=== PATIENT | female | born 1950 | race Two or more races ===

== ENCOUNTER → 2019-12-28 09:20 | Outpatient (BNVA) | payer MEDICARE, SELFPAY | PROVIDERS: Family Provider Family Medicine; PCP Family Medicine; Visit Provider Nurse Practitioner | DX: F31.4 Bipolar disorder, current episode depressed, severe, without psychotic features (principal); R53.82 Chronic fatigue, unspecified | CPT/HCPCS: 80061; 83036; 99213 ==

== ENCOUNTER 2020-02-22 17:47 | Emergency (ER) | payer MEDICARE, SELFPAY ==
[2020-02-22 18:19] VITALS: BP 176/99; PULSE 67; RESP 16; TEMP 37; O2SAT 94; BMI 22.8
[2020-02-22 18:31] VITALS: BP 185/112; PULSE 69; RESP 17; O2SAT 95
--- NOTE | 2020-02-22 19:10 | CTR_ITS ---
PROCEDURE INFORMATION: Exam: CT Head Without Contrast Exam date and time: 02/22/2020 7:25 PM Age: 69 years old Clinical indication: Pain; Dizziness and other: N/v; Headache; Additional info: Symptoms of acute stroke TECHNIQUE: Imaging protocol: Computed tomography of the head without contrast. Radiation optimization: All CT scans at this facility use at least one of these dose optimization techniques: automated exposure control; mA and/or kV adjustment per patient size (includes targeted exams where dose is matched to clinical indication); or iterative reconstruction. COMPARISON: CR Skull Limited [id number] 01/01/2019 1:58 PM RADIATION DOSE METRICS: Total DLP: 839.42 mGy-cm FINDINGS: Brain: Normal. No hemorrhage. Unremarkable white matter. No mass effect. Ventricles: Normal. No ventriculomegaly. Bones/joints: Unremarkable. No acute fracture. Sinuses: Visualized sinuses are unremarkable. No fluid levels. Mastoid air cells: Visualized mastoid air cells are well aerated. Soft tissues: Unremarkable. CT/CT head wo con* [id number] IMPRESSION: 1. No acute intracranial abnormality. 2. Aspects score 10 Radiation Dose CTDIVOL = (mGy): DLP = 839.42 (mGy-cm)
--- NOTE | 2020-02-22 19:10 | ECG_ITS ---
Measurements Intervals [place] Rate: 63 P: 66 [place]: 188 QRS: 40 QRSD: 113 T: 57 QT: 436 QTc: 446 SINUS RHYTHM INCOMPLETE RIGHT BUNDLE BRANCH BLOCK [90+ ms QRS DURATION, TERMINAL R IN V1/V2, 40+ ms S IN I/aVL/V4/V5/V6] Compared to ECG 04/16/2019 08:42:24 No significant changes Electronically Signed On 02-23-2020 16:19:39 CDT by Harmeet Schulte M.D. [id number]
--- NOTE | 2020-02-22 19:10 | XRR_ITS ---
PROCEDURE INFORMATION: Exam: XR Chest, 1 View Exam date and time: 02/22/2020 7:42 PM Age: 69 years old Clinical indication: Pain; Other: Dizziness, n/v; Other: GUSTAFSON; Prior surgery; Patient HX: H/o breast CA; Additional info: Dizziness, GUSTAFSON, & n/v since last night TECHNIQUE: Imaging protocol: XR of the chest Views: 1 view. COMPARISON: CR Chest 2 views* [id number] 04/20/2019 10:53 PM FINDINGS: Lungs: Evidence of antecedent granulomatous disease. No evidence for active interstitial or alveolar airspace disease. Pleural space: Unremarkable. No pleural effusion. No pneumothorax. Heart/Mediastinum: Mild cardiomegaly. Bones/joints: Age-appropriate degenerative disease. XR/XR chest 1V portable [id number] IMPRESSION: Nonacute.
[2020-02-22] MEDS: ondansetron 2 mg/ML SDV 2 mL 4 MG IVP (19:22)
[2020-02-22] MEDS: fentaNYL 50 mcg/mL INJ 2mL 100 MCG IVP (19:22)
[2020-02-22 19:29] LABS: INR 0.92 (0.8-1.2); Partial Thromboplastin Time 29.4 SECONDS (23.9-36.7)
[2020-02-22 19:33] LABS: Basophils % 0.3 %; Eosinophils # 0.1 10^3/uL (0.0-0.8); Eosinophils % 2.4 %; Hematocrit 39.5 % (37.0-47.0); Hemoglobin 12.7 g/dL (11.5-15.3); Lymphocytes # 1.5 10^3/uL (0.8-4.8); Lymphocytes % 39.7 %; Mean Corpuscular HGB Conc 32.2 g/dL (30.0-36.0); Mean Corpuscular Hemoglobin 29.5 pg (28.0-34.0); Mean Corpuscular Volume 91.6 fL (81-99); Mean Platelet Volume 9.1 fL (7.4-10.4); Monocytes # 0.3 10^3/uL (0.2-0.9); Monocytes % 8.2 %; Neutrophils # 1.9 10^3/uL (1.8-7.7); Neutrophils % 49.4 %; Nucleated Red Blood Cells % 0 %; Platelet Count 233 10^3/cmm (130-400); Red Blood Count 4.31 10^6/uL (4.1-5.3); Red Cell Distribution Width 11.7 % (12.1-15.1); White Blood Count 3.8 10^3/uL (4.0-10.0)
[2020-02-22 19:34] LABS: Alanine Aminotransferase 15 U/L (0-33); Albumin Level 4.5 g/dL (3.5-5.2); Alkaline Phosphatase 62 IU/L (35-105); Anion Gap 13.8 (5-19); Aspartate Amino Transferase 21 U/L (0-32); Blood Urea Nitrogen 10 mg/dL (8-23); Calcium 9.6 mg/dL (8.5-10.5); Carbon Dioxide 32 mmol/L (22-29); Chloride 97 mmol/L (98-107); Globulin 2.9 g/dL (1.3-4.6); Glomerular Filtration Rate 70.9 mL/min (90-130); Glucose 106 mg/dL (65-115); Osmolality Calculated 284 mOsm/kg (285-295); Potassium 3.8 mmol/L (3.5-5.1); Sodium 139 mmol/L (136-145); Total Bilirubin 0.3 mg/dL (0.15-1.2); Total Protein 7.4 g/dL (6.6-8.7)
[2020-02-22 21:22] VITALS: BP 167/96; PULSE 77; RESP 18; O2SAT 97
[2020-02-22 22:06] LABS: Add Urine Microscopic? YES; Bilirubin Urine Neg (NEGATIVE); Blood Urine 2+ (Negative); Glucose Urine UA Norm (Normal); Ketones Urine Negative (Negative); Leukocyte Esterase Urine Negative (Negative); Nitrate Urine Negative (Negative); Protein Urine Neg (Negative); Specific Gravity, Urine 1.015 (1.005-1.030); Urine Appearance Clear (CLEAR); Urine Color Yellow (Yellow); Urobilinogen Urine Norm (Negative); pH Urine 6 (5-7)
[2020-02-22] MEDS: hyDRALAzine 20 mg/mL INJ 1 mL 10 MG IVP (22:08)
[2020-02-22 22:10] VITALS: BP 175/87; PULSE 78; RESP 18; O2SAT 97
[2020-02-22 22:24] LABS: RBC Urine 0-4 /hpf (0-2)
[2020-02-22 22:25] LABS: Bacteria Urine TRACE; Renal Epithelial Cells Urine 0 /hpf; Squamous Epithelial Cell Urine 15-25 (0-5)
[2020-02-22 23:00] VITALS: BP 172/84; PULSE 72; RESP 16; O2SAT 98
[2020-02-22 23:12] VITALS: BP 178/84; PULSE 72; RESP 16; O2SAT 97
--- NOTE | 2020-02-23 03:34 | ED_ITS ---
HPI - Neuro Symptoms/Deficit General: Chief Complaint: Neuro Symptoms/Deficit Stated Complaint: head pain, feels disoriented Time Seen by Provider: 02/22/20 18:47 History of Present Illness: HPI Narrative: 69-year-old female presents to the emergency department with a complaint of a headache. She states that she has headaches every day, but last night, she had a significant headache, so much so that she was in tears despite taking her home dose of morphine. She also had some symptoms of dizziness, unsteadiness on her feet, and trouble with language. The symptoms are improved somewhat today, but she still has a significant headache, and is still having problems with concentration, etc. She became worried as there is a history of aneurysm in her family. Onset (ago): hour(s) Location: speech and left face History of same: No Severity: severe Relieving factors: none Associated symptoms: Reports vomiting; Deny chest pain, syncope or vertigo Review of Systems Const: Denies: fever or chills Eyes: Denies: blurry vision ENMT: Denies: painful swallowing or facial/sinus pain Card: Denies: chest pain or syncope Resp: Denies: shortness of breath, productive cough, non-productive cough or wheezing GI: Reports: vomiting : Denies: painful urination, urinary frequency, urinary urgency or blood in urine Musc: Denies: neck pain, back pain, redness or joint warmth Skin/Breast: Denies: rash, itching or redness Neuro: Denies: vertigo Psych: Denies: anxiety PFSH ED PFSH: Social History Smoking and tobacco status: former smoker Quit status (tobacco): has quit using tobacco Year quit tobacco: 1997 Second hand smoke exposure: No Alcohol intake: never NIH stroke score NIHSS: Level Of Consciousness - 1a: 0 Level Of Consciousness Questions - 1b: Both Correct Level Of Consciousness Commands - 1c: Both Correct Best Gaze - 2: Normal Visual Mehta - 3: No Visual Loss Facial Palsy - 4: Normal Motor Arm Right - 5: No Drift Motor Arm Left - 5: No Drift Motor Leg Right - 6: No Drift Motor Leg Left - 6: No Drift Limb Ataxia - 7: Absent Sensory - 8: Normal Best Language - 9: No Aphasia Dysarthia - 10: Normal Extinction And Inattention - 11: 0 Score: Total Score: 0 Physical Exam Const: GENERAL APPEARANCE: well developed ORIENTATION/CONSCIOUSNESS: Yes oriented to person, Yes oriented to place and Yes oriented to time HENMT: COMMON NORMALS: normocephalic, external ears normal and external nose normal HEAD & SCALP: normocephalic FACE & SINUS: normal facial exam NOSE: external nose normal and no nasal discharge EXTERNAL EAR: Yes external ears normal MOUTH: tongue normal THROAT: posterior oropharynx normal; no peritonsillar mass Eye: COMMON NORMALS: PERRL, EOMs intact bilaterally and conjunctivae normal EYELID: eyelids normal CONJUNCTIVA: Yes conjunctivae normal PUPIL: Yes PERRL Neck/C-Spine: GENERAL: No tracheal deviation Chest: COMMONS NORMALS: inspection of chest normal CHEST: No tenderness Resp: COMMON NORMALS: clear to auscultation bilaterally EFFORT & INSPECTION: No tachypneic, No respiratory distress, No retractions, No uses accessory muscles and No tracheal deviation AUSCULTATION: clear to auscultation bilaterally, no rhonchi, no wheezes and lung sounds not diminished Cardio: COMMON NORMALS: regular rate and regular rhythm RATE: regular rate RHYTHM: regular rhythm HEART SOUNDS: no murmurs PERIPHERAL PULSES: radial pulses present GI: INSPECTION: No abdominal distension AUSCULTATION: No hyperactive bowel sounds and No hypoactive bowel sounds PALPATION: No guarding and No rigid PERCUSSION: no dullness to percussion and no tympanic to percussion Neuro: SENSORIUM/ORIENTATION: Yes oriented to person, Yes oriented to place and Yes oriented to time Psych: COMMON NORMALS: mental status grossly normal Skin: COMMON NORMALS: no rashes or lesions noted GENERAL SKIN EXAM: no rashes or lesions noted Course Vital Signs: Vital signs: Vital Signs Temperature 98.6 F 02/22/20 18:19 Pulse Rate 72 02/22/20 23:12 Respiratory Rate 16 02/22/20 23:12 Blood Pressure 178/84 02/22/20 23:12 Pulse Oximetry 97 02/22/20 23:12 MDM - Neuro Symptoms/Deficit MDM Narrative: Medical decision making narrative: 69-year-old female with a headache and some transient neurological symptoms. Her blood pressure was high on arrival, it remains high. She was given hydralazine with some improvement. She usually does not take blood pressure medication. She is going to check her blood pressure twice daily for the next several days, and report numbers to her physician. She knows to return for any return of her symptoms. Her headache is significantly improved after the fentanyl. Lab Data: Labs: Lab Results 02/22/20 02/22/20 02/22/20 Range/Units 18:36 18:36 18:36 WBC 3.8 L (4.0-10.0) 10^3/ uL RBC 4.31 (4.1-5.3) 10^6/u L Hgb 12.7 (11.5-15.3) g/dL Hct 39.5 (37.0-47.0) % MCV 91.6 (81-99) fL MCH 29.5 (28.0-34.0) pg MCHC 32.2 (30.0-36.0) g/dL RDW 11.7 L (12.1-15.1) % Plt Count 233 (130-400) 10^3/c mm MPV 9.1 (7.4-10.4) fL Neut % (Auto) 49.4 % Lymph % (Auto) 39.7 % [place] % (Auto) 8.2 % Eos % (Auto) 2.4 % Baso % (Auto) 0.3 % Neut # (Auto) 1.9 (1.8-7.7) 10^3/u L Lymph # (Auto) 1.5 (0.8-4.8) 10^3/u L [place] # (Auto) 0.3 (0.2-0.9) 10^3/u L Eos # (Auto) 0.1 (0.0-0.8) 10^3/u L Baso # (Auto) 0.0 (0.0-0.1) 10^3/u L Nucleated RBC % (a uto) 0 % Nucleated RBCs # 0.0 /100WBC PT 12.60 (10.5-13.3) SECO NDS INR 0.92 (0.8-1.2) APTT 29.4 (23.9-36.7) SECO NDS Sodium 139 (136-145) mmol/L Potassium 3.8 (3.5-5.1) mmol/L Chloride 97 L (98-107) mmol/L Carbon Dioxide 32 H (22-29) mmol/L Anion Gap 13.8 (5-19) BUN 10 (8-23) mg/dL Creatinine 0.8 (0.5-0.9) mg/dL GFR Calculation 70.9 L (90-130) mL/min Glucose 106 (65-115) mg/dL Calculated Osmolal ity 284 L (285-295) mOsm/k g Calcium 9.6 (8.5-10.5) mg/dL Total Bilirubin 0.3 (0.15-1.2) mg/dL AST 21 (0-32) U/L ALT 15 (0-33) U/L Alkaline Phosphata se 62 (35-105) IU/L Total Protein 7.4 (6.6-8.7) g/dL Albumin 4.5 (3.5-5.2) g/dL Globulin 2.9 (1.3-4.6) g/dL Urine Color (Yellow) Urine Appearance (CLEAR) Urine pH (5-7) Ur Specific Gravit y (1.005-1.030) Urine Protein (Negative) Urine Glucose (UA) (Normal) Urine Ketones (Negative) Urine Blood (Negative) Urine Nitrate (Negative) Urine Bilirubin (NEGATIVE) Urine Urobilinogen (Negative) mg/dL Ur Leukocyte Rose Mary ase (Negative) Urine RBC (0-2) /hpf Urine WBC (0-5) /hpf Ur Squamous Epith Cells (0-5) Ur Transition Epit h Cell /hpf Ur Renal Epithelia l Cell /hpf Urine Bacteria (NONE) Urine Yeast 02/22/20 Range/Units 19:30 WBC (4.0-10.0) 10^3/ uL RBC (4.1-5.3) 10^6/u L Hgb (11.5-15.3) g/dL Hct (37.0-47.0) % MCV (81-99) fL MCH (28.0-34.0) pg MCHC (30.0-36.0) g/dL RDW (12.1-15.1) % Plt Count (130-400) 10^3/c mm MPV (7.4-10.4) fL Neut % (Auto) % Lymph % (Auto) % [place] % (Auto) % Eos % (Auto) % Baso % (Auto) % Neut # (Auto) (1.8-7.7) 10^3/u L Lymph # (Auto) (0.8-4.8) 10^3/u L [place] # (Auto) (0.2-0.9) 10^3/u L Eos # (Auto) (0.0-0.8) 10^3/u L Baso # (Auto) (0.0-0.1) 10^3/u L Nucleated RBC % (a uto) % Nucleated RBCs # /100WBC PT (10.5-13.3) SECO NDS INR (0.8-1.2) APTT (23.9-36.7) SECO NDS Sodium (136-145) mmol/L Potassium (3.5-5.1) mmol/L Chloride (98-107) mmol/L Carbon Dioxide (22-29) mmol/L Anion Gap (5-19) BUN (8-23) mg/dL Creatinine (0.5-0.9) mg/dL GFR Calculation (90-130) mL/min Glucose (65-115) mg/dL Calculated Osmolal ity (285-295) mOsm/k g Calcium (8.5-10.5) mg/dL Total Bilirubin (0.15-1.2) mg/dL AST (0-32) U/L ALT (0-33) U/L Alkaline Phosphata se (35-105) IU/L Total Protein (6.6-8.7) g/dL Albumin (3.5-5.2) g/dL Globulin (1.3-4.6) g/dL Urine Color Yellow (Yellow) Urine Appearance Clear (CLEAR) Urine pH 6 (5-7) Ur Specific Gravit y 1.015 (1.005-1.030) Urine Protein Neg (Negative) Urine Glucose (UA) Norm (Normal) Urine Ketones Negative (Negative) Urine Blood 2+ H (Negative) Urine Nitrate Negative (Negative) Urine Bilirubin Neg (NEGATIVE) Urine Urobilinogen Norm (Negative) mg/dL Ur Leukocyte Rose Mary ase Negative (Negative) Urine RBC 0-4 H (0-2) /hpf Urine WBC None (0-5) /hpf Ur Squamous Epith Cells 15-25 H (0-5) Ur Transition Epit h Cell 5-10 /hpf Ur Renal Epithelia l Cell 0 /hpf Urine Bacteria Trace (NONE) Urine Yeast Trace Discharge Plan Discharge Patient Disposition: Home, Self-Care Clinical Impression: Headache Qualifiers: Headache type: unspecified Headache chronicity pattern: acute headache Intractability: intractable Qualified Code(s): R51 - Headache Condition: Stable Prescriptions: No Action estradiol 2 mg tablet 2 mg PO DAILY RF: 0 silver sulfadiazine 1 % cream 1 applic TOPICAL DAILY RF: 0 morphine 30 mg tablet 30 mg PO Q6H PRNRF: 0 tizanidine 4 mg tablet 4 mg PO TID PRNRF: 0 budesonide 0.25 mg/2 mL suspension for nebulization 0.25 mg INHALATION BID RF: 0 diclofenac sodium 1 % gel 2 gm TOPICAL BID RF: 0 meloxicam [Mobic] 15 mg tablet 15 mg PO DAILY Qty: 30 RF: 0 dicyclomine 10 mg capsule 10 mg PO DAILY PRN (Reason: abdominal discomfort) Qty: 90 RF: 1 ondansetron HCl [Zofran] 4 mg tablet 4 mg PO DAILY PRN (Reason: nausea and vomiting) Qty: 90 RF: 1 diphenoxylate-atropine 2.5-0.025 mg tablet 1 tab PO DAILY PRN (Reason: diarrhea) Qty: 90 RF: 1 levothyroxine 112 mcg capsule 112 mcg PO QDAY RF: 0 quetiapine [Seroquel] 100 mg tablet 300 mg PO DAILY Qty: 90 RF: 2 lamotrigine [Lamictal] 150 mg tablet 300 mg PO DAILY Qty: 60 RF: 2 escitalopram oxalate [Lexapro] 10 mg tablet 10 mg PO .QHS Qty: 30 RF: 2 cetirizine 10 mg tablet 10 mg PO DAILY Qty: 90 RF: 1 Discharge Orders: Discharge Order (Routine); Ordered 02/22/20 Ordered By: Pietro Willoughby Referrals: Amy Malone DO [Primary Care Provider] - Discharge Diet: Advance as tolerated Discharge Activity: Increase activity as tolerated Patient Instructions: Acute Headache (ED) Activity Restrictions/Additional Instructions: Return to the emergency department for worsening mental status, vomiting, trouble with speech, weakness to one side, other concerning symptoms. Check your blood pressure twice daily and report numbers to your physician. Discharge Date/Time: 02/22/20 23:14 Coding Level of Care Code ED Hand Thermal Cutter for Andrea Roth
== END 2020-02-22 23:14 | disposition home or self-care (01) ==
PROVIDERS: Emergency Provider Emergency Medicine; Family Provider Family Medicine; PCP Family Medicine
DX: R51 Headache (principal); Z87.891 Personal history of nicotine dependence
CPT/HCPCS: 12345; 70450; 71045; 80053; 81001; 85025; 85610; 85730; 93005; 96374; 96375; 99283; 99284; J0360; J2405; J3010

== ENCOUNTER → 2020-03-21 08:23 | Outpatient (BNVA) | payer MEDICARE, SELFPAY | PROVIDERS: Family Provider Family Medicine; PCP Family Medicine; Visit Provider Nurse Practitioner | DX: R53.82 Chronic fatigue, unspecified (principal); F31.4 Bipolar disorder, current episode depressed, severe, without psychotic features | CPT/HCPCS: 99213 ==

== ENCOUNTER → 2020-04-02 11:33 | Outpatient (BNVA) | payer MEDICARE, SELFPAY | PROVIDERS: Family Provider Family Medicine; PCP Family Medicine; Visit Provider Family Medicine | DX: Z12.31 Encounter for screening mammogram for malignant neoplasm of breast (principal); E03.9 Hypothyroidism, unspecified; N63.10 Unspecified lump in the right breast, unspecified quadrant | CPT/HCPCS: 80053; 80061; 84443; 85025 ==

== ENCOUNTER → 2020-04-16 13:57 | Outpatient (BNVA) | payer MEDICARE, SELFPAY | PROVIDERS: Family Provider Family Medicine; PCP Family Medicine; Visit Provider Orthopaedic Surgery | DX: Z98.890 Other specified postprocedural states (principal) | CPT/HCPCS: 73140 ==

== ENCOUNTER 2020-04-22 09:45 | Outpatient (CLI) | payer MEDICARE, SELFPAY ==
--- NOTE | 2020-04-22 10:30 | MM_ITS ---
WS: [id number] DIAGNOSTIC BILATERAL DIGITAL MAMMOGRAM WITH CAD RIGHT breast ultrasound, limited HISTORY: RIGHT BREAST LUMP, numerous prior biopsies LEFT breast. COMPARISON: 07/07/2018 and 10/06/2015 TECHNIQUE: Bilateral craniocaudad, mediolateral oblique, and mediolateral views are submitted. Spot c ompression RIGHT CC Computer aided detection utilized. Breast composition: The breasts are extremely dense, which lowers the sensitivity of mammography. Vol ume loss in the LEFT breast with areas of scarring which are stable. Probably from prior biopsies. Tr iangular marker is placed at the 6:00 axis in the area of the palpable abnormality. There is no under lying mass or distortion. RIGHT breast ultrasound, limited. Ultrasound is directed to the palpable abnormality. No abnormality is noted in the region of the palp able abnormality. During scanning there is a palpable nodule which is mobile. There is very slight hy perechoic echogenicity at the site of the palpable abnormality. No discrete mass seen by imaging. MM/[place] [id number] IMPRESSION: BI-RADS: 2-Benign FOLLOW UP: 1 Year Follow-up LACK OF RADIOGRAPHIC EVIDENCE OF MALIGNANCY SHOULD NOT DELAY BIOPSY IF A CLINIC ALLY SUSPICIOUS MASS IS PRESENT.
--- NOTE | 2020-04-22 11:00 | US_ITS ---
WS: [id number] DIAGNOSTIC BILATERAL DIGITAL MAMMOGRAM WITH CAD RIGHT breast ultrasound, limited HISTORY: RIGHT BREAST LUMP, numerous prior biopsies LEFT breast. COMPARISON: 07/07/2018 and 10/06/2015 TECHNIQUE: Bilateral craniocaudad, mediolateral oblique, and mediolateral views are submitted. Spot c ompression RIGHT CC Computer aided detection utilized. Breast composition: The breasts are extremely dense, which lowers the sensitivity of mammography. Vol ume loss in the LEFT breast with areas of scarring which are stable. Probably from prior biopsies. Tr iangular marker is placed at the 6:00 axis in the area of the palpable abnormality. There is no under lying mass or distortion. RIGHT breast ultrasound, limited. Ultrasound is directed to the palpable abnormality. No abnormality is noted in the region of the palp able abnormality. During scanning there is a palpable nodule which is mobile. There is very slight hy perechoic echogenicity at the site of the palpable abnormality. No discrete mass seen by imaging. US/US breast RT limited* [id number] IMPRESSION: BI-RADS: 2-Benign FOLLOW UP: 1 Year Follow-up LACK OF RADIOGRAPHIC EVIDENCE OF MALIGNANCY SHOULD NOT DELAY BIOPSY IF A CLINIC ALLY SUSPICIOUS MASS IS PRESENT.
== END 2020-04-22 09:46 | disposition home or self-care (01) ==
LOC: RADSHAW 09:57
PROVIDERS: PCP Family Medicine; Visit Provider Family Medicine
DX: N63.10 Unspecified lump in the right breast, unspecified quadrant (principal); R92.2 Inconclusive mammogram
CPT/HCPCS: 76642; 77066

== ENCOUNTER 2020-05-05 13:58 | Outpatient (CLI) | payer MEDICARE, SELFPAY ==
--- NOTE | 2020-05-05 14:45 | XR_ITS ---
WS: [id number] Bone mineral density performed on a [employer], 05/05/2020. Clinical data: post-menopausal Findings: The first 4 lumbar vertebral bodies demonstrated the bone mineral density of 1.217 g/cm2 for a young adult T score of 0.3. Measurement of the left hip reveals a bone mineral density of 0.857 g/cm2 with a young adult T score of -1.2. Measurement of the right hip reveals the bone mineral density of 0.821 g/cm2 for young adult T score of -1.5. XR/XR DEXA axial skeleton* [id number] Impression: 1. Normal bone mineral density of the lumbar spine. 2. Osteopenia of both hips.
== END 2020-05-05 13:59 | disposition home or self-care (01) ==
LOC: RADWPI 14:01
PROVIDERS: Family Provider Family Medicine; PCP Family Medicine; Visit Provider Family Medicine
DX: Z78.0 Asymptomatic menopausal state (principal); M85.88 Other specified disorders of bone density and structure, other site
CPT/HCPCS: 77080

== ENCOUNTER → 2020-06-23 08:30 | Outpatient (BNVA) | payer MEDICARE, SELFPAY | PROVIDERS: Family Provider Family Medicine; PCP Family Medicine; Visit Provider Nurse Practitioner | DX: F31.4 Bipolar disorder, current episode depressed, severe, without psychotic features (principal); R53.82 Chronic fatigue, unspecified; F43.12 Post-traumatic stress disorder, chronic | CPT/HCPCS: 99213 ==

== ENCOUNTER → 2020-08-22 18:22 | Outpatient (BNVA) | payer MEDICARE, SELFPAY | PROVIDERS: Family Provider Family Medicine; PCP Family Medicine; Visit Provider Nurse Practitioner Family | DX: Z20.828 Contact with and (suspected) exposure to other viral communicable diseases (principal); J40 Bronchitis, not specified as acute or chronic | CPT/HCPCS: 87635 ==

== ENCOUNTER → 2020-10-09 08:34 | Outpatient (BNVA) | payer MEDICARE, SELFPAY | PROVIDERS: Family Provider Family Medicine; PCP Family Medicine; Visit Provider Nurse Practitioner | DX: F31.4 Bipolar disorder, current episode depressed, severe, without psychotic features (principal); R53.82 Chronic fatigue, unspecified | CPT/HCPCS: 99213 ==

== ENCOUNTER → 2020-10-22 14:02 | Outpatient (BNVA) | payer MEDICARE, SELFPAY | PROVIDERS: Family Provider Family Medicine; PCP Family Medicine; Visit Provider Family Medicine | DX: E03.9 Hypothyroidism, unspecified (principal) | CPT/HCPCS: 84443 ==

== ENCOUNTER 2020-10-27 12:57 | Outpatient (CLI) | payer MEDICARE, SELFPAY ==
[2020-10-27 13:00] VITALS: BP 116/80; PULSE 70; RESP 16; TEMP 36.2; O2SAT 93
--- NOTE | 2020-10-27 13:23 | PC.NURSE ---
Pt A&O x4. Walking without assistance. States history of lung issues and cdiff. States she took Tylenol prior to arrival. States she has had Reclast before.
[2020-10-27 13:24] VITALS: BMI 23.0
--- NOTE | 2020-10-27 13:25 | PC.NURSE ---
Lungs clear bilat. States wears O2 at home prn. Denies SOB at this time
[2020-10-27 14:15] VITALS: BP 120/55; PULSE 57; RESP 16; O2SAT 95
--- NOTE | 2020-10-27 15:31 | PC.NURSE ---
1345 Infusion completed. No symptoms of reaction.
== END 2020-10-27 12:58 | disposition home or self-care (01) ==
LOC: RHEOACUTE 12:59
PROVIDERS: Family Provider Family Medicine; PCP Family Medicine; Visit Provider Internal Medicine Rheumatology
DX: M85.80 Other specified disorders of bone density and structure, unspecified site (principal)
CPT/HCPCS: 96365; J3489

== ENCOUNTER → 2021-01-13 07:35 | Outpatient (BNVA) | payer MEDICARE, SELFPAY | PROVIDERS: Family Provider Family Medicine; PCP Family Medicine; Visit Provider Nurse Practitioner | DX: F31.4 Bipolar disorder, current episode depressed, severe, without psychotic features (principal); R53.82 Chronic fatigue, unspecified | CPT/HCPCS: 99214 ==

== ENCOUNTER → 2021-01-19 15:39 | Outpatient (BNVA) | payer MEDICARE, SELFPAY | PROVIDERS: Family Provider Family Medicine; PCP Family Medicine; Visit Provider Nurse Practitioner | DX: S99.922A Unspecified injury of left foot, initial encounter (principal); X58.XXXA Exposure to other specified factors, initial encounter | CPT/HCPCS: 73630 ==

== ENCOUNTER → 2021-01-29 11:44 | Outpatient (BNVA) | payer MEDICARE, SELFPAY | PROVIDERS: Family Provider Family Medicine; PCP Family Medicine; Visit Provider Family Medicine | DX: E03.9 Hypothyroidism, unspecified (principal); M79.672 Pain in left foot; G89.29 Other chronic pain; M79.674 Pain in right toe(s); Z68.24 Body mass index [BMI] 24.0-24.9, adult; F17.211 Nicotine dependence, cigarettes, in remission | CPT/HCPCS: 84443 ==

== ENCOUNTER → 2021-02-11 13:44 | Outpatient (BNVA) | payer MEDICARE, SELFPAY | PROVIDERS: Family Provider Family Medicine; PCP Family Medicine; Referring Provider Family Medicine; Visit Provider Podiatrist Foot & Ankle Surgery | DX: M79.674 Pain in right toe(s) (principal); G89.29 Other chronic pain; M79.672 Pain in left foot | CPT/HCPCS: 73630 ==

== ENCOUNTER → 2021-03-02 11:02 | Outpatient (BNVA) | payer MEDICARE, SELFPAY | PROVIDERS: Family Provider Family Medicine; PCP Family Medicine; Visit Provider Podiatrist Foot & Ankle Surgery | DX: G89.29 Other chronic pain (principal); M79.674 Pain in right toe(s); M79.672 Pain in left foot; S92.502D Displaced unspecified fracture of left lesser toe(s), subsequent encounter for fracture with routine healing; X58.XXXD Exposure to other specified factors, subsequent encounter | CPT/HCPCS: 73630; 87635 ==

== ENCOUNTER 2021-03-06 06:50 | Day surgery (SDC) | payer MEDICARE, SELFPAY ==
[2021-03-05 16:14] VITALS: BMI 22.6
[2021-03-06] VITALS (11 sets, daily range): BP systolic 124–155; BP diastolic 52–86; PULSE 58–76; RESP 16–18; TEMP 36.3–36.8; O2SAT 90–99; BMI 24.0
--- NOTE | 2021-03-06 07:34 | ANES.PREANE2 ---
Pre-Anesthetic Assessment Pre-Anesthetic Assessment: Height/Weight: Height 1.75 m Weight 73.936 kg Temp Pulse Resp BP Pulse Ox 97.8 F 76 18 140/86 94 03/06/21 07:10 03/06/21 07:10 03/06/21 07:10 03/06/21 07:10 03/06/21 07:10 Preop Diagnosis: Left second hammertoe Proposed Procedure: Operation Date: 03/06/21 08:25 Proposed Procedures p Hammertoe Correction, left foot second toe 99274 M20.42(Left) - Fred Zelaya DPM Familial anesthetic complications: PONV many years ago Was Beta Amparo taken within 24 hours: N/A Was Clonidine taken within 24 hours: N/A Last intake: NPO > 8 hrs Social: Social History: No alcohol and No tobacco Exam: Pre-Anes Outpt Exam: alert, oriented x 3, clear to auscultation bilaterally and regular rate & rhythm Airway: Cervical ROM: WNL MP: 3 Dentition: False (uppers) Pulmonary: Comments: restrictive/obstructive lung disease after an episode of pneuomonia - no current difficulties breathing, good functional status. No STACY Metabolic: Metabolic: Thyroid Musc/skel: Comments: chronic pain - didn't take her oral morphine. Will give in pre-op Anesthetic Plan: ASA status: 2 Anesthesia: MAC Risk of > 500 ml blood loss (7ml/kg in children): No PFSH Anesthesia PFSH: Medical History Bipolar 1 disorder Bipolar disorder, current episode depressed, severe, without psychotic features Chronic fatigue syndrome Chronic nausea Fibromyalgia History of 2019 novel coronavirus disease (COVID-19) Hot flashes due to menopause Hypothyroidism IBS (irritable bowel syndrome) Mixed restrictive and obstructive lung disease Osteoarthritis Surgical History H/O: hysterectomy History of cholecystectomy History of foot surgery History of hand surgery left thumb IP joint fusion History of lumpectomy History of surgery on upper extremity Left shoulder - 1997 Family History Mother Cancer Grandmother Cancer Social History Smoking and tobacco status: former smoker Quit status (tobacco): has quit using tobacco Year quit tobacco: 1997 Second hand smoke exposure: No Alcohol intake: never Data Anesthesia Cardiac Studies: No Data to Display
[2021-03-06] MEDS: morphine IR 15 mg Tablet 30 MG PO (07:44)
[2021-03-06] MEDS: sodium chloride 0.9% 1,000 ML 30 ML IV (07:44)
--- NOTE | 2021-03-06 07:51 | W.PM.OPSUD ---
Surgery/Procedure H&P Update DATE OF PROCEDURE: March 06, 2021 DATE H&P PERFORMED: 03/02/21 H&P UPDATE INFORMATION: I have reviewed H&P completed within last 30 days, I have examined patient prior to procedure, No changes to prior documentation and H&P is in [facility] [place] EMR on date indicated PREOP DIAGNOSIS: Left second hammertoe PLANNED PROCEDURE: Operation Date: 03/06/21 08:25 Proposed Procedures p Hammertoe Correction, left foot second toe 19570 M20.42(Left) - Fred Zelaya DPM
--- NOTE | 2021-03-06 09:09 | P.OP_ITS ---
Operative Report Date of procedure: March 06, 2021 Pre-op Diagnosis: Left second hammertoe Post-op diagnosis: same Post-op Findings: Hammertoe left second digit with pseudoarthrosis Procedure Done: Left second hammertoe repair CPT code 90865 Implants: [place] 28 hammer tube 2.75 mm 0 degree angle, 4-0 Vicryl, 4-0 nylon. Specimens removed/disposition: None Pathology: none sent Surgeon: Fred Zelaya D.P.M. Respiratory Services Manager: Efraín Anesthesia: MAC Estimated blood loss: Less than 5 mL Tourniquet time: 25 IV fluids: None Urine output: None Complications: None Condition: stable Disposition: PACU Brief History: Patient is a pleasant 70-year-old female who has a history of hammertoe correction she had a traumatic injury on her left second toe having a fracture and recurrence of hammertoe deformity at the proximal interphalangeal joint left second toe treated initially conservatively for 6 weeks with protected weightbearing in a cam boot. No interval of healing appreciate on x- ray and patient has continued swelling and pain. Recommended revisional hammertoe correction with implant with arthrodesis at the proximal interphalangeal joint left second toe. Risks include pain, bleeding, numbness, infection, pseudarthrosis, delayed union, malunion, nonunion, angular deformity of the hammertoe and recurrence of hammertoe, loss of function, decreased strength at left second toe both dorsiflexion and plantar flexion and need for further surgical intervention. Also risk for hardware failure and hardware irritation and need for hardware explant. Patient interviewed preoperatively she has been n.p.o. since midnight. I initialed the patient's left foot. Informed consent signed by myself and patient. No guarantees written, expressed or implied. Patient wishes to proceed. Procedure: Under mild sedation the patient was brought to the operating room and remained on the gurney that she was placed on preoperatively in preop holding. She remained on the gurney without transfer to the OR table. Timeout was performed. Anesthesia was managed by the anesthesia service. 10 cc of 0.5 Marcaine plain utilized as local block at the left second ray. Well-padded pneumatic tourniquet applied to left ankle. Left lower extremity was then scrubbed, prepped and draped utilizing normal aseptic technique. Left foot was examined a weighted with an Esmarch bandage and a tourniquet inflated to 250 mmHg. Attention was directed to the dorsal aspect of the left second toe where a linear longitudinal incision was made over the previous cicatrix with a #15 bl saeed with dissection carried down to the layer of extensor tendon which was transected from medial to lateral at the level of the proximal interphalangeal joint. The head of the proximal phalanx and base of the intermediate phalanx were denuded of the articular surface the incision was then flushed with saline solution. Next utilizing a [place] 28 hammer tube implant 2.75 mm 0 degree angle was inserted at the proximal interphalangeal joint with excellent bony apposition and compression noted intraoperative fluoroscopy utilized to confirm compression at the arthrodesis site and the rectus second toe. Incision was flushed with saline solution and extensor tendon reapproximated utilizing 4-0 Vicryl. Skin closed utilizing 4-0 nylon. Incision was dressed with Adaptic, sterile 4 x 4, Kerlix and Anup wrap. Cam boot was applied to the left lower extremity. Tourniquet was deflated and a prompt hyperemic response is noted to the distal digits of the left foot. Patient tolerated the procedure and anesthesia well and was transferred to the PACU with vital signs stable and vascular status intact. Following a period of postoperative monitoring she will be discharged home with postoperative instructions on discharge paperwork.
[2021-03-06] MEDS: fentaNYL 50 mcg/mL INJ 2mL IVP (09:20)
--- NOTE | 2021-03-06 09:20 | XR_ITS ---
WS: [id number] Left foot, 3 views, 03/06/2021 Clinical Data: post op Comparison: Left foot, 03/02/2021. Findings: The patient has an artificial joint at the second PIP joint of the left foot. Postsurgical changes with 3 orthopedic screws in the mid left first metatarsal and an oblique screw a t the base of the left first proximal phalanx are seen. There are also 2 orthopedic screws in the hea ds of the third and fourth metatarsals. XR/XR foot LT min 3V* [id number] Impression: Operative changes of the left first, third and fourth metatarsals and the left first and second toes of the foot
[2021-03-06] MEDS: HYDROmorphone 1 mg/mL INJ 1 mL 0.5 MG IVP (09:35)
--- NOTE | 2021-03-06 09:52 | SUR.PHASEI ---
0910 PT TO PACU AWAKE CRYING WITH PAIN PT DENIES FOOT PAIN LT FOOT DRESSING AND BOOT D/I ELEVATED PT C/O OF NECK PAIN, PILLOW ADJUSTED SEE 50 FENTANYL GIVEN BY RESEARCH AIDE AT BEDSIDE 0920 PT CONTINUES TO CRY AND RESTLESS IN BED WITH NECK PAIN PT STATES THIS IS CHRONIC PAIN, SEE MED GIVEN 0935 SEE PAIN MED GIVEN FENTANYL HAS BEEN GIVEN TWICE IN PACU, PT AWAKE ALERT CRYING X RAY HERE. 0954 PT MORE RELAXED SATS 94-96% ON 3LNC VSS WILL GIVE REPORT TO OPS PT SEEMS MORE RELAXED BUT STILL C/O OF PAIN
--- NOTE | 2021-03-06 13:15 | ANE.PACU2 ---
Inpatient post-anesthesia follow up: Airway intact: Yes Vital signs: Temperature 97.4 F Pulse Rate 58 Respiratory Rate 16 Blood Pressure 133/53 Pulse Oximetry 99 Oxygen Delivery Me thod Nasal Cannula Oxygen Flow Rate 3 Fraction of Inspir ed Oxygen Hydration adequate: Yes Nausea and vomiting: No Pain level: 1 Mental status: Baseline
== END 2021-03-06 10:30 | disposition home or self-care (01) ==
PROVIDERS: PCP Family Medicine; Visit Provider Podiatrist Foot & Ankle Surgery
PROC: (CPT 28285; principal; 2021-03-06 08:15)
DX: M20.42 Other hammer toe(s) (acquired), left foot (principal); F31.9 Bipolar disorder, unspecified; M79.7 Fibromyalgia; E03.9 Hypothyroidism, unspecified; M19.90 Unspecified osteoarthritis, unspecified site; Z87.891 Personal history of nicotine dependence
CPT/HCPCS: 28285; 73630; 96365; C1713; C9290; J0690; J1170; J2704; J3010; J3490; J7030

== ENCOUNTER → 2021-04-02 11:01 | Outpatient (BNVA) | payer MEDICARE, SELFPAY | PROVIDERS: PCP Family Medicine; Visit Provider Podiatrist Foot & Ankle Surgery | DX: Z98.890 Other specified postprocedural states (principal); M20.42 Other hammer toe(s) (acquired), left foot | CPT/HCPCS: 73630 ==

== ENCOUNTER → 2021-04-09 08:09 | Outpatient (BNVA) | payer MEDICARE, SELFPAY | PROVIDERS: PCP Family Medicine; Visit Provider Nurse Practitioner | DX: F31.4 Bipolar disorder, current episode depressed, severe, without psychotic features (principal); R53.82 Chronic fatigue, unspecified | CPT/HCPCS: 99214 ==

== ENCOUNTER → 2021-04-14 15:21 | Outpatient (BNVA) | payer MEDICARE, SELFPAY | PROVIDERS: PCP Family Medicine; Visit Provider Family Medicine | DX: E03.9 Hypothyroidism, unspecified (principal) | CPT/HCPCS: 84443 ==

== ENCOUNTER → 2021-04-17 13:56 | Outpatient (BNVA) | payer MEDICARE, SELFPAY | PROVIDERS: PCP Family Medicine; Visit Provider Podiatrist Foot & Ankle Surgery | DX: Z47.89 Encounter for other orthopedic aftercare (principal); Z96.698 Presence of other orthopedic joint implants | CPT/HCPCS: 73630 ==

== ENCOUNTER → 2021-05-08 14:11 | Outpatient (BNVA) | payer MEDICARE, SELFPAY | PROVIDERS: PCP Family Medicine; Visit Provider Podiatrist Foot & Ankle Surgery | DX: Z47.1 Aftercare following joint replacement surgery (principal); Z96.698 Presence of other orthopedic joint implants | CPT/HCPCS: 73630 ==

== ENCOUNTER 2021-06-03 13:16 | Outpatient (CLI) | payer MEDICARE, OTHER, SELFPAY ==
--- NOTE | 2021-06-03 13:27 | MM_ITS ---
WS: [id number] BILATERAL DIGITAL SCREENING MAMMOGRAPHY WITH CAD CLINICAL INFORMATION: SCREENING HISTORY: Screening mammogram. No current complaints. COMPARISON: April 22, 2020 TECHNIQUE: Bilateral CC and MLO views. FINDINGS: The breasts are composed of heterogeneous fibroglandular density tissue, which can limit the detectio n of small underlying mass lesions. A few punctate and lucent centered calcifications. No suspicious mass, asymmetry, calcifications, or architectural distortion. No evidence of malignancy. MM/[place] [id number] IMPRESSION: BI-RADS: 2-Benign FOLLOW UP: 1 Year Follow-up Recommend return to annual screening mammography.
== END 2021-06-03 13:17 | disposition home or self-care (01) ==
LOC: RADSHAW 13:24
PROVIDERS: PCP Family Medicine; Visit Provider Family Medicine
DX: Z12.31 Encounter for screening mammogram for malignant neoplasm of breast (principal)
CPT/HCPCS: 73630; 77067

== ENCOUNTER → 2021-07-06 11:30 | Outpatient (BNVA) | payer MEDICARE, OTHER, SELFPAY | PROVIDERS: PCP Family Medicine; Visit Provider Podiatrist Foot & Ankle Surgery | DX: Z01.818 Encounter for other preprocedural examination (principal); Z20.822 Contact with and (suspected) exposure to COVID-19 | CPT/HCPCS: 87635 ==

== ENCOUNTER → 2021-07-09 08:18 | Outpatient (BNVA) | payer MEDICARE, OTHER, SELFPAY | PROVIDERS: PCP Family Medicine; Visit Provider Nurse Practitioner | DX: F31.4 Bipolar disorder, current episode depressed, severe, without psychotic features (principal); R53.82 Chronic fatigue, unspecified | CPT/HCPCS: 99214 ==

== ENCOUNTER 2021-07-10 05:49 | Day surgery (SDC) | payer MEDICARE, OTHER, SELFPAY ==
[2021-07-09 10:32] VITALS: BMI 24.3
[2021-07-10] VITALS (12 sets, daily range): BP systolic 93–140; BP diastolic 43–87; PULSE 55–69; RESP 12–22; TEMP 36.1–37; O2SAT 91–97
[2021-07-10] MEDS: sodium chloride 0.9% 1,000 ML 30 ML IV (06:26)
--- NOTE | 2021-07-10 06:43 | P.HPUD_ITS ---
Surgery/Procedure H&P Update DATE OF PROCEDURE: July 10, 2021 DATE H&P PERFORMED: 07/10/21 H&P UPDATE INFORMATION: I have reviewed H&P completed within last 30 days, I have examined patient prior to procedure, No changes to prior documentation and H&P is in [facility]MR on date indicated PREOP DIAGNOSIS: Left second toe fracture PLANNED PROCEDURE: Operation Date: 07/10/21 07:00 Proposed Procedures p Deep Hardware Removal 40452 18722 S92.919K S92.502A(Left) - Fred Zelaya DPM s ORIF of the left second toe fracture(Left) - Fred Zelaya DPM
--- NOTE | 2021-07-10 06:43 | PM.OPSURHP ---
Providers/Chief Complaint Primary Care Provider: January Whitehead DO Chief Complaint: Subsequent encounter for fracture with nonunion History of Present Illness 70 year old female patient here for her post op follow up of her a hammertoe left second digit with pseudoarthrosis, DOS: 03-06-2021. Patient still has some swelling present of her second toe. Patient is currently weight bearing in regular shoe states that she still has some pain present with activity and swelling. Patient describes the pain as a throb and rates her pain during that time at a 71/2 and at bottom of foot. Patient denies any subjective nausea, vomiting, fever, chills, shortness of breath or chest pain Review of Systems General: Reports: 10 or more systems reviewed and unremarkable except in HPI and below Const: Denies: fever(s) or chills Eyes: Denies: change in vision Card: Denies: chest pain or palpitations Resp: Denies: dyspnea or productive cough GI: Denies: abdominal pain, nausea or vomiting : Denies: flank pain Musc: Reports: extremity pain, joint pain, joint stiffness, limited range of motion and deformity Skin/Breast: Reports: skin tenderness; Denies: rash Neuro: Reports: difficulty walking; Denies: numbness in extremities, sensory changes or frequent falls Psych: Denies: suicidal ideation Henrik/Lymph: Denies: easy bruising Medications/Allergies Home Medications Medication Instructions Recorded Confirmed Last Taken Type budesonide 0.25 mg/2 mL suspension 0.25 mg INHALATION BID 12/25/19 07/09/21 03/06/21 05:30 History for nebulization morphine 30 mg immediate release 30 mg PO Q6H PRN 12/25/19 07/10/21 07/09/21 History tablet tizanidine 4 mg tablet 4 mg PO TID PRN 12/25/19 07/09/21 03/05/21 23:00 History ondansetron HCl 4 mg tablet 4 mg PO DAILY PRN #90 tab 07/30/20 07/09/21 Unknown Rx dicyclomine 10 mg capsule 10 mg PO DAILY PRN #90 cap 01/13/21 07/09/21 Unknown Rx diphenoxylate-atropine 2.5 1 tab PO DAILY PRN #90 tab 01/13/21 07/09/21 Unknown Rx mg-0.025 mg tablet cetirizine 10 mg tablet 10 mg PO DAILY #90 tab 02/05/21 07/09/21 03/05/21 23:00 Rx estradiol 2 mg tablet 2 mg PO ONCE 90 Days #90 tab 04/09/21 07/10/21 07/09/21 Rx levothyroxine 88 mcg tablet 88 mcg PO DAILY 90 Days #90 tab 04/16/21 07/10/21 07/09/21 Rx Bone stem #1 ea 04/28/21 07/08/21 Unknown Rx diclofenac sodium 1 % topical gel 2 g TOPICAL BID #100 g 05/11/21 07/09/21 Unknown Rx silver sulfadiazine 1 % topical 1 applic TOPICAL . NEEDED 30 06/08/21 07/09/21 Unknown Rx cream Days #85 g Allergies Allergy/AdvReac Type Severity Reaction Status Date / Time adhesive tape Allergy ADR-Itching Verified 07/09/21 10:28 sumatriptan [From Imitrex] Allergy ADR-Dry Verified 07/08/21 13:58 Mucus Membranes Macrolide Antibiotics AdvReac C Diff Verified 07/08/21 13:58 PFSH PFSH: Medical History Bipolar 1 disorder Bipolar disorder, current episode depressed, severe, without psychotic features Chronic fatigue syndrome Chronic nausea Fibromyalgia History of 2019 novel coronavirus disease (COVID-19) Hot flashes due to menopause Hypothyroidism IBS (irritable bowel syndrome) Mixed restrictive and obstructive lung disease Osteoarthritis Surgical History H/O: hysterectomy History of cholecystectomy History of foot surgery History of hand surgery left thumb IP joint fusion History of lumpectomy History of surgery on upper extremity Left shoulder - 1997 Family History Mother Cancer Grandmother Cancer Social History Smoking and tobacco status: never smoked Quit status (tobacco): has quit using tobacco Year quit tobacco: 1997 Second hand smoke exposure: No Alcohol intake: never Dietary Habits: Caffeine: Yes Caffeine intake frequency: carbonated beverages Vital Signs Vitals Signs: Last Vital Signs Temp 98.6 F 07/10/21 06:09 Pulse 69 07/10/21 06:09 Resp 18 07/10/21 06:09 BP 114/58 07/10/21 06:09 Pulse Ox 94 07/10/21 06:09 Weight: Weight last 48 hrs Weight 165 lb Physical Exam Narrative: EXAM NARRATIVE: Patient is alert and oriented ?3 and in no acute distress. The following is a focused left lower extremity exam. VASCULAR: Dorsalis pedis and posterior tibial arteries palpable +2. Capillary refill time less than 3 seconds to the distal hallux bilaterally. Calf is supple and nontender proximally and distally. Localized edema to the left second toe. NEUROLOGICAL: Protective sensation intact to light touch. DERMATOLOGICAL: Well-healed incision site to the left second toe without dehiscence erythema or warmth. MUSCULOSKELETAL: Tenderness to patient at the left second toe at the proximal interphalangeal joint. No pain with posterior calf squeeze. Muscle strength 5 out of 5 in all 3 cardinal planes to the bilateral foot and ankle. CARDIOVASCULAR: S1, S2, normal rate, normal rhythm. Dorsalis pedis and posterior tibial arteries palpable. LUNGS: Clear to auscltation, no use of acessory muscles, no crackles or wheezes. A&P Assessment and plan (1) Fracture of second toe, left, closed: Status: Acute Qualifiers: Encounter type: subsequent encounter Fracture healing: with nonunion Qualified Code(s): S92.502K - Displaced unspecified fracture of left lesser toe(s), subsequent encounter for fracture with nonunion (2) Hammertoe of second toe of left foot: Status: Acute (3) Fracture of toe with nonunion: Status: Acute Qualifiers: Toe: lesser toe Fracture type: closed Phalanx: proximal Fracture alignment: nondisplaced Laterality: left Qualified Code(s): S92.515K - Nondisplaced fracture of proximal phalanx of left lesser toe(s), subsequent encounter for fracture with nonunion Patient is greater than 90 days out from initial fracture at the left second toe at the proximal interphalangeal joint. On x-ray there is still incomplete osseous healing. Would like to apply for bone stimulator. Continue with supportive shoe with rigid sole and activities below threshold of pain. Return to clinic in 3 weeks repeat x-rays left foot 3 views. This point she has a nonunion from the original date of fracture. Left foot x-ray dated 01/19/2021 shows fracture at the proximal phalanx distally, x-ray repeated to a 06/03/2021 shows redemonstration of fracture following fixation that has incomplete healing consistent with nonunion at the left second toe proximal phalanx. Is still symptomatic with pain and swelling. I offered revisional surgery to the patient this is something she would like to proceed with. This would entail nonunion resection, removal of implant and utilizing a partially-threaded cannulated screw to her left second toe for additional compression. Risks include pain, bleeding, numbness, infection, continued delayed union, malunion and nonunion. Chronic swelling, overly straight toe/rectus toe. Patient is agreeable wishes to proceed. Will have her Covid screening done week of surgery. Date of operation 07/10/2021. Open reduction internal fixation left second toe fracture, outpatient, MAC anesthesia, duration of procedure 45 minutes. Coding Level of Care Code Acute Rn Concurrent Review for Andrea Roth Diagnoses Fracture of second toe, left, closed S92.502K Encounter type: subsequent encounter Fracture healing: with nonunion Hammertoe of second toe of left foot M20.42 Fracture of toe with nonunion S92.515K Toe: lesser toe Fracture type: closed Phalanx: proximal Fracture alignment: nondisplaced Laterality: left
--- NOTE | 2021-07-10 06:58 | ANES.PREANE2 ---
Pre-Anesthetic Assessment Pre-Anesthetic Assessment: Height/Weight: Height 1.75 m Weight 74.843 kg Temp Pulse Resp BP Pulse Ox 98.6 F 69 18 114/58 94 07/10/21 06:09 07/10/21 06:09 07/10/21 06:09 07/10/21 06:09 07/10/21 06:09 Preop Diagnosis: Left second toe fracture Proposed Procedure: Operation Date: 07/10/21 07:00 Proposed Procedures p Deep Hardware Removal [id number] 40623 S92.919K S92.502A(Left) - Fred Zelaya DPM s ORIF of the left second toe fracture(Left) - Fred Zelaya DPM Was Beta Amparo taken within 24 hours: N/A Was Clonidine taken within 24 hours: N/A Last intake: Intake Last Liquid Date 07/09/21 Last Liquid Time 20:00 Last Solid Date 07/09/21 Last Solid Time 20:00 Social: Social History: Tobacco and No alcohol Exam: Pre-Anes Outpt Exam: alert, oriented x 3 and regular rate & rhythm Airway: Submandibular: WNL Cervical ROM: WNL MP: 2 Dentition: False (upper) Pulmonary: Pulmonary: COPD Metabolic: Metabolic: Thyroid Musc/skel: Musc/skel: Lower Back Pain and OA/DJD Comments: Chronic pain Neuropsych: Neuropsych: Anxiety and Depression Anesthetic Plan: ASA status: 3 Anesthesia: MAC Risk of > 500 ml blood loss (7ml/kg in children): No Meds/Allergies Current Medications: Current Medications Generic Name Dose Route Start Last Admin Trade Name Freq PRN Reason Stop Dose Admin Sodium Chloride 1,000 mls @ 30 ml s/hr 07/10/21 06:15 07/10/21 06:26 Sodium Chloride 0.9% IV 07/11/21 06:14 30 mls/hr .Q24H SARAH Administration PFSH Anesthesia PFSH: Medical History Bipolar 1 disorder Bipolar disorder, current episode depressed, severe, without psychotic features Chronic fatigue syndrome Chronic nausea Fibromyalgia History of 2019 novel coronavirus disease (COVID-19) Hot flashes due to menopause Hypothyroidism IBS (irritable bowel syndrome) Mixed restrictive and obstructive lung disease Osteoarthritis Surgical History H/O: hysterectomy History of cholecystectomy History of foot surgery History of hand surgery left thumb IP joint fusion History of lumpectomy History of surgery on upper extremity Left shoulder - 1997 Family History Mother Cancer Grandmother Cancer Social History Smoking and tobacco status: never smoked Quit status (tobacco): has quit using tobacco Year quit tobacco: 1997 Second hand smoke exposure: No Alcohol intake: never Data Anesthesia Cardiac Studies: No Data to Display
[2021-07-10] MEDS: HYDROcodone-acetaminophen 10-325 mg Tablet 1 TAB PO (07:02)
--- NOTE | 2021-07-10 08:17 | P.OP_ITS ---
Operative Report Date of procedure: July 10, 2021 Pre-op Diagnosis: Left second toe fracture Post-op diagnosis: same Post-op Findings: Nonunion left second toe fracture Procedure Done: Implant removal and open reduction internal fixation left second toe fracture Implants: Pearce 28 2.0 cannulated headed screw by 34 mm long, partially th readed and 4-0 nylon and 4-0 Vicryl Specimens removed/disposition: Distal half of Hammer tube removed Pathology: none sent Surgeon: Fred Zelaya D.P.M. Belt Operator: Ailyn Anesthesia: MAC Estimated blood loss: Less than 5 mL Tourniquet time: 50 min IV fluids: none Urine output: none Complications: none Condition: stable Disposition: PACU Brief History: Patient had a nonunion to the left second toe requesting hardware removal and revision. She has pain and swelling on a daily basis standing and walking are painful. She is optimistic that a revision would be helpful still has a bone stimulator plans to utilize this postoperatively. Risks include pain, bleeding, numbness, infection, hardware failure, hardware irritation, delayed union, malunion, nonunion and need for further surgical intervention. Patient interviewed preoperatively informed consent signed she is n.p.o. Covid screening negative no guarantees written, expressed or implied wishes to proceed. I initialed her left foot. Procedure: Under mild sedation the patient remained on the gurney and was wheeled into the operating suite. Timeout was performed. Anesthesia was then administered by the anesthesia service. Local anesthesia injected by myself on e-to-one mixture 1% lidocaine and 0.5% Marcaine plain and a left second ray block. Well-padded pneumatic tourniquet applied to the left ankle. Left lower extremity was scrubbed, prepped and draped utilizing normal aseptic technique. Left foot was then wrapped with an Esmarch bandage and the tourniquet inflated to 250 mmHg. Attention was directed to the dorsal aspect of the left second toe where a linear longitudinal incision was made through skin with dissection carried down to the extensor tendon utilizing sharp and blunt technique. Care was taken to retract and preserve neurovascular and tendon structures. All bleeders were ligated and cauterized as necessary. Transverse tenotomy performed at the level of the proximal interphalangeal joint the. Oscillating saw utilized to transect the hammer tube and the distal portion was removed proximal was unable to be retrieved. This was drilled out and the area was flushed with copious amounts of sterile saline solution. Utilizing standard AO technique a Pearce 28 2.0 millimeter screw partially threaded and cannulated with a head was inserted intramedullary technique through the left second toe with excellent bony apposition and compression noted screw length was 34 mm. Incision was flushed with saline and closed with the extensor tendon reapproximated with 4-0 Vicryl and skin closed with 4-0 nylon. Tourniquet was deflated and a prompt hyperemic response was noted to the distal digits of the left foot. Patient tolerated the procedure and anesthesia well and was transferred to the PACU with vital signs stable vascular status intact. Following a period of postoperative monitoring she will be discharged home with a postop shoe and to elevate her left foot while at rest. Will be prescribing hydrocodone 10 mg / 325 mg to be taken every 4-6 hours as needed for pain. Follow-up next week in podiatry clinic on Tuesday for
--- NOTE | 2021-07-10 08:22 | P.PCN_ITS ---
PACU note PACU note: VSS, Good respiratory effort, report to CATERPILLAR OPERATOR Post-Anesthesia Exam: awake
--- NOTE | 2021-07-10 08:22 | PM.PACU ---
PACU note PACU note: VSS, Good respiratory effort, report to SOLAR ENERGY CONSULTANT AND DESIGNER Post-Anesthesia Exam: awake
--- NOTE | 2021-07-10 08:29 | XR_ITS ---
WS: [id number] XR foot LT min 3V* [id number] REASON FOR EXAM: post op FINDINGS: Multiple previous fixation with small screws in the first, third, and fourth metatarsals, as well as the base of the proximal phalanx of the left great toe. Most recently there has been placement of a long screw with fixation of the DIP and MIP joints of the left second toe with small osteotomies of the distal and mid phalanges. All surgical appliances are in proper position and alignment. XR/XR foot LT min 3V* [id number] IMPRESSION: Postoperative left foot as above.
[2021-07-10] MEDS: HYDROmorphone 1 mg/mL INJ 1 mL 0.5 MG IVP (08:42)
[2021-07-10] MEDS: HYDROcodone-acetaminophen 5-325 mg Tablet 1 TAB PO (09:18)
--- NOTE | 2021-07-10 13:36 | ANE.PACU2 ---
Inpatient post-anesthesia follow up: Airway intact: Yes Vital signs: Temperature 97.6 F Pulse Rate 56 Respiratory Rate 18 Blood Pressure 93/68 Pulse Oximetry 96 Oxygen Delivery Me thod Room Air Oxygen Flow Rate Fraction of Inspir ed Oxygen Hydration adequate: Yes Nausea and vomiting: No Pain level: 3 Mental status: Baseline
== END 2021-07-10 09:23 | disposition home or self-care (01) ==
PROVIDERS: PCP Family Medicine; Visit Provider Podiatrist Foot & Ankle Surgery
PROC: (CPT 20680; principal; 2021-07-10 07:00)
PROC: (CPT 20680; 2021-07-10 07:00)
DX: S92.502K Displaced unspecified fracture of left lesser toe(s), subsequent encounter for fracture with nonunion (principal); M20.42 Other hammer toe(s) (acquired), left foot; X58.XXXD Exposure to other specified factors, subsequent encounter; J44.9 Chronic obstructive pulmonary disease, unspecified; M19.90 Unspecified osteoarthritis, unspecified site; F41.9 Anxiety disorder, unspecified; F32.9 Major depressive disorder, single episode, unspecified; M79.7 Fibromyalgia; Z86.16 Personal history of COVID-19; E03.9 Hypothyroidism, unspecified
CPT/HCPCS: 20680; 28525; 73630; 76000; 96365; C1713; J0690; J1170; J2704; J3010; J3490; J7030

== ENCOUNTER → 2021-07-17 10:48 | Outpatient (BNVA) | payer MEDICARE, OTHER, SELFPAY | PROVIDERS: PCP Family Medicine; Visit Provider Podiatrist Foot & Ankle Surgery | DX: S92.502K Displaced unspecified fracture of left lesser toe(s), subsequent encounter for fracture with nonunion (principal); X58.XXXD Exposure to other specified factors, subsequent encounter; Z98.890 Other specified postprocedural states | CPT/HCPCS: 73630 ==

== ENCOUNTER → 2021-07-23 07:59 | Outpatient (BNVA) | payer MEDICARE, OTHER, SELFPAY | PROVIDERS: PCP Family Medicine; Visit Provider Podiatrist Foot & Ankle Surgery | DX: Z47.89 Encounter for other orthopedic aftercare (principal); Z98.1 Arthrodesis status | CPT/HCPCS: 73630 ==

== ENCOUNTER → 2021-08-06 07:51 | Outpatient (BNVA) | payer MEDICARE, OTHER, SELFPAY | PROVIDERS: PCP Family Medicine; Visit Provider Podiatrist Foot & Ankle Surgery | DX: Z47.89 Encounter for other orthopedic aftercare (principal) | CPT/HCPCS: 73630 ==

== ENCOUNTER → 2021-08-13 13:35 | Outpatient (BNVA) | payer MEDICARE, OTHER, SELFPAY | PROVIDERS: PCP Family Medicine; Visit Provider Family Medicine | DX: E03.9 Hypothyroidism, unspecified (principal); R61 Generalized hyperhidrosis | CPT/HCPCS: 84439; 84443 ==

== ENCOUNTER → 2021-08-20 07:50 | Outpatient (BNVA) | payer MEDICARE, OTHER, SELFPAY | PROVIDERS: PCP Family Medicine; Visit Provider Podiatrist Foot & Ankle Surgery | DX: Z47.89 Encounter for other orthopedic aftercare (principal) | CPT/HCPCS: 73630 ==

== ENCOUNTER → 2021-09-04 09:49 | Outpatient (BNVA) | payer MEDICARE, OTHER, SELFPAY | PROVIDERS: PCP Family Medicine; Referring Provider Family Medicine; Visit Provider Internal Medicine | DX: Z01.812 Encounter for preprocedural laboratory examination (principal); Z11.52 Encounter for screening for COVID-19; Z20.822 Contact with and (suspected) exposure to COVID-19; E03.9 Hypothyroidism, unspecified; R61 Generalized hyperhidrosis; Z87.891 Personal history of nicotine dependence | CPT/HCPCS: 87635; 99204 ==

== ENCOUNTER 2021-09-10 06:54 | Day surgery (SDC) | payer MEDICARE, OTHER, SELFPAY ==
[2021-09-09 16:09] VITALS: BMI 24.3
[2021-09-10] VITALS (8 sets, daily range): BP systolic 94–133; BP diastolic 53–78; PULSE 55–82; RESP 16–18; TEMP 36.1–36.8; O2SAT 92–100
--- NOTE | 2021-09-10 | SCC_ITS ---
Procedure Done: Hammertoe Correction Second and Third 00707(x2) 21068 M79.671 M20.41(Right) Second Fusion Metatarsophalangel Joint(Right) 1 second of fluoroscopic guidance, for a cumulative dose of 0.015 mGy, was provided to Dr. Zelaya by the radiology department. C-arm images of the RIGHT foot were saved for the patient's permanent record. [facility]
[2021-09-10] MEDS: sodium chloride 0.9% 1,000 ML 30 ML IV (07:32)
--- NOTE | 2021-09-10 08:12 | ANES.PREANE2 ---
Pre-Anesthetic Assessment Pre-Anesthetic Assessment: Height/Weight: Height 1.75 m Weight 74.843 kg Temp Pulse Resp BP Pulse Ox 98.3 F 82 16 132/59 92 09/10/21 07:35 09/10/21 07:35 09/10/21 07:35 09/10/21 07:35 09/10/21 07:35 Preop Diagnosis: Hammertoe right second and third toe, exostosis right second metatarsophala Proposed Procedure: Operation Date: 09/10/21 09:05 Proposed Procedures p Hammertoe Correction Second and Third 39735(x2) 72868 M79.671 M20.41(Right) - Fred Zelaya DPM s Second Fusion Metatarsophalangel Joint(Right) - Fred Zelaya DPM Was Beta Amparo taken within 24 hours: N/A Was Clonidine taken within 24 hours: N/A Last intake: Intake Last Liquid Date 09/09/21 Last Liquid Time 23:00 Last Solid Date 09/09/21 Last Solid Time 23:00 Social: Social History: No alcohol and No tobacco (h/o smoking) Exam: Pre-Anes Outpt Exam: alert, oriented x 3, clear to auscultation bilaterally and regular rate & rhythm Airway: Submandibular: WNL Cervical ROM: WNL MP: 2 Dentition: False (upper) Pulmonary: Pulmonary: COPD Metabolic: Metabolic: Thyroid Musc/skel: Comments: Chronic pain/opioid Neuropsych: Neuropsych: Bipolar Anesthetic Plan: ASA status: 3 Anesthesia: Choice Risk of > 500 ml blood loss (7ml/kg in children): No Meds/Allergies Current Medications: Current Medications Generic Name Dose Route Start Last Admin Trade Name Freq PRN Reason Stop Dose Admin Sodium Chloride 1,000 mls @ 30 ml s/hr 09/10/21 07:15 09/10/21 07:32 Sodium Chloride 0.9% IV 09/11/21 07:14 30 mls/hr .Q24H SARAH Administration PFSH Anesthesia PFSH: Medical History Bipolar 1 disorder Bipolar disorder, current episode depressed, severe, without psychotic features Chronic fatigue syndrome Chronic nausea Fibromyalgia History of 2019 novel coronavirus disease (COVID-19) Hot flashes due to menopause Hypothyroidism IBS (irritable bowel syndrome) Mixed restrictive and obstructive lung disease Osteoarthritis Psychiatric care Surgical History H/O: hysterectomy History of cholecystectomy History of foot surgery History of hand surgery left thumb IP joint fusion History of lumpectomy History of surgery on upper extremity Left shoulder - 1997 Family History Mother Cancer Grandmother Cancer Social History Quit status (tobacco): has quit using tobacco Year quit tobacco: 1997 Second hand smoke exposure: No Alcohol intake: never Data Anesthesia Cardiac Studies: No Data to Display
[2021-09-10] MEDS: HYDROmorphone 1 mg/mL INJ 1 mL 0.5 MG IVP ×2 (08:22→11:28)
--- NOTE | 2021-09-10 10:29 | P.HPUD_ITS ---
Surgery/Procedure H&P Update DATE OF PROCEDURE: September 10, 2021 DATE H&P PERFORMED: 08/20/21 H&P UPDATE INFORMATION: I have reviewed H&P completed within last 30 days, I have examined patient prior to procedure, No changes to prior documentation and H&P is in [facility] EMR on date indicated PREOP DIAGNOSIS: Hammertoe right second and third toe, exostosis right second metatarsophala PLANNED PROCEDURE: Operation Date: 09/10/21 09:05 Proposed Procedures p Hammertoe Correction Second and Third 37497(x2) 62460 M79.671 M20.41(Right) - Fred Zelaya DPM s Second Fusion Metatarsophalangel Joint(Right) - Fred Zelaya DPM
--- NOTE | 2021-09-10 10:29 | PM.OP ---
Operative Report Date of procedure: September 10, 2021 Pre-op Diagnosis: Hammertoe right second, exostosis right second metatarsal phalangeal joint Post-op diagnosis: same Procedure Done: Hammertoe Correction right second toe CPT 45353 Exostectomy right second metatarsal head CPT code 61707 Implants: [place] 28 2.75 mm hammer tube 0 degree angle, 4-0 Vicryl, 4-0 nylon Specimens removed/disposition: None Pathology: none sent Surgeon: Fred Zelaya D.P.M. Radio Interference Trouble Shooter: Millie Anesthesia: MAC Estimated blood loss: 5 Tourniquet time: 26 IV fluids: None Urine output: None Complications: None Condition: stable Disposition: PACU Brief History: Patient has a painful hammertoes of the right second toe deviating laterally has failed conservative measures consisting of padding, spacing and accommodative shoes as well as anti-inflammatories [id number]. She also has a bony prominence at the dorsal forefoot at the metatarsophalangeal joint right second. Risks include pain, bleeding, numbness, infection, hardware failure, delayed union, malunion, nonunion need for further surgical intervention. No guarantees written, expressed or implied. Covid screening negative, patient n.p.o. since midnight. Informed consent signed by patient and myself I initialed the right foot. Procedure: Under mild sedation the patient was brought to the operating room and placed on the operative table in supine position. Timeout was performed. Anesthesia was administered by the anesthesia service. Local anesthesia injected by myself consisting of a ray block to the right second ray utilizing 20 cc of one-to-one mixture 1% lidocaine and 0.5% Marcaine plain. Well-padded pneumatic tourniquet applied to the right ankle. Right lower extremity was then scrubbed, prepped and draped utilizing normal aseptic technique. Right foot was wrapped with an Esmarch bandage and the tourniquet inflated to 250 mmHg. Attention was directed to the dorsal aspect of the right second toe at the level of the proximal interphalangeal joint where 2 converging semielliptical incisions were performed with an excision of skin bridge passed my operative field. Transverse tenotomy the extensor tendon and visualization of the apex of the deformity at the distal portion of the phalanx right second toe a transverse osteotomy was performed with a sagittal saw and a wedge taken to correct angular deformity and prepared for new arthrodesis site more was taken medially as to correct the angular deformity. Next utilizing programmer numerical control recommendation and technique a hammer tube was inserted at the arthrodesis site with a more rectus position a second toe confirmed with intraoperative fluoroscopy. Incision was flushed with saline solution and the extensor tendon reapproximated utilizing 4-0 Vicryl and skin closed with 4-0 nylon. Attention was then directed to the dorsal aspect of the right second metatarsophalangeal joint where a bony exostosis was palpated. Directly over this a linear longitudinal incision was made with a #15 blade with dissection carried down to the joint capsule utilizing a combination of blunt and sharp technique. Care was taken to retract and preserve neurovascular tendinous structures. All bleeders were ligated and cauterized as necessary. Sagittal saw was utilized to transect the exostosis in antegrade fashion and all rough edges smoothed with a hand rasp. Incision was flushed with saline solution and closed in a layered fashion with 4-0 Vicryl subcutaneous tissue and 4-0 nylon at skin. Incision sites were dressed with Adaptic, sterile 4 x 4, Kerlix, Anup wrap and a postop shoe was applied. Tourniquet was deflated and a prompt hyperemic response was noted to the distal digits of the right foot. Patient tolerated the procedure and anesthesia well and was transferred to the PACU with vital signs stable vascular status intact. Following a period of postoperative monitoring she'll be discharged home may be weightbearing as tolerated in a postop shoe and to elevate her right foot while at rest. She has scheduled follow-up and postoperative instructions at discharge and was provided my cell phone number to contact with any questions or concerns.
--- NOTE | 2021-09-10 10:39 | XR_ITS ---
WS: [id number] Exam: XR foot RT min 3V* [id number] Date/Time of Exam: 09/10/2021 11:25 AM Reason For Exam: post op Comparison 02/11/2021. Postoperative changes of bunion repair in the first metatarsal with a single screw. An additional obl ique coursing screws seen in the proximal phalanx of the great toe. A recent osteotomy of the proxima l phalanx of the second toe is noted. Developmental absence of the middle phalanx of the second, thir d and fourth toes. No acute fracture or dislocation. Old fracture deformity of the distal third metat arsal. No soft tissue foreign bodies are seen. Posterior heel spur. XR/XR foot RT min 3V* [id number] IMPRESSION: 1. Recent osteotomy of the proximal phalanx of the second toe. Stable postopera tive changes in the first ray as noted. 2. No acute fracture. 3. Developmental absence of the middle phalanx of the second, third and fourth toes.
[2021-09-10] MEDS: lidocaine 1% INJ 20 mL 15 ML XX (11:03)
[2021-09-10] MEDS: HYDROcodone-acetaminophen 10-325 mg Tablet 1 TAB PO (12:10)
--- NOTE | 2021-09-10 13:43 | ANE.PACU2 ---
Inpatient post-anesthesia follow up: Airway intact: Yes Vital signs: Temperature 97 F Pulse Rate 55 Respiratory Rate 16 Blood Pressure 94/72 Pulse Oximetry 98 Oxygen Delivery Me thod Room Air Oxygen Flow Rate 1 Fraction of Inspir ed Oxygen Hydration adequate: Yes Nausea and vomiting: No Pain level: 2 Mental status: Baseline
== END 2021-09-10 12:35 | disposition home or self-care (01) ==
PROVIDERS: PCP Family Medicine; Visit Provider Podiatrist Foot & Ankle Surgery
PROC: (CPT 28285; principal; 2021-09-10 08:55)
PROC: (CPT 28750; 2021-09-10 08:55)
PROC: (CPT 28288; 2021-09-10 08:55)
DX: M79.671 Pain in right foot (principal); M89.8X8 Other specified disorders of bone, other site; M79.7 Fibromyalgia; E03.9 Hypothyroidism, unspecified; Z87.891 Personal history of nicotine dependence
CPT/HCPCS: 28285; 28288; 73630; 76000; C1713; J0690; J1170; J2704; J3010; J3490; J7030

== ENCOUNTER → 2021-09-16 09:23 | Outpatient (BNVA) | payer MEDICARE, OTHER, SELFPAY | PROVIDERS: PCP Family Medicine; Visit Provider Podiatrist Foot & Ankle Surgery | DX: Z47.89 Encounter for other orthopedic aftercare (principal) | CPT/HCPCS: 73630 ==

== ENCOUNTER → 2021-09-25 11:21 | Outpatient (BNVA) | payer MEDICARE, OTHER, SELFPAY | PROVIDERS: PCP Family Medicine; Visit Provider Podiatrist Foot & Ankle Surgery | DX: Z47.89 Encounter for other orthopedic aftercare (principal); Z96.698 Presence of other orthopedic joint implants; Z98.1 Arthrodesis status | CPT/HCPCS: 73630 ==

== ENCOUNTER → 2021-10-01 08:31 | Outpatient (BNVA) | payer MEDICARE, OTHER, SELFPAY | PROVIDERS: PCP Family Medicine; Visit Provider Nurse Practitioner | DX: F31.4 Bipolar disorder, current episode depressed, severe, without psychotic features (principal); R53.82 Chronic fatigue, unspecified | CPT/HCPCS: 99214 ==

== ENCOUNTER → 2021-10-05 08:24 | Outpatient (BNVA) | payer MEDICARE, OTHER, SELFPAY | PROVIDERS: PCP Family Medicine; Visit Provider Podiatrist Foot & Ankle Surgery | DX: Z01.818 Encounter for other preprocedural examination (principal); Z20.822 Contact with and (suspected) exposure to COVID-19; M79.671 Pain in right foot; M20.41 Other hammer toe(s) (acquired), right foot | CPT/HCPCS: 87635 ==

== ENCOUNTER → 2021-10-07 13:08 | Outpatient (BNVA) | payer MEDICARE, OTHER, SELFPAY | PROVIDERS: PCP Family Medicine; Visit Provider Family Medicine | DX: E03.9 Hypothyroidism, unspecified (principal) | CPT/HCPCS: 84439; 84443 ==

== ENCOUNTER 2021-10-08 05:53 | Day surgery (SDC) | payer MEDICARE, OTHER, SELFPAY ==
[2021-10-07 12:40] VITALS: BMI 23.6
--- NOTE | 2021-10-08 | XR_ITS ---
WS: [id number] XR foot RT min 3V* [id number] REASON FOR EXAM: POST OPERATIVE FINDINGS: Long screw arthrodesis of the PIP and DIP joints of the second toe. Long-standing arthrodesis of the DIP and PIP joints of the fourth toe. Surgical appliances and bony and joint structure in proper position and alignment. Previous osteotomy with screw fixation in the first metatarsal and proximal phalanx. XR/XR foot RT min 3V* [id number] IMPRESSION: Postoperative changes in the second and fourth toes as above.
[2021-10-08 06:12] VITALS: BP 95/46; PULSE 97; RESP 18; TEMP 36.8; O2SAT 94
--- NOTE | 2021-10-08 06:38 | P.HPUD_ITS ---
Surgery/Procedure H&P Update DATE OF PROCEDURE: October 08, 2021 DATE H&P PERFORMED: 10/05/21 H&P UPDATE INFORMATION: I have reviewed H&P completed within last 30 days, I have examined patient prior to procedure, No changes to prior documentation and [place] [facility] [place] PREOP DIAGNOSIS: Hammertoe right foot PLANNED PROCEDURE: Operation Date: 10/08/21 07:00 Proposed Procedures pHammertoe Correction Right Second and fourth Toe 39572 M20.41(Right) - Fred Zelaya DPM
--- NOTE | 2021-10-08 06:59 | ANES.PREANE2 ---
Pre-Anesthetic Assessment Pre-Anesthetic Assessment: Height/Weight: Height 1.75 m Weight 72.575 kg Temp Pulse Resp BP Pulse Ox 98.2 F 97 18 95/46 94 10/08/21 06:12 10/08/21 06:12 10/08/21 06:12 10/08/21 06:12 10/08/21 06:12 Preop Diagnosis: Hammertoe right foot Proposed Procedure: Operation Date: 10/08/21 07:00 Proposed Procedures p Revision Hammertoe Correction Right Second Toe 77715 M20.41(Right) - BREANNA ArambulaM Was Beta Amparo taken within 24 hours: N/A Was Clonidine taken within 24 hours: N/A Last intake: Intake Last Liquid Date 10/07/21 Last Liquid Time 21:00 Last Solid Date 10/07/21 Last Solid Time 21:00 Social: Social History: Tobacco (h/o smoking) and No alcohol Exam: Pre-Anes Outpt Exam: alert, oriented x 3, clear to auscultation bilaterally and regular rate & rhythm Airway: Submandibular: WNL Cervical ROM: WNL MP: 2 Dentition: False (uppers) Pulmonary: Pulmonary: COPD Metabolic: Metabolic: Thyroid Musc/skel: Comments: Chronic pain/opioid Neuropsych: Neuropsych: Anxiety and Bipolar Anesthetic Plan: ASA status: 3 Anesthesia: MAC Risk of > 500 ml blood loss (7ml/kg in children): No PFSH Anesthesia PFSH: Medical History Bipolar 1 disorder Bipolar disorder, current episode depressed, severe, without psychotic features Chronic fatigue syndrome Chronic nausea Fibromyalgia History of 2019 novel coronavirus disease (COVID-19) Hot flashes due to menopause Hypothyroidism IBS (irritable bowel syndrome) Mixed restrictive and obstructive lung disease Osteoarthritis Psychiatric care Surgical History H/O: hysterectomy History of cholecystectomy History of foot surgery History of hand surgery left thumb IP joint fusion History of lumpectomy History of surgery on upper extremity Left shoulder - 1997 Family History Mother Cancer Grandmother Cancer Social History Quit status (tobacco): has quit using tobacco Year quit tobacco: 1997 Second hand smoke exposure: No Alcohol intake: never Data Anesthesia Cardiac Studies: No Data to Display
[2021-10-08] MEDS: sodium chloride 0.9% 1,000 ML 30 ML IV (07:03)
--- NOTE | 2021-10-08 07:30 | XRR_ITS ---
PROCEDURE INFORMATION: Exam: XR Right Foot Exam date and time: 10/08/2021 7:30 AM Age: 70 years old Clinical indication: Screening exam; Pre op; Prior surgery; Additional info: Follow-up second and fourth hammertoe correction. TECHNIQUE: Imaging protocol: XR Right foot. Views: 3 or more views. Total images: 3 COMPARISON: CR XR foot RT min 3V* 00010 09/16/2021 9:29 AM FINDINGS: Bones/joints: Postsurgical changes noted to the 1st metatarsal and proximal phalanx of the great toe with orthopedic screws present unchanged from prior exam. Deformity of distal shaft of 3rd metatarsal felt to be evidence of remote healed fracture. Postsurgical changes noted to the diaphysis of the proximal phalanx of the 2nd digit unchanged. No acute fracture nor subluxation. No osseous erosion nor periosteal reaction. An enthesophyte is noted at the Achilles tendon insertion site. Soft tissues: Normal. XR/XR foot RT min 3V* [id number] IMPRESSION: 1. Stable postsurgical changes. 2. No acute osseous pathology.
--- NOTE | 2021-10-08 07:57 | P.OP_ITS ---
Operative Report Date of procedure: October 08, 2021 Pre-op Diagnosis: Hammertoe right foot and fourth toes. Post-op diagnosis: same Post-op Findings: Improved alignment right foot toes 2 and 4 Procedure Done: Right second hammertoe revision. Right fourth hammertoe correction CPT code 42851 Implants: Litchfield 28 2 mm headed screw partially-threaded and cannulated 36 mm in length, 0.062 K wire, 4-0 Vicryl, 4-0 nylon. Specimens removed/disposition: Litchfield 28 hammer tube removed from right second toe Pathology: none sent Surgeon: Fred Zelaya DPM Ophthalmology Assistant: Zain Anesthesia: MAC Estimated blood loss: 5 Tourniquet time: 35 IV fluids: None Urine output: None Complications: None Findings: Improved position right second and fourth toes. Condition: stable Disposition: PACU Brief History: Patient underwent hammertoe correction of the right second toe 09/10/2021 approximately 2 weeks postoperatively she experience deviation laterally of the second toe unsure of injury or cause of deviation. Would like to undergo revision and also correction of the right fourth toe at this time. Procedure: Under mild sedation the patient was brought to the operating room and remained on the gurney in supine position. A timeout was performed. Anesthesia was then administered by the anesthesia service. Local anesthesia injected by myself total of 20 cc of 0.5% Marcaine plain and a right second and fourth ray block fashion. Well-padded pneumatic tourniquet applied to the right ankle. The right lower extremity was scrubbed, prepped and draped utilizing normal aseptic technique. Right foot was then exanguinated with an Esmarch bandage and a tourniquet inflated to 250 mmHg. Attention was directed to the dorsal aspect of the right second toe where a linear longitudinal incision was made with a #15 blade with dissection carried down to the extensor tendon utilizing sharp and blunt technique. Care was taken to protect and retract neurovascular and tendinous structures. All bleeders were ligated and cauterized as necessary. Transverse tenotomy was performed and the implant at the proximal interphalangeal joint this was a Litchfield 28 hammer tube was removed. Noted it was not well seated on the middle phalanx. Incision was flushed with saline solution followed by fixation of the right second toe in a rectus position utilizing a 2 mm headed partially-threaded screw with excellent bony apposition and compression noted in not crossing the metatarsophalangeal joint this was confirmed with fluoroscopy. This was a Litchfield 28 2.0 mm screw by 36 mm. Excellent bony apposition and compression noted. Second toe was rectus. Incision was flushed with saline and closed with extensor tendon reapproximated with 4-0 Vicryl and skin closed with 4-0 nylon. Attention was directed to the dorsal aspect of the right fourth toe where a linear longitudinal incision was made with a #15 blade. Dissection was carried down to the extensor tendon utilizing blunt and sharp technique. Care was taken to retract and preserve neurovascular and tendinous structures. All bleeders were ligated and cauterized as necessary. Transverse tenotomy was performed extensor tendon was retracted proximally, transverse osteotomy was performed and angular deformity was corrected taking more bone laterally as preoperatively the fourth toe deviated medially. In a rectus position this was fixated with a 0.062 K wire in a rectus position and not crossing the metatarsophalangeal joint confirmed with fluoroscopy. K wires bent at 90 degrees once it exited the toe distally and covered with a Prabhjot ball. Incision site was flushed with saline solution and closed with the extensor tendon reapproximated with a 4-0 Vicryl and skin with 4-0 nylon. Incisions were then dressed with Adaptic, sterile 4 x 4, Kerlix and Anup wrap. New cam boot was applied. Tourniquet was deflated and a prompt hyperemic response was noted to the distal digits of the right foot. Patient tolerated the procedure and anesthesia well and was transferred to the PACU with vital signs stable and vascular status intact. Following a period of postoperative monitoring she will be discharged home may be limited weightbearing protected at all times with the cam boot. She is to elevate her right foot while at rest. Was prescribed hydrocodone sent electronically to her pharmacy of choice. Will be following up in clinic next week for nurse visit and dressing change was provided my cell phone number for questions or concerns postoperatively she will be contacting me as needed.
[2021-10-08 07:58] VITALS: BP 107/59; PULSE 54; RESP 11; TEMP 36.1; O2SAT 99
[2021-10-08 08:03] VITALS: BP 118/67; PULSE 55; RESP 10; O2SAT 98
[2021-10-08 08:07] VITALS: BP 117/71; PULSE 57; RESP 15; TEMP 36.1; O2SAT 94
[2021-10-08 08:18] VITALS: BP 117/66; PULSE 56; RESP 16; O2SAT 95
[2021-10-08 08:44] VITALS: BP 109/69; PULSE 51; RESP 16; O2SAT 95
[2021-10-08] MEDS: HYDROcodone-acetaminophen 10-325 mg Tablet 1 TAB PO (09:05)
--- NOTE | 2021-10-08 14:13 | ANE.PACU2 ---
Inpatient post-anesthesia follow up: Airway intact: Yes Vital signs: Temperature 97.0 F Pulse Rate 51 Respiratory Rate 16 Blood Pressure 109/69 Pulse Oximetry 95 Oxygen Delivery Me thod Room Air Oxygen Flow Rate Fraction of Inspir ed Oxygen Hydration adequate: Yes Nausea and vomiting: No Pain level: 2 Mental status: Baseline
== END 2021-10-08 09:10 | disposition home or self-care (01) ==
LOC: OR 05:55
PROVIDERS: PCP Family Medicine; Visit Provider Podiatrist Foot & Ankle Surgery
PROC: (CPT 28285; principal; 2021-10-08 07:00)
DX: M20.41 Other hammer toe(s) (acquired), right foot (principal); J44.9 Chronic obstructive pulmonary disease, unspecified; M79.7 Fibromyalgia; Z86.16 Personal history of COVID-19; E03.9 Hypothyroidism, unspecified; M19.90 Unspecified osteoarthritis, unspecified site; Z87.891 Personal history of nicotine dependence
CPT/HCPCS: 28285 ×2; 73630; C1713; C9290; J0690; J2704; J3010; J3490; J7030

== ENCOUNTER → 2021-10-22 15:03 | Outpatient (BNVA) | payer MEDICARE, OTHER, SELFPAY | PROVIDERS: PCP Family Medicine; Visit Provider Podiatrist Foot & Ankle Surgery | DX: Z98.890 Other specified postprocedural states (principal) | CPT/HCPCS: 73630 ==

== ENCOUNTER → 2021-11-06 10:01 | Outpatient (BNVA) | payer MEDICARE, OTHER, SELFPAY | PROVIDERS: PCP Family Medicine; Visit Provider Podiatrist Foot & Ankle Surgery | DX: Z98.890 Other specified postprocedural states (principal) | CPT/HCPCS: 73630 ==

== ENCOUNTER → 2021-11-12 14:48 | Outpatient (BNVA) | payer MEDICARE, OTHER, SELFPAY | PROVIDERS: PCP Family Medicine; Visit Provider Podiatrist Foot & Ankle Surgery | DX: Z98.890 Other specified postprocedural states (principal) | CPT/HCPCS: 73630 ==

== ENCOUNTER → 2021-12-07 12:49 | Outpatient (BNVA) | payer MEDICARE, OTHER, SELFPAY | PROVIDERS: PCP Family Medicine; Visit Provider Podiatrist Foot & Ankle Surgery | DX: Z01.818 Encounter for other preprocedural examination (principal); Z20.822 Contact with and (suspected) exposure to COVID-19 | CPT/HCPCS: 87635 ==

== ENCOUNTER 2021-12-11 07:15 | Day surgery (SDC) | payer MEDICARE, OTHER, SELFPAY ==
[2021-12-10 15:50] VITALS: BMI 24.3
--- NOTE | 2021-12-11 | SCC_ITS ---
Procedure done: Left first metatarsal phalangeal joint arthrodesis, left foot deep hardware removal. CPT 78739 and 94345 4 seconds of fluoroscopic guidance, for a cumulative dose of 0.07 mGy, was provided to Dr. Zelaya by the radiology department. C-arm images of the LEFT foot were saved for the patient's permanent record. [facility]
[2021-12-11 07:40] VITALS: BP 122/68; PULSE 72; RESP 18; TEMP 36.3; O2SAT 92
[2021-12-11] MEDS: sodium chloride 0.9% 1,000 ML 30 ML IV (07:53)
--- NOTE | 2021-12-11 08:04 | ANES.PREANE2 ---
Pre-Anesthetic Assessment Height/Weight: Height 1.75 m Weight 74.843 kg Temp Pulse Resp BP Pulse Ox 97.4 F L 72 18 122/68 92 12/11/21 07:40 12/11/21 07:40 12/11/21 07:40 12/11/21 07:40 12/11/21 07:40 Preop Diagnosis: Hallux varus left foot Operation Date: 12/11/21 09:00 Proposed Procedures p Left first metatarsophalangeal joint arthrodesis 57508 M20.2(Left) - Fred Zelaya DPM Familial anesthetic complications: PONV Was Beta Amparo taken within 24 hours: N/A Was Clonidine taken within 24 hours: N/A Last intake: Intake Last Liquid Date 12/10/21 Last Liquid Time 21:00 Last Solid Date 12/10/21 Last Solid Time 21:00 Social No alcohol and No tobacco Exam alert, oriented x 3, clear to auscultation bilaterally and regular rate & rhythm Airway Submandibular: within normal limits Cervical ROM: within normal limits Mallampati: Class I Dentition: chipped Comments: Comments: False upper teeth Pulmonary Reports hx of restrictive lung disease from severe pneumonia in the past CV/HEM None reported METS > 4 None reported GI Chronic nausea IBS Metabolic Thyroid Disease [facility] [place] [place] Fibromyalgia and Osteoarthritis/DJD Chronic pain reports TID morphine 30 mg for long standing period Neuropsych Bipolar Anesthetic Plan Anesthesia: Anesthesia Evaluation and General Other: Patient prefers general anesthesia. We discussed risk and benefits of general anesthesia including PONV, sore throat (sometimes severe), corneal abrasion, positioning and peripheral nerve injuries, life threatening allergic reaction, post operative ICU admission requiring prolonged intubation, stroke, heart attack, , and rare incidences of recall. Patient consents to proceed with general anesthesia. Plan multi modal anesthesia. Risk of > 500 ml blood loss (7ml/kg in children): No Other Pertinent Information Pre op Meds: MgSO4 2 grams PIV, 0.5 mg hydromorphone, .25 mg diphenhydramine, PO APAP 975 mg. Medications/Allergies Home Medications Medication Instructions Recorded Confirmed Last Taken Type budesonide 0.25 mg/2 mL suspension 0.25 mg INHALATION BID 12/25/19 12/11/21 1 Day Ago History for nebulization ~12/10/21 morphine 30 mg immediate release 30 mg PO Q6H PRN 12/25/19 12/11/21 1 Day Ago History tablet ~12/10/21 tizanidine 4 mg tablet 4 mg PO TID PRN 12/25/19 12/11/21 1 Day Ago History ~12/10/21 Bone stem #1 ea 04/28/21 11/13/21 Unknown Rx cetirizine 10 mg tablet 10 mg PO DAILY #90 tab 08/10/21 12/11/21 1 Day Ago Rx ~12/10/21 zoledronic acid 5 mg/100 mL in 1 ea IV .once a year #100 ml 08/18/21 12/10/21 09/09/21 Rx mannitol 5 %-water intravenous piggybck (Reclast) estradiol 2 mg tablet 2 mg PO DAILY 09/09/21 12/11/21 1 Day Ago History ~12/10/21 ondansetron HCl 4 mg tablet 4 mg PO DAILY PRN #90 tab 09/09/21 12/11/21 3 Days Ago Rx (Zofran) ~12/08/21 escitalopram oxalate 10 mg tablet 10 mg PO .QHS #30 tab 10/01/21 12/11/21 1 Day Ago Rx (Lexapro) ~12/10/21 lamotrigine 150 mg tablet 300 mg PO DAILY #60 tab 10/01/21 12/11/21 1 Day Ago Rx (Lamictal) ~12/10/21 methylphenidate HCl 20 mg tablet 20 mg PO QAM 30 Days #30 tab 10/01/21 12/11/21 1 Day Ago Rx (Ritalin) ~12/10/21 quetiapine 100 mg tablet (Seroquel) 300 mg PO DAILY #90 tab 10/01/21 12/11/21 1 Day Ago Rx ~12/10/21 levothyroxine 75 mcg capsule 75 mcg PO DAILY #45 cap 10/05/21 12/11/21 1 Day Ago Rx ~12/10/21 diclofenac sodium 1 % topical gel 2 g TOPICAL BID #100 g 11/04/21 12/10/21 Unknown Rx dicyclomine 10 mg capsule 10 mg PO DAILY PRN #90 cap 11/04/21 12/11/21 3 Days Ago Rx ~12/08/21 diphenoxylate-atropine 2.5 1 tab PO DAILY PRN #90 tab 12/04/21 12/11/21 3 Days Ago Rx mg-0.025 mg tablet ~12/08/21 silver sulfadiazine 1 % topical 1 applic TOPICAL . NEEDED 30 12/04/21 12/10/21 Unknown Rx cream Days #85 g Allergies Allergy/AdvReac Type Severity Reaction Status Date / Time adhesive tape Allergy ADR-Itching Verified 12/11/21 07:46 sumatriptan [From Imitrex] Allergy ADR-Dry Verified 12/11/21 07:46 Mucus Membranes Macrolide Antibiotics AdvReac C Diff Verified 12/11/21 07:46 Current Medications Generic Name Dose Route Start Last Admin Trade Name Freq PRN Reason Stop Dose Admin Sodium Chloride 1,000 mls @ 30 mls/hr 12/11/21 07:30 12/11/21 07:53 Sodium Chloride 0.9% IV 12/12/21 07:29 30 mls/hr .Q24H SARAH Administration PFSH Anesthesia Medical History Bipolar 1 disorder Bipolar disorder, current episode depressed, severe, without psychotic features Chronic fatigue syndrome Chronic nausea Fibromyalgia History of 2019 novel coronavirus disease (COVID-19) Hot flashes due to menopause Hypothyroidism IBS (irritable bowel syndrome) Mixed restrictive and obstructive lung disease Osteoarthritis Psychiatric care Surgical History H/O: hysterectomy History of cholecystectomy History of foot surgery History of hand surgery left thumb IP joint fusion History of lumpectomy History of surgery on upper extremity Left shoulder - 1997 Family History Mother Cancer Grandmother Cancer Social History Quit status (tobacco): has quit using tobacco Year quit tobacco: 1997 Second hand smoke exposure: No Alcohol intake: never Data Anesthesia Cardiac Studies: No Data to Display
[2021-12-11] MEDS: diphenhydrAMINE 50 mg/mL SDV 1mL 25 MG IVP (08:21)
[2021-12-11] MEDS: magnesium sulfate premix 2 GM/50 ML PIGGYBACK IV (08:22)
[2021-12-11] MEDS: HYDROmorphone 1 mg/mL INJ 1 mL 0.5 MG IVP (08:22)
[2021-12-11] MEDS: acetaminophen 325 mg Tablet 975 MG PO (08:24)
--- NOTE | 2021-12-11 10:12 | PM.OPSURHP ---
Providers/Chief Complaint Primary Care Provider: January Whitehead DO Chief Complaint: Left hallux rigidus History of Present Illness Georgia Ballesteros is a 71 year old female has had a progression of hallux varus to the left that is no longer fitted appropriately with a shoe, bracing or activity modifications, causes pain on a daily basis. Would like to have this fixed is expecting a fusion is here for updated H&P. Patient denies any subjective nausea, vomiting, fever, chills, shortness of breath or chest pain. Review of Systems Const: Denies: fever(s) or chills Card: Denies: chest pain or dyspnea on exertion Resp: Denies: dyspnea or productive cough GI: Denies: abdominal pain, nausea or vomiting : Denies: difficulty voiding Musc: Reports: extremity pain and extremity swelling; Denies: limited range of motion Skin/Breast: Reports: surgical incision; Denies: changes in skin color or dry skin Neuro: Denies: numbness in extremities or weakness in extremities Psych: Denies: anxiety Henrik/Lymph: Denies: easy bruising or easy bleeding Medications/Allergies Home Medications Medication Instructions Recorded Confirmed Last Taken Type budesonide 0.25 mg/2 mL suspension 0.25 mg INHALATION BID 12/25/19 12/11/21 1 Day Ago History for nebulization ~12/10/21 morphine 30 mg immediate release 30 mg PO Q6H PRN 12/25/19 12/11/21 1 Day Ago History tablet ~12/10/21 tizanidine 4 mg tablet 4 mg PO TID PRN 12/25/19 12/11/21 1 Day Ago History ~12/10/21 Bone stem #1 ea 04/28/21 11/13/21 Unknown Rx cetirizine 10 mg tablet 10 mg PO DAILY #90 tab 08/10/21 12/11/21 1 Day Ago Rx ~12/10/21 zoledronic acid 5 mg/100 mL in 1 ea IV .once a year #100 ml 08/18/21 12/10/21 09/09/21 Rx mannitol 5 %-water intravenous piggybck (Reclast) estradiol 2 mg tablet 2 mg PO DAILY 09/09/21 12/11/21 1 Day Ago History ~12/10/21 ondansetron HCl 4 mg tablet 4 mg PO DAILY PRN #90 tab 09/09/21 12/11/21 3 Days Ago Rx (Zofran) ~12/08/21 escitalopram oxalate 10 mg tablet 10 mg PO .QHS #30 tab 10/01/21 12/11/21 1 Day Ago Rx (Lexapro) ~12/10/21 lamotrigine 150 mg tablet 300 mg PO DAILY #60 tab 10/01/21 12/11/21 1 Day Ago Rx (Lamictal) ~12/10/21 methylphenidate HCl 20 mg tablet 20 mg PO QAM 30 Days #30 tab 10/01/21 12/11/21 1 Day Ago Rx (Ritalin) ~12/10/21 quetiapine 100 mg tablet (Seroquel) 300 mg PO DAILY #90 tab 10/01/21 12/11/21 1 Day Ago Rx ~12/10/21 levothyroxine 75 mcg capsule 75 mcg PO DAILY #45 cap 10/05/21 12/11/21 1 Day Ago Rx ~12/10/21 diclofenac sodium 1 % topical gel 2 g TOPICAL BID #100 g 11/04/21 12/10/21 Unknown Rx dicyclomine 10 mg capsule 10 mg PO DAILY PRN #90 cap 11/04/21 12/11/21 3 Days Ago Rx ~12/08/21 diphenoxylate-atropine 2.5 1 tab PO DAILY PRN #90 tab 12/04/21 12/11/21 3 Days Ago Rx mg-0.025 mg tablet ~12/08/21 silver sulfadiazine 1 % topical 1 applic TOPICAL . NEEDED 30 12/04/21 12/10/21 Unknown Rx cream Days #85 g Allergies Allergy/AdvReac Type Severity Reaction Status Date / Time adhesive tape Allergy ADR-Itching Verified 12/11/21 07:46 sumatriptan [From Imitrex] Allergy ADR-Dry Verified 12/11/21 07:46 Mucus Membranes Macrolide Antibiotics AdvReac C Diff Verified 12/11/21 07:46 PFSH PFSH: Medical History Bipolar 1 disorder Bipolar disorder, current episode depressed, severe, without psychotic features Chronic fatigue syndrome Chronic nausea Fibromyalgia History of 2019 novel coronavirus disease (COVID-19) Hot flashes due to menopause Hypothyroidism IBS (irritable bowel syndrome) Mixed restrictive and obstructive lung disease Osteoarthritis Psychiatric care Surgical History H/O: hysterectomy History of cholecystectomy History of foot surgery History of hand surgery left thumb IP joint fusion History of lumpectomy History of surgery on upper extremity Left shoulder - 1997 Family History Mother Cancer Grandmother Cancer Social History Quit status (tobacco): has quit using tobacco Year quit tobacco: 1997 Second hand smoke exposure: No Alcohol intake: never Dietary Habits: Caffeine: Yes Caffeine intake frequency: carbonated beverages Vital Signs Vitals Signs: Last Vital Signs Temp 97.4 F L 12/11/21 07:40 Pulse 72 12/11/21 07:40 Resp 18 12/11/21 07:40 BP 122/68 12/11/21 07:40 Pulse Ox 92 12/11/21 07:40 Weight: Weight last 48 hrs Weight 165 lb Physical Exam Narrative: EXAM NARRATIVE: Patient is alert and oriented ?3 and in no acute distress.? The following is a focused bilateral lower extremity exam. VASCULAR: Dorsalis pedis and posterior tibial arteries palpable +2.? Capillary refill time less than 3 seconds to the distal hallux bilaterally. Calf is supple and nontender proximally and distally.? Mild edema at the operative site consistent with postoperative course. NEUROLOGICAL: Protective sensation intact to light touch. DERMATOLOGICAL: Incision site is well coapted, mild ecchymosis no erythema no dehiscence no drainage or warmth. MUSCULOSKELETAL: Hallux varus to the left when weightbearing is in significant varus position.? Minor tenderness palpation at the right fourth toe.? Rectus fourth toe appreciated clinically CARDIOVASCULAR: S1, S2, normal rate, normal rhythm. Dorsalis pedis and posterior tibial arteries palpable. LUNGS: Clear to auscltation, no use of acessory muscles, no crackles or wheezes. A&P Assessment and plan (1) Hallux varus (acquired), left foot: Status: Acute (2) Left foot pain: Status: Acute (3) Retained orthopedic hardware: Status: Acute Plan 71-year-old pleasant female presents with progressively painful left hallux varus wishing to undergo surgical correction. Recommendation is the most reliable procedure is a left first metatarsal phalangeal joint arthrodesis. Risks include pain, bleeding, numbness, infection, hardware failure, unable to retrieve existing hardware, hardware rotation, delayed union, malunion, nonunion, transfer pressure, altered mechanics and need for further surgical intervention. Also risk for deep vein thrombosis, heart attack, stroke and . Covid screening negative. Patient n.p.o. since midnight. Informed consent signed by patient myself and initialed her left foot. Patient wishes to proceed. Left first metatarsophalangeal joint arthrodesis with depart removal left foot date of operation 12/11/2021, outpatient, duration of procedure 60 minutes. Coding Level of Care Code Acute [employer] Internship for [facility] Roth Diagnoses Hallux varus (acquired), left foot M20.32 Left foot pain M79.672 Retained orthopedic hardware Z96.9
--- NOTE | 2021-12-11 10:16 | W.PM.OPSUD ---
Surgery/Procedure H&P Update DATE OF PROCEDURE: December 11, 2021 DATE H&P PERFORMED: 11/12/21 CHANGES TO PREVIOUS DOCUMENTATION: None PREOP DIAGNOSIS: Hallux varus left foot PLANNED PROCEDURE: Operation Date: 12/11/21 09:00 Proposed Procedures p Left first metatarsophalangeal joint arthrodesis 86890 M20.2(Left) - Fred Zelaya DPM
--- NOTE | 2021-12-11 11:28 | P.OP_ITS ---
Operative Report Date of procedure: December 11, 2021 Pre-op diagnosis: Hallux varus left foot, left foot pain. Post-op diagnosis: Same Procedure done: Left first metatarsal phalangeal joint arthrodesis, left foot deep hardware removal. CPT 75133 and 06218 Implants: [place] 28 first MTP plating system with 2.7 and 3.5 millimeter screws, 3-0 Vicryl, 4-0 Vicryl, 4-0 nylon Specimens removed/disposition: Removed a screw from the left hallux proximal phalanx and 3 screws from the left first metatarsal basilar operative field Surgeon: Fred Zelaya D.P.M. Corporate Human Resources Manager: Megan Estimated blood loss: 5 50 Brief History: Patient is a pleasant 71-year-old female who has had a progression of deformity to her left great toe, it is in a varus position that is exacerbated by weightbearing, when she is weightbearing the varus position is approximately 40 degrees, as her deformity has progressed she has no longer able to wear shoes without it hurting. She is wishing to undergo surgical correction and has chosen arthrodesis as a more predictable outcome after discussing a variety of options. Risks include pain, bleeding, numbness, infection, hardware failure, delayed union, malunion, nonunion, transfer pressure and altered mechanics. Also risk for deep vein thrombosis, heart attack, stroke and . Patient n.p.o. since midnight, Covid screening was negative, informed consent signed by patient and myself and I initialed her left foot. Patient wishes to proceed. No guarantees written, expressed or implied. Procedure: Under mild sedation the patient was brought to the operating room and remained on the gurney in supine position. A timeout was performed. Anesthesia was then administered by the anesthesia service. Local anesthesia was injected by myself consisting of 20 cc of 0.5% Marcaine plain and a left [place] block fashion. Well- padded pneumatic tourniquet applied to the left ankle and the left lower extremity was then scrubbed, prepped and draped utilizing normal aseptic technique. The left foot was exanguinated with an Esmarch bandage and the tourniquet inflated to 250 mmHg. Attention was directed to previous incision that was well-healed directly over the previous incision a linear longitudinal incision was made with a #15 blade at the dorsal aspect of the left first metatarsophalangeal joint with dissection carried down through subcutaneous tissue and to the layer of periosteum utilizing blunt and sharp technique. Care was taken to retract and preserve neurovascular and tendinous structures. All bleeders were ligated and cauterized as necessary. Periosteal incision was made and a total of 3 screws in the first metatarsal and 1 screw in the proximal phalanx were removed in total and passed from operative field this was from a previous surgery when she lived in [facility]. Hallux varus position was appreciated intraoperatively with loading of first ray. The first metatarsophalangeal joint was prepared for arthrodesis utilizing cone and cup reamers followed by saline flush. The head of the first metatarsal and base of the proximal phalanx were denuded of the articular surface in this fashion followed by subchondral drilling and then positioning at the first metatarsophalangeal joint in position for arthrodesis Next utilizing standard AO technique a 0 degree primary first metatarsophalangeal joint arthrodesis plate with locking holes was utilized dorsally with excellent bony apposition and compression noted, 2.7 millimeters screws distal and 3.5 millimeter screws proximally with excellent bony apposition and compression at the arthrodesis site and maintained alignment confirmed in all 3 planes with fluoroscopy noted to be excellent. Incision site was then flushed with copious amounts of sterile saline solution and periosteum closed with 3-0 Vicryl, subcu closed with 4-0 Vicryl and skin closed with 4-0 nylon. Exparel was infiltrated in a grid like fashion total of 10 cc expanded with saline at the operative site followed by dressing application consisting of Adaptic, sterile 4 x 4, Kerlix, Anup wrap followed by application of cam boot. Tourniquet was deflated and a prompt hyperemic response was noted to the distal digits of the left foot. Patient tolerated the procedure and anesthesia well and was transferred to the PACU with vital signs stable and vascular status intact. Following a period of postoperative monitoring she will be discharged home was given instruction to remain nonweightbearing. She was prescribed [place] 10/325 to be taken every 4 hours as needed for pain.
[2021-12-11 11:32] VITALS: BP 161/73; PULSE 78; O2SAT 94
[2021-12-11 11:37] VITALS: BP 144/66; PULSE 76; RESP 18; O2SAT 96
[2021-12-11 11:42] VITALS: BP 149/69; PULSE 71; RESP 18; O2SAT 94
[2021-12-11 11:51] VITALS: BP 161/67; PULSE 79; RESP 16; TEMP 36.1; O2SAT 92
--- NOTE | 2021-12-11 12:03 | XR_ITS ---
WS: [id number] FOOT LEFT TECHNIQUE: 3 views of the left foot CLINICAL INFORMATION: post op COMPARISON: August 20, 2021 FINDINGS: Osteopenia. Prior screw fixation 2nd digit unchanged. Screw fixation involving the heads of the 3rd a nd 4th metatarsals. Plate and screw fixation across the 1st MTP. Hardware revision at the 1st MTP wit h partial osteotomy. Hardware appears in good position. XR/XR foot LT min 3V* [id number] IMPRESSION: Revision of the 1st MTP hardware with plate and screw fixation and partial oste otomy
[2021-12-11 12:19] VITALS: BP 138/54; PULSE 59; RESP 16
--- NOTE | 2021-12-11 15:33 | ANE.PACU2 ---
Inpatient post-anesthesia follow up: Airway intact: Yes Vital signs: Temperature 97 F Pulse Rate 59 Respiratory Rate 16 Blood Pressure 138/54 Pulse Oximetry 92 Oxygen Delivery Me thod Room Air Oxygen Flow Rate Fraction of Inspir ed Oxygen Hydration adequate: Yes Nausea and vomiting: No Pain level: 1 Mental status: Baseline
== END 2021-12-11 13:03 | disposition home or self-care (01) ==
PROVIDERS: PCP Family Medicine; Visit Provider Podiatrist Foot & Ankle Surgery
PROC: (CPT 28740; principal; 2021-12-11 09:00)
PROC: (CPT 20680; 2021-12-11 09:00)
DX: M20.32 Hallux varus (acquired), left foot (principal); M79.672 Pain in left foot; Z96.9 Presence of functional implant, unspecified; M79.7 Fibromyalgia; M19.90 Unspecified osteoarthritis, unspecified site; E03.9 Hypothyroidism, unspecified; Z87.891 Personal history of nicotine dependence
CPT/HCPCS: 20680; 28750; 73630; 76000; 96365; 96374; C1713; C9290; J0690; J1100; J1170; J1200; J2704; J3010; J3475; J3490; J7030

== ENCOUNTER 2021-12-22 21:43 | Emergency (ER) | payer MEDICARE, OTHER, SELFPAY ==
--- NOTE | 2021-12-22 21:44 | XRR_ITS ---
PROCEDURE INFORMATION: Exam: XR Chest Exam date and time: 12/22/2021 9:44 PM Age: 71 years old Clinical indication: Shortness of breath; Additional info: SOB TECHNIQUE: Imaging protocol: XR of the chest. Views: 1 view. COMPARISON: CR XR chest 1V portable [id number] 02/22/2020 7:28 PM FINDINGS: Lungs: No CHF/pulmonary edema. Mild hyperinflation of the lungs could reflect COPD. Visible lungs appear essentially clear. Pleural spaces: No visible pneumothorax. No definite pleural fluid. Heart/Mediastinum: Mild to moderate cardiomegaly, similar to the prior exam. Bones/joints: No significant acute finding. XR/XR chest 1V portable [id number] IMPRESSION: 1. No definite CHF or pneumonia. 2. Mild hyperinflation of the lungs. 3. Other findings discussed above.
[2021-12-22 21:55] VITALS: PULSE 76; RESP 16; TEMP 36.4; O2SAT 76; BMI 24.3
--- NOTE | 2021-12-22 22:00 | PC.NURSE ---
pt placed on oxygen via NC at 2L and will be placed in next available bed
--- NOTE | 2021-12-22 22:33 | ED_ITS ---
HPI - SOB/Dyspnea General: Chief Complaint: Shortness of Breath/Dyspnea Stated Complaint: SOB Flu Symptoms Or Covid Time Seen by Provider: 12/22/21 22:14 Source: patient Mode of arrival: ambulatory Limitations: no limitations History of Present Illness: HPI Narrative: 71-year-old female has a history of restrictive lung disease states that she has to wear oxygen as needed at home but states that she typically does not wear it she states that her mother had recently gotten over the flu and she been around her mother states that she has had increasing cough and shortness of breath in the last 5 days with getting much worse today her pulse ox on room air here is 76% does have distress. She denies any pain denies any fever has had a cough no vomiting no diarrhea. Associated symptoms: Deny abdominal pain, chest pain, fever(s), nausea or vomiting Review of Systems Const: Denies: fever(s), chills, body aches or change in appetite Eyes: Denies: blurry vision or eye discomfort ENMT: Denies: throat pain or dental pain Card: Denies: chest pain Resp: Denies: dyspnea GI: Denies: abdominal pain, nausea, vomiting or diarrhea : Denies: dysuria Musc: Denies: neck pain or back pain Skin/Breast: Denies: rash Neuro: Denies: headache(s) Psych: Denies: depression Henrik/Lymph: Denies: easy bruising All/Imm: Denies: urticaria PFSH ED PFSH: Medical History Bipolar 1 disorder Bipolar disorder, current episode depressed, severe, without psychotic features Chronic fatigue syndrome Chronic nausea Fibromyalgia History of 2019 novel coronavirus disease (COVID-19) Hot flashes due to menopause Hypothyroidism IBS (irritable bowel syndrome) Mixed restrictive and obstructive lung disease Osteoarthritis Psychiatric care Surgical History H/O: hysterectomy History of cholecystectomy History of foot surgery History of hand surgery left thumb IP joint fusion History of lumpectomy History of surgery on upper extremity Left shoulder - 1997 Family History Mother Cancer Grandmother Cancer Social History Quit status (tobacco): has quit using tobacco Year quit tobacco: 1997 Second hand smoke exposure: No Alcohol intake: never Physical Exam Const: COMMON NORMALS: patient oriented x3 GENERAL APPEARANCE: in distress and ill appearing HENMT: COMMON NORMALS: normocephalic and atraumatic HEAD & SCALP: normocephalic and atraumatic Eye: COMMON NORMALS: Equal, round and reactive pupils present and EOMs intact bilaterally PUPIL: Yes Equal, round and reactive pupils present Neck/C-Spine: COMMON NORMALS: full ROM and supple Chest: COMMONS NORMALS: normal inspection of the chest and normal palpation of entire chest wall Resp: COMMON NORMALS: No retractions and No use of accessory muscles EFFORT & INSPECTION: Yes tachypneic AUSCULTATION: wheezes Cardio: COMMON NORMALS: regular rate, regular rhythm and No murmurs present (Cardio) RATE: regular rate RHYTHM: regular rhythm GI: COMMON NORMALS: Normal to inspection, nondistended, normoactive bowel sounds present, Soft to palpation, non-tender and no masses PALPATION: Yes Soft to palpation Extremity: COMMON NORMALS: normal to inspection and full ROM Neuro: COMMON NORMALS: patient oriented x3, moves all extremities and no focal motor deficits Psych: COMMON NORMALS: mental status grossly normal, Normal thought process present and cooperative THOUGHT PROCESS: Normal thought process present Skin: COMMON NORMALS: no rashes or lesions noted and no wounds GENERAL SKIN EXAM: no rashes or lesions noted Course Vital Signs: Vital signs: Vital Signs Temperature 97.6 F 12/22/21 21:55 Pulse Rate 61 12/22/21 23:58 Respiratory Rate 16 12/22/21 23:51 Blood Pressure 114/53 12/22/21 22:48 Pulse Oximetry 94 12/22/21 23:51 MDM - SOB/Dyspnea Medical Decision Making Patient presents here with cough shortness of breath that test positive for influenza she is on oxygen at home she is doing well here on 2 L I informed her to keep a 2 to 3 L at home. Patient given inhaler along with steroids and Tamiflu for home she has no signs of pneumonia she feels improved here as well she stable for discharge she has any increasing shortness of breath she is return immediately she understands agrees to plan. Lab Data : 12/22/21 23:45 03/01/22 23:45 Labs/Radiology: Radiology Impressions Chest X-Ray 12/22/21 21:44 IMPRESSION: 1. No definite CHF or pneumonia. 2. Mild hyperinflation of the lungs. 3. Other findings discussed above. Laboratory Results WBC 3.9 10^3/uL (4.0-10.0) L 12/22/21 23:45 RBC 3.48 10^6/uL (4.1-5.3) L 12/22/21 23:45 Hgb 10.6 g/dL (11.5-15.3) L 12/22/21 23:45 Hct 33.3 % (37.0-47.0) L 12/22/21 23:45 MCV 95.7 fl (81-99) 12/22/21 23:45 MCH 30.5 pg (28.0-34.0) 12/22/21 23:45 MCHC 31.8 g/dL (30.0-36.0) 12/22/21 23:45 RDW 13.1 % (12.1-15.1) 12/22/21 23:45 Plt Count 192 10^3/cmm (130-400) 12/22/21 23:45 MPV 8.8 fL (7.4-10.4) 12/22/21 23:45 Neut % (Auto) 74.5 % 12/22/21 23:45 Lymph % (Auto) 15.8 % 12/22/21 23:45 [place] % (Auto) 9.4 % 12/22/21 23:45 Eos % (Auto) 0.0 % 12/22/21 23:45 Baso % (Auto) 0.3 % 12/22/21 23:45 Neut # (Auto) 2.93 10^3/uL (1.8-7.7) 12/22/21 23:45 Lymph # (Auto) 0.6 10^3/uL (0.8-4.8) L 12/22/21 23:45 [place] # (Auto) 0.4 10^3/uL (0.2-0.9) 12/22/21 23:45 Eos # (Auto) 0.0 10^3/uL (0.0-0.8) 12/22/21 23:45 Baso # (Auto) 0.0 10^3/uL (0.0-0.1) 12/22/21 23:45 Nucleated RBC % (auto) 0 % 12/22/21 23:45 Nucleated RBCs # 0.0 /100WBC 12/22/21 23:45 D-Dimer 0.58 ug/mIFEU (0-0.59) 12/22/21 23:45 Sodium 131 mmol/L (136-145) L 12/22/21 23:45 Potassium 4.2 mmol/L (3.5-5.1) 12/22/21 23:45 Chloride 93 mmol/L (98-107) L 12/22/21 23:45 Carbon Dioxide 28 mmol/L (22-29) 12/22/21 23:45 Anion Gap 14.2 (5-19) 12/22/21 23:45 BUN 12 mg/dL (8-23) 12/22/21 23:45 Creatinine 0.7 mg/dL (0.5-0.9) 12/22/21 23:45 GFR Calculation Not Reportable 12/22/21 23:45 Glucose 136 mg/dL (65-115) H 12/22/21 23:45 Calculated Osmolality 274 mOsm/kg (285-295) L 12/22/21 23:45 Lactic Acid 0.6 mmol/L (0.5-2.2) 12/22/21 23:45 Calcium 8.1 mg/dL (8.5-10.5) L 12/22/21 23:45 Total Bilirubin 0.4 mg/dL (0.15-1.2) 12/22/21 23:45 AST 33 U/L (0-32) H 12/22/21 23:45 ALT 19 U/L (0-33) 12/22/21 23:45 Alkaline Phosphatase 119 IU/L (35-105) H 12/22/21 23:45 NT-Pro-B Natriuret Pep 2079 pg/mL (0-125) H 12/22/21 23:45 Total Protein 6.8 g/dL (6.6-8.7) 12/22/21 23:45 Albumin 4.2 g/dL (3.5-5.2) 12/22/21 23:45 Globulin 2.6 g/dL (1.3-4.6) 12/22/21 23:45 Nasal Influ A H1 2009 PCR Cancelled 12/23/21 01:13 Coronavirus 229E (PCR) Not detected (NOT DETECT) 12/22/21 23:10 Influenza A (H1) PCR Cancelled 12/23/21 01:13 Influenza A (H3) PCR Cancelled 12/23/21 01:13 Influenza Type A (PCR) Cancelled 12/23/21 01:13 Influenza Type B (PCR) Cancelled 12/23/21 01:13 SARS-CoV-2 (PCR) Not detected (NOT DETECT) 12/22/21 23:10 Discharge Plan Discharge Patient Disposition: Home Clinical Impression: Influenza Condition: Stable Prescriptions: New prednisone 50 mg tablet 50 mg PO DAILY Qty: 5 0RF Tamiflu 75 mg capsule 75 mg PO BID 5 Days Qty: 10 0RF No Action morphine 30 mg tablet 30 mg PO Q6H PRN (Reason: Pain) 0RF tizanidine 4 mg tablet 4 mg PO TID PRN (Reason: Muscle Spasm) 0RF budesonide 0.25 mg/2 mL suspension for nebulization 0.25 mg INHALATION BID 0RF escitalopram oxalate [Lexapro] 10 mg tablet 10 mg PO .QHS Qty: 30 2RF lamotrigine [Lamictal] 150 mg tablet 300 mg PO DAILY Qty: 60 2RF quetiapine [Seroquel] 100 mg tablet 300 mg PO DAILY Qty: 90 2RF methylphenidate HCl [Ritalin] 20 mg tablet 20 mg PO QAM 30 Days Qty: 30 0RF (DME) Bone stem See Rx Instructions .ROUTE .MEDSUPPLY Qty: 1 0RF Rx Instructions: As directed cetirizine 10 mg tablet 10 mg PO DAILY Qty: 90 1RF zoledronic uxxz-nfeglafs-suhya [Reclast] 5 mg/100 mL piggyback 1 ea IV .once a year Qty: 100 0RF ondansetron HCl [Zofran] 4 mg tablet 4 mg PO DAILY PRN (Reason: nausea and vomiting) Qty: 90 1RF dicyclomine 10 mg capsule 10 mg PO DAILY PRN (Reason: abdominal discomfort) Qty: 90 0RF diclofenac sodium 1 % gel 2 g TOPICAL BID Qty: 100 2RF silver sulfadiazine 1 % cream 1 applic topical . NEEDED 30 Days Qty: 85 1RF levothyroxine 75 mcg tablet See Rx Instructions .ROUTE .COMPLEX Qty: 45 0RF Dose Instruction: TAKE ONE TABLET BY MOUTH EVERY DAY Rx Instructions: TAKE ONE TABLET BY MOUTH EVERY DAY diphenoxylate-atropine 2.5-0.025 mg tablet 1 tab PO DAILY PRN (Reason: diarrhea) Qty: 90 1RF estradiol 2 mg tablet 2 mg PO DAILY 0RF Discharge Orders: Discharge ED (Routine); Ordered 12/23/21 Ordered By: Misael Bautista Referrals: January Whitehead DO [Primary Care Provider] - 1-3 days Discharge Diet: Advance as tolerated Discharge Activity: Resume usual activity Patient Instructions: Influenza (ED) Coding Level of Care Code ED Hvac Refrigeration Technician for Andrea Fwd Exam Comprehensive
[2021-12-22 22:48] VITALS: BP 114/53; PULSE 55; RESP 19; O2SAT 94
[2021-12-22] MEDS: ipratropium-albuterol 3 mL Neb INHALATION (23:50)
[2021-12-22 23:51] VITALS: PULSE 55; RESP 16; O2SAT 94
[2021-12-22 23:56] LABS: Basophils % 0.3 %; Hematocrit 33.3 % (37.0-47.0); Hemoglobin 10.6 g/dL (11.5-15.3); Lymphocytes # 0.6 10^3/uL (0.8-4.8); Lymphocytes % 15.8 %; Mean Corpuscular HGB Conc 31.8 g/dL (30.0-36.0); Mean Corpuscular Hemoglobin 30.5 pg (28.0-34.0); Mean Corpuscular Volume 95.7 fl (81-99); Mean Platelet Volume 8.8 fL (7.4-10.4); Monocytes # 0.4 10^3/uL (0.2-0.9); Monocytes % 9.4 %; Neutrophils # 2.93 10^3/uL (1.8-7.7); Neutrophils % 74.5 %; Nucleated Red Blood Cells % 0 %; Platelet Count 192 10^3/cmm (130-400); Red Blood Count 3.48 10^6/uL (4.1-5.3); Red Cell Distribution Width 13.1 % (12.1-15.1); White Blood Count 3.9 10^3/uL (4.0-10.0)
[2021-12-22 23:58] VITALS: PULSE 61
[2021-12-23 00:09] LABS: D Dimer 0.58 ug/mIFEU (0-0.59)
[2021-12-23 00:11] LABS: Lactic Sepsis W/Reflex 0.6 mmol/L (0.5-2.2)
[2021-12-23 00:19] LABS: Alanine Aminotransferase 19 U/L (0-33); Albumin Level 4.2 g/dL (3.5-5.2); Alkaline Phosphatase 119 IU/L (35-105); Anion Gap 14.2 (5-19); Aspartate Amino Transferase 33 U/L (0-32); Blood Urea Nitrogen 12 mg/dL (8-23); Calcium 8.1 mg/dL (8.5-10.5); Carbon Dioxide 28 mmol/L (22-29); Chloride 93 mmol/L (98-107); Globulin 2.6 g/dL (1.3-4.6); Glucose 136 mg/dL (65-115); Osmolality Calculated 274 mOsm/kg (285-295); Potassium 4.2 mmol/L (3.5-5.1); Sodium 131 mmol/L (136-145); Total Bilirubin 0.4 mg/dL (0.15-1.2); Total Protein 6.8 g/dL (6.6-8.7)
[2021-12-23 00:28] LABS: NT Pro B Type Natriuretic Pept 2079 pg/mL (0-125)
[2021-12-23 01:12] LABS: Adenovirus Not Detected (NOT DETECT); Chlamydia Pneumoniae Not Detected (NOT DETECT); Coronavirus 229E,HKU1,NL63,OC4 Not Detected (NOT DETECT); Human Metapneumovirus Not Detected (NOT DETECT); Human Rhinovirus/Enterovirus Not Detected (NOT DETECT); Influenza A Detected (NOT DETECT); Influenza A H1 Not Detected (NOT DETECT); Influenza A H1-2009 Not Detected (NOT DETECT); Influenza A H3 Detected (NOT DETECT); Influenza B Not Detected (NOT DETECT); Mycoplasma Pneumoniae Not Detected (NOT DETECT); Parainfluenza Virus Type 1 Not Detected (NOT DETECT); Parainfluenza Virus Type 2 Not Detected (NOT DETECT); Parainfluenza Virus Type 3 Not Detected (NOT DETECT); Parainfluenza Virus Type 4 Not Detected (NOT DETECT); Respiratory Syncytial Virus A Not Detected (NOT DETECT); Respiratory Syncytial Virus B Not Detected (NOT DETECT); SARS-COV-2 Not Detected (NOT DETECT)
[2021-12-23 01:14] LABS: Results from Genmark
== END 2021-12-23 02:43 | disposition home or self-care (01) ==
PROVIDERS: Emergency Provider Emergency Medicine; PCP Family Medicine
DX: J11.1 Influenza due to unidentified influenza virus with other respiratory manifestations (principal); Z87.891 Personal history of nicotine dependence; Z20.822 Contact with and (suspected) exposure to COVID-19
CPT/HCPCS: 71045; 80053; 83605; 83880; 85025; 85378; 87040; 87631; 87635; 94640; 96374; 99283; J2930; J7611

== ENCOUNTER → 2021-12-24 13:33 | Outpatient (BNVA) | payer MEDICARE, OTHER, SELFPAY | PROVIDERS: PCP Family Medicine; Visit Provider Podiatrist Foot & Ankle Surgery | DX: Z98.890 Other specified postprocedural states (principal) | CPT/HCPCS: 73630 ==

== ENCOUNTER → 2021-12-25 07:36 | Outpatient (BNVA) | payer MEDICARE, OTHER, SELFPAY | PROVIDERS: PCP Family Medicine; Visit Provider Nurse Practitioner | DX: F31.4 Bipolar disorder, current episode depressed, severe, without psychotic features (principal); R53.82 Chronic fatigue, unspecified | CPT/HCPCS: 99214 ==

== ENCOUNTER → 2022-01-04 11:26 | Outpatient (BNVA) | payer MEDICARE, OTHER, SELFPAY | PROVIDERS: PCP Family Medicine; Visit Provider Nurse Practitioner | DX: R05.9 Cough, unspecified (principal) | CPT/HCPCS: 71046 ==

== ENCOUNTER → 2022-01-07 15:33 | Outpatient (BNVA) | payer MEDICARE, OTHER, SELFPAY | PROVIDERS: PCP Family Medicine; Visit Provider Podiatrist Foot & Ankle Surgery | DX: Z98.890 Other specified postprocedural states (principal) | CPT/HCPCS: 73630 ==

== ENCOUNTER → 2022-01-22 07:29 | Outpatient (BNVA) | payer MEDICARE, OTHER, SELFPAY | PROVIDERS: PCP Family Medicine; Visit Provider Nurse Practitioner | DX: F31.4 Bipolar disorder, current episode depressed, severe, without psychotic features (principal); R53.82 Chronic fatigue, unspecified | CPT/HCPCS: 99214 ==

== ENCOUNTER → 2022-01-25 14:13 | Outpatient (BNVA) | payer MEDICARE, OTHER, SELFPAY | PROVIDERS: PCP Family Medicine; Visit Provider Family Medicine | DX: Z00.00 Encounter for general adult medical examination without abnormal findings (principal); Z13.6 Encounter for screening for cardiovascular disorders; Z11.59 Encounter for screening for other viral diseases; Z13.0 Encounter for screening for diseases of the blood and blood-forming organs and certain disorders involving the immune mechanism | CPT/HCPCS: 80053; 80061; 85025; 86705; 86706; 86709; 86803; 87340 ==

== ENCOUNTER → 2022-03-04 13:56 | Outpatient (BNVA) | payer MEDICARE, OTHER, SELFPAY | PROVIDERS: PCP Family Medicine; Visit Provider Podiatrist Foot & Ankle Surgery | DX: M25.872 Other specified joint disorders, left ankle and foot (principal); Z98.890 Other specified postprocedural states | CPT/HCPCS: 73630; 99214 ==

== ENCOUNTER → 2022-04-08 15:26 | Outpatient (BNVA) | payer MEDICARE, OTHER, SELFPAY | PROVIDERS: PCP Family Medicine; Visit Provider Podiatrist Foot & Ankle Surgery | DX: Z98.890 Other specified postprocedural states (principal); M25.872 Other specified joint disorders, left ankle and foot; M79.673 Pain in unspecified foot | CPT/HCPCS: 99214 ==

== ENCOUNTER → 2022-04-22 07:26 | Outpatient (BNVA) | payer MEDICARE, OTHER, SELFPAY | PROVIDERS: PCP Family Medicine; Visit Provider Nurse Practitioner | DX: F31.4 Bipolar disorder, current episode depressed, severe, without psychotic features (principal); R53.82 Chronic fatigue, unspecified | CPT/HCPCS: 99214 ==

== ENCOUNTER 2022-05-04 15:47 | Outpatient (CLI) | payer MEDICARE, OTHER, SELFPAY | END 2022-05-04 15:48 | disposition home or self-care (01) | LOC: SPT 15:47 | PROVIDERS: PCP Family Medicine; Visit Provider Podiatrist Foot & Ankle Surgery | DX: Z47.89 Encounter for other orthopedic aftercare (principal) | CPT/HCPCS: 97760; L3030 ==

== ENCOUNTER → 2022-05-19 14:23 | Outpatient (BNVA) | payer MEDICARE, OTHER, SELFPAY | PROVIDERS: PCP Family Medicine; Visit Provider Podiatrist Foot & Ankle Surgery | DX: M79.672 Pain in left foot (principal); Z98.890 Other specified postprocedural states | CPT/HCPCS: 99214 ==

== ENCOUNTER → 2022-05-24 17:05 | Outpatient (BNVA) | payer MEDICARE, OTHER, SELFPAY | PROVIDERS: PCP Family Medicine; Visit Provider Family Medicine | DX: J20.9 Acute bronchitis, unspecified (principal); R05.9 Cough, unspecified | CPT/HCPCS: 87426 ==

== ENCOUNTER 2022-06-04 05:46 | Day surgery (SDC) | payer MEDICARE, OTHER, SELFPAY ==
[2022-06-03 13:08] VITALS: BMI 23.6
[2022-06-04] VITALS (7 sets, daily range): BP systolic 95–124; BP diastolic 53–77; PULSE 57–90; RESP 17–18; TEMP 36.7–36.9; O2SAT 91–95
--- NOTE | 2022-06-04 05:59 | W.PM.OPSUD ---
Surgery/Procedure H&P Update DATE OF PROCEDURE: June 04, 2022 DATE H&P PERFORMED: 05/19/22 CHANGES TO PREVIOUS DOCUMENTATION: None PREOP DIAGNOSIS: Painful retained hardware left foot PLANNED PROCEDURE: Operation Date: 06/04/22 07:00 Proposed Procedures p Deep hardware removal left foot 79031,[id number](Left) - Fred Zelaya DPM
--- NOTE | 2022-06-04 06:00 | P.OP_ITS ---
Operative Report Date of procedure: June 04, 2022 Pre-op diagnosis: Painful retained hardware left foot Post-op diagnosis: Same Post-op findings: None Procedure done: Deep hardware removal left foot. CPT. CPT 98505 Implants: 3-0 Vicryl, 4-0 Vicryl, 4-0 nylon Specimens removed/disposition: [place] 28 plate and 5 screws left foot Pathology: None Surgeon: Fred Zelaya D.P.M. Asset Protection Specialist: Henry Estimated blood loss: 5 17 IV fluids: 0 Urine output: None Complications: None Brief History: Patient examined and evaluated, findings and treatment options were discussed with patient at length.? She is requesting hardware removal to her left foot at the first metatarsal phalangeal joint arthrodesis site.? Risks include but are not limited to pain, bleeding, numbness, infection, failure to retrieve hardware.? Fractured and fragmented hardware, potential for fracture or failure at the arthrodesis site to the left first metatarsal phalangeal joint, damage to adjacent soft tissue structures and need for further surgical intervention.? Risk for chronic swelling, bruising, surgical site dehiscence, risk for deep vein thrombosis, heart attack, stroke and .? Patient is agreeable wishes to proceed. No guarantees written, expressed or implied. Procedure: Under mild sedation the patient was brought to the operating room and remained on the gurney in supine position. A timeout was performed. Anesthesia was then administered by the anesthesia service. Local anesthesia injected by myself consisting of one-to-one mixture 1% lidocaine and 0.5% Marcaine plain in a left [place] block fashion. Well-padded pneumatic tourniquet applied to the left ankle. The left lower extremity was then scrubbed, prepped and draped utilizing normal aseptic technique. Attention was directed to the dorsal medial aspect of the left first metatarsal phalangeal joint where a linear longitudinal incision was made over the previous cicatrix. Incision was made with a #15 blade and carried down through skin and subcutaneous tissue utilizing a combination of blunt and sharp technique. Care was taken to retract and preserve neurovascular and tendinous structures. All bleeders were ligated and cauterized as necessary. Dissection was carried down to the level of the first metatarsal phalangeal joint arthrodesis plate dorsally where total 5 screws and 1 plate were removed and passed from operative field with all rough edges being smoothed by hand rasp. Incision was flushed with saline solution and closed in a layered fashion with periosteum reapproximated with 3-0 Vicryl, subcutaneous tissue reapproximated with 4-0 Vicryl and skin with 4-0 nylon. Incision site was dressed with Adaptic, sterile 4 x 4's, Kerlix and Anup wrap. Postop shoe was applied. Tourniquet was then deflated and a prompt hyperemic response was noted to the distal digits of the left foot. Patient tolerated the procedure and anesthesia well and was transferred to the PACU with vital signs stable and vascular status intact. Following a period of postoperative monitoring she will be discharged home is to elevate her left foot while resting. May be weightbearing with a postop shoe below threshold of pain. She is to keep her surgical dressing clean, dry and intact until her follow-up visit Tuesday next week in podiatry clinic. For surgical pain she was prescribed hydrocodone 10/325 to be taken every 6 hours as needed for pain with a 7-day supply sent to [facility]. Of note a 1 cc of Decadron 4 mL/cc was injected after closure to the sesamoid apparatus left foot.
--- NOTE | 2022-06-04 06:11 | XR_ITS ---
WS: [id number] XR foot LT min 3V* [id number] REASON FOR EXAM: Postop hardware removal FINDINGS: Compared to the examination of 03/04/2022, there has been removal arthrodesis plate and screw fixation of the metatarsal-phalangeal joint of the great toe. Tarsal metatarsal joint of the great toe appear s fused in proper alignment. Long screw fixation of the DIP and PIP joints of the second toe. Osteotomies with screw fixation of t he distal third and fourth metatarsals. No other interval change or new finding. XR/XR foot LT min 3V* [id number] IMPRESSION: Postoperative left foot as above.
[2022-06-04] MEDS: CELEcoxib 200 mg Capsule 400 MG PO (06:19)
[2022-06-04] MEDS: sodium chloride 0.9% 1,000 ML 30 ML IV (06:19)
[2022-06-04] MEDS: gabapentin 300 mg Capsule PO (06:20)
--- NOTE | 2022-06-04 06:42 | P.ANESASSM_ITS ---
Pre-Anesthetic Assessment Height/Weight: Height 1.75 m Weight 72.575 kg Temp Pulse Resp BP Pulse Ox O2 Del Method 98.0 F 90 18 121/74 93 06/04/22 06:05 06/04/22 06:05 06/04/22 06:05 06/04/22 06:05 06/04/22 06:05 06/04/22 06:06 Preop Diagnosis: Painful retained hardware left foot Operation Date: 06/04/22 07:00 Proposed Procedures p Deep hardware removal left foot 01692,T84.84XA(Left) - Fred Zelaya DPM Familial anesthetic complications: None Was Beta Amparo taken within 24 hours: N/A Was Clonidine taken within 24 hours: N/A Last intake: Intake Last Liquid Date 06/03/22 Last Liquid Time 23:00 Last Solid Date 06/03/22 Last Solid Time 23:00 Social No alcohol and No tobacco Exam alert, oriented x 3, clear to auscultation bilaterally and regular rate & rhythm Airway Mallampati: Class II Dentition: chipped and false Pulmonary some restrictive lung dz after experiencing severe episode of pneumonia CV/HEM None reported None reported Hepatic None reported GI None reported Metabolic Thyroid Disease [facility] [place] Fibromyalgia chronic pain Anesthetic Plan ASA status: 3 Anesthesia: MAC Risk of > 500 ml blood loss (7ml/kg in children): No Medications/Allergies Home Medications Medication Instructions Recorded Confirmed Last Taken Type budesonide 0.25 mg/2 mL suspension 0.25 mg inhalation BID 12/25/19 06/04/22 06/03/22 02:00 History for nebulization morphine 30 mg immediate release 30 mg PO Q6H PRN Pain 12/25/19 06/04/22 06/03/22 History tablet tizanidine 4 mg tablet 4 mg PO TID PRN Muscle Spasm 12/25/19 06/04/22 06/03/22 History Bone stem #1 ea 04/28/21 05/24/22 Unknown Rx zoledronic acid 5 mg/100 mL in 1 ea IV .once a year Osteopenia 08/18/21 06/04/22 09/09/21 Rx mannitol 5 %-water intravenous #100 mL piggybck (Reclast) silver sulfadiazine 1 % topical 1 applic topical . NEEDED 30 12/04/21 06/04/22 06/03/22 Rx cream days #85 grams diphenoxylate-atropine 2.5 1 tab PO DAILY PRN diarrhea #90 12/21/21 06/04/22 05/27/22 Rx mg-0.025 mg tablet tabs diclofenac sodium 1 % topical gel 2 g topical BID #100 grams 03/11/22 06/04/22 06/03/22 Rx dicyclomine 10 mg capsule 10 mg PO DAILY PRN abdominal 03/11/22 06/04/22 05/27/22 Rx discomfort #90 caps arformoterol 15 mcg/2 mL solution 2 ml inhalation BID #120 mL 03/23/22 06/04/22 06/04/22 02:00 Rx for nebulization (Brovana) Custom Molded Orthotics #1 ea 04/08/22 05/24/22 Unknown Rx Custom Molded Orthotics- Sport low #1 ea 04/08/22 05/24/22 Unknown Rx profile with a Reverse Zapata Pad escitalopram oxalate 20 mg tablet 20 mg PO DAILY #30 tabs 04/22/22 06/04/22 06/03/22 Rx (Lexapro) lamotrigine 150 mg tablet 300 mg PO DAILY #60 tabs 04/22/22 06/04/22 06/03/22 Rx (Lamictal) methylphenidate HCl 20 mg tablet 20 mg PO QAM 30 days #30 tabs 04/22/22 06/04/22 06/03/22 Rx (Ritalin) quetiapine 100 mg tablet (Seroquel) 300 mg PO DAILY #90 tabs 04/22/22 06/04/22 06/03/22 Rx quetiapine 25 mg tablet (Seroquel) 25 mg PO BID PRN anxiety #60 tabs 04/22/22 06/04/22 06/03/22 Rx cetirizine 10 mg tablet 10 mg PO DAILY 06/03/22 06/04/22 06/03/22 History estradiol 2 mg tablet 2 mg PO DAILY 06/03/22 06/04/22 06/03/22 History levothyroxine 75 mcg tablet 75 mcg PO DAILY 06/03/22 06/04/22 06/03/22 History ondansetron HCl 4 mg tablet 4 mg PO PRN 06/03/22 06/04/22 06/03/22 History hydrocodone 10 mg-acetaminophen 1 tab PO Q6H 7 days #28 tabs 06/04/22 Unknown Rx 325 mg tablet Allergies Allergy/AdvReac Type Severity Reaction Status Date / Time adhesive tape Allergy ADR-Itching Verified 06/04/22 06:11 sumatriptan [From Imitrex] Allergy ADR-Dry Verified 06/04/22 06:11 Mucus Membranes Macrolide Antibiotics AdvReac C Diff Verified 06/04/22 06:11 Current Medications Generic Name Dose Route Start Last Admin Trade Name Harsh PRN Reason Stop Dose Admin Sodium Chloride 1,000 mls @ 30 mls/hr 06/04/22 06:00 06/04/22 06:19 Sodium Chloride 0.9% IV 06/05/22 05:59 30 mls/hr .Q24H SARAH Administration PFSH Anesthesia Medical History Bipolar 1 disorder Bipolar disorder, current episode depressed, severe, without psychotic features Chronic fatigue syndrome Chronic nausea Fibromyalgia History of 2019 novel coronavirus disease (COVID-19) Hot flashes due to menopause Hypothyroidism IBS (irritable bowel syndrome) Mixed restrictive and obstructive lung disease Osteoarthritis Psychiatric care Surgical History H/O: hysterectomy History of cholecystectomy History of foot surgery History of hand surgery left thumb IP joint fusion History of lumpectomy History of surgery on upper extremity Left shoulder - 1997 Family History Mother Cancer Grandmother Cancer Social History Smoking and tobacco status: former smoker Quit status (tobacco): has quit using tobacco Year quit tobacco: 1997 Second hand smoke exposure: No Alcohol intake: never Data Anesthesia Cardiac Studies: No Data to Display
[2022-06-04] MEDS: ceFAZolin 2,000 MG in sodium chloride 0.9% (plus) 50 ML 100 MG IV (06:59)
[2022-06-04] MEDS: dexamethasone 4 mg/mL INJ INJECTION (07:30)
--- NOTE | 2022-06-04 14:17 | ANE.PACU2 ---
Inpatient post-anesthesia follow up: Airway intact: Yes Vital signs: Temperature 98.0 F Pulse Rate 57 Respiratory Rate 18 Blood Pressure 117/61 Pulse Oximetry 91 Oxygen Delivery Me thod Room Air Oxygen Flow Rate Fraction of Inspir ed Oxygen Hydration adequate: Yes Nausea and vomiting: No Pain level: 1 Mental status: Baseline
== END 2022-06-04 08:40 | disposition home or self-care (01) ==
PROVIDERS: PCP Family Medicine; Visit Provider Podiatrist Foot & Ankle Surgery
PROC: (CPT 20680; principal; 2022-06-04 07:00)
DX: T84.84XA Pain due to internal orthopedic prosthetic devices, implants and grafts, initial encounter (principal); M79.7 Fibromyalgia; E03.9 Hypothyroidism, unspecified; M19.90 Unspecified osteoarthritis, unspecified site; Z87.891 Personal history of nicotine dependence
CPT/HCPCS: 20680; 73630; J0330; J1100; J2370; J2704; J3010; J3490; J7030

== ENCOUNTER → 2022-06-17 15:20 | Outpatient (BNVA) | payer MEDICARE, OTHER, SELFPAY | PROVIDERS: PCP Family Medicine; Visit Provider Podiatrist Foot & Ankle Surgery | DX: Z98.890 Other specified postprocedural states (principal) | CPT/HCPCS: 99024 ==

== ENCOUNTER → 2022-07-15 15:17 | Outpatient (BNVA) | payer MEDICARE, OTHER, SELFPAY | PROVIDERS: PCP Family Medicine; Visit Provider Podiatrist Foot & Ankle Surgery | DX: Z98.890 Other specified postprocedural states (principal); M25.872 Other specified joint disorders, left ankle and foot | CPT/HCPCS: 99214 ==

== ENCOUNTER 2022-08-06 05:35 | Day surgery (SDC) | payer MEDICARE, OTHER, SELFPAY ==
[2022-08-05 13:25] VITALS: BMI 22.8
[2022-08-06] VITALS (8 sets, daily range): BP systolic 104–150; BP diastolic 53–89; PULSE 60–97; RESP 16–18; TEMP 36.1–36.5; O2SAT 93–97
--- NOTE | 2022-08-06 06:14 | W.PM.OPSUD ---
Surgery/Procedure H&P Update DATE OF PROCEDURE: August 06, 2022 DATE H&P PERFORMED: 07/15/22 CHANGES TO PREVIOUS DOCUMENTATION: None PREOP DIAGNOSIS: Sesamoiditis left foot PLANNED PROCEDURE: Operation Date: 08/06/22 07:00 Proposed Procedures p Left tibial and fibular sesamoidectomy 59293,M84.872,Q66.89,M25.80 Allergic to Adhesive tape(Left) - Fred Zelaya DPM
--- NOTE | 2022-08-06 06:15 | PM.OP ---
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 Procedure done: Left tibial and fibular sesamoidectomy. CPT code 24439 Implants: 3-0 Prolene Surgeon: Fred Zelaya D.P.M. 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 Where she has a arthrodesis already she is has at risk for hallux varus or valgus deformities as a result of sesamoid excision.? Not as much risk for destabilizing the first metatarsal phalangeal joint secondary to arthrodesis.? She is at risk for transfer pressure, transfer lesions, transfer pressure and resulting stress risers to lesser metatarsals including stress fractures.? She is at risk for failure to alleviate pain to the right plantar forefoot.? I reviewed at length with the patient, the risks, potential complications, benefits, alternatives, expectations, and typical outcomes associated with the surgery. The risks and potential complications were explained in detail, including but not limited to infection, wound dehiscence or soft tissue complications, bleeding and hematoma, chronic edema, neuritis or nerve damage producing numbness or chronic pain, CRPS, failure to relieve pain or worsening pain, thick / painful / unsightly scar, limited motion / stiffness, malposition, delayed union, malunion, or nonunion, fracture, reaction to implants, anesthetic complications, venous thromboembolism, and deformity recurrence.? I discussed the notion of no regrets with the patient as it pertains to complications and outcomes. The patient seemed to understand the nature of the proposed care and required convalescence. They asked appropriate questions, answered to their satisfaction. They are aware no guarantees can be made as to a satisfactory outcome and they understand there may be other possible unforeseen complications or outcomes not listed here that will be treated accordingly if they arise. There were no written or implied guarantees given to the patient. They gave informed consent to proceed. Procedure: Under mild sedation the patient was brought to the operating room and remained on the gurney in supine position. A timeout was performed. Anesthesia was then administered by the anesthesia service. Local anesthesia was injected by myself consisting of 10 cc of Exparel and 20 cc of 0.5% Marcaine plain subcutaneously in a grid like fashion per enterprise integration architect recommendation to the left medial column. Well-padded pneumatic tourniquet applied to the left high calf. The left lower extremity was then scrubbed, prepped and draped utilizing normal aseptic technique. Left foot was exanguinated with an Esmarch bandage and the tourniquet was inflated the 250 mmHg. Attention was directed to the plantar aspect of the left first metatarsal phalangeal joint where a curvilinear incision was made in a lazy S fashion to help reduce contracture this was directly over the central portion of the plantar aspect of the first metatarsal head. Dissection was carried through subcutaneous tissue to the layer of extensor houses longus tendon. Bleeders were ligated and cauterized as necessary. The flexor houses longus tendon was retracted laterally and the tibial sesamoid was identified and sharply excised, incision was flushed with saline solution. Tibial sesamoid was passed from operative field. The flexor houses longus tendon was then retracted medially and fibular sesamoid was identified and excised and passed from operative field. Of note there was arthrosis with crepitus with range of motion and palpation to the tibial and fibular sesamoid tibial sesamoid was more severe. The incision was flushed with saline solution and the incision was closed in a single layer fashion utilizing 3-0 Prolene simple interrupted suture technique. The incision was then dressed with Adaptic, sterile 4 x 4, Kerlix and Anup wrap followed by application of cam boot. Tourniquet was deflated and a prompt hyperemic response was noted to the distal digits of the left foot. Patient tolerated the procedure and anesthesia well and was transferred to the PACU with vital signs stable and vascular status intact. Following a period of postoperative monitoring patient will be discharged home may be heel touch for transfers as tolerated.
[2022-08-06] MEDS: sodium chloride 0.9% 1,000 ML 30 ML IV (06:20)
[2022-08-06] MEDS: CELEcoxib 200 mg Capsule 400 MG PO (06:21)
[2022-08-06] MEDS: gabapentin 300 mg Capsule PO (06:21)
--- NOTE | 2022-08-06 06:45 | ANES.PREANE2 ---
Pre-Anesthetic Assessment Height/Weight: Height 1.75 m Weight 70.307 kg Temp Pulse Resp BP Pulse Ox O2 Del Method 97.2 F L 67 18 141/62 95 08/06/22 06:05 08/06/22 06:05 08/06/22 06:05 08/06/22 06:05 08/06/22 06:05 08/06/22 06:08 Preop Diagnosis: Sesamoiditis left foot Operation Date: 08/06/22 07:00 Proposed Procedures p Left tibial and fibular sesamoidectomy 96895,M84.872,Q66.89,M25.80 Allergic to Adhesive tape(Left) - Fred Zelaya DPM Familial anesthetic complications: None Was Beta Amparo taken within 24 hours: N/A Was Clonidine taken within 24 hours: N/A Last intake: Intake Last Liquid Date 08/05/22 Last Liquid Time 21:00 Last Solid Date 08/05/22 Last Solid Time 21:00 Social No alcohol and No tobacco Exam alert, oriented x 3, clear to auscultation bilaterally and regular rate & rhythm Airway Mallampati: Class II Dentition: chipped and false Pulmonary hx acute bronchitis Metabolic Thyroid Disease [facility] [place] Fibromyalgia Anesthetic Plan ASA status: 2 Anesthesia: MAC Risk of > 500 ml blood loss (7ml/kg in children): No Medications/Allergies Home Medications Medication Instructions Recorded Confirmed Last Taken Type budesonide 0.25 mg/2 mL suspension 0.25 mg inhalation BID 12/25/19 08/05/22 08/05/22 History for nebulization morphine 30 mg immediate release 30 mg PO Q6H PRN Pain 12/25/19 08/05/22 08/05/22 History tablet tizanidine 4 mg tablet 4 mg PO TID PRN Muscle Spasm 12/25/19 08/05/22 08/05/22 History Bone stem #1 ea 04/28/21 07/20/22 Unknown Rx zoledronic acid 5 mg/100 mL in 1 ea IV .once a year Osteopenia 08/18/21 08/06/22 09/09/21 Rx mannitol 5 %-water intravenous #100 mL piggybck (Reclast) diclofenac sodium 1 % topical gel 2 g topical BID #100 grams 03/11/22 08/05/22 08/05/22 Rx arformoterol 15 mcg/2 mL solution 2 ml inhalation BID #120 mL 03/23/22 08/05/22 08/05/22 Rx for nebulization (Brovana) Custom Molded Orthotics #1 ea 04/08/22 07/20/22 Unknown Rx Custom Molded Orthotics- Sport low #1 ea 04/08/22 07/20/22 Unknown Rx profile with a Reverse Zapata Pad estradiol 2 mg tablet 2 mg PO DAILY 06/03/22 07/20/22 08/05/22 History ondansetron HCl 4 mg tablet 4 mg PO PRN 06/03/22 08/05/22 08/05/22 History silver sulfadiazine 1 % topical See Rx Instructions .Route 06/25/22 08/06/22 08/05/22 Rx cream .COMPLEX #85 grams escitalopram oxalate 20 mg tablet 20 mg PO DAILY #30 tabs 06/29/22 08/05/22 08/05/22 Rx (Lexapro) methylphenidate HCl 20 mg tablet 20 mg PO QAM 30 days #30 tabs 06/30/22 08/05/22 08/05/22 Rx (Ritalin) cetirizine 10 mg tablet See Rx Instructions .Route 07/08/22 08/05/22 08/05/22 Rx .COMPLEX #90 tabs levothyroxine 75 mcg tablet See Rx Instructions .Route 07/13/22 08/05/22 08/05/22 Rx .COMPLEX #90 tabs lamotrigine 150 mg tablet 300 mg PO DAILY #60 tabs 08/02/22 08/05/22 08/05/22 Rx (Lamictal) quetiapine 100 mg tablet (Seroquel) 300 mg PO DAILY #90 tabs 08/02/22 08/05/22 08/05/22 Rx quetiapine 25 mg tablet (Seroquel) 25 mg PO BID PRN anxiety #60 tabs 08/02/22 08/05/22 08/05/22 Rx dicyclomine 10 mg capsule 10 mg PO DAILY PRN abdominal 08/04/22 08/05/22 08/05/22 Rx discomfort #90 caps diphenoxylate-atropine 2.5 1 tab PO DAILY PRN diarrhea #90 08/04/22 08/05/22 08/05/22 Rx mg-0.025 mg tablet tabs hydrocodone 10 mg-acetaminophen 1 tab PO Q6H 7 days #28 tabs 08/06/22 Unknown Rx 325 mg tablet Allergies Allergy/AdvReac Type Severity Reaction Status Date / Time adhesive tape Allergy ADR-Itching Verified 07/20/22 14:09 sumatriptan [From Imitrex] Allergy ADR-Dry Verified 07/20/22 14:09 Mucus Membranes Macrolide Antibiotics AdvReac C Diff Verified 07/20/22 14:09 Current Medications Generic Name Dose Route Start Last Admin Trade Name Harsh PRN Reason Stop Dose Admin Sodium Chloride 1,000 mls @ 30 mls/hr 08/06/22 06:00 08/06/22 06:20 Sodium Chloride 0.9% IV 08/07/22 05:59 30 mls/hr .Q24H SARAH Administration PFSH Anesthesia Medical History (Updated 07/23/22 @ 18:23 by Jaswinder Bernard, [facility]) Bipolar 1 disorder Bipolar disorder, current episode depressed, severe, without psychotic features Chronic fatigue syndrome Chronic nausea Fibromyalgia History of 2019 novel coronavirus disease (COVID-19) Hot flashes due to menopause Hypothyroidism IBS (irritable bowel syndrome) Mixed restrictive and obstructive lung disease Osteoarthritis Psychiatric care Surgical History H/O: hysterectomy History of cholecystectomy History of foot surgery History of hand surgery left thumb IP joint fusion History of lumpectomy History of surgery on upper extremity Left shoulder - 1997 Family History Mother Cancer Grandmother Cancer Social History Smoking and tobacco status: former smoker Quit status (tobacco): has quit using tobacco Year quit tobacco: 1997 Second hand smoke exposure: No Alcohol intake: never Data Anesthesia Cardiac Studies: No Data to Display
[2022-08-06] MEDS: ceFAZolin 2,000 MG in sodium chloride 0.9% (plus) 50 ML 100 MG IV (06:58)
[2022-08-06] MEDS: HYDROcodone-acetaminophen 10-325 mg Tablet 1 TAB PO (08:15)
--- NOTE | 2022-08-06 12:58 | ANE.PACU2 ---
Inpatient post-anesthesia follow up: Airway intact: Yes Vital signs: Temperature 97.0 F Pulse Rate 60 Respiratory Rate 18 Blood Pressure 150/72 Pulse Oximetry 93 Oxygen Delivery Me thod Room Air Oxygen Flow Rate 10 Fraction of Inspir ed Oxygen 10 Hydration adequate: Yes Nausea and vomiting: No Pain level: 1 Mental status: Baseline
== END 2022-08-06 08:25 | disposition home or self-care (01) ==
PROVIDERS: PCP Family Medicine; Visit Provider Podiatrist Foot & Ankle Surgery
PROC: (CPT 28315; principal; 2022-08-06 07:00)
DX: M25.872 Other specified joint disorders, left ankle and foot (principal); M79.7 Fibromyalgia; M19.90 Unspecified osteoarthritis, unspecified site; Z87.891 Personal history of nicotine dependence; E03.9 Hypothyroidism, unspecified
CPT/HCPCS: 28315; C9290; J2704; J3010; J3490; J7030

== ENCOUNTER → 2022-08-26 13:12 | Outpatient (BNVA) | payer MEDICARE, OTHER, SELFPAY | PROVIDERS: PCP Family Medicine; Visit Provider Podiatrist Foot & Ankle Surgery | DX: Z98.890 Other specified postprocedural states (principal) | CPT/HCPCS: 73630; 99024 ==

== ENCOUNTER → 2022-09-03 13:31 | Outpatient (BNVA) | payer MEDICARE, OTHER, SELFPAY | PROVIDERS: PCP Family Medicine; Visit Provider Podiatrist Foot & Ankle Surgery | DX: Z98.890 Other specified postprocedural states (principal) | CPT/HCPCS: 99024 ==

== ENCOUNTER → 2022-10-07 14:09 | Outpatient (BNVA) | payer MEDICARE, OTHER, SELFPAY | PROVIDERS: PCP Family Medicine; Visit Provider Podiatrist Foot & Ankle Surgery | DX: Z98.890 Other specified postprocedural states (principal); M20.11 Hallux valgus (acquired), right foot; M21.621 Bunionette of right foot | CPT/HCPCS: 99214 ==

== ENCOUNTER → 2022-10-28 16:07 | Outpatient (BNVA) | payer MEDICARE, OTHER, SELFPAY | PROVIDERS: PCP Family Medicine; Visit Provider Family Medicine | DX: E03.9 Hypothyroidism, unspecified (principal); Z13.6 Encounter for screening for cardiovascular disorders | CPT/HCPCS: 80053; 84439; 84443; 85025 ==

== ENCOUNTER 2022-11-10 11:10 | Outpatient (CLI) | payer MEDICARE, OTHER, SELFPAY ==
--- NOTE | 2022-11-10 11:00 | MR_ITS ---
WS: [id number] MRI RIGHT FOOT without CONTRAST. COMPARISON: Foot radiograph 11/12/2021 Multiplanar, multisequence imaging is performed without contrast. Quality of this examination is significantly limited by extensive patient motion despite repeated att empts at sequence acquisition. There is also significant artifact from the hardware in the patient's foot. Hallux valgus deformity. Hardware with metallic artifact involving the distal first metatarsal and th e proximal first phalanx. There is additional artifact in the distal fifth metatarsal. Taking into consideration the limitations no obvious malalignment and no edema. No marrow edema. Lisf ranc ligament looks to be intact. The soft tissues as visualized are negative. MR/MR foot RT wo con* [id number] IMPRESSION: 1. Limited evaluation of the foot due to extensive motion artifact and hardwar e artifact. 2. No obvious bone or soft tissue abnormality is identified. 3. Postsurgical hardware in the distal first and fifth metatarsals and the pro ximal first phalanx.
== END 2022-11-10 11:11 | disposition home or self-care (01) ==
LOC: RAD 11:11
PROVIDERS: PCP Family Medicine; Visit Provider Podiatrist Foot & Ankle Surgery
DX: M25.871 Other specified joint disorders, right ankle and foot (principal)
CPT/HCPCS: 73718

== ENCOUNTER 2022-12-02 13:46 | Outpatient (CLI) | payer MEDICARE, OTHER, SELFPAY ==
--- NOTE | 2022-12-02 13:55 | MM_ITS ---
WS: [email or web address] BILATERAL 3D TOMOSYNTHESIS DIGITAL SCREENING MAMMOGRAPHY WITH CAD CLINICAL INFORMATION: SCREENING HISTORY: Screening mammogram. Chronic breast lumps. COMPARISON: June 03, 2021 TECHNIQUE: Bilateral CC and MLO views. FINDINGS: The breasts are composed of heterogeneous fibroglandular density tissue, which can limit the detectio n of small underlying mass lesions. No suspicious mass, asymmetry, calcifications, or architectural d istortion. No evidence of malignancy. A few stable punctate and lucent centered calcifications. MM/[place] [id number] IMPRESSION: BI-RADS: 2-Benign FOLLOW UP: 1 Year Follow-up Recommend return to annual screening mammography.
== END 2022-12-02 13:47 | disposition home or self-care (01) ==
LOC: RAD 13:49
PROVIDERS: PCP Family Medicine; Visit Provider Family Medicine
DX: Z12.31 Encounter for screening mammogram for malignant neoplasm of breast (principal)
CPT/HCPCS: 77063; 77067

== ENCOUNTER → 2022-12-03 10:15 | Outpatient (BNVA) | payer MEDICARE, OTHER, SELFPAY | PROVIDERS: PCP Family Medicine; Visit Provider Podiatrist Foot & Ankle Surgery | DX: T84.84XA Pain due to internal orthopedic prosthetic devices, implants and grafts, initial encounter (principal); Y79.2 Prosthetic and other implants, materials and accessory orthopedic devices associated with adverse incidents; M20.11 Hallux valgus (acquired), right foot; M21.621 Bunionette of right foot; M25.871 Other specified joint disorders, right ankle and foot; M20.41 Other hammer toe(s) (acquired), right foot | CPT/HCPCS: 99214 ==

== ENCOUNTER 2022-12-16 12:54 | Outpatient (CLI) | payer MEDICARE, OTHER, SELFPAY ==
--- NOTE | 2022-12-16 13:00 | US_ITS ---
WS: [email or web address] ULTRASOUND THYROID TECHNIQUE: Ultrasound of the thyroid. CLINICAL INFORMATION: left thyroid swelling COMPARISON: None. FINDINGS: Thyroid: Right and left thyroid lobes are normal in size and echotexture. Right thyroid lobe: 3.8 cm x 1.2 cm x 1.2 cm Several tiny hypoechoic/cystic lesions in the RIGHT thyroid. Largest measures 4.7 x 4.7 x 5.4 mm Left thyroid lobe: 4.4 cm x 1.2 cm x 1.3 cm. Small hypoechoic nodule LEFT mid thyroid measuring 2.4 x 2.0 x 4.5 mm RIGHT submandibular cystic appearing lesion measuring 4.9 x 3.7 x 5.1 mm. No vascularity. Isthmus: 0.2 mm. Cervical lymphadenopathy: A few normal sized lymph nodes. US/US thyroid [id number] IMPRESSION: 1. Small subcentimeter bilateral thyroid nodules. Recommend 12 month follow-up . 2. No dominant lesions to target for biopsy.
== END 2022-12-16 12:55 | disposition home or self-care (01) ==
LOC: RAD 12:56
PROVIDERS: PCP Family Medicine; Visit Provider Family Medicine
DX: E04.2 Nontoxic multinodular goiter (principal)
CPT/HCPCS: 76536

== ENCOUNTER 2022-12-23 14:32 | Oncology outpatient (recurring) (ONCR) | payer MEDICARE, OTHER, SELFPAY ==
[2022-12-23 15:15] VITALS: BP 162/70; PULSE 76; RESP 16; TEMP 36.7; O2SAT 98
[2022-12-23 15:38] VITALS: BP 144/78; PULSE 91; RESP 18; TEMP 36.2; O2SAT 95
== END 2023-01-21 23:59 | disposition home or self-care (01) ==
LOC: ONCMED 14:33
PROVIDERS: PCP Family Medicine; Visit Provider Family Medicine
DX: M25.871 Other specified joint disorders, right ankle and foot (principal); Z79.899 Other long term (current) drug therapy
CPT/HCPCS: 96365; J3489

== ENCOUNTER 2022-12-31 07:35 | Day surgery (SDC) | payer MEDICARE, OTHER, SELFPAY ==
[2022-12-30 10:59] VITALS: BMI 25.8
[2022-12-31] VITALS (20 sets, daily range): BP systolic 89–150; BP diastolic 56–81; PULSE 58–92; RESP 16–18; TEMP 36.5–36.9; O2SAT 89–98
--- NOTE | 2022-12-31 | XR_ITS ---
WS: [email or web address] Right foot, C-arm fluoroscopy, 12/31/2022 Clinical Data: OR PICS Comparison: None. Findings: Dr. Zelaya performed a osteotomy of the right fifth metatarsal. The fusion of the right first MTP julia int and fusion of the right second toe remain the same. XR/XR foot RT 2V [id number] Impression: Osteotomy of the right fifth metatarsal.
[2022-12-31] MEDS: CELEcoxib 200 mg Capsule 400 MG PO (08:13)
[2022-12-31] MEDS: gabapentin 300 mg Capsule PO (08:14)
[2022-12-31] MEDS: sodium chloride 0.9% 1,000 ML 30 ML IV (08:15)
--- NOTE | 2022-12-31 09:01 | W.PM.OPSUD ---
Surgery/Procedure H&P Update DATE OF PROCEDURE: December 31, 2022 DATE H&P PERFORMED: 12/03/22 CHANGES TO PREVIOUS DOCUMENTATION: none PREOP DIAGNOSIS: Bunion, bunionette, hammertoe, sesamoiditis, retained hardware right foot PLANNED PROCEDURE: Operation Date: 12/31/22 09:25 Proposed Procedures p Hardware Removal 22751, 20907, 22798, 25751, 21389, M79.671,T84.84XA,? M20.11,? M21.621,M25.871,? M20.41(Right) - KATE Arambula irst metatarsal phalangeal joint fusion(Right) - KATE Arambula Sesamoidectomy(Right) - KATE Arambula , fifth hammertoe repair(Right) - KATE Arambula Bunionectomy Tailors(Right) - Fred Zelaya DPM
--- NOTE | 2022-12-31 09:02 | P.HP_ITS ---
Providers/Chief Complaint Primary Care Provider: January Whitehead DO Chief Complaint: M79.671, T84.84XA, M20.11, M21.621, M26.871, M20.4 History of Present Illness Georgia Ballesteros is a 72 year old female?presents for surgical consultation for several painful deformities of her right foot.? She has retained hardware at the right foot great toe and first metatarsal head she is resting she is requesting removal.? She has a reoccurrence of hallux valgus and painful range of motion at the right first metatarsal phalangeal joint that causes pain daily with everyday activities such as standing and walking with and without shoes.? States that the joint pain at the right great toe is affecting overall quality of life.? She also has pain at her right fifth toe and at the right fifth tailor's bunion.? Has failed [id number] anti-inflammatories, she is on chronic pain management.? She has been wearing wide accommodative shoes with wide toebox and wearing orthotics has also tried topical anti-inflammatory such as Voltaren gel.? She is requesting surgical intervention at this time for several reasons 1 she is having pain with these deformities that occurs daily she also has had a successful surgery on the left foot with first metatarsal phalangeal arthrodesis and sesamoidectomy.? She is requesting the same surgery to be done on her right foot given her recovery and successful alleviation of pain on the left.? Patient denies any subjective nausea, vomiting, fever, chills, shortness of breath or chest pain.? Review of Systems General: Reports: 10 or more systems reviewed and unremarkable except in HPI and below Const: Denies: fever(s) or chills Eyes: Denies: change in vision Card: Denies: chest pain or palpitations Resp: Denies: dyspnea or productive cough GI: Denies: abdominal pain, nausea or vomiting : Denies: flank pain Musc: Reports: extremity pain, joint pain, joint stiffness, limited range of motion and deformity Skin/Breast: Reports: skin tenderness; Denies: rash Neuro: Reports: difficulty walking; Denies: numbness in extremities, sensory changes or frequent falls Psych: Denies: suicidal ideation Henrik/Lymph: Denies: easy bruising Medications/Allergies Home Medications Medication Instructions Recorded Confirmed Last Taken Type budesonide 0.25 mg/2 mL suspension 0.25 mg inhalation BID 12/25/19 12/31/22 12/30/22 History for nebulization morphine 30 mg immediate release 30 mg PO Q6H PRN Pain 12/25/19 12/31/22 12/30/22 History tablet tizanidine 4 mg tablet 4 mg PO TID PRN Muscle Spasm 12/25/19 12/31/22 12/30/22 History Bone stem #1 ea 04/28/21 12/31/22 Unknown Rx zoledronic acid 5 mg/100 mL in 1 ea IV .once a year Osteopenia 08/18/21 12/31/22 12/27/22 Rx mannitol 5 %-water intravenous #100 mL piggybck (Reclast) arformoterol 15 mcg/2 mL solution 2 ml inhalation BID #120 mL 03/23/22 12/31/22 12/31/22 Rx for nebulization (Brovana) Custom Molded Orthotics #1 ea 04/08/22 12/31/22 Unknown Rx Custom Molded Orthotics- Sport low #1 ea 04/08/22 12/31/22 Unknown Rx profile with a Reverse Zapata Pad ondansetron HCl 4 mg tablet 4 mg PO PRN 06/03/22 12/31/22 1 Week Ago History ~12/24/22 cetirizine 10 mg tablet See Rx Instructions .Route 07/08/22 12/31/22 12/30/22 Rx .COMPLEX #90 tabs dicyclomine 10 mg capsule 10 mg PO DAILY PRN abdominal 08/04/22 12/31/22 1 Week Ago Rx discomfort #90 caps ~12/24/22 diphenoxylate-atropine 2.5 1 tab PO DAILY PRN diarrhea #90 08/04/22 12/31/22 1 Week Ago Rx mg-0.025 mg tablet tabs ~12/24/22 levothyroxine 75 mcg tablet See Rx Instructions .Route 10/31/22 12/31/22 12/30/22 Rx .COMPLEX #90 tabs diclofenac sodium 1 % topical gel 2 g topical BID #100 grams 12/20/22 12/31/22 1 Week Ago Rx ~12/24/22 escitalopram oxalate 20 mg tablet 20 mg PO DAILY #30 tabs 12/21/22 12/31/22 12/30/22 Rx (Lexapro) lamotrigine 150 mg tablet 300 mg PO DAILY #60 tabs 12/21/22 12/31/22 12/30/22 Rx (Lamictal) quetiapine 100 mg tablet (Seroquel) 300 mg PO DAILY #90 tabs 12/21/22 12/31/22 12/30/22 Rx quetiapine 25 mg tablet (Seroquel) 25 mg PO BID PRN anxiety #60 tabs 12/21/22 12/31/22 12/30/22 Rx methylphenidate HCl 20 mg tablet 20 mg PO QAM 30 days #30 tabs 12/22/22 12/31/22 12/29/22 Rx (Ritalin) silver sulfadiazine 1 % topical See Rx Instructions .Route BID #85 12/24/22 0 12/31/22 3 Weeks Ago Rx cream grams ~12/10/22 estradiol 2 mg tablet 2 mg PO DAILY #90 tabs 12/29/22 12/31/22 12/30/22 Rx Allergies Allergy/AdvReac Type Severity Reaction Status Date / Time adhesive tape Allergy ADR-Itching Verified 12/31/22 08:08 sumatriptan [From Imitrex] Allergy ADR-Dry Verified 12/31/22 08:08 Mucus Membranes Macrolide Antibiotics AdvReac C Diff Verified 12/31/22 08:08 PFSH PFSH: Medical History Bipolar 1 disorder Bipolar disorder, current episode depressed, severe, without psychotic features Chronic fatigue syndrome Chronic nausea Fibromyalgia History of 2019 novel coronavirus disease (COVID-19) Hot flashes due to menopause Hypothyroidism IBS (irritable bowel syndrome) Mixed restrictive and obstructive lung disease Osteoarthritis Psychiatric care Surgical History H/O: hysterectomy History of cholecystectomy History of foot surgery History of hand surgery left thumb IP joint fusion History of lumpectomy History of surgery on upper extremity Left shoulder - 1997 Family History Mother Cancer Grandmother Cancer Social History Smoking and tobacco status: former smoker Quit status (tobacco): has quit using tobacco Year quit tobacco: 1997 Second hand smoke exposure: No Alcohol intake: never Dietary Habits: Caffeine: Yes Caffeine intake frequency: carbonated beverages Vital Signs Vitals Signs: Last Vital Signs Temp 97.7 F 12/31/22 08:00 Pulse 92 12/31/22 08:00 Resp 18 12/31/22 08:00 BP 126/71 12/31/22 08:00 Pulse Ox 92 12/31/22 08:00 O2 Del Method 12/31/22 08:00 Weight: Weight last 48 hrs Weight 175 lb Physical Exam Narrative: EXAM NARRATIVE: Patient is alert and oriented ?3 and in no acute distress.? The following is a focused bilateral lower extremity exam. VASCULAR: Dorsalis pedis and posterior tibial arteries palpable +2.? Capillary refill time less than 3 seconds to the distal hallux bilaterally. Calf is supple and nontender proximally and distally.? No edema to the left foot.? Mild edema to the right first metatarsal phalangeal joint. NEUROLOGICAL: Protective sensation intact to light touch. DERMATOLOGICAL: Skin is well-hydrated and normal texture and turgor bilaterally to the lower extremities without erythema, warmth or drainage.? Well-healed cicatrix to the left plantar medial forefoot subfirst metatarsal head without nodule or mass MUSCULOSKELETAL: No pain to palpation at the left plantar aspect of first metatarsal phalange joint or zone of sesamoid apparatus.? No range of motion appreciated at the arthrodesis site of the left first metatarsal phalangeal joint.? Muscle strength is 5 out of 5 in all 3 planes to the left foot and ankle pain-free without guarding.? Patient has a nonantalgic gait on the left foot. Hallux valgus deformity semitrack bound to the right foot with decreased dorsiflexion at 35 degrees with osseous and range of motion right first metatarsal phalangeal joint.? Range of motion is painful with some crepitus to the right first metatarsal phalangeal joint.? There is exquisite tenderness palpation at the sesamoid apparatus of the right first metatarsal phalangeal joint with tenderness to palpation at the tibial and fibular sesamoids.? Patient also has a tailor's bunion and hammertoe of the fifth digit with triplane de formity to the right foot that has some tenderness to palpation at the lateral aspect of the fifth metatarsophalangeal join and proximal interphalangeal joint of the right fifth toe. CARDIOVASCULAR: S1, S2, normal rate, normal rhythm.? Dorsalis pedis and posterior tibial arteries palpable. LUNGS: Clear to auscltation, no use of acessory muscles, no crackles or wheezes. A&P Assessment and plan (1) Hammertoe of right foot: (2) Right foot pain: (3) Retained orthopedic hardware: (4) Sesamoiditis of right foot: (5) Hallux valgus (acquired), right foot: Plan Patient examined and evaluated, findings and treatment options were discussed with patient at length.? MRI not overly helpful due to motion artifact as well as artifact from metal implants obscuring sesamoid apparatus.? No obvious avascular necrosis of the sesamoids.? Unable to evaluate the extent of arthrosis or fracture.? Patient has failed conservative treatment options consisting of wide accommodative shoes, anti-inflammatories, activity modifications and orthotics for her right hallux rigidus, right fifth hammertoe deformity and tailor's bunion is requesting surgical intervention.? I reviewed at length with the patient, the risks, potential complications, benefits, alternatives, expectations, and typical outcomes associated with the surgery. The risks and potential complications were explained in detail, including but not limited to infection, wound dehiscence or soft tissue complications, bleeding and hematoma, chronic edema, neuritis or nerve damage producing numbness or chronic pain, CRPS, failure to relieve pain or worsening pain, thick / painful / unsightly scar, limited motion / stiffness, malposition, delayed union, malunion, or nonunion, fracture, reaction to implants, anesthetic complications, venous thromboembolism, and deformity recurrence.? I discussed the notion of no regrets with the patient as it pertains to complications and outcomes. The patient seemed to understand the nature of the proposed care and required convalescence. They asked appropriate questions, answered to their satisfaction. They are aware no guarantees can be made as to a satisfactory outcome and they understand there may be other possible unforeseen complications or outcomes not listed here that will be treated accordingly if they arise. There were no written or implied guarantees given to the patient. They gave informed consent to proceed. 12/31/2022 hardware removal, first metatarsal phalangeal joint fusion, sesamoidectomy, fifth hammertoe repair and tailor's bunionectomy all right foot.? General anesthetic, gurney, supine, TPS, mini C arm, [place]. Coding Level of Care Code Acute Code for Chg Fwd Diagnoses Hammertoe of right foot M20.41 Right foot pain M79.671 Retained orthopedic hardware Z96.9 Sesamoiditis of right foot M25.871 Hallux valgus (acquired), right foot M20.11
--- NOTE | 2022-12-31 09:05 | PM.OP ---
Operative Report Date of procedure: December 31, 2022 Pre-op diagnosis: Right bunion deformity. Right tailor's bunion deformity. Right fifth hammertoe deformity. Right sesamoiditis. Painful retained hardware right foot. Post-op diagnosis: Right bunion deformity. Right tailor's bunion deformity. Right fifth hammertoe deformity. Right sesamoiditis. Painful retained hardware right foot. Post-op findings: Same Procedure done: Hardware removal right foot. CPT code 34524 Right first metatarsal phalangeal joint fusion. CPT code 65923 Right tibial and fibular sesamoidectomy. CPT code 35914 Right tailor's bunionectomy. CPT code 92548 Implants: [place] first MTP primary plate [place] 3.5 mm locking and nonlocking screws [place] 2.7 millimeter locking screws [employer] ProStep medium implant at tailor's bunionectomy 3-0 Vicryl 4-0 Vicryl 4-0 nylon 20 cc of Exparel 20 cc of 0.5% Marcaine plain Surgeon: Fred Zelaya D.P.M. Obstetrics Scrub Nurse: Henry Estimated blood loss: 5 76 IV fluids: 0 Urine output: 0 Complications: None Brief History: Patient examined and evaluated, findings and treatment options were discussed with patient at length.? MRI not overly helpful due to motion artifact as well as artifact from metal implants obscuring sesamoid apparatus.? No obvious avascular necrosis of the sesamoids.? Unable to evaluate the extent of arthrosis or fracture.? Patient has failed conservative treatment options consisting of wide accommodative shoes, anti-inflammatories, activity modifications and orthotics for her right hallux rigidus, right fifth hammertoe deformity and tailor's bunion is requesting surgical intervention.? I reviewed at length with the patient, the risks, potential complications, benefits, alternatives, expectations, and typical outcomes associated with the surgery. The risks and potential complications were explained in detail, including but not limited to infection, wound dehiscence or soft tissue complications, bleeding and hematoma, chronic edema, neuritis or nerve damage producing numbness or chronic pain, CRPS, failure to relieve pain or worsening pain, thick / painful / unsightly scar, limited motion / stiffness, malposition, delayed union, malunion, or nonunion, fracture, reaction to implants, anesthetic complications, venous thromboembolism, and deformity recurrence.? I discussed the notion of no regrets with the patient as it pertains to complications and outcomes. The patient seemed to understand the nature of the proposed care and required convalescence. They asked appropriate questions, answered to their satisfaction. They are aware no guarantees can be made as to a satisfactory outcome and they understand there may be other possible unforeseen complications or outcomes not listed here that will be treated accordingly if they arise. There were no written or implied guarantees given to the patient. They gave informed consent to proceed. Procedure: Under mild sedation the patient was brought to the operating room and remained on the gurney in supine position. A timeout was performed. Anesthesia was then administered by the anesthesia service. Local anesthesia was injected by myself to the right foot consisting of 10 cc for a right [place] block and 10 cc for a right reverse [place] block of 0.5% Marcaine plain. Following the [place] block and reverse [place] block 20 cc of Exparel was infiltrated subcutaneously in a grid like fashion at the right medial and lateral forefoot proximal to the operative sites. This was done in a grid like fashion per manufacture recommendation in technique. A well-padded pneumatic tourniquet was applied to the right ankle. The right lower extremity was then scrubbed, prepped and draped utilizing normal aseptic technique. The right foot was exanguinated with an Esmarch bandage and the tourniquet was inflated to 250 mmHg. Attention was directed to the right medial forefoot where over the previous incision at the dorsal medial aspect of the right first metatarsal phalangeal joint a #15 blade was utilized to perform a linear longitudinal incision through skin with dissection carried down through subcutaneous tissue to the layer of periosteum and joint capsule. A capsular incision in a linear fashion was performed at the dorsal medial aspect of the right first metatarsal phalangeal joint and the base of the proximal phalanx and head of the first metatarsal were freed from their soft tissue and capsular attachments. A screw within the first metatarsal head was identified and removed in total and passed from operative field without fragmentation or failure. Attention was then directed to the medial aspect of the proximal phalanx base of the right hallux where a screw was also identified and removed without fracture or failure this was passed from the operative field to the back table. All rough edges were smoothed. The incision was then irrigated with copious months of sterile skin solution. Range of motion was then performed intraoperatively of the right first metatarsal phalangeal joint was noted to have crepitus and decreased motion in the sagittal plane. Joint surfaces at the base of the proximal phalanx and of the right hallux and at the first metatarsal head where arthritic with eburnation at the cartilage surface. Was able to visualize the tibial and fibular sesamoid through the joint with distraction and both the tibial and fibular sesamoid dorsal articular surface articulated within the alejandro of the first metatarsal head were noted to have arthrosis and eburnation and yellowish off brown coloration consistent with arthrosis. With these findings the decision was made to perform an arthrodesis of the first metatarsal phalangeal joint as well as a tibial and fibular sesamoidectomy concomitantly. Under distraction of the first metatarsal phalangeal joint the tibial and fibular sesamoid were sharply excised from their soft tissue attachments and passed from the operative field. Attention was then directed to the head of the first metatarsal of the right foot which was then denuded of its articular surface utilizing a cup reamer on hand power. The cartilage surface was denuded down to subchondral bone without fragmenting or fracturing the first metatarsal head. The base of the proximal phalanx in like fashion was denuded of articular surface down to subchondral bone utilizing a cone reamer on hand power. The incision was irrigated with copious for sterile saline solution. Subchondral drilling was performed with a fenestrating drill bit at the base of the proximal phalanx and head of the first metatarsal to prepare for arthrodesis. The hallux was then held in slight valgus abutting the second toe lightly, was held approximately 15 degrees of dorsiflexion from the weightbearing surface of the right foot and in neutral position in the frontal plane with toenail at 12:00. This was then fixated for arthrodesis utilizing a [place] primary MTP plate with 2.7 millimeter screws distally and 3.5 millimeter screws proximally with excellent bony apposition and compression noted. AP, oblique and lateral views confirmed excellent placement of hardware for the arthrodesis site without violating adjacent joints or being proud. Excellent position of alignment also appreciated for arthrodesis in all 3 planes. The incision was irrigated with saline solution and closed in a layered fashion. Capsule and periosteum reapproximated with 3-0 Vicryl. Subcutaneous tissue reapproximated 4-0 Vicryl and skin with 4-0 nylon. Attention was then directed to the dorsal lateral aspect of the right fifth metatarsal phalangeal joint where a linear longitudinal incision was made through skin with a #15 blade with dissection carried down through subcutaneous tissue down to the layer of the joint capsule of the dorsal aspect of the right fifth metatarsal phalangeal joint. Capsular incision was performed and of the head of the fifth metatarsal was identified. A transverse osteotomy was then performed at the metaphyseal flare of the fifth metatarsal head from lateral to medial. Fifth metatarsal head was then translated medially in a more anatomically corrected position and a broach kit determined a medium implant for a [employer] ProStep. This was implanted per manufacture recommendation and technique with excellent seated position and fixation with a locking screw through the midportion of the right fifth metatarsal head. Intraoperative range of motion demonstrated robust fixation that was stable without motion and fixated in a anatomically corrected position reducing the tailor's bunion. The incision was irrigated with copious amounts of saline solution and closed in a layered fashion. Joint capsule and periosteum utilizing 4-0 Vicryl, subcutaneous tissue was closed with 4-0 Vicryl and skin with 4-0 nylon. The incision sites were then dressed with Adaptic, sterile 4 x 4's, Kerlix and Anup wrap. Cam boot was then applied to the right lower extremity. The tourniquet was then deflated and a prompt hyperemic response was noted to the distal digits of the right foot. Patient tolerated the procedure and anesthesia well and was transferred to the PACU with vital signs stable and vascular status intact. Following a period of postoperative monitoring she will be discharged home was given at home care instructions, follow-up and my contact information to contact with any postoperative questions or concerns.
[2022-12-31] MEDS: ceFAZolin 2,000 MG in sodium chloride 0.9% (plus) 50 ML 100 MG IV (09:17)
--- NOTE | 2022-12-31 09:20 | ANES.PREANE2 ---
Pre-Anesthetic Assessment Height/Weight: Height 1.75 m Weight 79.379 kg Temp Pulse Resp BP Pulse Ox O2 Del Method 97.7 F 92 18 126/71 92 12/31/22 08:00 12/31/22 08:00 12/31/22 08:00 12/31/22 08:00 12/31/22 08:00 12/31/22 08:00 Preop Diagnosis: Bunion, bunionette, hammertoe, sesamoiditis, retained hardware right foot Operation Date: 12/31/22 09:25 Proposed Procedures p Hardware Removal 57285, 70237, 63957, 73852, 25218, M79.671,T84.84XA,? M20.11,? M21.621,M25.871,? M20.41(Right) - KATE Arambula irst metatarsal phalangeal joint fusion(Right) - KATE Arambula Sesamoidectomy(Right) - KATE Arambula , fifth hammertoe repair(Right) - KATE Arambula Bunionectomy Tailors(Right) - Fred Zelaya DPM Familial anesthetic complications: None Was Beta Amparo taken within 24 hours: N/A Was Clonidine taken within 24 hours: N/A Last intake: Intake Last Liquid Date 12/30/22 Last Liquid Time 21:00 Last Solid Date 12/30/22 Last Solid Time 21:00 Social No alcohol and No tobacco Airway Mallampati: Class II Dentition: false Metabolic Thyroid Disease Anesthetic Plan ASA status: 2 Anesthesia: General and Regional (specify below) Risk of > 500 ml blood loss (7ml/kg in children): No Medications/Allergies Home Medications Medication Instructions Recorded Confirmed Last Taken Type budesonide 0.25 mg/2 mL suspension 0.25 mg inhalation BID 12/25/19 12/31/22 12/30/22 History for nebulization morphine 30 mg immediate release 30 mg PO Q6H PRN Pain 12/25/19 12/31/22 12/30/22 History tablet tizanidine 4 mg tablet 4 mg PO TID PRN Muscle Spasm 12/25/19 12/31/22 12/30/22 History Bone stem #1 ea 04/28/21 12/31/22 Unknown Rx zoledronic acid 5 mg/100 mL in 1 ea IV .once a year Osteopenia 08/18/21 12/31/22 12/27/22 Rx mannitol 5 %-water intravenous #100 mL piggybck (Reclast) arformoterol 15 mcg/2 mL solution 2 ml inhalation BID #120 mL 03/23/22 12/31/22 12/31/22 Rx for nebulization (Brovana) Custom Molded Orthotics #1 ea 04/08/22 12/31/22 Unknown Rx Custom Molded Orthotics- Sport low #1 ea 04/08/22 12/31/22 Unknown Rx profile with a Reverse Zapata Pad ondansetron HCl 4 mg tablet 4 mg PO PRN 06/03/22 12/31/22 1 Week Ago History ~12/24/22 cetirizine 10 mg tablet See Rx Instructions .Route 07/08/22 12/31/22 12/30/22 Rx .COMPLEX #90 tabs dicyclomine 10 mg capsule 10 mg PO DAILY PRN abdominal 08/04/22 12/31/22 1 Week Ago Rx discomfort #90 caps ~12/24/22 diphenoxylate-atropine 2.5 1 tab PO DAILY PRN diarrhea #90 08/04/22 12/31/22 1 Week Ago Rx mg-0.025 mg tablet tabs ~12/24/22 levothyroxine 75 mcg tablet See Rx Instructions .Route 10/31/22 12/31/22 12/30/22 Rx .COMPLEX #90 tabs diclofenac sodium 1 % topical gel 2 g topical BID #100 grams 12/20/22 12/31/22 1 Week Ago Rx ~12/24/22 escitalopram oxalate 20 mg tablet 20 mg PO DAILY #30 tabs 12/21/22 12/31/22 12/30/22 Rx (Lexapro) lamotrigine 150 mg tablet 300 mg PO DAILY #60 tabs 12/21/22 12/31/22 12/30/22 Rx (Lamictal) quetiapine 100 mg tablet (Seroquel) 300 mg PO DAILY #90 tabs 12/21/22 12/31/22 12/30/22 Rx quetiapine 25 mg tablet (Seroquel) 25 mg PO BID PRN anxiety #60 tabs 12/21/22 12/31/22 12/30/22 Rx methylphenidate HCl 20 mg tablet 20 mg PO QAM 30 days #30 tabs 12/22/22 12/31/22 12/29/22 Rx (Ritalin) silver sulfadiazine 1 % topical See Rx Instructions .Route BID #85 12/24/22 12/31/22 3 Weeks Ago Rx cream grams ~12/10/22 estradiol 2 mg tablet 2 mg PO DAILY #90 tabs 12/29/22 12/31/22 12/30/22 Rx Allergies Allergy/AdvReac Type Severity Reaction Status Date / Time adhesive tape Allergy ADR-Itching Verified 12/31/22 08:08 sumatriptan [From Imitrex] Allergy ADR-Dry Verified 12/31/22 08:08 Mucus Membranes Macrolide Antibiotics AdvReac C Diff Verified 12/31/22 08:08 Current Medications Generic Name Dose Route Start Last Admin Trade Name Freq PRN Reason Stop Dose Admin Sodium Chloride 1,000 mls @ 30 mls/hr 12/31/22 08:00 12/31/22 08:15 Sodium Chloride 0.9% IV 01/01/23 07:59 30 mls/hr .Q24H SARAH Administration PFSH Anesthesia Medical History Bipolar 1 disorder Bipolar disorder, current episode depressed, severe, without psychotic features Chronic fatigue syndrome Chronic nausea Fibromyalgia History of 2019 novel coronavirus disease (COVID-19) Hot flashes due to menopause Hypothyroidism IBS (irritable bowel syndrome) Mixed restrictive and obstructive lung disease Osteoarthritis Psychiatric care Surgical History H/O: hysterectomy History of cholecystectomy History of foot surgery History of hand surgery left thumb IP joint fusion History of lumpectomy History of surgery on upper extremity Left shoulder - 1997 Family History Mother Cancer Grandmother Cancer Social History Smoking and tobacco status: former smoker Quit status (tobacco): has quit using tobacco Year quit tobacco: 1997 Second hand smoke exposure: No Alcohol intake: never Data Anesthesia Cardiac Studies: No Data to Display
--- NOTE | 2022-12-31 09:21 | ANES.PROC ---
Anesthesia Procedures Procedure/Date: 12/31/22 Nerve Block ^: Nerve Block 1: Main Anesthesia: general anesthesia Time Out Performed: Yes Consent: requested by attending/covering physician, from patient, risks and benefits reviewed and patient agrees to proceed Nerve block location: popliteal (L) Anesthesia monitors applied: pulse oximetry, EKG, BP cuff and oxygen Nerve block position: semi sitting Anesthetic Used: ropivicaine 0.5% (30 ml) and with decadron (4 mg) Ultrasound used to: recognize landmarks Nerve Stimulator Used?: No Interscalene/Femoral BLK: 4 stimuplex 21 g needle used for position and inplane approach, visualize local anesthetic spread and no vascular puncture identified Injection: neg aspiration of heme Complications: none
--- NOTE | 2022-12-31 11:03 | PC.NURSE ---
Pt arrived to PACU, O2 at 6L/min via simple mask. Dressing and boot to right foot. Right toes p/w/d, cap refill < 3 seconds. Right foot elevated on pillow.
--- NOTE | 2022-12-31 14:24 | PC.NURSE ---
Per Dr. Zelaya's instructions discharged pt post-op prior to his entering discharge note. Called pt after his notes were entered and read Dr. Zelaya's instructions to pt over the phone. Pt voiced understanding and appreciation. -Please keep your surgical dressings clean, dry and intact until your follow-up visit in clinic scheduled 01/07/2023 at 1:00 PM. This will be your first dressing change with Dr. Zelaya's nursing staff. Surgical dressing is sterile, even with some bleeding it is best to be left intact for the next 7 days. If there is excessive/active bleeding and significant strikethrough please contact Dr. Zelaya. -Please begin taking a baby aspirin once daily following the morning after surgery. This will be a 81 mg aspirin once daily starting 01/01/2023. I would recommend taking the aspirin once daily until you are weightbearing again which will be approximately 6 weeks from surgery. A baby aspirin once daily can potentially reduce the risk of deep vein thrombosis. -Please remain nonweightbearing to your right lower extremity and wear the cam boot at all times, you may heel touch for transfers. -Please elevate your right foot while resting, preferably above the level of your hip. -You may apply a ice pack behind your right knee. -You may take ibuprofen 800 mg every 8 hours in addition to your pain medication if needed for additional pain relief. -Please contact Dr. Zelaya with any postoperative questions or concerns. Cell phone number [phone]. Call or text is okay.
== END 2022-12-31 13:15 | disposition home or self-care (01) ==
PROVIDERS: PCP Family Medicine; Visit Provider Podiatrist Foot & Ankle Surgery
PROC: (CPT 20680; principal; 2022-12-31 09:15)
PROC: (CPT 28750; 2022-12-31 09:15)
PROC: (CPT 20680; 2022-12-31 09:15)
PROC: (CPT 28285; 2022-12-31 09:15)
PROC: 0QBP0ZZ Excision of Left Metatarsal, Open Approach (ICD-10-PCS; CPT 28110; 2022-12-31 09:15)
DX: M21.611 Bunion of right foot (principal); M20.41 Other hammer toe(s) (acquired), right foot; M25.871 Other specified joint disorders, right ankle and foot; T84.84XA Pain due to internal orthopedic prosthetic devices, implants and grafts, initial encounter; M20.11 Hallux valgus (acquired), right foot; M79.7 Fibromyalgia; Z86.16 Personal history of COVID-19; E03.9 Hypothyroidism, unspecified; Z87.891 Personal history of nicotine dependence; Y83.8 Other surgical procedures as the cause of abnormal reaction of the patient, or of later complication, without mention of misadventure at the time of the procedure
CPT/HCPCS: 20680; 28308; 28315; 28750; 73620; 76000; C1713; C9290; J0690; J1100; J2704; J2795; J3010; J3490; J7030

== ENCOUNTER → 2023-01-07 12:45 | Outpatient (BNVA) | payer MEDICARE, OTHER, SELFPAY | PROVIDERS: PCP Family Medicine; Visit Provider Podiatrist Foot & Ankle Surgery | DX: Z98.890 Other specified postprocedural states (principal) | CPT/HCPCS: 99024 ==

== ENCOUNTER → 2023-01-13 14:37 | Outpatient (BNVA) | payer MEDICARE, OTHER, SELFPAY | PROVIDERS: PCP Family Medicine; Visit Provider Podiatrist Foot & Ankle Surgery | DX: Z98.890 Other specified postprocedural states (principal) | CPT/HCPCS: 73630; 99024 ==

== ENCOUNTER → 2023-01-27 14:26 | Outpatient (BNVA) | payer MEDICARE, OTHER, SELFPAY | PROVIDERS: PCP Family Medicine; Visit Provider Podiatrist Foot & Ankle Surgery | DX: Z98.890 Other specified postprocedural states (principal) | CPT/HCPCS: 73630; 99024 ==

== ENCOUNTER → 2023-02-10 13:14 | Outpatient (BNVA) | payer MEDICARE, OTHER, SELFPAY | PROVIDERS: PCP Family Medicine; Visit Provider Podiatrist Foot & Ankle Surgery | DX: Z98.890 Other specified postprocedural states (principal); M79.671 Pain in right foot | CPT/HCPCS: 73630; 99024 ==

== ENCOUNTER 2023-03-04 05:42 | Day surgery (SDC) | payer MEDICARE, OTHER, SELFPAY ==
[2023-03-03 09:31] VITALS: BMI 25.8
[2023-03-04] VITALS (15 sets, daily range): BP systolic 90–118; BP diastolic 43–90; PULSE 50–63; RESP 12–18; TEMP 35.9–36.3; O2SAT 91–99
--- NOTE | 2023-03-04 05:58 | W.PM.OPSUD ---
Surgery/Procedure H&P Update DATE OF PROCEDURE: March 04, 2023 DATE H&P PERFORMED: 03/04/23 CHANGES TO PREVIOUS DOCUMENTATION: Partial fifth ray amputation right foot. Deep hardware removal right foot. Diagnosis to include painful retained hardware right foot. PREOP DIAGNOSIS: Right fifth hammertoe PRIMARY INDICATION FOR PROCEDURE: Painful hardware right foot. Hammertoe right foot. PLANNED PROCEDURE: Operation Date: 03/04/23 07:00 Proposed Procedures p Right partial fifth ray amputation 24044,?M79.671,M20.41(Right) - Fred Zelaya DPM s Deep hardware removal right foot. CPT code 45216
--- NOTE | 2023-03-04 06:01 | P.HP_ITS ---
Providers/Chief Complaint Primary Care Provider: January Whitehead DO Chief Complaint: M79.671, M20.41 Patient is a pleasant 72-year-old female presents with complaints of right foot pain. She is having pain at her right fifth toe and complains of pain at hardw are site right fifth metatarsal. She is given this much thought and she is requesting a amputation of her right fifth toe and hardware removal at her right fifth metatarsal. Her right fifth toe is angulated aggressively towards the fourth toe, this causes rubbing and pain on a daily basis. She has pain that is increased when wearing shoes and pain that is still persistent when she is wearing sandals and wide accommodative shoes. Pain is on a daily basis she is wishing to discuss surgical consultation for amputation of the right fifth toe as a definitive option. Patient denies any subjective nausea, vomiting, fever, chills, shortness of breath or chest pain. History of Present Illness Georgia Ballesteros is a 72 year old female Review of Systems General: Reports: 10 or more systems reviewed and unremarkable except in HPI and below Const: Denies: fever(s) or chills Eyes: Denies: change in vision Card: Denies: chest pain or palpitations Resp: Denies: dyspnea or productive cough GI: Denies: abdominal pain, nausea or vomiting : Denies: flank pain Musc: Reports: extremity pain, joint pain, joint stiffness, limited range of motion and deformity Skin/Breast: Reports: skin tenderness; Denies: rash Neuro: Reports: difficulty walking; Denies: numbness in extremities, sensory changes or frequent falls Psych: Denies: suicidal ideation Henrik/Lymph: Denies: easy bruising Medications/Allergies Home Medications Medication Instructions Recorded Confirmed Last Taken Type budesonide 0.25 mg/2 mL suspension 0.25 mg inhalation BID 12/25/19 03/03/23 03/03/23 History for nebulization (Pulmicort) morphine 30 mg immediate release 30 mg PO Q6H PRN Pain 12/25/19 03/03/23 03/03/23 History tablet Bone stem #1 ea 04/28/21 03/01/23 Unknown Rx arformoterol 15 mcg/2 mL solution 2 ml inhalation BID #120 mL 03/23/22 03/04/23 03/04/23 05:00 Rx for nebulization (Brovana) Custom Molded Orthotics #1 ea 04/08/22 03/01/23 Unknown Rx Custom Molded Orthotics- Sport low #1 ea 04/08/22 03/01/23 Unknown Rx profile with a Reverse Zapata Pad ondansetron HCl 4 mg tablet 4 mg PO PRN PRN Nausea 06/03/22 03/03/23 03/02/23 History estradiol 2 mg tablet 2 mg PO DAILY #90 tabs 12/29/22 03/03/23 03/02/23 Rx ciprofloxacin HCl 500 mg tablet 500 mg PO BID 7 days #14 tabs 01/07/23 03/03/23 03/03/23 Rx hydrocodone 10 mg-acetaminophen 1 tab PO Q8H PRN pain 7 days #21 02/17/23 03/03/23 03/02/23 Rx 325 mg tablet tabs dicyclomine 10 mg capsule 10 mg PO DAILY PRN abdominal 03/01/23 03/03/23 03/02/23 Rx discomfort #90 caps escitalopram oxalate 20 mg tablet 20 mg PO DAILY #30 tabs 03/01/23 03/03/23 03/02/23 Rx (Lexapro) lamotrigine 150 mg tablet 300 mg PO DAILY #60 tabs 03/01/23 03/03/23 03/03/23 Rx (Lamictal) methylphenidate HCl 20 mg tablet 20 mg PO QAM 30 days #30 tabs 03/01/23 03/03/23 03/03/23 Rx (Ritalin) quetiapine 100 mg tablet (Seroquel) 300 mg PO DAILY #90 tabs 03/01/23 03/03/23 03/02/23 Rx quetiapine 25 mg tablet (Seroquel) 25 mg PO BID PRN anxiety #60 tabs 03/01/23 03/03/23 03/02/23 Rx cetirizine 10 mg tablet 10 mg PO DAILY 03/03/23 03/03/23 03/03/23 History diclofenac sodium 1 % topical gel 2 g topical BID PRN Pain 03/03/23 03/03/23 03/02/23 History diphenoxylate-atropine 2.5 1 tab PO DAILY PRN diarrhea #90 03/03/23 Unknown Rx mg-0.025 mg tablet tabs levothyroxine 75 mcg tablet 75 mcg PO DAILY 03/03/23 03/03/23 03/03/23 History silver sulfadiazine 1 % topical 1 applic topical BID 03/03/23 03/03/23 03/03/23 History cream zoledronic acid 5 mg/100 mL in 1 ea IV .ONCE 2 YEAR Osteopenia 03/03/23 03/03/23 Unknown History mannitol 5 %-water intravenous piggybck (Reclast) Allergies Allergy/AdvReac Type Severity Reaction Status Date / Time adhesive tape Allergy ADR-Itching Verified 03/03/23 09:26 sumatriptan [From Imitrex] Allergy ADR-Dry Verified 03/03/23 09:26 Mucus Membranes Macrolide Antibiotics AdvReac C Diff Verified 03/03/23 09:26 PFSH PFSH: Medical History Bipolar 1 disorder Bipolar disorder, current episode depressed, severe, without psychotic features Chronic fatigue syndrome Chronic nausea Fibromyalgia Hallux valgus (acquired), right foot Hammertoe of right foot History of 2019 novel coronavirus disease (COVID-19) Hot flashes due to menopause Hypothyroidism IBS (irritable bowel syndrome) Mixed restrictive and obstructive lung disease Osteoarthritis Psychiatric care Right foot pain Sesamoiditis of right foot Surgical History H/O: hysterectomy History of cholecystectomy History of foot surgery History of hand surgery left thumb IP joint fusion History of lumpectomy History of surgery on upper extremity Left shoulder - 1997 Family History Mother Cancer Grandmother Cancer Social History Smoking and tobacco status: former smoker Quit status (tobacco): has quit using tobacco Year quit tobacco: 1997 Second hand smoke exposure: No Alcohol intake: never Substance/Drug Use: never Dietary Habits: Caffeine: Yes Caffeine intake frequency: carbonated beverages Vital Signs Weight: Weight last 48 hrs Weight 175 lb Physical Exam Narrative: EXAM NARRATIVE: Patient is alert and oriented ?3 and in no acute distress.? The following is a focused right lower extremity exam. VASCULAR: Dorsalis pedis and posterior tibial arteries palpable +2.? Capillary refill time less than 3 seconds to the distal hallux bilaterally. Calf is supple and nontender proximally and distally.? Mild edema at the operative site consistent with postoperative course. NEUROLOGICAL: Protective sensation intact to light touch. DERMATOLOGICAL: Right foot incisions are well-healed.? No erythema, no ecchymosis, no warmth to the right foot. MUSCULOSKELETAL: Antalgic gait favoring right foot. Muscle strength +5 in all 3 planes right foot and ankle.? Tenderness at right fifth toe, contracture with transverse plane dominance hammertoe of the right fifth.? Pain to palpation right fifth toe. And at the right fourth webspace due to the fifth toe abutting against the fourth toe. Tenderness to palpation at the head and hardware site of the lateral aspect of the right fifth metatarsal. CARDIOVASCULAR: S1, S2, normal rate, normal rhythm. Dorsalis pedis and posterior tibial arteries palpable. LUNGS: Clear to auscltation, no use of acessory muscles, no crackles or wheezes. Feet Right: 1. Pain to palpation at right fifth toe and at fifth metatarsal head A&P Assessment and plan (1) Right foot pain: (2) Acquired hammertoe of right foot: (3) Painful orthopaedic hardware: Plan Patient examined and evaluated, findings and treatment options were discussed with patient at length. Patient has exhausted conservative measures to address right foot pain at her fifth toe and retained hardware. She wears wide accommodative orthopedic shoe gear with wide toe box along with padding and spacers for her right fifth toe. She has modified her activities. She has tried topical Voltaren gel. Her pain is daily and is affecting her overall quality of life. She is requesting amputation of the right fifth toe as a definitive option, she is concerned of recurrence should she choose to have a derotational and correctional arthroplasty of the fifth toe. She is also having pain at her hardware site of the fifth metatarsal and is requesting excision and removal. I reviewed at length with the patient, the risks, potential complications, benefits, alternatives, expectations, and typical outcomes associated with the surgery. The risks and potential complications were explained in detail, including but not limited to infection, wound dehiscence or soft tissue complications, bleeding and hematoma, chronic edema, neuritis or nerve damage producing numbness or chronic pain, CRPS, failure to relieve pain or worsening pain, thick / painful / unsightly scar, limited motion / stiffness, malposition, delayed union, malunion, or nonunion, fracture, reaction to implants, anesthetic complications, venous thromboembolism, and deformity recurrence. I discussed the notion of no regrets with the patient as it pertains to complications and outcomes. The patient seemed to understand the nature of the proposed care and required convalescence. They asked appropriate questions, answered to their satisfaction. They are aware no guarantees can be made as to a satisfactory outcome and they understand there may be other possible unforeseen complications or outcomes not listed here that will be treated accordingly if they arise. There were no written or implied guarantees given to the patient. They gave informed consent to proceed. Right fifth toe amputation, deep hardware removal all right foot. Local MAC, elizabethranderson, supine, TPS, 30 minutes. Coding Level of Care Code Acute Code for g Fwd Diagnoses Right foot pain M79.671 Acquired hammertoe of right foot M20.41 Painful orthopaedic hardware T84.84XA
--- NOTE | 2023-03-04 06:08 | PM.OP ---
Operative Report Date of procedure: March 04, 2023 Pre-op diagnosis: Acquired hammertoe right fifth digit. Painful retained hardware right foot. Post-op diagnosis: Same Procedure done: Partial fifth ray amputation right foot. CPT code 65832 Deep hardware removal right foot. CPT code 12177 Implants: 4-0 Vicryl, 4 nylon Surgeon: Fred Zelaya Billet Sawyer: Cecilia Estimated blood loss: 5 22 IV fluids: 0 Urine output: 0 Complications: None Brief History: Patient examined and evaluated, findings and treatment options were discussed with patient at length.? Patient has exhausted conservative measures to address right foot pain at her fifth toe and retained hardware.? She wears wide accommodative orthopedic shoe gear with wide toe box along with padding and spacers for her right fifth toe.? She has modified her activities.? She has tried topical Voltaren gel.? Her pain is daily and is affecting her overall quality of life.? She is requesting amputation of the right fifth toe as a definitive option, she is concerned of recurrence should she choose to have a derotational and correctional arthroplasty of the fifth toe.? She is also having pain at her hardware site of the fifth metatarsal and is requesting excision and removal. I reviewed at length with the patient, the risks, potential complications, benefits, alternatives, expectations, and typical outcomes associated with the surgery. The risks and potential complications were explained in detail, including but not limited to infection, wound dehiscence or soft tissue complications, bleeding and hematoma, chronic edema, neuritis or nerve damage producing numbness or chronic pain, CRPS, failure to relieve pain or worsening pain, thick / painful / unsightly scar, limited motion / stiffness, malposition, delayed union, malunion, or nonunion, fracture, reaction to implants, anesthetic complications, venous thromboembolism, and deformity recurrence.? I discussed the notion of no regrets with the patient as it pertains to complications and outcomes. The patient seemed to understand the nature of the proposed care and required convalescence. They asked appropriate questions, answered to their satisfaction. They are aware no guarantees can be made as to a satisfactory outcome and they understand there may be other possible unforeseen complications or outcomes not listed here that will be treated accordingly if they arise. There were no written or implied guarantees given to the patient. They gave informed consent to proceed. Procedure: Under mild sedation the patient was brought to the operating room and remained on the gurney in supine position. A timeout was performed. Anesthesia was then administered by the anesthesia service. Local anesthesia was injected by myself consisting of 20 cc of one-to-one mixture 0.5% Marcaine plain and Exparel rel this was injected subcutaneously in a grid like fashion dorsally and medially and plantarly to the right lateral forefoot. Well-padded pneumatic tourniquet was applied to the right ankle. The right lower extremity was then scrubbed, prepped and draped utilizing normal aseptic technique. The right foot was exanguinated with an Esmarch bandage and the tourniquet was then inflated to 250 mmHg. Tension was directed to the dorsal lateral aspect of the right fifth metatarsal phalangeal joint where a linear longitudinal incision was made which was then extended in a tennis racquet fashion encompassing the right fifth metatarsal phalangeal joint. The right fifth toe was disarticulated sharply through the metatarsal phalangeal joint and passed from the operative field, this was sent to pathology for gross. Next a sagittal saw was utilized to transect the metaphyseal diaphyseal juncture of the fifth metatarsal head which was then excised and passed from the operative field, the incision was then irrigated copious amounts of sterile saline solution. Attention was then directed to a titanium intramedullary implant with locking screw at the right fifth metatarsal which was explanted in toto without fragmentation or failure. This was passed from operative field. The incision was once again irrigated with copious amounts of Staticin solution. All rough edges were smoothed at the fifth metatarsal distally with a hand rasp. All bleeders were ligated and cauterized as necessary. The incision was then closed in a layered fashion. Subcutaneous and deep layers were closed with 4-0 Vicryl and skin with 4-0 nylon. The incision was then dressed with Adaptic, sterile 4 x 4, Kerlix and Anup wrap. Postop shoe was applied to the right foot. Tourniquet was then deflated and a prompt hyperemic response was noted to the distal digits of the right foot. Patient tolerated the procedure and anesthesia well and was transferred to the PACU with vital signs stable and vascular status intact. Following a period of postoperative monitoring she will be discharged home is to remain protected weightbearing in the postop shoe and elevate her right foot while resting. Was given at home care instructions, scheduled follow-up and my cell phone number to contact me with any postoperative questions or concerns.
[2023-03-04] MEDS: sodium chloride 0.9% 1,000 ML 30 ML IV (06:23)
[2023-03-04] MEDS: HYDROmorphone 1 mg/mL INJ 1 mL 0.5 MG IVP (06:47)
[2023-03-04] MEDS: ceFAZolin 2,000 MG in sodium chloride 0.9% (plus) 50 ML 100 MG IV (07:00)
--- NOTE | 2023-03-04 07:16 | ANES.PREANE2 ---
Pre-Anesthetic Assessment Height/Weight: Height 1.75 m Weight 79.379 kg Resp Pulse Ox O2 Del Method 16 92 Room Air 03/04/23 06:47 03/04/23 06:47 03/04/23 06:02 Preop Diagnosis: Right fifth hammertoe Operation Date: 03/04/23 07:00 Proposed Procedures p Right fifth toe amputation 25285,?M79.671,M20.41(Right) - Fred Zelaya DPM Familial anesthetic complications: none Was Beta Amparo taken within 24 hours: N/A Was Clonidine taken within 24 hours: N/A Last intake: Intake Last Liquid Date 03/03/23 Last Liquid Time 22:00 Last Solid Date 03/03/23 Last Solid Time 22:00 Social No alcohol and No tobacco Exam alert, oriented x 3, clear to auscultation bilaterally and regular rate & rhythm Airway Submandibular: within normal limits Cervical ROM: within normal limits Mallampati: Class II Dentition: false Pulmonary Chronic Obstructive Pulmonary Disease Metabolic Thyroid Disease Musc/skel Lower Back Pain and Osteoarthritis/DJD chronic pain/opioid Anesthetic Plan ASA status: 3 Anesthesia: Choice Medications/Allergies Home Medications Medication Instructions Recorded Confirmed Last Taken Type budesonide 0.25 mg/2 mL suspension 0.25 mg inhalation BID 12/25/19 03/03/23 03/03/23 History for nebulization (Pulmicort) morphine 30 mg immediate release 30 mg PO Q6H PRN Pain 12/25/19 03/03/23 03/03/23 History tablet Bone stem #1 ea 04/28/21 03/01/23 Unknown Rx arformoterol 15 mcg/2 mL solution 2 ml inhalation BID #120 mL 03/23/22 03/04/23 03/04/23 05:00 Rx for nebulization (Brovana) Custom Molded Orthotics #1 ea 04/08/22 03/01/23 Unknown Rx Custom Molded Orthotics- Sport low #1 ea 04/08/22 03/01/23 Unknown Rx profile with a Reverse Zapata Pad ondansetron HCl 4 mg tablet 4 mg PO PRN PRN Nausea 06/03/22 03/03/23 03/02/23 History estradiol 2 mg tablet 2 mg PO DAILY #90 tabs 12/29/22 03/03/23 03/02/23 Rx ciprofloxacin HCl 500 mg tablet 500 mg PO BID 7 days #14 tabs 01/07/23 03/03/23 03/03/23 Rx dicyclomine 10 mg capsule 10 mg PO DAILY PRN abdominal 03/01/23 03/03/23 03/02/23 Rx discomfort #90 caps escitalopram oxalate 20 mg tablet 20 mg PO DAILY #30 tabs 03/01/23 03/03/23 03/02/23 Rx (Lexapro) lamotrigine 150 mg tablet 300 mg PO DAILY #60 tabs 03/01/23 03/03/23 03/03/23 Rx (Lamictal) methylphenidate HCl 20 mg tablet 20 mg PO QAM 30 days #30 tabs 03/01/23 03/03/23 03/03/23 Rx (Ritalin) quetiapine 100 mg tablet (Seroquel) 300 mg PO DAILY #90 tabs 03/01/23 03/03/23 03/02/23 Rx quetiapine 25 mg tablet (Seroquel) 25 mg PO BID PRN anxiety #60 tabs 03/01/23 03/03/23 03/02/23 Rx cetirizine 10 mg tablet 10 mg PO DAILY 03/03/23 03/03/23 03/03/23 History diclofenac sodium 1 % topical gel 2 g topical BID PRN Pain 03/03/23 03/03/23 03/02/23 History diphenoxylate-atropine 2.5 1 tab PO DAILY PRN diarrhea #90 03/03/23 Unknown Rx mg-0.025 mg tablet tabs levothyroxine 75 mcg tablet 75 mcg PO DAILY 03/03/23 03/03/23 03/03/23 History silver sulfadiazine 1 % topical 1 applic topical BID 03/03/23 03/03/23 03/03/23 History cream zoledronic acid 5 mg/100 mL in 1 ea IV .ONCE 2 YEAR Osteopenia 03/03/23 03/03/23 Unknown History mannitol 5 %-water intravenous piggybck (Reclast) hydrocodone 10 mg-acetaminophen 1 tab PO Q6H PRN pain 7 days #28 03/04/23 Unknown Rx 325 mg tablet tabs Allergies Allergy/AdvReac Type Severity Reaction Status Date / Time adhesive tape Allergy ADR-Itching Verified 03/03/23 09:26 sumatriptan [From Imitrex] Allergy ADR-Dry Verified 03/03/23 09:26 Mucus Membranes Macrolide Antibiotics AdvReac C Diff Verified 03/03/23 09:26 Current Medications Generic Name Dose Route Start Last Admin Trade Name Raulq PRN Reason Stop Dose Admin Hydromorphone HCl 0.5 mg 03/04/23 06:16 03/04/23 06:47 Hydromorphone 1 Mg/Ml Inj 1 Ml IVP 0.5 mg ONCE PRN Administration Phase II postop pain Sodium Chloride 1,000 mls @ 30 mls/hr 03/04/23 06:30 03/04/23 06:23 Sodium Chloride 0.9% IV 03/05/23 06:29 30 mls/hr .Q24H SARAH Administration PFSH Anesthesia Medical History Bipolar 1 disorder Bipolar disorder, current episode depressed, severe, without psychotic features Chronic fatigue syndrome Chronic nausea Fibromyalgia Hallux valgus (acquired), right foot Hammertoe of right foot History of 2019 novel coronavirus disease (COVID-19) Hot flashes due to menopause Hypothyroidism IBS (irritable bowel syndrome) Mixed restrictive and obstructive lung disease Osteoarthritis Psychiatric care Right foot pain Sesamoiditis of right foot Surgical History H/O: hysterectomy History of cholecystectomy History of foot surgery History of hand surgery left thumb IP joint fusion History of lumpectomy History of surgery on upper extremity Left shoulder - 1997 Family History Mother Cancer Grandmother Cancer Social History Smoking and tobacco status: former smoker Quit status (tobacco): has quit using tobacco Year quit tobacco: 1997 Second hand smoke exposure: No Alcohol intake: never Substance/Drug Use: never Data Anesthesia Cardiac Studies: No Data to Display
--- NOTE | 2023-03-04 07:45 | PC.NURSE ---
Pt arrived to PACU, oral airway in place, O2 at 6l/min via simple mask. Dressing to right foot C/D/I, right toes p/w/d, cap refill <3 seconds. FOB elevated.
--- NOTE | 2023-03-04 07:49 | PC.NURSE ---
Pt awake, oral airway removed, pt tolerated well.
[2023-03-04] MEDS: fentaNYL 50 mcg/mL INJ 2mL IVP ×2 (07:53→08:05)
[2023-03-04] MEDS: HYDROcodone-acetaminophen 10-325 mg Tablet 1 TAB PO (08:49)
--- NOTE | 2023-03-04 14:33 | ANE.PACU2 ---
Inpatient post-anesthesia follow up: Airway intact: Yes Vital signs: Temperature 96.7 F Pulse Rate 62 Respiratory Rate 16 Blood Pressure 118/65 Pulse Oximetry 95 Oxygen Delivery Me thod Room Air Oxygen Flow Rate 6 Fraction of Inspir ed Oxygen Hydration adequate: Yes Nausea and vomiting: No Pain level: 2 Mental status: Baseline Additional Comments: Mostly back pain.
== END 2023-03-04 09:00 | disposition home or self-care (01) ==
PROVIDERS: PCP Family Medicine; Visit Provider Podiatrist Foot & Ankle Surgery
PROC: (CPT 20680; principal; 2023-03-04 07:00)
DX: Y79.2 Prosthetic and other implants, materials and accessory orthopedic devices associated with adverse incidents (principal); M20.41 Other hammer toe(s) (acquired), right foot; T84.84XA Pain due to internal orthopedic prosthetic devices, implants and grafts, initial encounter; J44.9 Chronic obstructive pulmonary disease, unspecified; E03.9 Hypothyroidism, unspecified; M54.50 Low back pain, unspecified; G89.29 Other chronic pain; Z79.891 Long term (current) use of opiate analgesic
CPT/HCPCS: 20680; 28810; 88305; 88311; C9290; J0690; J1170; J2704; J3010; J3490; J7030

== ENCOUNTER → 2023-03-16 14:00 | Outpatient (BNVA) | payer MEDICARE, OTHER, SELFPAY | PROVIDERS: PCP Family Medicine; Visit Provider Podiatrist Foot & Ankle Surgery | DX: Z98.890 Other specified postprocedural states (principal); M21.621 Bunionette of right foot | CPT/HCPCS: 99024 ==

== ENCOUNTER → 2023-03-30 11:21 | Outpatient (BNVA) | payer MEDICARE, OTHER, SELFPAY | PROVIDERS: PCP Family Medicine; Visit Provider Podiatrist Foot & Ankle Surgery | DX: Z98.890 Other specified postprocedural states (principal) | CPT/HCPCS: 99024 ==

== ENCOUNTER → 2023-04-27 13:35 | Outpatient (BNVA) | payer MEDICARE, OTHER, SELFPAY | PROVIDERS: PCP Family Medicine; Visit Provider Podiatrist Foot & Ankle Surgery | DX: Z98.890 Other specified postprocedural states (principal); T84.84XA Pain due to internal orthopedic prosthetic devices, implants and grafts, initial encounter; Y79.2 Prosthetic and other implants, materials and accessory orthopedic devices associated with adverse incidents | CPT/HCPCS: 99024 ==

== ENCOUNTER 2023-05-30 13:05 | Outpatient (CLI) | payer MEDICARE, OTHER, SELFPAY ==
--- NOTE | 2023-05-30 13:15 | US_ITS ---
WS: [id number] INDICATION: RIGHT axillary lump TECHNIQUE: Ultrasound RIGHT axilla FINDINGS: Ultrasound RIGHT axilla area of concern. Normal underlying parenchymal tissue. No cystic or solid lesions. No abnormal lymph nodes. No suspicious findings. US/US soft tissue/extremity 56583 IMPRESSION: No suspicious findings RIGHT axilla
== END 2023-05-30 13:06 | disposition home or self-care (01) ==
LOC: RAD 13:08
PROVIDERS: PCP Family Medicine; Visit Provider Family Medicine
DX: R22.31 Localized swelling, mass and lump, right upper limb (principal)
CPT/HCPCS: 76882

== ENCOUNTER → 2023-06-01 11:42 | Outpatient (BNVA) | payer MEDICARE, OTHER, SELFPAY | PROVIDERS: PCP Family Medicine; Visit Provider Nurse Practitioner | DX: F31.4 Bipolar disorder, current episode depressed, severe, without psychotic features (principal); R53.82 Chronic fatigue, unspecified; Z79.899 Other long term (current) drug therapy | CPT/HCPCS: 80061; 83036 ==

== ENCOUNTER → 2023-07-07 10:54 | Outpatient (BNVA) | payer MEDICARE, OTHER, SELFPAY | PROVIDERS: PCP Family Medicine; Visit Provider Obstetrics & Gynecology | DX: N39.46 Mixed incontinence (principal) | CPT/HCPCS: 81000 ==

== ENCOUNTER 2023-09-27 13:59 | Observation (INO) | payer MEDICARE, OTHER, SELFPAY ==
--- NOTE | 2023-09-23 10:02 | ANES.PREANE2 ---
Pre-Anesthetic Assessment Height/Weight: Height 1.75 m Operation Date: 09/27/23 10:40 Proposed Procedures p Single incision sling 40037,N81.6,N81.10,N39.46(Not Applicable) - Patricio Fabian MD s Posterior colporrhaphy 35015(Not Applicable) - Patricio Fabian MD Familial anesthetic complications: PONV Social No alcohol and No tobacco Exam alert, oriented x 3, clear to auscultation bilaterally and regular rate & rhythm Airway Mallampati: Class I Dentition: false Pulmonary Chronic Obstructive Pulmonary Disease Metabolic Thyroid Disease [facility] [place]/sk Lower Back Pain Neuropsych Bipolar Anesthetic Plan ASA status: 3 Anesthesia: General Risk of > 500 ml blood loss (7ml/kg in children): No Medications/Allergies Home Medications Medication Instructions Recorded Confirmed Last Taken Type budesonide 0.25 mg/2 mL suspension 0.25 mg inhalation BID 12/25/19 09/23/23 03/03/23 History for nebulization (Pulmicort) morphine 30 mg immediate release 30 mg PO Q6H PRN Pain 12/25/19 09/23/23 03/03/23 History tablet Bone stem #1 ea 04/28/21 09/19/23 Unknown Rx arformoterol 15 mcg/2 mL solution 2 ml inhalation BID #120 mL 03/23/22 09/23/23 03/04/23 05:00 Rx for nebulization (Brovana) Custom Molded Orthotics #1 ea 04/08/22 09/19/23 Unknown Rx Custom Molded Orthotics- Sport low #1 ea 04/08/22 09/19/23 Unknown Rx profile with a Reverse Zapata Pad dicyclomine 10 mg capsule 10 mg PO DAILY PRN abdominal 03/01/23 09/23/23 03/02/23 Rx discomfort #90 caps diclofenac sodium 1 % topical gel 2 g topical BID PRN Pain 03/03/23 09/23/23 03/02/23 History silver sulfadiazine 1 % topical 1 applic topical BID 03/03/23 09/23/23 03/03/23 History cream zoledronic acid 5 mg/100 mL in 1 ea IV .ONCE 2 YEAR Osteopenia 03/03/23 09/23/23 Unknown History mannitol 5 %-water intravenous piggybck (Reclast) ondansetron HCl 4 mg tablet 4 mg PO PRN PRN Nausea #30 tabs 03/31/23 09/23/23 Unknown Rx diphenoxylate-atropine 2.5 1 tab PO DAILY PRN diarrhea #90 06/15/23 09/23/23 Unknown Rx mg-0.025 mg tablet tabs mirabegron 25 mg tablet,extended See Rx Instructions .Route 06/20/23 09/23/23 09/23/23 Rx release 24 hr (Myrbetriq) .COMPLEX #30 tabs estradiol 2 mg tablet See Rx Instructions .Route 06/30/23 09/23/23 09/23/23 Rx .COMPLEX #90 tabs cetirizine 10 mg tablet See Rx Instructions .Route 07/04/23 09/23/23 09/23/23 Rx .COMPLEX #90 tabs levothyroxine 75 mcg tablet See Rx Instructions .Route 08/01/23 09/23/23 09/23/23 Rx .COMPLEX #90 tabs oxybutynin chloride 10 mg 10 mg PO DAILY #30 tabs 08/05/23 09/23/23 09/23/23 Rx tablet,extended release 24 hr escitalopram oxalate 20 mg tablet See Rx Instructions .Route 08/31/23 09/23/23 09/23/23 Rx .COMPLEX #30 tabs lamotrigine 150 mg tablet See Rx Instructions .Route 08/31/23 09/23/23 09/23/23 Rx .COMPLEX #60 tabs methylphenidate HCl 20 mg tablet 20 mg PO DAILY 30 days #30 tabs 08/31/23 09/23/23 Unknown Rx methylphenidate HCl 20 mg tablet 20 mg PO DAILY 30 days #30 tabs 08/31/23 09/23/23 09/23/23 Rx methylphenidate HCl 20 mg tablet 20 mg PO QAM 30 days #30 tabs 08/31/23 09/23/23 Unknown Rx quetiapine 100 mg tablet See Rx Instructions .Route 08/31/23 09/23/23 Unknown Rx .COMPLEX #90 tabs quetiapine 25 mg tablet (Seroquel) 25 mg PO BID PRN anxiety #60 tabs 08/31/23 09/23/23 Unknown Rx Allergies Allergy/AdvReac Type Severity Reaction Status Date / Time adhesive tape Allergy ADR-Itching Verified 09/19/23 08:10 sumatriptan [From Imitrex] Allergy ADR-Dry Verified 09/19/23 08:10 Mucus Membranes Macrolide Antibiotics AdvReac C Diff Verified 09/19/23 08:10 [facility] Anesthesia Medical History Bipolar 1 disorder Bipolar disorder, current episode depressed, severe, without psychotic features Chronic nausea Fibromyalgia Hallux valgus (acquired), right foot Hammertoe of right foot History of 2019 novel coronavirus disease (COVID-19) Hot flashes due to menopause Hypothyroidism IBS (irritable bowel syndrome) Mixed restrictive and obstructive lung disease Osteoarthritis Psychiatric care Right foot pain Sesamoiditis of right foot Surgical History H/O: hysterectomy History of cholecystectomy History of foot surgery History of hand surgery left thumb IP joint fusion History of lumpectomy History of surgery on upper extremity Left shoulder - 1997 Family History Mother Cancer Grandmother Cancer Social History Smoking and tobacco/nicotine status: former use of tobacco/nicotine Quit status (tobacco/nicotine): has quit using Year quit tobacco: 1997 Second hand smoke exposure: No Alcohol intake: never Substance/Drug Use: never Data Anesthesia 09/23/23 09:30 12 09:30 Cardiac Studies: No Data to Display
[2023-09-23 10:14] LABS: Basophils % 0.6 %; Eosinophils # 0.1 10^3/uL (0.0-0.8); Eosinophils % 3.4 %; Hematocrit 40.2 % (36-47); Lymphocytes # 1.4 10^3/uL (0.8-4.8); Lymphocytes % 43.3 %; Mean Corpuscular HGB Conc 31.6 g/dL (30-55); Mean Corpuscular Hemoglobin 29.3 pg (27-33); Mean Corpuscular Volume 92.6 fl (85-98); Mean Platelet Volume 8.7 fL (7.4-10.4); Monocytes # 0.3 10^3/uL (0.2-0.9); Monocytes % 9.6 %; Neutrophils # 1.38 10^3/uL (1.8-7.7); Neutrophils % 42.8 %; Nucleated Red Blood Cells % 0 %; Platelet Count 220 10^3/cmm (157-399); Red Blood Count 4.34 10^6/uL (3.85-5.65); Red Cell Distribution Width 12.4 % (12.1-15.1); White Blood Count 3.23 10^3/uL (3.29-11.43)
[2023-09-23 10:21] LABS: Alanine Aminotransferase 13 U/L (0-33); Albumin Level 3.9 g/dL (3.5-5.2); Alkaline Phosphatase 66 U/L (35-105); Anion Gap 13.4 (5-19); Aspartate Amino Transferase 18 U/L (0-32); Blood Urea Nitrogen 14 mg/dL (8-23); Carbon Dioxide 29 mmol/L (22-29); Chloride 101 mmol/L (98-107); Globulin 2.7 g/dL (1.3-4.6); Glucose 104 mg/dL (65-115); Osmolality Calculated 289 mOsm/kg (285-295); Potassium 4.4 mmol/L (3.5-5.1); Sodium 139 mmol/L (136-145); Total Bilirubin 0.4 mg/dL (0.15-1.2); Total Protein 6.6 g/dL (6.6-8.7)
[2023-09-23 13:15] LABS: Add Urine Microscopic? YES; Bilirubin Urine Neg (Negative); Blood Urine 2+ (Negative); Glucose Urine UA Norm (Normal); Ketones Urine Negative (Negative); Leukocyte Esterase Urine Negative (Negative); Nitrate Urine Negative (Negative); Protein Urine Neg (Negative); Specific Gravity, Urine 1.005 (1.005-1.030); Urine Appearance Clear (CLEAR); Urine Color Yellow (Yellow); Urobilinogen Urine Norm (Negative); pH Urine 6.5 (5-7)
[2023-09-23 13:16] LABS: Bacteria Urine 1+ /hpf; RBC Urine RARE /hpf (0-2); WBC Urine RARE /hpf (0-5)
[2023-09-27] VITALS (20 sets, daily range): BP systolic 130–158; BP diastolic 52–88; PULSE 70–93; RESP 17–22; TEMP 36.2–36.9; O2SAT 92–99; BMI 25.8
[2023-09-27] MEDS: enoxaparin 30 mg/0.3 mL Syringe SUBCUT (09:28)
[2023-09-27] MEDS: lactated ringers 500 ML IV (09:29)
[2023-09-27] MEDS: scopolamine 1.5 Patch 1 PATCH TRANSDERMA (09:29)
--- NOTE | 2023-09-27 10:25 | W.PM.OPSUD ---
Surgery/Procedure H&P Update DATE OF PROCEDURE: September 27, 2023 DATE H&P PERFORMED: 09/19/23 H&P UPDATE INFORMATION: I have reviewed H&P completed within last 30 days, I have examined patient prior to procedure and No changes to prior documentation PREOP DIAGNOSIS: mixed incontinence, cystocele, rectocele PLANNED PROCEDURE: Operation Date: 09/27/23 10:40 Proposed Procedures p Single incision sling 21507,N81.6,N81.10,N39.46(Not Applicable) - Patricio Fabian MD s Posterior colporrhaphy 79278(Not Applicable) - Patricio Fabian MD
[2023-09-27] MEDS: ceFAZolin 2,000 MG in sodium chloride 0.9% (plus) 50 ML 100 MG IV (10:45)
--- NOTE | 2023-09-27 10:45 | P.ANESUD_ITS ---
Pre-Anesthetic Update Pre-Anesthetic Assessment: Date of Surgery/Procedure: 09/27/23 Preop Yuliana gnosis: mixed incontinence, cystocele, rectocele Proposed Procedure: Operation Date: 09/27/23 10:40 Proposed Procedures p Single incision sling 69796,N81.6,N81.10,N39.46(Not Applicable) - Patricio Fabian MD s Posterior colporrhaphy 69975(Not Applicable) - Patricio Fabian MD Any changes to Pre-Anesthetic Assessment?: No Last Intake: Intake Last Liquid Date 09/26/23 Last Liquid Time 23:00 Last Solid Date 09/26/23 Last Solid Time 23:00 Labs Last 48hrs: Blood Bank 09/27/23 09:15 Blood Type A Positive Rho(D) Type Rh positive Antibody Screen Negative Vitals: Temperature 98.4 F 09/27/23 09:10 Temperature Source Temporal Artery S can 09/27/23 09:10 Pulse Rate 74 09/27/23 09:10 Pulse Rhythm Regular 09/27/23 09:10 Pulse Strength 3+ Normal 09/27/23 09:10 Respiratory Rate 18 09/27/23 09:10 Blood Pressure 133/63 09/27/23 09:10 Blood Pressure Lydia n 86 09/27/23 09:10 Pulse Oximetry 93 09/27/23 09:10 Oxygen Delivery Me thod Room Air 09/27/23 09:10 Exam: Pre-Anes Outpt Exam: alert, oriented x 3, clear to auscultation bilaterally and regular rate & rhythm Cardiac Studies: No Data to Display
[2023-09-27] MEDS: lidocaine-epi 2% 20 mL INJ INJECTION (11:23)
--- NOTE | 2023-09-27 12:54 | PM.OP ---
Operative Report Date of procedure: September 27, 2023 Pre-op diagnosis: Cystocele stage II Mixed urinary incontinence Rectocele stage III Post-op diagnosis: Same Procedure done: Anterior colporrhaphy augmented with allograft. Single incision mid urethral sling. Posterior colporrhaphy. Cystoscopy Surgeon: Patricio Fabian MD Estimated blood loss (mL): 50 IV fluids (mL): 900 Urine output (mL): 200 Procedure: After obtaining informed consent, the patient was taken to the operating room and placed in the supine position, given general anesthesia, and prepped and draped in sterile fashion. The abdomen, vulva and vagina were prepped and draped in a sterile manner. A time out procedure was performed. The anterior vaginal mucosa beneath the midurethra was infiltrated with 0.5% Marcaine with epinephrine. A vertical midline incision was made beneath the midurethra, nearly 1.5 cm length. Careful submucosal dissection was performed bilaterally up to the interior portion of the inferior pubic ramus. The insertion of adductor longus tendon on the patient?s pubic ramus was identified as reference land eriberto. Palpated the notch along the internal edge of ischiopubic ramus where the adductor longus tendon and the inferior pubic ramus meet. The Altis single incision sling (SIS) was selected. Then the needle of the SIS inserted aiming at the location of this notch. One of the integrated self-fixating tips place onto the needle by sliding it over the end of the needle. The needle/sling assembly was inserted toward the location of identified reference notch making sure that the flat of the handle is perpendicular to the desired path. The needle was tracked along the posterior surface of the ischiopubic ramus until the midline eriberto on the mesh is approximately at the midline position under the urethra. The needle was removed and the same was repeated on the contralateral side until the appropriate sling tension under the urethra was achieved ensuring that the mesh lays flat. The needle was removed and vaginal incision was closed in a running interlocking fashion with 2-0 Vicryl. The vaginal mucosa was scored in the midline with the Bovie approximately 1 cm medial to the urethral meatus to 1 cm distal to the vaginal cuff. This vaginal mucosa was then undermined and then incised in the midline with the Metzenbaum scissors. The lateral aspects of the vaginal mucosa were then grasped with the Allis clamps and the vaginal mucosa was then dissected off the underlying fascia with the Metzenbaum scissors. Again, there was noted to be quite a bit of oozing at the incision, which was controlled with cautery. After adequate dissection was performed, bilaterally. An Coloplast dermis allograft was modified at time of application to fit spacea, 3 x 3 cm piece . The allograft was placed in front of cystocele ready to be implanted facing the vagina mucosa. Suture is placed at distal end of graft and placed towards vaginal cuff. Final suture is placed on proximal portion of the graft to complete the placement overlying the bladder. Then Interrupted vertical mattress sutures of 0 Vicryl were used to elevate the cystocele superiorly. The excessive vaginal mucosa was then trimmed with the Metzenbaum scissors and the vaginal mucosa was then reapproximated in the running interlocking fashion with 2-0 Vicryl. A posterior repair was performed next. An incision was made across the introitus. Metzenbaum scissors were used to tunnel beneath posterior vaginal mucosa until the apex of the rectocele bulge was reached. At this point, the rectum was from the posterior vaginal mucosa using sharp and blunt dissection, and the rectal bulge imbricated in the midline with interrupted sutures of 2-0 vicryl suture. Levator ani muscles on either side were approximated in the midline with interrupted 0 Vicryl sutures. Excess posterior vaginal mucosa was excised, and the vaginal episiotomy was repaired by approximating the posterior vaginal mucosa with a suture of Vicryl #0. Then the Tatum catheter was removed and cystoscope was inserted. The bladder was filled with sterile water. Complete evaluation of the bladder mucosa was performed noting no lacerations, dimpling, tears, bleeding of the mucosa or muscular layers. Both ureteral orifices were identified. Prompt excretion of urine from both ureteral orifices was noted. Cystoscope was withdrawn. The Tatum catheter was replaced. Excellent hemostasis was obtained. Sponge, lap, needle, and instrument counts were correct times three. The patient was taken to the recovery room, awake and in stable condition.
--- NOTE | 2023-09-27 13:21 | PC.PHAR ---
fentanyl patch clarification dr yi. Ordered 50 mcg patch. Patient history only shows morphine 30mg IR 90 for 30 day supply filled reguarly on same day monthly since 09/2022. Patient stated to Dr Yi she takes three time daily regularly. Usual conversion as follows: (Converting from daily oral morphine) Initial, 25 mcg/hr for oral morphine doses of 60 to 134 mg/day; 50 mcg/hr for oral morphine 135 to 224 mg/day; 75 mcg/hr for oral morphine 225 to 314 mg/day; 100 mcg/hr for oral morphine 315 to 404 mg/day; apply transdermally and wear continuously; replace patch every 72 hours. Dosing intervals of 48 hours may be used in some adult patients not achieving adequate analgesia with 72-hour dosing interval; consider a dosage increase prior to reduction of the dosing interval Since patient only takes 30 tid = 90 and has taken for more than a year, meets definition but suggested beginning with 25 mcg patch. RBTO ok Dr. Yi.
[2023-09-27] MEDS: HYDROmorphone 1 mg/mL INJ 1 mL 0.5 MG IVP (13:32)
[2023-09-27] MEDS: fentaNYL 25 mcg Patch 1 PATCH TRANSDERMA (13:59)
--- NOTE | 2023-09-27 14:23 | ANE.PACU2 ---
Inpatient post-anesthesia follow up: Airway intact: Yes Vital signs: Temperature 97.2 F Pulse Rate 73 Respiratory Rate 20 Blood Pressure 138/68 Pulse Oximetry 96 Oxygen Delivery Me thod Room Air Oxygen Flow Rate 2 Fraction of Inspir ed Oxygen Hydration adequate: Yes Nausea and vomiting: No Pain level: 5 Mental status: Baseline Additional Comments: Chronic pain issues, applied 25mcg/kg/hr fentanyl patch
[2023-09-27] MEDS: dextrose 5%-lactated ringers 1,000 ML 125 ML IV ×2 (15:08→22:28)
[2023-09-27] MEDS: ketorolac 30 mg/mL INJ IVP ×2 (15:09→20:04)
[2023-09-27] MEDS: docusate sodium 100 mg Capsule PO (20:05)
[2023-09-27] MEDS: morphine IR 15 mg Tablet 30 MG PO (20:05)
[2023-09-27] MEDS: estradiol 1 mg Tablet 2 MG PO (20:06)
[2023-09-27] MEDS: quetiapine 300 mg Tablet PO (20:07)
[2023-09-27] MEDS: escitalopram 10 mg Tablet 20 MG PO (20:07)
[2023-09-27] MEDS: levothyroxine 75 mcg Tablet PO (20:07)
[2023-09-27] MEDS: oxybutynin chloride XL 5 MG TABLET 10 MG PO (20:15)
[2023-09-27] MEDS: lamoTRIgine 100 mg Tablet 300 MG PO (20:16)
--- OUTSIDE RECORDS SUMMARY | 2023-09-27 21:57 | XMS_ITS | Patient Health Record ---
Author Name Unknown Organization [facility] Address [address] [place], [place] [id number] Care Team Providers Care Interlocking Pavement Installer Name Role Phone Ventura January MORGAN Primary Care Provider Terrell Stockton MD, Keyon Unavailable [phone] Memo WILLETT, Ludy Unavailable Unavailable Judson ROJASPStefanie Unavailable [phone] ALLERGIES Allergen (clinical drug ingredient) Drug/Non Drug Allergy documented on EMR Reaction Allergy Type Onset Date Status antibiotics (uncoded) caused C-difficile infection Allergy Active environmental allergies (uncoded) Unknown Allergy Active sumatriptan Imitrex anaphylaxis Drug Allergy Act madeleine RESULTS Component Value Reference Range Notes Urine tox screen / MS if ind icated Reviewed date:02/22/2023 03:50:07 PM Interpretation:Consistent Performing Lab: Notes/Report: Consistent REASON FOR REFERRAL No Information MEDICATIONS Medication SIG (Take, Route, Frequency, Duration) Notes Start Date End Date Status budesonide 0.25 mg/2 mL 2 mL by nebulize r 2 times a day for 30 day(s) Active morphine 30 mg 1 tab orally Q4-6H prn pain (max 3/day; hold within 4H of planned sleep) for 30 day(s) Do not fill prior to 09/03/23. ICD-10: G89.29 08/24/2023 Active levothyroxine 75 mcg (0.075 mg) 1 tab orally once a day, as directed Active morphine 30 mg 1 tab orally Q4-6H prn pain (max 3/day; hold within 4H of planned sleep) for 30 day(s) Do not fill prior to 10/03/23. ICD-10: G89.29 08/24/2023 Active Lomotil 0.025 mg-2.5 mg 1 - 2 tabs orall y every 6-8 hours, as needed for diarrhea Active estradiol 2 mg 1 tab orally once a day Active tiZANidine 4 mg 1 tab orally Q8H prn spasm for 30 day(s) Active lamoTRIgine 150 mg 2 tabs orally every a day Active ondansetron 4 mg 1 tab orally 4 times a day, as needed for nausea Active morphine 30 mg 1 tab orally Q4-6H prn pain (max 3/day; hold within 4H of planned sleep) for 30 day(s) Do not fill prior to 11/02/23. ICD-10: G89.29 08/24/2023 Active meloxicam 15 mg 1 tab orally once a day Active methylphenidate 20 mg 1 tab orally once a day Active dicyclomine 10 mg 1 cap orally 4 times a day Active Seroquel 25 mg 1 tab orally 1-2 X PRN Active escitalopram 10 mg 1 tab orally once a day Active silver sulfADIAZINE topical 1% 1 rl applied topically once a day, as needed for paper skin Active QUEtiapine 100 mg 3 tabs orally at bedtime Active SOCIAL HISTORY Tobacco Use: Social History Observation Description Date Details (start date - stop date) Former Smoker NA - NA Sex Assigned At : Social History Observation Description Sex Assigned At Unknown alcohol Question Answer Notes Did you have a drink containing alcohol in the p ast year? No Points 0 Interpretation Negative Tobacco use: Question Answer Notes : former smoker When did you stop smoking? 10/23 PROBLEMS Problem Type ICD Code Onset Dates Problem Status W/U Status Risk SNOMED Code Notes Problem Sacroiliitis, not elsewhere classified (M46.1) Active confirmed Solitary sacroiliitis (982991672) Problem Low back pain (M54.5) Active confirmed Low back pain (006940572) Problem Spondylosis without myelopathy or radiculopathy, lumbar region (M47.816) Active confirmed Lumbosacral spondylosis without myelopathy (24903721) Problem ad terminal makeup operator (current) use of opiate analgesic (Z79.891) Active confirmed High risk drug monitoring status (722777443) Problem Other specified anxiety disorders (F41.8) Active confirmed Anxiety disorde r (977529809) Problem Hypersomnia, unspecified (G47.10) Active confirmed Hypersomnia (74986397) Problem Obstructive sleep apnea (adult) (pediatric) (G47.33) Active confirmed Obstructive sle ep apnea syndrome (63518701) Problem Other sleep disorders (G47.8) Active confirmed Sleep disorder (54275527) Problem Other chronic pain (G89.29) Active confirmed Chronic pain (86836643) Problem Spondylolisthesi s, lumbar region (M43.16) Active confirmed Acquired spondylolisthesis (631234291) Problem Cervicalgia (M54.2) Active confirmed Cervicalgia (80129749) Problem Pain in thoracic spine (M54.6) Active confirmed Pain in thorac ic spine (476972431) Problem Other detention (current) drug therapy (Z79.899) Active confirmed Long-term curre nt use of drug therapy (240231970) Problem Spinal stenosis, lumbar region without neurogenic claudication (M48.061) Active confirmed Spinal stenosis of lumbar region (40222331) Problem Myalgia, unspecified site (M79.10) Active confirmed Muscle pain (27758871) Problem Vertebrogenic low back pain (M54.51) Active confirmed Pain in lumbar spine (898940649) VITAL SIGNS Temperature 97.7 degrees Fahrenheit 08/24/2023 Oximetry 92 % 08/24/2023 Blood pressure diastolic 81 mm Hg 02/22/2023 Height 69 in 08/24/2023 Blood pressure systolic 166 mm Hg 02/22/2023 Weight 167 lbs 08/24/2023 BMI 24.66 kg/m2 08/24/2023 Encounters Encounter Location Date Provider Diagnosis [facility] [employer] [address] [place], [place] [id number] 09/28/2022 Keyon Stockton [facility], [facility] [address] [place], [place] [id number] 12/01/2022 Keyon Stockton Vertebrogenic low ba ck pain M54.51 ; Pain in thoracic spine M54.6 ; Cervicalgia M54.2 ; Myalgia, unspecified site M79.10 ; Sacroiliitis, not elsewhere classified M46.1 ; Spinal stenosis, lumbar region without neurogenic claudication M48.061 ; Spondylosis without myelopathy or radiculopathy, lumbar region M47.816 ; Spondylolisthesis, lumbar region M43.16 ; Obstructive sleep apnea (adult) (pediatric) G47.33 and ad terminal makeup operator (current) use of opiate analgesic Z79.891 [facility], [facility] [address] [place], [place] [id number] 12/27/2022 Keyon Stockton [facility], [facility] [address] [place], [place] [id number] 02/22/2023 Keyon Stockton Vertebrogenic low ba ck pain M54.51 ; Spinal stenosis, lumbar region without neurogenic claudication M48.061 ; Spondylosis without myelopathy or radiculopathy, lumbar region M47.816 ; Sacroiliitis, not elsewhere classified M46.1 ; Spondylolisthesis, lumbar region M43.16 ; Pain in thoracic spine M54.6 ; Cervicalgia M54.2 ; Myalgia, unspecified site M79.10 ; Obstructive sleep apnea (adult) (pediatric) G47.33 and ad terminal makeup operator (current) use of opiate analgesic Z79.891 [facility], [facility] [address] [place], [place] [id number] 03/07/2023 Keyon Stockton [facility], [facility] [address] [place], [place] [id number] 05/31/2023 Stefaniepadmini Sahus Vertebrogenic low ba ck pain M54.51 ; Other chronic pain G89.29 ; Myalgia, unspecified site M79.10 and Obstructive sleep apnea (adult) (pediatric) G47.33 [facility], [facility] [address] [place], [place] [id number] 08/24/2023 Stefanie Roper Vertebrogenic low ba ck pain M54.51 ; Other chronic pain G89.29 ; Myalgia, unspecified site M79.10 and Obstructive sleep apnea (adult) (pediatric) G47.33 ASSESSMENTS Encounter Date Diagnosis Assessment Notes Treatment Notes Treatment Clinical Notes 12/01/2022 Pain in thoracic spine (ICD-10 - M54.6) Will consider work - up and possible imaging studies as needed / desired by patient 12/01/2022 Vertebrogenic low back pain (ICD-10 - M54.51) Chronic axial lumbosacral (and cervicothoracic) spine pain. Prior conservative treatment by patient as noted, below. Prior minimally invasive interventional spine treatment as noted, below. Will consider additional interventional spine treatment when such treatment is desired by patient. Oral opioid medication use with history of benefit. Plan to continue medication management 02/22/2023 Spinal stenosis, lumbar region without neurogenic claudication (ICD-10 - M48.061) Could consider DCS trial and neurosurgical referral as needed / desired by patient. Do not anticipate offering patient an LESI. 02/22/2023 Vertebrogenic low back pain (ICD-10 - M54.51) Chronic axial lumbosacral (and cervicothoracic) spine pain. Prior conservative treatment by patient as noted, below. Prior minimally invasive interventional spine treatment as noted, below. Will consider additional interventional spine treatment when such treatment is desired by patient. Oral opioid medication use with history of benefit. Plan to continue medication management 05/31/2023 Other chronic pain (ICD-10 - G89.29) Patient reports that taking her pain medication has allowed her to clean her mother's home and storage unit. Plan to continue oral opioid medication management 05/31/2023 Vertebrogenic low back pain (ICD-10 - M54.51) Chronic axial lumbosacral spine pain 08/24/2023 Vertebrogenic low back pain (ICD-10 - M54.51) Chronic axial lumbosacral spine pain. 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 Plan to continue oral opioid medication management. 08/24/2023 Myalgia, unspecified site (ICD-10 - M79.10) Patient reports benefit with use of tizanidine for spasms. Plan to continue. 05/31/2023 Myalgia, unspecified site (ICD-10 - M79.10) Patient reports benefit with use of tizanidine for spasms. Plan to continue 02/22/2023 Spondylosis without myelopathy or radiculopathy, lumbar region (ICD-10 - M47.816) Will consider blocks and possible RFA as needed / desired by patient; patient has not desired this treatment option 12/01/2022 Cervicalgia (ICD-10 - M54.2) Will consider work - up and possible imaging studies as needed / desired by patient 02/22/2023 Sacroiliitis, not elsewhere classified (ICD-10 - M46.1) Bilateral sacral denervation procedures via RFA with history of repeated efficacy appreciated by patient to include sacral axial pain and lower extremity pain symptom improvement / resolution. Per Medicare's latest LCDs sacral RFA procedures are specifically excluded from Medicare insurance coverage 12/01/2022 Myalgia, unspecified site (ICD-10 - M79.10) 05/31/2023 Obstructive sleep apnea (adult) (pediatric) (ICD-10 - G47.33) Patient reports partial compliance with use of her CPAP device 08/24/2023 Obstructive sleep apnea (adult) (pediatric) (ICD-10 - G47.33) Patient reports nightly use of her CPAP device. 02/22/2023 Spondylolisthesis, lumbar region (ICD-10 - M43.16) L3 retrolisthesis on L4 with reduction in flexion and L4 anterolisthesis on L5 with slight flexion instability as per 01/01/19 flexion - extension imaging study report 12/01/2022 Sacroiliitis, not elsewhere classified (ICD-10 - M46.1) Bilateral sacral denervation procedures via RFA with history of repeated efficacy appreciated by patient to include sacral axial pain and lower extremity pain symptom improvement / resolution 12/01/2022 Spinal stenosis, lumbar region without neurogenic claudication (ICD-10 - M48.061) Could consider DCS trial and neurosurgical referral as needed / desired by patient. Do not anticipate offering patient an LESI. 02/22/2023 Pain in thoracic spine (ICD-10 - M54.6) Will consider work - up and possible imaging studies as needed / desired by patient 12/01/2022 Spondylosis without myelopathy or radiculopathy, lumbar region (ICD-10 - M47.816) Will consider blocks and possible RFA as needed / desired by patient; patient has not desired this treatment option 02/22/2023 Cervicalgia (ICD-10 - M54.2) Will consider work - up and possible imaging studies as needed / desired by patient 02/22/2023 Myalgia, unspecified site (ICD-10 - M79.10) 12/01/2022 Spondylolisthesis, lumbar region (ICD-10 - M43.16) L3 retrolisthesis on L4 with reduction in flexion and L4 anterolisthesis on L5 with slight flexion instability as per 01/01/19 flexion - extension imaging study report 12/01/2022 Obstructive sleep apnea (adult) (pediatric) (ICD-10 - G47.33) Patient has history of partial compliance with use of CPAP device as of: 08/26/22. Plan to continue to restrict opioid usage in relation to sleep: patient has verbalized understanding to hold short-acting opioids within four hours of planned sleep. Patient has been counseled that synergistic risk occurs with concomitant opioid and sedative usage. Patient has been counseled on the risks of sleep apnea, with or without opioid and / or other sedative usage, and the patient verbalized understanding and acceptance of the increased risk (worsened sleep apnea, respiratory depression, ) with opioid and / or sedative substance usage. Patient has been counseled to hold (short - acting) opioid and / or sedative substances prior to planned sleep or dangerous activities and patient verbalized understanding that noncompliance would be at patient's increased risk 02/22/2023 Obstructive sleep apnea (adult) (pediatric) (ICD-10 - G47.33) Patient has history of partial compliance with use of CPAP device as of: 02/22/23. Plan to continue to restrict opioid usage in relation to sleep: patient has verbalized understanding to hold short-acting opioids within four hours of planned sleep. Patient has been counseled that synergistic risk occurs with concomitant opioid and sedative usage. Patient has been counseled on the risks of sleep apnea, with or without opioid and / or other sedative usage, and the patient verbalized understanding and acceptance of the increased risk (worsened sleep apnea, respiratory depression, ) with opioid and / or sedative substance usage. Patient has been counseled to hold (short - acting) opioid and / or sedative substances prior to planned sleep or dangerous activities and patient verbalized understanding that noncompliance would be at patient's increased risk 02/22/2023 ad terminal makeup operator (current) use of opiate analgesic (ICD-10 - Z79.891) Patient has a total daily MED of 90. This places the patient in the [facility] high risk category for total daily opioid usage (not to be confused with the separate potential significant risk in regards to diagnosed sleep apnea, above). Have recommended patient taper daily doses to the lowest number of daily doses that provide effective analgesia. Patient has received the Opioid Analgesic REMS Patient Counseling Guide. Patient has had opportunity to read the Guide and ask questions pertaining to the Guide. Patient has been advised on 07/23/20 that due to the [facility] concerns and actions, any suspected patient misuse, abuse, or diversion of controlled substances (i.e. opioids/narcotics/yolande n killers) WILL result in dissolution of treatment from this clinic. Patients adhering to the concepts contained within the patient's Treatment Agreement will be protected from such termination of care. Patient was given a copy of the Treatment Agreement, signed by patient on 01/09/20. Patient signed an opioid consent form on 01/09/20. Patient has refused offer of a Narcan nasal spray prescription. Urine Tox screen today; random screens per protocol 12/01/2022 ad terminal makeup operator (current) use of opiate analgesic (ICD-10 - Z79.891) Patient has a total daily MED of 90. This places the patient in the [facility]' high risk category for total daily opioid usage (not to be confused with the separate potential significant risk in regards to diagnosed sleep apnea, above). Have recommended patient taper daily doses to the lowest number of daily doses that provide effective analgesia. Patient has received the Opioid Analgesic REMS Patient Counseling Guide. Patient has had opportunity to read the Guide and ask questions pertaining to the Guide. Patient has been advised on 07/23/20 that due to the [facility] concerns and actions, any suspected patient misuse, abuse, or diversion of controlled substances (i.e. opioids/narcotics/yolande n killers) WILL result in dissolution of treatment from this clinic. Patients adhering to the concepts contained within the patient's Treatment Agreement will be protected from such termination of care. Patient was given a copy of the Treatment Agreement, signed by patient on 01/09/20. Patient signed an opioid consent form on 01/09/20. Patient has refused offer of a Narcan nasal spray prescription 12/01/2022 Other 02/22/2023 Other Patient reports she is scheduled for right 5th toe amputation on 03/04/[address] Zelaya 05/31/2023 Other Patient reports she is scheduled for another foot surgery in June or 08/24/2023 Other Patient reports an up-coming diet clerk surgery with Dr. Fabian on 09/27/23. PLAN OF TREATMENT Next Appt Details Provider Name:Keyon Cates son, 11/29/2023 01:30:00 PM, [address] [place] [address], [id number], Insurance Providers Payer Name Payer Address Payer Phone Subscriber Number Group Number Insured Name Patient Relationship to Insured Coverage Start Date Coverage End Date [employer] Medicare Part B Claims Department [address] [address] [place] [address] [id number] [place] Ballesteros Self - patient is the insured [facility] [address] [place] [address] [phone] [id number] [place] Ballesteros Self - patient is the insured MEDICAL (GENERAL) HISTORY Medical History History ICD Code Chronic pain Low back pain Lumbar spondylosis, disc disease and spi nal stenosis Sacroiliitis Mid back pain Neck pain Cervical disc disease Fibromyalgia Foot pain COPD (misdiagnosed per prior patient rep ort) Restrictive and obstructive lung disease Hypothyroidism IBS Menopausal state Psychiatric care Elevated blood pressure without diagnosi s of hypertension Bipolar disorder Ulcerative colitis Osteoporosis Left 2nd toe fracture Sleep apnea Surgical History Surgery Date(Month/Year) Colonoscopy Ovaries removed Hysterectomy, 1973 Bilateral foot surgery, perf ormed at [facility] in [place], [place] by Dr. Giraldo Lumpectomy, breast, performe d at [facility], in [place] Cholecystectomy, performed by Dr. Pickett Bladder sling, performed at [facility] in [place], [place] Sinus surgery, performed in [place], [place] by Dr. Thomas, 2014 Left thumb fusion, performed at [facility] by Jorge Castillo, 04/19/19 Left 2nd toe surgery, performed [facility] by Jorge Zelaya, 02/2021 Right 2nd and 4th toe, performed at [facility] by Dr. Zelaya, 09/2021 Left foot surgery, performed at [facility] by Jorge Zelaya, 11/28/21 Left foot surgery, performed at [facility] by Jorge Zelaya 12/11/21 Left foot surgery, performed at [facility] by Jorge Zelaya, 08/06/22 Right foot surgery, performed at [facility] by Dr. Zelaya, 01/05/23 Right foot surgery, performed at [facility] by Dr. Zelaya, 03/04/23 Hospitalization History Reason Date(Month/Year) Cellulitis, treated in [place], [place], 2016 Colitis, treated at [facility], 08/2018
--- NOTE | 2023-09-27 23:24 | PC.NURSE ---
This advertising copywriter got pt up to chair at approximately 2235. Tolerated well. Pt hit call light at approximately 2310 and stated she was ready to walk. Pt walked around OB department one lap. Tolerated well. Pt stated she passed flatus.
[2023-09-28 01:30] VITALS: BP 122/74; PULSE 75; RESP 18
[2023-09-28] MEDS: ketorolac 30 mg/mL INJ IVP (02:38)
[2023-09-28 04:06] VITALS: BP 129/70; PULSE 81; RESP 17; O2SAT 94
[2023-09-28 04:13] VITALS: RESP 17; O2SAT 94
[2023-09-28] MEDS: morphine IR 15 mg Tablet 30 MG PO (04:13)
[2023-09-28 05:06] LABS: Hematocrit 31.8 % (36-47); Mean Corpuscular HGB Conc 32.1 g/dL (30-55); Mean Corpuscular Hemoglobin 29.8 pg (27-33); Platelet Count 201 10^3/cmm (157-399); Red Blood Count 3.42 10^6/uL (3.85-5.65); Red Cell Distribution Width 12.4 % (12.1-15.1); White Blood Count 6.65 10^3/uL (3.29-11.43)
--- NOTE | 2023-09-28 09:56 | P.DS_ITS ---
Discharge Providers CLOCK AND WATCH HANDS DIPPER Date of Admission: 09/27/23 13:59 Date of Discharge: 09/28/23 Attending Provider at Admission: Patricio Fabian MD Attending Provider at Discharge: Patricio Fabian MD Primary CLOCK AND WATCH HANDS DIPPER: Patricio Fabian MD Primary Care Provider: January Whitehead DO Hospital Course Hospital Course Mrs. Umaña 72-year-old female with a history of cystocele, rectocele and mixed urinary incontinence. Was admitted for planned anterior colporrhaphy augmented with allograft, single incision mid urethral sling, and posterior colporrhaphy. The procedures were performed without complication. Overnight observation was uneventful. Patient postop was using a fentanyl patch due to her narcotic tolerance to help manage the postop discomfort. She is afebrile and hem odynamically stable postoperative day 1. Tolerating diet well. Ambulating without difficulty. She was also counseled regarding pelvic rest for 6 weeks (no sex, no tampons, no vaginal douches). Return to the emergency room if any fever, increased bleeding or pain. Physical Exam Narrative: GA: Alert and oriented ?3. HEENT: WNL. Heart: Regular rate and rhythm. Lungs: Clear to auscultation bilaterally. Abdomen: Bowel sounds present, nontender, minimal tenderness, incision clean and dry, no redness, pain or edema. HISTORIC INTERPRETER: No bleeding. Extremities: No edema, no cyanosis, no calves pain. Urinary Catheter Management: Tatum: Cath Placed During This Visit: yes, but has since been removed by the nurse Reason for Continuing Indwelling Catheter: Decision to DC Catheter Urinary Catheter Date of Insertion: 09/27/23 Urinary Catheter Time of Insertion: 11:14 Date Urinary Catheter Removed: 09/28/23 Time Urinary Catheter Discontinued: 05:09 History History History 3 Term 2 0 Miscarriages/Ectopic 1 Living Children 2 Discharge Data Studies Completed and Pending Laboratory Results WBC 6.65 10^3/uL (3.29-11.43) 09/28/23 05:00 RBC 3.42 10^6/uL (3.85-5.65) L 09/28/23 05:00 Hgb 10.20 g/dL (11.27-16.99) L 09/28/23 05:00 Hct 31.8 % (36-47) L 09/28/23 05:00 MCV 93.0 fl (85-98) 09/28/23 05:00 MCH 29.8 pg (27-33) 09/28/23 05:00 MCHC 32.1 g/dL (30-55) 09/28/23 05:00 RDW 12.4 % (12.1-15.1) 09/28/23 05:00 Plt Count 201 10^3/cmm (157-399) 09/28/23 05:00 MPV 9.0 fL (7.4-10.4) 09/28/23 05:00 Neut % (Auto) 42.8 % 09/23/23 09:30 Lymph % (Auto) 43.3 % 09/23/23 09:30 [place] % (Auto) 9.6 % 09/23/23 09:30 Eos % (Auto) 3.4 % 09/23/23 09:30 Baso % (Auto) 0.6 % 09/23/23 09:30 Neut # (Auto) 1.38 10^3/uL (1.8-7.7) L 09/23/23 09:30 Lymph # (Auto) 1.4 10^3/uL (0.8-4.8) 09/23/23 09:30 [place] # (Auto) 0.3 10^3/uL (0.2-0.9) 09/23/23 09:30 Eos # (Auto) 0.1 10^3/uL (0.0-0.8) 09/23/23 09:30 Baso # (Auto) 0.0 10^3/uL (0.0-0.1) 09/23/23 09:30 Nucleated RBC % (auto) 0 % 09/23/23 09:30 Nucleated RBCs # 0.0 /100WBC 09/23/23 09:30 Sodium 139 mmol/L (136-145) 09/23/23 09:30 Potassium 4.4 mmol/L (3.5-5.1) 09/23/23 09:30 Chloride 101 mmol/L (98-107) 09/23/23 09:30 Carbon Dioxide 29 mmol/L (22-29) 09/23/23 09:30 Anion Gap 13.4 (5-19) 09/23/23 09:30 BUN 14 mg/dL (8-23) 09/23/23 09:30 Creatinine 0.8 mg/dL (0.5-0.9) 09/23/23 09:30 GFR Calculation Not Reportable 09/23/23 09:30 Glucose 104 mg/dL (65-115) 09/23/23 09:30 Calculated Osmolality 289 mOsm/kg (285-295) 09/23/23 09:30 Calcium 9.0 mg/dL (8.5-10.5) 09/23/23 09:30 Total Bilirubin 0.4 mg/dL (0.15-1.2) 09/23/23 09:30 AST 18 U/L (0-32) 09/23/23 09:30 ALT 13 U/L (0-33) 09/23/23 09:30 Alkaline Phosphatase 66 U/L (35-105) 09/23/23 09:30 Total Protein 6.6 g/dL (6.6-8.7) 09/23/23 09:30 Albumin 3.9 g/dL (3.5-5.2) 09/23/23 09:30 Globulin 2.7 g/dL (1.3-4.6) 09/23/23 09:30 Urine Color Yellow (Yellow) 09/23/23 Unknown Urine Appearance Clear (CLEAR) 09/23/23 Unknown Urine pH 6.5 (5-7) 09/23/23 Unknown Ur Specific [place] 1.005 (1.005-1.030) 09/23/23 Unknown Urine Protein Neg (Negative) 09/23/23 Unknown Urine Glucose (UA) Norm (Normal) 09/23/23 Unknown Urine Ketones Negative (Negative) 09/23/23 Unknown Urine Blood 2+ (Negative) H 09/23/23 Unknown Urine Nitrate Negative (Negative) 09/23/23 Unknown Urine Bilirubin Neg (Negative) 09/23/23 Unknown Urine Urobilinogen Norm mg/dL (Negative) 09/23/23 Unknown Ur Leukocyte Esterase Negative (Negative) 09/23/23 Unknown Urine RBC Rare /hpf (0-2) 09/23/23 Unknown Urine WBC Rare /hpf (0-5) 09/23/23 Unknown Ur Squamous Epith Cells 5-10 /hpf (0-5) H 09/23/23 Unknown Amorphous Sediment Not Reportable 09/23/23 Unknown Urine Bacteria 1+ /hpf (NONE) H 09/23/23 Unknown Blood Type A Positive 09/27/23 09:15 Rho(D) Type Rh positive 09/27/23 09:15 Antibody Screen Negative 09/27/23 09:15 Procedures Performed Anterior colporrhaphy augmented with allograft Single incision mid urethral sling Posterior colporrhaphy Cystoscopy Vitals Last Vital Signs Temp 98.2 F 09/27/23 19:30 Pulse 81 09/28/23 04:06 Resp 17 09/28/23 04:13 BP 129/70 09/28/23 04:06 Pulse Ox 94 09/28/23 04:13 O2 Del Method Room Air 09/28/23 04:06 O2 Flow Rate 2 09/27/23 17:30 Results Labs OB ([facility]): Blood Type A Positive 09/27/23 Antibody Screen Negative 09/27/23 Hct 31.8 % (36-47) L 09/28/23 Hgb 10.20 g/dL (11.27-16.99) L 09/28/23 Rho(D) Type Rh positive 09/27/23 Plt Count 201 10^3/cmm (157-399) 09/28/23 Hep Bs Antigen Non-reactive (Nonreactive) 01/25/22 Hep B Core Total Ab Non-reactive (Nonreactive) 01/25/22 Hep Bs Antibody 3.9 (11.5-1000) L 01/25/22 Hepatitis C Antibody Non-reactive (Nonreactive) 01/25/22 TSH 1.61 uIU/mL (0.27-4.20) 10/28/22 Free T4 0.91 ng/dL (0.82-1.77) 10/28/22 Hemoglobin A1c 5.2 % (4.0-6.0) 06/01/23 Discharge Plan Discharge Patient Disposition: Home Condition: Stable Prescriptions: New hydrocodone-acetaminophen 5-325 mg tablet 1 tab PO Q4H PRN (Reason: pain) Qty: 20 0RF acetaminophen 325 mg capsule 325 mg PO Q4H PRN (Reason: fever or pain) Qty: 60 0RF ferrous sulfate [Iron (ferrous sulfate)] 325 mg (65 mg iron) tablet 325 mg PO BID Qty: 30 0RF ibuprofen 800 mg tablet 800 mg PO TID PRN (Reason: pain) Qty: 60 0RF docusate sodium [Colace] 100 mg capsule 100 mg PO BID Qty: 60 0RF Continued morphine 30 mg tablet 30 mg PO Q6H PRN (Reason: Pain) budesonide [Pulmicort] 0.25 mg/2 mL suspension for nebulization 0.25 mg INHALATION BID oxybutynin chloride 10 mg tablet extended release 24hr 10 mg PO DAILY Qty: 30 0RF (DME) Custom Molded Orthotics- Sport low profile with a Reverse Zapata Pad See Rx Instructions .Route .MEDSUPPLY Qty: 1 0RF Rx Instructions: As directed (DME) Custom Molded Orthotics See Rx Instructions .Route .MEDSUPPLY Qty: 1 0RF Rx Instructions: As directed Myrbetriq 25 mg tablet extended release 24 hr See Rx Instructions .ROUTE .COMPLEX Qty: 30 2RF Dose Instruction: TAKE ONE TABLET BY MOUTH EVERY DAY Rx Instructions: TAKE ONE TABLET BY MOUTH EVERY DAY quetiapine [Seroquel] 25 mg tablet 25 mg PO BID PRN (Reason: anxiety) Qty: 60 2RF quetiapine 100 mg tablet See Rx Instructions .ROUTE .COMPLEX Qty: 90 2RF Dose Instruction: TAKE 3 TABLETS BY MOUTH DAILY Rx Instructions: TAKE 3 TABLETS BY MOUTH DAILY escitalopram oxalate 20 mg tablet See Rx Instructions .ROUTE .COMPLEX Qty: 30 2RF Dose Instruction: TAKE ONE TABLET BY MOUTH EVERY DAY Rx Instructions: TAKE ONE TABLET BY MOUTH EVERY DAY lamotrigine 150 mg tablet See Rx Instructions .ROUTE .COMPLEX Qty: 60 2RF Dose Instruction: TAKE TWO TABLETS BY MOUTH EVERY DAY Rx Instructions: TAKE TWO TABLETS BY MOUTH EVERY DAY methylphenidate HCl 20 mg tablet 20 mg PO DAILY 30 Days Qty: 30 0RF (DME) Bone stem See Rx Instructions .ROUTE .MEDSUPPLY Qty: 1 0RF Rx Instructions: As directed arformoterol [Brovana] 15 mcg/2 mL solution for nebulization 2 ml inhalation BID Qty: 120 11RF dicyclomine 10 mg capsule 10 mg PO DAILY PRN (Reason: abdominal discomfort) Qty: 90 0RF ondansetron HCl 4 mg tablet 4 mg PO PRN PRN (Reason: Nausea) Qty: 30 0RF Rx Instructions: TAKE ONE TABLET BY MOUTH EVERY DAY NEEDED FOR NAUSEA AND VOMITING diphenoxylate-atropine 2.5-0.025 mg tablet 1 tab PO DAILY PRN (Reason: diarrhea) Qty: 90 1RF estradiol 2 mg tablet See Rx Instructions .ROUTE .COMPLEX Qty: 90 1RF Dose Instruction: TAKE 1 TABLET BY MOUTH ONCE DAILY Rx Instructions: TAKE 1 TABLET BY MOUTH ONCE DAILY cetirizine 10 mg tablet See Rx Instructions .ROUTE .COMPLEX Qty: 90 1RF Dose Instruction: TAKE 1 TABLET BY MOUTH ONCE DAILY Rx Instructions: TAKE 1 TABLET BY MOUTH ONCE DAILY levothyroxine 75 mcg tablet See Rx Instructions .ROUTE .COMPLEX Qty: 90 1RF Dose Instruction: TAKE ONE TABLET BY MOUTH EVERY DAY Rx Instructions: TAKE ONE TABLET BY MOUTH EVERY DAY diclofenac sodium 1 % gel 2 g TOPICAL BID PRN (Reason: Pain) silver sulfadiazine 1 % cream 1 applic topical BID Rx Instructions: APPLY TO AFFECTED AREA(S) NEEDED twice a day; zoledronic [id number] [Reclast] 5 mg/100 mL piggyback 1 ea IV .ONCE 2 YEAR Discharge Orders: Discharge Order (Routine); Ordered 09/28/23 Ordered By: Patricio Fabian Referrals: Patricio Fabian MD [Physician] - 10/12/23 1:15 pm (2 week post-op: 10/12/23 1:15 6 week post-op: 11/07/23 10:45) Discharge Diet: GI Soft and Soft Mechanical Discharge Activity: Limit activity as instructed Patient Instructions: Bladder Sling for Women (DC), Anterior Vaginal Repair (DC), Posterior Vaginal Repair (DC), OB Discharge Report, OB Food/Drug Interaction Guide, Opioid Safety Activity Restrictions/Additional Instructions: 1. Please call [facility] on next working day to make your post-operative appointment in 2 weeks. 2. Please stay home until you come back to the clinic on first post- hospatilization check up. 3. Please follow instructions on your medications CAREFULLY. 4. If you have abdominal incision, do not cover it unless dressing is necessary because of drainage. OK to shower, but avoid bath. Leave steri-strips until they fall off. If they are still on one week after surgery, you may remove them. 5. If you had vaginal surgery or vaginal repair, Dr. Fabian may instruct you to take SITZ bath. 6. Yellow, blood tinged odorous vaginal discharge is usually normal after hysterectomy or vaginal surgeries. 7. No SEXUAL INTERCOURSE, tampons, or douches until you are completely released from the post-operative care. 8. Avoid constipation by eating right and maybe using some Metamucil or Milk of Magnesia. 9. All prescription refills are given during the working hours. Please do no wait till it runs out. Call the clinic at [phone] before your medication runs out. The clinic will get in touch with your doctor to prescribe medications if necessary. 10. Please remain within 40 mile radius from our hospital because emergencies do happen now and then during the post-operative period. 11. If you have stairs at home, take one step at a time slowly and minimize the number of trips. It helps to stay in one floor for the next few days. No lifting except what you can lift by one hand until you are released from the post-operative care. 12. Driving is discouraged until you are well healed. It may be 3-4 weeks before you feel strong enough to drive. You should be able to turn and look through the rear window without pain and you should be able to push the brake pedal very hard without pain before you drive. No fast rules, but SAFETY should be your primary concern. DO NOT drive if you are on sedating medications such as narcotics. 13. Call the clinic (during working hours) to make urgent appointment or go to the Emergency room, if any of the following occurs: i. Vaginal bleeding becomes heavy, more than a period. ii. Incision becomes red and sore, or drains pus. iii. Your TEMPERATURE is over 100.4F or you have chill. iv. IV site becomes red and swollen (a little ``knot?? is usually OK) v. Persistent nausea and vomiting vi. Persistent constipation or diarrhea vii. Rash or allergic reaction to medications. Discharge Attestations CLOCK AND WATCH HANDS DIPPER Time Spent in Discharge Care*: greater than 30 min Coding Level of Care Code Acute Code for Chg Fwd
[2023-09-28] MEDS: ibuprofen 800 mg tablet PO (11:09)
[2023-09-28] MEDS: cetirizine 10 mg Tablet PO (11:09)
[2023-09-28] MEDS: docusate sodium 100 mg Capsule PO (11:09)
[2023-09-28 12:20] VITALS: BP 156/76; PULSE 66; RESP 16; TEMP 37.2; O2SAT 95
== END 2023-09-28 13:20 | disposition home or self-care (01) ==
LOC: OBGYN 21:57
PROVIDERS: Admitting Provider Obstetrics & Gynecology; PCP Family Medicine; Visit Provider Obstetrics & Gynecology
PROC: (CPT 57288; principal; 2023-09-27 10:30)
PROC: (CPT 57250; 2023-09-27 10:30)
DX: N81.10 Cystocele, unspecified (principal); N81.6 Rectocele; N39.46 Mixed incontinence; J44.9 Chronic obstructive pulmonary disease, unspecified; M79.7 Fibromyalgia; E03.9 Hypothyroidism, unspecified; M19.90 Unspecified osteoarthritis, unspecified site; Z87.891 Personal history of nicotine dependence
CPT/HCPCS: 57260; 57267; 57288; 36415; 51798; 80053; 81001; 85025; 85027; 86850; 86900; 96374; 96376; C1762; G0378; J0131; J0690; J1100; J1170; J1650; J1885; J2405; J2704; J3010; J3490; J7120; J7121; J8499

== ENCOUNTER 2023-10-02 09:18 | Emergency (ER) | payer MEDICARE, OTHER, MEDICAID, SELFPAY ==
[2023-10-02] VITALS (7 sets, daily range): BP systolic 174–193; BP diastolic 71–116; PULSE 59–90; RESP 16; TEMP 37; O2SAT 94–98; BMI 25.8
--- NOTE | 2023-10-02 09:42 | ED_ITS ---
HPI - Female Genitourinary General: Chief complaint: Urogenital-Female Stated complaint: vaginal protusion,recent surgery,Rui sent Time Seen by Provider: 10/02/23 09:34 Source: patient Mode of arrival: ambulatory History of Present Illness: 72-year-old female presents to the emerg ency room at the direction of Dr. Fabian. She had noticed 3 soft tissue protrusions either vaginal or rectal she could not be certain these developed after her bladder sling was done as an outpatient. She has not had any vaginal or rectal bleeding. No fever sweats chills shortness of breath or chest discomfort no swelling lower extremities. No dysuria urgency or frequency. Associated symptoms: Deny abdominal pain Review of Systems Const: Denies: fever(s) or chills Card: Denies: chest pain Resp: Denies: dyspnea GI: Denies: abdominal pain : Denies: dysuria, urinary frequency or urinary urgency Musc: Denies: neck pain or back pain Skin/Breast: Denies: rash PFSH ED PFSH: Medical History Hammertoe of right foot Hallux valgus (acquired), right foot Sesamoiditis of right foot Right foot pain Psychiatric care History of 2019 novel coronavirus disease (COVID-19) Hot flashes due to menopause Chronic nausea Bipolar disorder, current episode depressed, severe, without psychotic features IBS (irritable bowel syndrome) Mixed restrictive and obstructive lung disease Fibromyalgia Osteoarthritis Bipolar 1 disorder Hypothyroidism Surgical History History of hand surgery left thumb IP joint fusion H/O: hysterectomy History of cholecystectomy History of lumpectomy History of surgery on upper extremity Left shoulder - 1997 History of foot surgery Family History Mother Cancer Grandmother Cancer Social History Smoking and tobacco/nicotine status: former use of tobacco/nicotine Quit status (tobacco/nicotine): has quit using Year quit tobacco: 1997 Second hand smoke exposure: No Alcohol intake: never Substance/Drug Use: never Physical Exam Const: COMMON NORMALS: no acute distress GENERAL APPEARANCE: cooperative and comfortable ORIENTATION/CONSCIOUSNESS: Yes awake, Yes oriented to person, Yes oriented to place and Yes oriented to time HENMT: COMMON NORMALS: normocephalic, atraumatic and hearing grossly normal bilaterally HEAD & SCALP: normocephalic and atraumatic Resp: COMMON NORMALS: normal respiratory effort, No retractions, No use of accessory muscles and clear to auscultation bilaterally AUSCULTATION: clear to auscultation bilaterally Cardio: COMMON NORMALS: regular rate, regular rhythm and No murmurs present (Cardio) RATE: regular rate RHYTHM: regular rhythm GI: COMMON NORMALS: Soft to palpation and No hepatosplenomegaly present AUSCULTATION: Yes normoactive bowel sounds PALPATION: Yes Soft to palpation, No Tenderness to palpation present (GI), No Guarding due to palpation present (GI) and Yes No hepatosplenomegaly present Extremity: COMMON NORMALS: normal to inspection, capillary refill normal, no clubbing, cyanosis or edema, no calf tenderness and no pedal edema Neuro: SENSORIUM/ORIENTATION: Yes oriented to person, Yes oriented to place and Yes oriented to time Skin: COMMON NORMALS: no rashes or lesions noted GENERAL SKIN EXAM: no rashes or lesions noted Course Vital Signs: Vital signs: Vital Signs Temperature 98.6 F 10/02/23 09:24 Pulse Rate 76 10/02/23 10:00 Respiratory Rate 16 10/02/23 09:24 Blood Pressure 174/71 10/02/23 10:00 Pulse Oximetry 97 10/02/23 10:00 Oxygen Delivery Me thod Room Air 10/02/23 10:00 MDM - Female Medical Decision Making No emergent condition at this time. Perineal exam/rectal/vaginal exam deferred to Dr. Fabian he is been contacted and will see the patient in the emergency room. Further testing for his discretion. Medical Records I reviewed the patient's medical records. Lab Data I reviewed the patient's lab results. (Old labs reviewed) No radiology studies performed this visit Discharge Plan Discharge Patient Disposition: Home Clinical Impression: Post-operative state, S/P bladder repair Condition: Stable Prescriptions: No Action morphine 30 mg tablet 30 mg PO Q6H PRN (Reason: Pain) budesonide [Pulmicort] 0.25 mg/2 mL suspension for nebulization 0.25 mg INHALATION BID oxybutynin chloride 10 mg tablet extended release 24hr 10 mg PO DAILY Qty: 30 0RF (DME) Custom Molded Orthotics- Sport low profile with a Reverse Zapata Pad See Rx Instructions .Route .MEDSUPPLY Qty: 1 0RF Rx Instructions: As directed ([facility] [place]) Custom Molded Orthotics See Rx Instructions .Route .MEDSUPPLY Qty: 1 0RF Rx Instructions: As directed Myrbetriq 25 mg tablet extended release 24 hr See Rx Instructions .ROUTE .COMPLEX Qty: 30 2RF Dose Instruction: TAKE ONE TABLET BY MOUTH EVERY DAY Rx Instructions: TAKE ONE TABLET BY MOUTH EVERY DAY quetiapine [Seroquel] 25 mg tablet 25 mg PO BID PRN (Reason: anxiety) Qty: 60 2RF quetiapine 100 mg tablet See Rx Instructions .ROUTE .COMPLEX Qty: 90 2RF Dose Instruction: TAKE 3 TABLETS BY MOUTH DAILY Rx Instructions: TAKE 3 TABLETS BY MOUTH DAILY escitalopram oxalate 20 mg tablet See Rx Instructions .ROUTE .COMPLEX Qty: 30 2RF Dose Instruction: TAKE ONE TABLET BY MOUTH EVERY DAY Rx Instructions: TAKE ONE TABLET BY MOUTH EVERY DAY lamotrigine 150 mg tablet See Rx Instructions .ROUTE .COMPLEX Qty: 60 2RF Dose Instruction: TAKE TWO TABLETS BY MOUTH EVERY DAY Rx Instructions: TAKE TWO TABLETS BY MOUTH EVERY DAY ([facility] [place]) Bone stem See Rx Instructions .ROUTE .MEDSUPPLY Qty: 1 0RF Rx Instructions: As directed arformoterol [Brovana] 15 mcg/2 mL solution for nebulization 2 ml inhalation BID Qty: 120 11RF dicyclomine 10 mg capsule 10 mg PO DAILY PRN (Reason: abdominal discomfort) Qty: 90 0RF ondansetron HCl 4 mg tablet 4 mg PO PRN PRN (Reason: Nausea) Qty: 30 0RF Rx Instructions: TAKE ONE TABLET BY MOUTH EVERY DAY NEEDED FOR NAUSEA AND VOMITING diphenoxylate-atropine 2.5-0.025 mg tablet 1 tab PO DAILY PRN (Reason: diarrhea) Qty: 90 1RF estradiol 2 mg tablet See Rx Instructions .ROUTE .COMPLEX Qty: 90 1RF Dose Instruction: TAKE 1 TABLET BY MOUTH ONCE DAILY Rx Instructions: TAKE 1 TABLET BY MOUTH ONCE DAILY cetirizine 10 mg tablet See Rx Instructions .ROUTE .COMPLEX Qty: 90 1RF Dose Instruction: TAKE 1 TABLET BY MOUTH ONCE DAILY Rx Instructions: TAKE 1 TABLET BY MOUTH ONCE DAILY levothyroxine 75 mcg tablet See Rx Instructions .ROUTE .COMPLEX Qty: 90 1RF Dose Instruction: TAKE ONE TABLET BY MOUTH EVERY DAY Rx Instructions: TAKE ONE TABLET BY MOUTH EVERY DAY methylphenidate HCl 20 mg tablet 20 mg PO DAILY 30 Days Qty: 30 0RF diclofenac sodium 1 % gel 2 g TOPICAL BID PRN (Reason: Pain) silver sulfadiazine 1 % cream 1 applic topical BID Rx Instructions: APPLY TO AFFECTED AREA(S) NEEDED twice a day; zoledronic fheu-kfmplhom-lxvzt [Reclast] 5 mg/100 mL piggyback 1 ea IV .ONCE 2 YEAR acetaminophen 325 mg capsule 325 mg PO Q4H PRN (Reason: fever or pain) Qty: 60 0RF ibuprofen 800 mg tablet 800 mg PO TID PRN (Reason: pain) Qty: 60 0RF Colace 100 mg capsule 100 mg PO BID Qty: 60 0RF Iron (ferrous sulfate) 325 mg (65 mg iron) tablet 325 mg PO BID Qty: 30 0RF hydrocodone-acetaminophen 5-325 mg tablet 1 tab PO Q4H PRN (Reason: pain) Qty: 20 0RF Discharge Orders: Discharge ED (Routine); Ordered 10/02/23 Ordered By: Gael Rodgers Referrals: January Whitehead DO [Primary Care Provider] - Discharge Diet: Usual diet Discharge Activity: Limit activity as instructed Patient Instructions: Opioid Safety, Pain Management Activity Restrictions/Additional Instructions: Thank you for choosing [facility] for your healthcare needs today. Please realize this is an emergency room and that we are providing you with a medical screening exam and this may not be complete and all inclusive of all the testing and or work up that you may need to determine your ailment or severity of your illness. It is very important that you follow up as instructed or that you return to the Emergency Department should you have concerns or if your condition changes or worsens in any way. You are seen today in the emergency room after being directed here by Dr. Fabian. By exam and history there is no evidence of acute emergent condition at this time. Further evaluation will be conducted by Dr. Fabian [place]. Coding Level of Care Code ED Entry Level Accounting Clerk for Andrea Roth
--- NOTE | 2023-10-02 09:45 | USR_ITS ---
PROCEDURE INFORMATION: Exam: US Pelvis, Transvaginal Exam date and time: 10/02/2023 10:34 AM Age: 72 years old Clinical indication: Other: Spotting; Prior surgery; Surgery date: 3-7 days post-operative; Surgery type: Bladder sling. Patient states she already had her uterus and ovaries removed; Additional info: Post op bladder sling with complications TECHNIQUE: Imaging protocol: Real-time transvaginal pelvic ultrasound with image documentation. Transvaginal imaging was used for better evaluation of the endometrium, adnexa, and/or cervix. COMPARISON: CT abdomen pelvis w con* [id number] 08/30/2018 5:06 PM FINDINGS: Uterus: Information provided indicates uterus and ovaries have been removed. Right ovary/adnexa: Normal. No mass. Normal ovarian blood flow. Left ovary/adnexa: Normal. No mass. Normal ovarian blood flow. Urinary bladder: Evidence of slightly lobular hypoechoic or fluid collection measured 5.57 x 6.44 x 5.23 cm projecting adjacent to end vaginal cuff/remnant. Whether this represents urinary bladder or not is uncertain. Also, commercial helicopter pilot indicates echogenic bandlike area with shadowing noted in the vaginal area, of uncertain cause, possibly postoperative change, suture line or other process. Intraperitoneal space: No free fluid. US/US transvaginal [id number] IMPRESSION: Evidence of slightly lobular hypoechoic or fluid collection measured 5.57 x 6.44 x 5.23 cm projecting adjacent to end vaginal cuff/remnant. Whether this represents urinary bladder or not is uncertain. Follow-up may be helpful. CT urogram/CT urography may be helpful.
[2023-10-02 11:35] LABS: Basophils % 0.5 %; Eosinophils # 0.1 10^3/uL (0.0-0.8); Eosinophils % 1.6 %; Lymphocytes # 0.9 10^3/uL (0.8-4.8); Lymphocytes % 21.2 %; Mean Corpuscular HGB Conc 32.6 g/dL (30-55); Mean Corpuscular Hemoglobin 29.7 pg (27-33); Mean Corpuscular Volume 91.3 fl (85-98); Mean Platelet Volume 8.5 fL (7.4-10.4); Monocytes # 0.2 10^3/uL (0.2-0.9); Monocytes % 4.6 %; Neutrophils # 3.12 10^3/uL (1.8-7.7); Neutrophils % 71.9 %; Nucleated Red Blood Cells % 0 %; Platelet Count 238 10^3/cmm (157-399); Red Blood Count 4.27 10^6/uL (3.85-5.65); Red Cell Distribution Width 12.4 % (12.1-15.1); White Blood Count 4.34 10^3/uL (3.29-11.43)
[2023-10-02 11:49] LABS: Alanine Aminotransferase 14 U/L (0-33); Albumin Level 4.2 g/dL (3.5-5.2); Alkaline Phosphatase 78 U/L (35-105); Anion Gap 15.1 (5-19); Aspartate Amino Transferase 18 U/L (0-32); Blood Urea Nitrogen 9 mg/dL (8-23); Calcium 9.5 mg/dL (8.5-10.5); Carbon Dioxide 28 mmol/L (22-29); Chloride 101 mmol/L (98-107); Globulin 3.1 g/dL (1.3-4.6); Glucose 98 mg/dL (65-115); Osmolality Calculated 289 mOsm/kg (285-295); Potassium 4.1 mmol/L (3.5-5.1); Sodium 140 mmol/L (136-145); Total Bilirubin 0.7 mg/dL (0.15-1.2); Total Protein 7.3 g/dL (6.6-8.7)
== END 2023-10-02 14:55 | disposition home or self-care (01) ==
PROVIDERS: Obstetrics & Gynecology; Emergency Provider Family Medicine; PCP Family Medicine
DX: Z98.890 Other specified postprocedural states (principal); Z96.0 Presence of urogenital implants; Z87.891 Personal history of nicotine dependence
CPT/HCPCS: 36415; 76830; 80053; 85025; 99284

== ENCOUNTER 2023-11-23 11:31 | Outpatient (CLI) | payer OTHER, MEDICAID, SELFPAY ==
--- NOTE | 2023-11-23 12:00 | US_ITS ---
WS: [id number] THYROID ULTRASOUND HISTORY: thyroid nodules COMPARISON: 12/16/2022 Right lobe: 0.9 cm x 0.8 cm x 2.7 cm (w x ap x l). Volume: 1.1 cm3. Small caliber thyroid. There is a subcentimeter nodule in the mid gland measuring 3 x 2 x 4 mm. Left lobe: 0.8 cm x 0.7 cm x 2.5 cm (w x ap x l). Volume: 0.7 cm3. Normal size and echotexture. No significant or dominant nodules are present. Isthmus: 0.3 cm. IMPRESSION: 1. Small caliber thyroid. 2. No new or suspicious or dominant thyroid nodules.
== END 2023-11-23 11:32 | disposition home or self-care (01) ==
LOC: RAD 11:32
PROVIDERS: PCP Family Medicine; Visit Provider Family Medicine
DX: E03.9 Hypothyroidism, unspecified (principal); E04.1 Nontoxic single thyroid nodule
CPT/HCPCS: 76536

== ENCOUNTER → 2023-11-24 12:20 | Outpatient (BNVA) | payer MEDICARE, OTHER, MEDICAID, SELFPAY | PROVIDERS: PCP Family Medicine; Visit Provider Family Medicine | DX: E03.9 Hypothyroidism, unspecified (principal); E01.0 Iodine-deficiency related diffuse (endemic) goiter | CPT/HCPCS: 84443 ==

== ENCOUNTER → 2023-11-28 12:44 | Outpatient (BNVA) | payer MEDICARE, OTHER, SELFPAY | PROVIDERS: PCP Family Medicine; Visit Provider Podiatrist Foot & Ankle Surgery | DX: T84.84XA Pain due to internal orthopedic prosthetic devices, implants and grafts, initial encounter (principal); M76.71 Peroneal tendinitis, right leg; M20.41 Other hammer toe(s) (acquired), right foot; Y79.2 Prosthetic and other implants, materials and accessory orthopedic devices associated with adverse incidents | CPT/HCPCS: 99214 ==

== ENCOUNTER 2023-12-02 05:42 | Day surgery (SDC) | payer MEDICARE, OTHER, SELFPAY ==
[2023-12-02] VITALS (8 sets, daily range): BP systolic 101–155; BP diastolic 51–83; PULSE 63–72; RESP 16–18; TEMP 36.1–36.6; O2SAT 92–95; BMI 25.2
--- NOTE | 2023-12-02 | XR_ITS ---
WS: [id number] XR foot RT 2V [id number] REASON FOR EXAM: Hardwear removal, or pic FINDINGS: Removal of plate and screw arthrodesis hardware at the first MTP joint. Placement of long longitudinal screw through the phalanges of the fourth toe. New surgical appliances intact and in proper position and alignment. Normal alignment of the fourth t oe. IMPRESSION: Removal of hardware from the first toe without abnormality. Longitudinal pinning of the fourth toe without abnormality.
[2023-12-02] MEDS: sodium chloride 0.9% 1,000 ML 30 ML IV (06:31)
--- NOTE | 2023-12-02 06:34 | W.PM.OPSUD ---
Surgery/Procedure H&P Update DATE OF PROCEDURE: December 02, 2023 DATE H&P PERFORMED: 11/28/23 H&P UPDATE INFORMATION: I have reviewed H&P completed within last 30 days, I have examined patient prior to procedure, No changes to prior documentation and H&P is in [facility] EMR on date indicated PREOP DIAGNOSIS: Right fourth hammertoe and right foot painful hardware PLANNED PROCEDURE: Operation Date: 12/02/23 07:00 Proposed Procedures p Hardware Removal/ Deep hardware removal right foot(Right) - Fred Zelaya DPM s Hammertoe Correction/ Right fourth hammertoe correction(Right) - Fred Zelaya DPM s Platelet Rich Plasma Injection(Right) - Fred Zelaya DPM
--- NOTE | 2023-12-02 06:49 | P.ANESASSM_ITS ---
Pre-Anesthetic Assessment Height/Weight: Height 1.75 m Weight 77.564 kg Temp Pulse Resp BP Pulse Ox O2 Del Method 97.7 F 72 18 155/55 92 Room Air 12/02/23 06:19 12/02/23 06:19 12/02/23 06:19 12/02/23 06:19 12/02/23 06:19 12/02/23 06:19 Preop Diagnosis: Right fourth hammertoe and right foot painful hardware Operation Date: 12/02/23 07:00 Proposed Procedures p Hardware Removal/ Deep hardware removal right foot(Right) - Fred Zelaya DPM s Hammertoe Correction/ Right fourth hammertoe correction(Right) - KATE Arambula Platelet Rich Plasma Injection(Right) - Fred Zelaya DPM Last intake: Intake Last Liquid Date 12/01/23 Last Liquid Time 22:00 Last Solid Date 12/01/23 Last Solid Time 19:00 Social No alcohol and No tobacco Airway Submandibular: within normal limits Cervical ROM: within normal limits Mallampati: Class II Pulmonary None reported (Post pneumonitis scarring with restrictive lung disease) s/p cystoceole repair GI mild chronic nausea Musc/skel Osteoarthritis/DJD and Weakness Neuropsych Bipolar Anesthetic Plan ASA status: 3 Anesthesia: MAC Medications/Allergies Home Medications Medication Instructions Recorded Confirmed Last Taken Type budesonide 0.25 mg/2 mL suspension 0.25 mg inhalation BID 12/25/19 12/02/23 12/02/23 History for nebulization (Pulmicort) morphine 30 mg immediate release 30 mg PO Q6H PRN Pain 12/25/19 12/02/23 12/01/23 History tablet Bone stem #1 ea 04/28/21 12/01/23 Unknown Rx arformoterol 15 mcg/2 mL solution 2 ml inhalation BID #120 mL 03/23/22 12/02/23 12/02/23 Rx for nebulization (Brovana) Custom Molded Orthotics #1 ea 04/08/22 12/01/23 Unknown Rx Custom Molded Orthotics- Sport low #1 ea 04/08/22 12/01/23 Unknown Rx profile with a Reverse Zapata Pad diclofenac sodium 1 % topical gel 2 g topical BID PRN Pain 03/03/23 12/01/23 03/02/23 History silver sulfadiazine 1 % topical 1 applic topical BID 03/03/23 12/01/23 03/03/23 History cream zoledronic acid 5 mg/100 mL in 1 ea IV .ONCE 2 YEAR Osteopenia 03/03/23 12/01/23 Unknown History mannitol 5 %-water intravenous piggybck (Reclast) diphenoxylate-atropine 2.5 1 tab PO DAILY PRN diarrhea #90 06/15/23 12/01/23 Unknown Rx mg-0.025 mg tablet tabs estradiol 2 mg tablet See Rx Instructions .Route 06/30/23 12/02/23 12/01/23 Rx .COMPLEX #90 tabs cetirizine 10 mg tablet See Rx Instructions .Route 07/04/23 12/02/23 12/01/23 Rx .COMPLEX #90 tabs acetaminophen 325 mg capsule 325 mg PO Q4H PRN fever or pain 09/28/23 12/01/23 Unknown Rx #60 caps docusate sodium 100 mg capsule 100 mg PO BID Constipation #60 caps 09/28/23 12/01/23 Unknown Rx (Colace) ibuprofen 800 mg tablet 800 mg PO TID PRN pain #60 tabs 09/28/23 12/01/23 Unknown Rx dicyclomine 10 mg capsule See Rx Instructions .Route 10/14/23 12/02/23 12/01/23 Rx .COMPLEX #30 caps ondansetron HCl 4 mg tablet See Rx Instructions .Route 10/14/23 12/01/23 Unknown Rx .COMPLEX #30 tabs mirabegron 25 mg tablet,extended See Rx Instructions .Route 10/27/23 12/01/23 Unknown Rx release 24 hr (Myrbetriq) .COMPLEX #30 tabs oxybutynin chloride 10 mg See Rx Instructions .Route 11/11/23 12/02/23 12/01/23 Rx tablet,extended release 24 hr .COMPLEX #90 tabs levothyroxine 75 mcg tablet See Rx Instructions .Route 11/25/23 12/02/23 12/01/23 Rx .COMPLEX #90 tabs lamotrigine 150 mg tablet See Rx Instructions .Route 11/29/23 12/02/23 12/01/23 Rx .COMPLEX #60 tabs escitalopram oxalate 20 mg tablet See Rx Instructions .Route 12/01/23 12/02/23 12/01/23 Rx .COMPLEX #30 tabs methylphenidate HCl 20 mg tablet 20 mg PO DAILY 30 days #30 tabs 12/01/23 12/02/23 12/01/23 Rx quetiapine 100 mg tablet See Rx Instructions .Route 12/01/23 12/02/23 12/01/23 Rx .COMPLEX #90 tabs quetiapine 25 mg tablet See Rx Instructions .Route 12/01/23 12/02/23 Unknown Rx .COMPLEX #60 tabs oxycodone-acetaminophen 10 mg-325 1 tab PO Q6H PRN pain 7 days #28 12/02/23 Unknown Rx mg tablet (Percocet) tabs Allergies Allergy/AdvReac Type Severity Reaction Status Date / Time adhesive tape Allergy ADR-Itching Verified 12/01/23 13:22 sumatriptan [From Imitrex] Allergy ADR-Dry Verified 12/01/23 13:22 Mucus Membranes Macrolide Antibiotics AdvReac C Diff Verified 12/01/23 13:22 Current Medications Generic Name Dose Route Start Last Admin Trade Name Freq PRN Reason Stop Dose Admin Sodium Chloride 1,000 mls @ 30 mls/hr 12/02/23 06:00 12/02/23 06:31 Sodium Chloride 0.9% IV 12/03/23 05:59 30 mls/hr .Q24H SARAH Administration PFSH Anesthesia Medical History Hammertoe of right foot Hallux valgus (acquired), right foot Sesamoiditis of right foot Right foot pain Psychiatric care History of 2019 novel coronavirus disease (COVID-19) Hot flashes due to menopause Chronic nausea Bipolar disorder, current episode depressed, severe, without psychotic features IBS (irritable bowel syndrome) Mixed restrictive and obstructive lung disease Fibromyalgia Osteoarthritis Bipolar 1 disorder Hypothyroidism Surgical History H/O pelvic surgery (~09/27/23) Anterior colporrhaphy augmented with allograft, single incision mid urethral sling, posterior colporrhaphy for Cystocele stage 2, rectocele stage 3 and mixed incontinence. Performed by Rui at [facility] History of hand surgery left thumb IP joint fusion H/O: hysterectomy History of cholecystectomy History of lumpectomy History of surgery on upper extremity Left shoulder - 1997 History of foot surgery Family History Mother Cancer Grandmother Cancer Data Anesthesia Cardiac Studies: No Data to Display
[2023-12-02] MEDS: ceFAZolin 2,000 MG in sodium chloride 0.9% (plus) 50 ML 100 MG IV (07:00)
--- NOTE | 2023-12-02 07:00 | PM.OP ---
Operative Report Date of procedure: December 02, 2023 Pre-op diagnosis: Painful hardware right foot. Right fourth hammertoe deformity. Right peroneal tendinitis. Post-op diagnosis: Same Procedure done: Deep hardware removal right foot. CPT code 03415 Right fourth hammertoe correction. CPT code 82919 Cortisone injection right peroneal tendon. CPT code 50021 Implants: Silverdale 2 mm screw, 4-0 Vicryl, 4-0 nylon Specimens removed/disposition: 0 Pathology: 0 Surgeon: Fred Zelaya DPM Director Of Corporate Communications: Jacek Gonzalez Estimated blood loss: 2 26 IV fluids: 0 Urine output: 0 Complications: None Brief History: Patient examined and evaluated, findings and treatment options discussed with patient at length. She is requesting deep hardware removal of her right foot due to suspected hardware pain at the right first metatarsal phalangeal arthrodesis site. Also having pain with right fourth hammertoe at the distal interphalangeal joint and requesting hammertoe correction. She has pain at insertion of peroneal brevis right foot, recommended PRP injection under anesthesia patient is agreeable and wishes to proceed. I reviewed at length with the patient, the risks, potential complications, benefits, alternatives, expectations, and typical outcomes associated with the surgery. The risks and potential complications were explained in detail, including but not limited to infection, wound dehiscence or soft tissue complications, bleeding and hematoma, chronic edema, neuritis or nerve damage producing numbness or chronic pain, CRPS, failure to relieve pain or worsening pain, thick / painful / unsightly scar, limited motion / stiffness, malposition, delayed union, malunion, or nonunion, fracture, reaction to implants, anesthetic complications, venous thromboembolism, and deformity recurrence. I discussed the notion of no regrets with the patient as it pertains to complications and outcomes. The patient seemed to understand the nature of the proposed care and required convalescence. They asked appropriate questions, answered to their satisfaction. They are aware no guarantees can be made as to a satisfactory outcome and they understand there may be other possible unforeseen complications or outcomes not listed here that will be treated accordingly if they arise. There were no written or implied guarantees given to the patient. They gave informed consent to proceed. Procedure: Under mild sedation the patient was brought to the operating room and remained on the gurney in supine position. A timeout was performed. Anesthesia was then administered by the anesthesia service. Local anesthesia was injected by myself consisting of 30 cc of 0.5% Marcaine plain and a right male block fashion and right fourth ray block fashion. Well-padded pneumatic tourniquet was applied to the right ankle. The right lower extremity was scrubbed, prepped and draped utilizing normal aseptic technique. Right foot was then exanguinated with an Esmarch bandage and the tourniquet inflated to 250 mmHg. Attention was directed to the right first metatarsal phalangeal joint where a linear longitudinal incision made medial and parallel to the extensor hallucis longus tendon through skin with dissection carried down to layer of hardware utilizing blunt and sharp technique. Care was taken to retract and preserve neurovascular and tendinous structures. All bleeders were ligated and cauterized as necessary. Total of 6 screws and 1 plate were removed and passed from operative field in total without fragmentation or failure. This was to be sent for cleansing for patient to take home. No remaining hardware was visualized directly or with intraoperative C arm in all 3 planes. The incision was irrigated with saline solution. Excellent bony arthrodesis appreciated at the right first metatarsal phalangeal joint intraoperatively. After further irrigation with saline the incision was closed with deep tissues reapproximated with 4-0 Vicryl and skin with 4-0 nylon. Attention was directed to the right fourth toe where hammertoe contracture with apex at the distal end phalangeal joint was appreciated. 2 semielliptical converging incisions at the level of the distal interphalangeal joint in a transverse fashion was performed and a elliptical skin incision/bridge was excised and passed from operative field. Transverse tenotomy of the extensor tendon was performed and the head of the intermediate phalanx and base of the distal phalanx were freed from the articular and subchondral plates followed by saline solution irrigation. This was then fixated with a Silverdale 2 mm screw with excellent bony apposition and compression noted with a rectus right fourth toe in all 3 planes appreciated directly and with intraoperative C arm in the AP, oblique and lateral views confirmed excellent placement of hardware, rectus alignment of the toe and intramedullary placement of the screw. The incision was irrigated with saline solution and extensor tendon reapproximated with 4-0 Vicryl and skin reapproximated 4-0 nylon. Attention was then directed to the peroneal tendon insertion where a 1 cc dexamethasone injection was performed within the tendon sheath of the peroneal brevis right foot. Patient tolerated well. Incisions were then dressed with Adaptic, sterile 4 x 4's, Kerlix and Coban wrap followed by application of a postop shoe to the right lower extremity. Tourniquet was deflated and a prompt hyperemic response was noted to the distal digits of the right foot. Patient tolerated the procedure and anesthesia well and was transferred to the PACU with vital signs stable and vascular status intact. Following a period of postoperative monitoring she will be discharged home is to be weightbearing as tolerated with postop shoe, elevate foot while resting. Was given at home care instructions and scheduled follow-up. She was given my cell phone number to contact with any postoperative questions or concerns.
[2023-12-02] MEDS: BUPivacaine 0.5% INJ 30 mL INJECTION (07:27)
[2023-12-02] MEDS: BUPivacaine liposome 13.3 mg/mL SDV 10 mL 266 MG INJECTION (07:28)
[2023-12-02] MEDS: dexamethasone 4 mg/mL INJ INJECTION (07:29)
--- NOTE | 2023-12-02 11:35 | ANE.PACU2 ---
Inpatient post-anesthesia follow up: Vital signs: Temperature 97.0 F Pulse Rate 64 Respiratory Rate 16 Blood Pressure 145/83 Pulse Oximetry 93 Oxygen Delivery Me thod Room Air Oxygen Flow Rate Fraction of Inspir ed Oxygen Hydration adequate: Yes Nausea and vomiting: No Pain level: 2 Mental status: Baseline
== END 2023-12-02 09:05 | disposition home or self-care (01) ==
PROVIDERS: PCP Family Medicine; Visit Provider Podiatrist Foot & Ankle Surgery
PROC: (CPT 20550; principal; 2023-12-02 07:00)
PROC: (CPT 28285; 2023-12-02 07:00)
DX: M20.41 Other hammer toe(s) (acquired), right foot (principal); M76.71 Peroneal tendinitis, right leg; T84.84XA Pain due to internal orthopedic prosthetic devices, implants and grafts, initial encounter; Y82.8 Other medical devices associated with adverse incidents; Z86.16 Personal history of COVID-19; M79.7 Fibromyalgia; E03.9 Hypothyroidism, unspecified
CPT/HCPCS: 20550; 20680; 28285; 73620; 76000; C9290; J0690; J1100; J2250; J2704; J3010; J3490; J7030

== ENCOUNTER → 2023-12-07 10:42 | Outpatient (BNVA) | payer MEDICARE, OTHER, MEDICAID, SELFPAY | PROVIDERS: PCP Family Medicine; Visit Provider Podiatrist Foot & Ankle Surgery | DX: Z98.890 Other specified postprocedural states (principal); T84.84XA Pain due to internal orthopedic prosthetic devices, implants and grafts, initial encounter; M20.41 Other hammer toe(s) (acquired), right foot; M76.71 Peroneal tendinitis, right leg; Y79.2 Prosthetic and other implants, materials and accessory orthopedic devices associated with adverse incidents | CPT/HCPCS: 99024 ==

== ENCOUNTER → 2023-12-15 13:20 | Outpatient (BNVA) | payer MEDICARE, OTHER, SELFPAY | PROVIDERS: PCP Family Medicine; Visit Provider Podiatrist Foot & Ankle Surgery | DX: T84.84XA Pain due to internal orthopedic prosthetic devices, implants and grafts, initial encounter (principal); Y79.2 Prosthetic and other implants, materials and accessory orthopedic devices associated with adverse incidents; M20.41 Other hammer toe(s) (acquired), right foot; M76.71 Peroneal tendinitis, right leg; Z98.890 Other specified postprocedural states; Z47.89 Encounter for other orthopedic aftercare | CPT/HCPCS: 73630; 97760; 99024; L4361 ==

== ENCOUNTER 2023-12-15 15:15 | Outpatient (CLI) | payer MEDICARE, OTHER, SELFPAY | END 2023-12-15 15:16 | disposition home or self-care (01) | LOC: SPT 15:16 | PROVIDERS: PCP Family Medicine; Visit Provider Podiatrist Foot & Ankle Surgery | DX: Z47.89 Encounter for other orthopedic aftercare (principal) | CPT/HCPCS: 97760; 99024; L4361 ==

== ENCOUNTER → 2024-01-12 13:33 | Outpatient (BNVA) | payer MEDICARE, OTHER, SELFPAY | PROVIDERS: PCP Family Medicine; Visit Provider Podiatrist Foot & Ankle Surgery | DX: Z98.890 Other specified postprocedural states (principal) | CPT/HCPCS: 73630; 99024 ==

== ENCOUNTER 2024-01-16 13:26 | Outpatient (CLI) | payer MEDICARE, OTHER, SELFPAY ==
--- NOTE | 2024-01-16 13:30 | MM_ITS ---
WS: [id number] BILATERAL 3D TOMOSYNTHESIS DIGITAL SCREENING MAMMOGRAPHY WITH CAD CLINICAL INFORMATION: screening HISTORY: Screening mammogram. No current complaints. COMPARISON: 2022 TECHNIQUE: Bilateral CC and MLO views. FINDINGS: The breasts are composed of heterogeneous fibroglandular density tissue, which can limit the detectio n of small underlying mass lesions. No suspicious mass, asymmetry, calcifications, or architectural d istortion. No evidence of malignancy. Incidental punctate and lucent centered calcifications. Vascula r calcification. IMPRESSION: MM/[place] [id number] BI-RADS: 2-Benign FOLLOW UP: 1 Year Follow-up Recommend return to annual screening mammography.
== END 2024-01-16 13:27 | disposition home or self-care (01) ==
LOC: RAD 13:27
PROVIDERS: PCP Family Medicine; Visit Provider Family Medicine
DX: Z12.31 Encounter for screening mammogram for malignant neoplasm of breast (principal)
CPT/HCPCS: 77063; 77067

== ENCOUNTER 2024-02-02 13:29 | Outpatient (RCR) | payer MEDICARE, OTHER, SELFPAY | END 2024-02-21 23:59 | disposition home or self-care (01) | LOC: SPT 13:29 | PROVIDERS: PCP Family Medicine; Visit Provider Podiatrist Foot & Ankle Surgery | DX: M76.71 Peroneal tendinitis, right leg (principal) | CPT/HCPCS: 97035; 97140; 97161 ==

== ENCOUNTER → 2024-02-09 12:48 | Outpatient (BNVA) | payer MEDICARE, OTHER, SELFPAY | PROVIDERS: PCP Family Medicine; Visit Provider Podiatrist Foot & Ankle Surgery | DX: Z98.890 Other specified postprocedural states (principal); M76.71 Peroneal tendinitis, right leg; M20.41 Other hammer toe(s) (acquired), right foot | CPT/HCPCS: 99213 ==

== ENCOUNTER 2024-02-22 06:00 | Outpatient (RCR) | payer MEDICARE, OTHER, SELFPAY | END 2024-03-13 23:59 | disposition home or self-care (01) | LOC: SPT 06:00 | PROVIDERS: PCP Family Medicine; Visit Provider Podiatrist Foot & Ankle Surgery | DX: M76.71 Peroneal tendinitis, right leg (principal) | CPT/HCPCS: 97035; 97140 ==

== ENCOUNTER 2024-02-24 13:36 | Outpatient (CLI) | payer MEDICARE, OTHER, SELFPAY ==
--- NOTE | 2024-02-24 14:30 | MRR_ITS ---
PROCEDURE INFORMATION: Exam: MR Right Lower Extremity Joint Without Contrast; Ankle Exam date and time: 02/24/2024 2:40 PM Age: 73 years old Clinical indication: Pain; Ankle; Right; Prior surgery; Surgery date: 6+ months; Surgery type: RT 5th toe removed; Additional info: To evaluate the peroneal tendon, surgical planning, , to include the foot TECHNIQUE: Imaging protocol: Magnetic resonance imaging of the right lower extremity without contrast. Exam focused on the ankle. 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 No abnormal bone signal intensity in the base of the 5th metatarsal. There is a 5 mm osteochondral lesion of the posteromedial talar dome without unstable fragment. No acute bony abnormality. LIGAMENTS: Distal tibiofibular syndesmosis: Unremarkable. No tear. Anterior talofibular ligament: Unremarkable. No tear. Posterior talofibular ligament: Unremarkable. No tear. Calcaneofibular ligament: Unremarkable. No tear. Deltoid ligament complex: Unremarkable. No tear. TENDONS: Flexor tendons of foot: Unremarkable as visualized. Tibialis posterior tendon: Trace tibialis posterior tenosynovitis without split, tear or significant tendinopathy. Peroneal tendons: There is longitudinal splitting of the peroneus brevis tendon posterior to the fibula and continuing lateral to the calcaneus. The peroneus brevis tendon resumes a normal caliber distal to the calcaneal cuboid joint. There is bony edema and mild bony remodeling of the peroneal tubercle of the calcaneus compatible with reactive changes to the adjacent abnormal peroneal tendons.There is some moderate peroneus longus tendinopathy with enlargement and intrasubstance signal/intrasubstance tearing but no complete tear or retraction. There is some mild tenosynovitis of the peroneus longus and brevis tendons. Extensor tendons of foot: Unremarkable as visualized. Tibialis anterior tendon: Unremarkable as visualized. Achilles tendon: Minimal distal Achilles tendinopathy. Tarsal canal (Sinus tarsi): Unremarkable. Normal signal of the fat. Tarsal tunnel: Unremarkable. Soft tissues: There is edema in the fat adjacent to the peroneal tendons posterior to the fibula and especially lateral to the calcaneus. Plantar fascia: Plantar fascia is unremarkable. MR/MR ankle RT wo con* [id number] IMPRESSION: 1. There is longitudinal splitting of the peroneus brevis tendon posterior to the fibula and continuing lateral to the calcaneus. The tendon resumes a normal caliber distal to the calcaneal cuboid joint. Mild tenosynovitis. 2. There is some moderate peroneus longus tendinopathy with enlargement and intrasubstance signal/intrasubstance tearing but no complete tear or retraction. Mild tenosynovitis. 3. There is bony edema and mild bony remodeling of the peroneal tubercle of the calcaneus compatible with reactive changes to the adjacent abnormal peroneal tendons. 4. There is a 5 mm osteochondral lesion of the posteromedial talar dome without unstable fragment.
== END 2024-02-24 13:37 | disposition home or self-care (01) ==
LOC: RAD 13:36
PROVIDERS: PCP Family Medicine; Visit Provider Podiatrist Foot & Ankle Surgery
DX: M76.71 Peroneal tendinitis, right leg (principal); Z98.890 Other specified postprocedural states; M93.971 Osteochondropathy, unspecified, right ankle and foot
CPT/HCPCS: 73721

== ENCOUNTER 2024-03-06 12:35 | Outpatient (RCR) | payer MEDICARE, OTHER, SELFPAY | END 2024-03-23 23:59 | disposition home or self-care (01) | LOC: SPT 12:35 | PROVIDERS: PCP Family Medicine; Visit Provider Obstetrics & Gynecology | DX: N39.46 Mixed incontinence (principal) | CPT/HCPCS: 97110; 97161 ==

== ENCOUNTER → 2024-03-14 13:39 | Outpatient (BNVA) | payer MEDICARE, OTHER, SELFPAY | PROVIDERS: PCP Family Medicine; Visit Provider Podiatrist Foot & Ankle Surgery | DX: M76.71 Peroneal tendinitis, right leg (principal); S86.311A Strain of muscle(s) and tendon(s) of peroneal muscle group at lower leg level, right leg, initial encounter; X58.XXXA Exposure to other specified factors, initial encounter | CPT/HCPCS: 99214 ==

== ENCOUNTER 2024-03-24 06:00 | Outpatient (RCR) | payer MEDICARE, OTHER, SELFPAY | END 2024-04-22 23:59 | disposition home or self-care (01) | LOC: SPT 06:00 | PROVIDERS: PCP Family Medicine; Visit Provider Obstetrics & Gynecology | DX: N39.46 Mixed incontinence (principal) | CPT/HCPCS: 97530 ==

== ENCOUNTER 2024-04-08 03:17 | Emergency (ER) | payer MEDICARE, OTHER, SELFPAY ==
[2024-04-08 03:20] VITALS: BP 86/50; PULSE 55; RESP 16; TEMP 36.8; O2SAT 95; BMI 25.8
--- NOTE | 2024-04-08 03:30 | XRR_ITS ---
PROCEDURE INFORMATION: Exam: XR Left Foot Exam date and time: 04/08/2024 4:19 AM Age: 73 years old Clinical indication: Injury or trauma; Fall; Blunt trauma; Prior surgery; Surgery date: 6+ months; Surgery type: Digit/metatarsal pinning; Patient HX: Patient fell at home this morning onto hardwood floor. C/O left ankle and foot pain. Diffuse swelling to ankle. ; Additional info: Fall foot pain swelling TECHNIQUE: Imaging protocol: Radiologic exam of the left foot. Views: 3 or more views. COMPARISON: CR XR ankle LT min 3V* [id number] 04/08/2024 4:19 AM FINDINGS: Bones/joints: The patient is status post fixation of the 2nd digit. There appears to be fusion the 3rd and 4th PIP joints. Fixation screws traverse the 3rd and 4th metatarsal heads. There is bony fusion the 1st MTP joint. Soft tissues: Normal. XR/XR foot LT min 3V* [id number] IMPRESSION: No evidence of acute fracture.
--- NOTE | 2024-04-08 03:30 | XRR_ITS ---
PROCEDURE INFORMATION: Exam: XR Left Ankle Exam date and time: 04/08/2024 4:19 AM Age: 73 years old Clinical indication: Injury or trauma; Fall; Blunt trauma; Patient HX: Patient fell at home this morning onto hardwood floor. C/O left ankle and foot pain. Diffuse swelling to ankle. ; Additional info: Fall ankle pain swelling TECHNIQUE: Imaging protocol: Radiologic exam of the left ankle. Views: 3 or more views. COMPARISON: CR (LOW EXM, ) 04/08/2024 4:19 AM FINDINGS: Bones/joints: There is an acute oblique fracture through the lateral malleolus without significant displacement. Soft tissues: There is soft tissue swelling overlying the lateral malleolus. XR/XR ankle LT min 3V* [id number] IMPRESSION: Acute fracture through the lateral malleolus.
[2024-04-08 03:32] VITALS: BP 78/39; PULSE 56; RESP 16; O2SAT 94
[2024-04-08] MEDS: HYDROmorphone 1 mg/mL INJ 1 mL IM (03:45)
[2024-04-08] MEDS: ondansetron 4 MG Tablet PO (03:45)
--- NOTE | 2024-04-08 03:48 | W.ED.EXTPRO ---
HPI - Extremity Problem General: Chief complaint: Extremity Injury, Lower Stated complaint: hurt left ankle Time Seen by Provider: 04/08/24 03:24 History of Present Illness: 73-year-old female who says she fell in the bathroom an hour and a half prior to arrival. She complains of left ankle and foot pain and swelling after fall. She also struck her eyebrow in the fall, but she did not lose consciousness and does not have significant head pain. Associated symptoms: Deny chest pain or fever(s) Review of Systems Const: Denies: fever(s) Card: Denies: chest pain Resp: Denies: dyspnea Musc: Reports: neck pain (Chronic) and back pain (Chronic) Neuro: Denies: headache(s), numbness in extremities or dizziness PFSH ED PFSH: Medical History (Updated 04/08/24 @ 05:15 by Pietro Willoughby DO) Hyperlipidemia POP-Q stage 3 rectocele Surgery 09/27/2023 Dr. Fabian Hammer toe Acquired hammertoe of right foot Ganglion cyst of finger of left hand Fracture of toe with nonunion Fracture of second toe, left, closed Hallux valgus (acquired), right foot Right foot pain Psychiatric care Bipolar disorder, current episode depressed, severe, without psychotic features IBS (irritable bowel syndrome) Mixed restrictive and obstructive lung disease Fibromyalgia Osteoarthritis Bipolar 1 disorder Hypothyroidism Surgical History (Updated 03/27/24 @ 09:20 by Chris Gutierrez MD) S/P foot surgery S/P foot surgery S/P foot surgery S/P foot surgery, left History of hand surgery left thumb IP joint fusion History of surgery on upper extremity Left shoulder - 1997 H/O pelvic surgery (~09/27/23) Anterior colporrhaphy augmented with allograft, single incision mid urethral sling, posterior colporrhaphy for Cystocele stage 2, rectocele stage 3 and mixed incontinence. Performed by Rui at [facility] H/O: hysterectomy History of cholecystectomy History of lumpectomy History of foot surgery Family History Mother Cancer Grandmother Cancer Social History (Updated 03/27/24 @ 10:49 by Alaina Loomis LPN) Smoking and tobacco/nicotine status: former use of tobacco/nicotine Quit status (tobacco/nicotine): has quit using Alcohol intake: former Substance/Drug Use: former Physical Exam Const: COMMON NORMALS: no acute distress GENERAL APPEARANCE: cooperative; not ill appearing and not frail appearing HENMT: COMMON NORMALS: normocephalic, atraumatic and Normal external nose present HEAD & SCALP: normocephalic and atraumatic FACE & SINUS: normal facial exam and face symmetric NOSE: Normal external nose present Eye: COMMON NORMALS: Equal, round and reactive pupils present and EOMs intact bilaterally PUPIL: Yes Equal, round and reactive pupils present Neck/C-Spine: GENERAL: Yes trachea midline Chest: CHEST: Yes Symmetrical chest wall rise Resp: COMMON NORMALS: normal respiratory effort, No retractions, No use of accessory muscles and clear to auscultation bilaterally AUSCULTATION: clear to auscultation bilaterally Cardio: COMMON NORMALS: regular rate and regular rhythm RATE: regular rate RHYTHM: regular rhythm GI: COMMON NORMALS: Normal to inspection, nondistended, normoactive bowel sounds present Extremity: NARRATIVE EXTREMITY EXAM: Exam the left lower extremity reveals significant swelling over the lateral ankle. There are some mild foot swelling as well. There is tenderness over the distal fibula, across the tibiotalar joint, and at the base of the fifth metatarsal. No deformity. No proximal tenderness. No knee tenderness. No fibular head tenderness. Pulses and sensation are normal Neuro: KAMI COMA SCALE: document GCS findings Kami coma scale eye opening: Spontaneous [place] coma scale verbal response: Orientated [place] coma scale motor response: Obey commands Kami coma scale total score: 15 SENSORY EXAM: Yes extremities (intact) Psych: COMMON NORMALS: speech normal SPEECH: Yes normal speech Skin: COMMON NORMALS: no rashes or lesions noted GENERAL SKIN EXAM: no rashes or lesions noted Course Vital Signs: Vital signs: Vital Signs Temperature 98.2 F 04/08/24 03:20 Pulse Rate 51 L 04/08/24 05:01 Respiratory Rate 16 04/08/24 05:01 Blood Pressure 95/49 04/08/24 05:01 Pulse Oximetry 95 04/08/24 05:01 Oxygen Delivery Me thod Room Air 04/08/24 03:20 MDM - Extremity (Nontraumatic) Medical Decision Making X-rays show lateral malleolar ankle fracture Of the distal fibula officially. Appears to me, this looks more like a nondisplaced trimalleolar fracture. The patient already has a fracture boot. She will go into this. No weightbearing. Foot and ankle surgery follow-up as an outpatient. Lab Data Radiology Impressions Ankle X-Ray 04/08/24 03:30 IMPRESSION: Acute fracture through the lateral malleolus. Foot X-Ray 04/08/24 03:30 IMPRESSION: No evidence of acute fracture. Head CT 04/08/24 04:17 IMPRESSION: Mild small vessel disease. No evidence of acute intracranial process. All radiology interpretation(s) finalized by discharge Discharge Plan Discharge Patient Disposition: Home Clinical Impression: Trimalleolar fracture of ankle, closed Condition: Stable Prescriptions: New Percocet 7.5-325 mg tablet 1 tab PO Q6H PRN (Reason: pain) Qty: 10 0RF No Action morphine 30 mg tablet 30 mg PO Q6H PRN (Reason: Pain) budesonide [Pulmicort] 0.25 mg/2 mL suspension for nebulization 0.25 mg INHALATION BID lamotrigine 150 mg tablet See Rx Instructions .ROUTE .COMPLEX Qty: 60 2RF Dose Instruction: TAKE TWO TABLETS BY MOUTH EVERY DAY Rx Instructions: TAKE TWO TABLETS BY MOUTH EVERY DAY quetiapine 100 mg tablet See Rx Instructions .ROUTE .COMPLEX Qty: 90 2RF Dose Instruction: TAKE 3 TABLETS BY MOUTH EVERY DAILY Rx Instructions: TAKE 3 TABLETS BY MOUTH EVERY DAILY quetiapine 25 mg tablet See Rx Instructions .ROUTE .COMPLEX Qty: 60 2RF Dose Instruction: TAKE 1 TABLET BY MOUTH TWICE DAILY NEEDED FOR ANXIETY Rx Instructions: TAKE 1 TABLET BY MOUTH TWICE DAILY NEEDED FOR ANXIETY escitalopram oxalate 20 mg tablet See Rx Instructions .ROUTE .COMPLEX Qty: 30 2RF Dose Instruction: TAKE 1 TABLET BY MOUTH EVERY DAY Rx Instructions: TAKE 1 TABLET BY MOUTH EVERY DAY methylphenidate HCl 20 mg tablet 20 mg PO DAILY 30 Days Qty: 30 0RF cetirizine 10 mg tablet 10 mg PO DAILY Qty: 90 2RF (DME) Custom Molded Orthotics- Sport low profile with a Reverse Zapata Pad See Rx Instructions .Route .MEDSUPPLY Qty: 1 0RF Rx Instructions: As directed (DME) Custom Molded Orthotics See Rx Instructions .Route .MEDSUPPLY Qty: 1 0RF Rx Instructions: As directed (DME) CAM walker See Rx Instructions .Route .MEDSUPPLY Qty: 1 0RF Rx Instructions: As directed (DME) Bone stem See Rx Instructions .ROUTE .MEDSUPPLY Qty: 1 0RF Rx Instructions: As directed arformoterol [Brovana] 15 mcg/2 mL solution for nebulization 2 ml inhalation BID Qty: 120 11RF diphenoxylate-atropine 2.5-0.025 mg tablet 1 tab PO DAILY PRN (Reason: diarrhea) Qty: 90 1RF dicyclomine 10 mg capsule See Rx Instructions .ROUTE .COMPLEX Qty: 30 0RF Dose Instruction: TAKE ONE CAPSULE BY MOUTH EVERY DAY ORN FOR ABDOMINAL DISCOMFORT Rx Instructions: TAKE ONE CAPSULE BY MOUTH EVERY DAY ORN FOR ABDOMINAL DISCOMFORT Myrbetriq 25 mg tablet extended release 24 hr See Rx Instructions .ROUTE .COMPLEX Qty: 30 0RF Dose Instruction: TAKE 1 TABLET BY MOUTH ONCE DAILY Rx Instructions: TAKE 1 TABLET BY MOUTH ONCE DAILY levothyroxine 75 mcg tablet See Rx Instructions .ROUTE .COMPLEX Qty: 90 1RF Dose Instruction: TAKE ONE TABLET BY MOUTH EVERY DAY Rx Instructions: TAKE ONE TABLET BY MOUTH EVERY DAY estradiol 2 mg tablet See Rx Instructions .ROUTE .COMPLEX Qty: 90 0RF Dose Instruction: TAKE 1 TABLET BY MOUTH ONCE DAILY Rx Instructions: TAKE 1 TABLET BY MOUTH ONCE DAILY ondansetron HCl 4 mg tablet See Rx Instructions .ROUTE .COMPLEX Qty: 30 0RF Dose Instruction: TAKE ONE TABLET BY MOUTH EVERY DAY NEEDED FOR FOR NAUSEA AND VOMITING Rx Instructions: TAKE ONE TABLET BY MOUTH EVERY DAY NEEDED FOR FOR NAUSEA AND VOMITING silver sulfadiazine [SSD] 1 % cream See Rx Instructions .ROUTE .COMPLEX Qty: 85 0RF Dose Instruction: APPLY TO AFFECTED AREA(S) NEEDED TWO TIMES A DAY Rx Instructions: APPLY TO AFFECTED AREA(S) NEEDED TWO TIMES A DAY diclofenac sodium 1 % gel 2 g TOPICAL BID PRN (Reason: Pain) Qty: 100 1RF oxybutynin chloride 10 mg tablet extended release 24hr See Rx Instructions .ROUTE .COMPLEX Qty: 180 0RF Dose Instruction: TAKE 2 TABLETS BY MOUTH DAILY Rx Instructions: TAKE 2 TABLETS BY MOUTH DAILY zoledronic [id number] [Reclast] 5 mg/100 mL piggyback 1 ea IV .ONCE 2 YEAR acetaminophen 325 mg capsule 325 mg PO Q4H PRN (Reason: fever or pain) Qty: 60 0RF ibuprofen 800 mg tablet 800 mg PO TID PRN (Reason: pain) Qty: 60 0RF docusate sodium [Colace] 100 mg capsule 100 mg PO BID Qty: 60 0RF Discharge Orders: Discharge ED (Routine); Ordered 04/08/24 Ordered By: Pietro Willoughby Referrals: January Whitehead DO [Primary Care Provider] - Alejandro Lemus DPM [Physician] - 1-3 days Patient Instructions: Opioid Safety, Pain Management Activity Restrictions/Additional Instructions: Use your fracture boot as a cast. Do not weight-bear. Use crutches for weightbearing. Follow-up with foot and ankle surgery this coming week. You can call the above number on Tuesday for an appointment. Case management will also attempt to make you an appointment. You may ice for pain. Return for problems. Coding Level of Care Code ED Frame Stripper And Crusher for Andrea Roth
[2024-04-08 04:01] VITALS: BP 76/44; PULSE 55; RESP 16; O2SAT 94
[2024-04-08 04:16] VITALS: BP 95/49; PULSE 59; RESP 16; O2SAT 94
--- NOTE | 2024-04-08 04:17 | CTR_ITS ---
PROCEDURE INFORMATION: Exam: CT Head Without Contrast Exam date and time: 04/08/2024 4:28 AM Age: 73 years old Clinical indication: Pain and injury or trauma; Fall; Blunt trauma (contusions or hematomas); Headache; Patient HX: Patient fell this morning striking frontal on hardwood floor. Small hematoma to left eyebrow and contusion to left orbit. ; Additional info: Hit head on fall, headache TECHNIQUE: Imaging protocol: Computed tomography of the head without contrast. Radiation optimization: All CT scans at this facility use at least one of these dose optimization techniques: automated exposure control; mA and/or kV adjustment per patient size (includes targeted exams where dose is matched to clinical indication); or iterative reconstruction. COMPARISON: CT head wo con* [id number] 02/22/2020 7:29 PM RADIATION DOSE METRICS: Total DLP (mGy-cm): 1045.28 FINDINGS: Brain: There is mild small vessel disease. There is no evidence of acute parenchymal hemorrhage, extra-axial collection, or acute infarction. There is no mass effect, midline shift, or downward herniation. Cerebral ventricles: No ventriculomegaly. Paranasal sinuses: Visualized sinuses are unremarkable. No fluid levels. Mastoid air cells: Visualized mastoid air cells are well aerated. Bones: Unremarkable. No acute fracture. Soft tissues: There is mild left periorbital soft tissue swelling. CT/CT head wo con* [id number] IMPRESSION: Mild small vessel disease. No evidence of acute intracranial process.
[2024-04-08 05:01] VITALS: BP 95/49; PULSE 51; RESP 16; O2SAT 95
--- NOTE | 2024-04-09 08:00 | DCPLANNER ---
messaged podiatry for er f/u
== END 2024-04-08 05:40 | disposition home or self-care (01) ==
PROVIDERS: Emergency Provider Emergency Medicine; PCP Family Medicine
DX: S82.855A Nondisplaced trimalleolar fracture of left lower leg, initial encounter for closed fracture (principal); Z87.891 Personal history of nicotine dependence; E78.5 Hyperlipidemia, unspecified; W19.XXXA Unspecified fall, initial encounter
CPT/HCPCS: 70450; 73610; 73630; 96372; 99284; J1170; Q0162

== ENCOUNTER → 2024-04-09 10:34 | Outpatient (BNVA) | payer MEDICARE, OTHER, SELFPAY | PROVIDERS: PCP Family Medicine; Visit Provider Podiatrist Foot & Ankle Surgery | DX: S82.852A Displaced trimalleolar fracture of left lower leg, initial encounter for closed fracture; W19.XXXA Unspecified fall, initial encounter | CPT/HCPCS: 99214 ==

== ENCOUNTER → 2024-04-20 07:50 | Day surgery (SDC) | payer MEDICARE, OTHER, SELFPAY ==
[2024-04-20] VITALS (15 sets, daily range): BP systolic 123–168; BP diastolic 63–96; PULSE 59–85; RESP 15–22; TEMP 36.2–36.5; O2SAT 91–100
--- NOTE | 2024-04-20 08:13 | P.OP_ITS ---
Operative Report Date of procedure: April 20, 2024 Pre-op diagnosis: Left trimalleolar fracture Post-op diagnosis: Same Post-op findings: None Procedure done: Open reduction internal fixation left trimalleolar fracture. CPT code 77182 Implants: 4 mm Fontanelle screws cannulated x 2 for medial malleolus Anatomic fibular plate with 3.5 millimeter screws Skin bolivar 3-0 Vicryl, 4-0 Vicryl Surgeon: Fred Zelaya DPM [employer] Director: See intraoperative documentation Estimated blood loss: 5 See intraoperative documentation IV fluids: See intraoperative documentation Urine output: See intraoperative documentation Complications: None Brief History: 73 year old female patient here for evaluation of her left trimalleolar fracture DOI: 02/06/24. Patient sustained a left trimalleolar fracture, ankle mortise is congruent on x- ray, she has a fracture blister at the lateral and medial malleolus, no laceration abrasion to the left ankle or foot. Informed patient that she has a grossly unstable ankle fracture that would benefit from anatomical reduction internal rigid fixation provide her the most reliable healing timeframe and reduce risk for deformity and malunion. I reviewed at length with the patient, the risks, potential complications, benefits, alternatives, expectations, and typical outcomes associated with the surgery. The risks and potential complications were explained in detail, including but not limited to infection, wound dehiscence or soft tissue complications, bleeding and hematoma, chronic edema, neuritis or nerve damage producing numbness or chronic pain, CRPS, failure to relieve pain or worsening pain, thick / painful / unsightly scar, limited motion / stiffness, malposition, delayed union, malunion, or nonunion, fracture, reaction to implants, anesthetic complications, venous thromboembolism, and deformity recurrence. I discussed the notion of no regrets with the patient as it pertains to complications and outcomes. The patient seemed to understand the nature of the proposed care and required convalescence. They asked appropriate questions, answered to their satisfaction. They are aware no guarantees can be made as to a satisfactory outcome and they understand there may be other possible unforeseen complications or outcomes not listed here that will be treated accordingly if they arise. There were no written or implied guarantees given to the patient. They gave informed consent to proceed. Will require 10 to 14 days to allow fracture blisters to resolve prior to proceeding with surgery. Procedure: Under mild sedation the patient was brought to the operating room and remained on the gurney in supine position. A timeout was performed. Anesthesia was administered by the anesthesia service. Of note left popliteal block was performed preoperatively, additional 10 cc of Marcaine injected at the medial ankle preoperatively. Well-padded pneumatic tourniquet applied to left heart cath. Left lower extremity was scrubbed, prepped and draped utilizing normal aseptic technique and the left foot and ankle were exanguinated with an Esmarch bandage followed by inflation of the left high calf tourniquet at 250 mmHg. Attention was directed to the left ankle were direct over the lateral malleolus a linear longitudinal incision was made over the lateral malleolus through skin with dissection carried down to the layer periosteum identified the fracture, care was taken to retract and preserve neurovascular and tendon structures. All bleeders were ligated and cauterized as necessary. Fracture was distracted, curettage, flushed and reduced and fixated utilizing a Fontanelle anatomic fibular plate with 3.5 mm locking screws not violating the ankle joint this was confirmed with AP, mortise and lateral views. The fibula was pulled out to length and the rotated and reduced anatomically in all 3 planes. Incision was irrigated with saline solution and closed in a layered fashion with 2-0 Vicryl periosteum, 3-0 Vicryl at subcutaneous tissue and skin bolivar. Attention was directed to the medial malleolus where percutaneous fixation was achieved with anatomic reduction and internal fixation with parallel screws these were Fontanelle this was confirmed with AP, oblique and lateral views 3.5 millimeter screws with excellent bony apposition and compression noted. Did not violate the ankle mortise confirmed on 3 standard views with C arm intraoperatively. Ankle joint was restored to normal anatomy and had smooth range of motion intraoperatively. Small posterior malleolus fracture involving less than 10% of the ankle mortise was reduced with ligamentotaxis and was noted to be anatomic. The medial incision was flushed and closed with skin bolivar. Dressings consisting of nonadherent Adaptic, sterile 4 x 4's, Kerlix, Anup wrap and cam boot applied to the left foot and ankle. Tourniquet was deflated and a prompt hyperemic response was noted to the distal digits of the left foot. Patient tolerated the procedure and anesthesia well and was transferred to the PACU with vital signs stable and vascular status intact. Following a period of postoperative monitoring she will be discharged home without home care instructions and scheduled follow-up.
[2024-04-20] MEDS: midazolam 1 mg/mL INJ 2 mL 2 MG IVP ×2 (08:33→12:08)
--- NOTE | 2024-04-20 08:35 | SUR.PREOP ---
Nerve block to LLE per Dr. Davila. Time out completed prior to procedure. Pt tolerated well.
[2024-04-20] MEDS: fentaNYL 50 mcg/mL INJ 2mL 100 MCG IVP (08:53)
[2024-04-20] MEDS: sodium chloride 0.9% 1,000 ML 30 ML IV (08:54)
--- NOTE | 2024-04-20 08:54 | ANES.PREANE2 ---
Pre-Anesthetic Assessment Height/Weight: Height 1.75 m Weight 79.379 kg Temp Pulse Resp BP Pulse Ox O2 Del Method 97.7 F 72 22 H 155/69 97 Room Air 04/20/24 08:03 04/20/24 08:03 04/20/24 08:53 04/20/24 08:03 04/20/24 08:53 04/20/24 08:13 Preop Diagnosis: Left trimalleolar fracture Operation Date: 04/20/24 09:35 Proposed Procedures p ORIF Ankle ORIF Trimalleolar Fracture(Left) - Fred Zelaya DPM Familial anesthetic complications: None Was Beta Amparo taken within 24 hours: N/A Was Clonidine taken within 24 hours: N/A Last intake: Intake Last Liquid Date 10/26/90 Last Liquid Time 22:30 Last Solid Date 04/19/24 Last Solid Time 20:30 Social No alcohol and No tobacco Exam alert, oriented x 3, clear to auscultation bilaterally and regular rate & rhythm Airway Mallampati: Class III Dentition: false Metabolic Thyroid Disease Anesthetic Plan ASA status: 2 Anesthesia: General and Regional (specify below) Risk of > 500 ml blood loss (7ml/kg in children): No Medications/Allergies Home Medications Medication Instructions Recorded Confirmed Last Taken Type budesonide 0.25 mg/2 mL suspension 0.25 mg inhalation BID 12/25/19 04/19/24 04/19/24 History for nebulization (Pulmicort) morphine 30 mg immediate release 30 mg PO Q6H PRN Pain 12/25/19 04/19/24 04/19/24 History tablet Bone stem #1 ea 04/28/21 04/09/24 Unknown Rx arformoterol 15 mcg/2 mL solution 2 ml inhalation BID #120 mL 03/23/22 04/19/24 04/19/24 Rx for nebulization (Brovana) Custom Molded Orthotics #1 ea 04/08/22 04/09/24 Unknown Rx Custom Molded Orthotics- Sport low #1 ea 04/08/22 04/09/24 Unknown Rx profile with a Reverse Zapata Pad zoledronic acid 5 mg/100 mL in 1 ea IV .ONCE 2 YEAR Osteopenia 03/03/23 04/19/24 Unknown History mannitol 5 %-water intravenous piggybck (Reclast) acetaminophen 325 mg capsule 325 mg PO Q4H PRN fever or pain 09/28/23 04/19/24 04/16/24 Rx #60 caps ibuprofen 800 mg tablet 800 mg PO TID PRN pain #60 tabs 09/28/23 04/19/24 Unknown Rx CAM walker #1 ea 12/15/23 04/09/24 Unknown Rx diclofenac sodium 1 % topical gel 2 g topical BID PRN Pain #100 grams 03/18/24 04/19/24 04/18/24 Rx cetirizine 10 mg tablet 10 mg PO DAILY allergies #90 tabs 03/27/24 04/19/24 04/19/24 Rx methylphenidate HCl 20 mg tablet 20 mg PO DAILY 30 days #30 tabs 04/05/24 04/19/24 04/19/24 Rx oxycodone-acetaminophen 7.5 mg-325 1 tab PO Q6H PRN pain #10 tabs 04/08/24 04/19/24 04/19/24 Rx mg tablet (Percocet) diphenoxylate-atropine 2.5 1 tab PO DAILY PRN diarrhea #90 04/18/24 04/19/24 04/11/24 Rx mg-0.025 mg tablet tabs dicyclomine 10 mg capsule 10 mg PO DAILY PRN Abdominal Pain 04/20/24 04/20/24 04/11/24 History escitalopram oxalate 20 mg tablet 20 mg PO DAILY 04/20/24 04/20/24 04/19/24 History estradiol 2 mg tablet 2 mg PO DAILY 04/20/24 04/20/24 04/19/24 History lamotrigine 150 mg tablet 300 mg PO DAILY 04/20/24 04/20/24 04/19/24 History levothyroxine 75 mcg tablet 75 mcg PO DAILY 04/20/24 04/20/24 04/19/24 History ondansetron HCl 4 mg tablet 4 mg PO DAILY PRN Nausea And 04/20/24 04/20/24 04/11/24 History Vomiting quetiapine 100 mg tablet 300 mg PO DAILY 04/20/24 04/20/24 04/19/24 History quetiapine 25 mg tablet 25 mg PO BID PRN Anxiety 04/20/24 04/20/24 04/19/24 History silver sulfadiazine 1 % topical 1 applic topical BID PRN Rash 04/20/24 04/20/24 Unknown History cream (SSD) Allergies Allergy/AdvReac Type Severity Reaction Status Date / Time adhesive tape Allergy ADR-Itching Verified 04/09/24 10:35 sumatriptan [From Imitrex] Allergy ADR-Dry Verified 04/09/24 10:35 Mucus Membranes Macrolide Antibiotics AdvReac C Diff Verified 04/09/24 10:35 Current Medications Generic Name Dose Route Start Last Admin Trade Name Raulq PRN Reason Stop Dose Admin Sodium Chloride 1,000 mls @ 30 mls/hr 04/20/24 08:00 04/20/24 08:54 Sodium Chloride 0.9% IV 04/21/24 07:59 30 mls/hr .Q24H SARAH Administration Midazolam HCl 2 mg 04/20/24 07:57 04/20/24 08:33 Midazolam 1 Mg/Ml Inj 2 Ml IVP 2 mg Q5M PRN Administration Preop Anxiety PFSH Anesthesia Medical History Hyperlipidemia POP-Q stage 3 rectocele Surgery 09/27/2023 Dr. Fabian Hammer toe Acquired hammertoe of right foot Ganglion cyst of finger of left hand Fracture of toe with nonunion Fracture of second toe, left, closed Hallux valgus (acquired), right foot Right foot pain Psychiatric care Bipolar disorder, current episode depressed, severe, without psychotic features IBS (irritable bowel syndrome) Mixed restrictive and obstructive lung disease Fibromyalgia Osteoarthritis Bipolar 1 disorder Hypothyroidism Surgical History S/P foot surgery S/P foot surgery S/P foot surgery S/P foot surgery, left History of hand surgery left thumb IP joint fusion History of surgery on upper extremity Left shoulder - 1997 H/O pelvic surgery (~09/27/23) Anterior colporrhaphy augmented with allograft, single incision mid urethral sling, posterior colporrhaphy for Cystocele stage 2, rectocele stage 3 and mixed incontinence. Performed by Rui at [facility] H/O: hysterectomy History of cholecystectomy History of lumpectomy History of foot surgery Family History Mother Cancer Grandmother Cancer Social History Smoking and tobacco/nicotine status: former use of tobacco/nicotine Quit status (tobacco/nicotine): has quit using Alcohol intake: former Substance/Drug Use: former Data Anesthesia Cardiac Studies: No Data to Display
--- NOTE | 2024-04-20 09:52 | P.HPUD_ITS ---
Surgery/Procedure H&P Update DATE OF PROCEDURE: April 20, 2024 DATE H&P PERFORMED: 04/09/24 H&P UPDATE INFORMATION: I have reviewed H&P completed within last 30 days, I have examined patient prior to procedure, No changes to prior documentation and H&P is in [facility] EMR on date indicated CHANGES TO PREVIOUS DOCUMENTATION: None PREOP DIAGNOSIS: Left trimalleolar fracture PLANNED PROCEDURE: Operation Date: 04/20/24 09:35 Proposed Procedures p ORIF Ankle ORIF Trimalleolar Fracture(Left) - Fred Zelaya DPM
[2024-04-20] MEDS: ceFAZolin 2,000 MG in sodium chloride 0.9% (plus) 50 ML 100 MG IV (10:16)
[2024-04-20] MEDS: BUPivacaine 0.5% INJ 10 mL INJECTION (10:30)
--- NOTE | 2024-04-20 11:24 | P.BOP_ITS ---
Date of Procedure: 01/06/24 Surgeon: Fred Zelaya DPM Social Work Job Titles(s): [employer] Procedure(s) performed: Open reduction internal fixation left trimalleolar fracture. Findings of the procedure(s): Left trimalleolar fracture. Estimated blood loss: 5 mL Specimen(s) removed: None Post-operative diagnosis: Left trimalleolar fracture. No complications with surgery or anesthesia. Patient was a general LMA with popliteal block preoperatively per anesthesia left lower extremity. 40-minute tourniquet time.
--- NOTE | 2024-04-20 11:27 | XR_ITS ---
WS: [id number] Exam: XR ankle LT 2V [id number] Date/Time of Exam: 04/20/2024 11:29 AM Reason For Exam: post op Comparison 04/08/2024. There is plate and screw fixation involving a fracture of the distal fibula that is stabilized in melisa tomic position for healing. 2 screws also stabilize a fracture of the medial malleolus in satisfactor y position. Bilateral surgical skin clips are noted. Partially visualized hardware in the second thir d and fourth metatarsals. XR/XR ankle LT 2V [id number] IMPRESSION: 1. Bimalleolar fracture stabilized with internal fixation. Both fractures are i n satisfactory alignment for healing.
[2024-04-20] MEDS: fentaNYL 50 mcg/mL INJ 2mL IVP ×2 (11:40→11:50)
[2024-04-20] MEDS: HYDROmorphone 1 mg/mL INJ 1 mL 0.5 MG IVP (11:55)
--- NOTE | 2024-04-20 12:11 | SUR.OPER ---
pt vocalized pain 08/02. called marysol Lord, obtained verbal order for 50 of fentanyl and 0.5 of hydromorphone. medication given, waited 10min and pt is verbally crying and voicing pain is unbearable, pt is also covering face and nose while holding breath. called Dr. Davila, updated her on pt's behavior. Received order for versed 2mg. medication given. pt resting comfortably and vitals wnl. jarret RN
[2024-04-20] MEDS: oxyCODONE-APAP 10-325 mg Tablet 1 TAB PO (12:43)
--- NOTE | 2024-04-20 13:15 | ANE.PACU2 ---
Inpatient post-anesthesia follow up: Airway intact: Yes Vital signs: Temperature 97.1 F Pulse Rate 80 Respiratory Rate 18 Blood Pressure 136/86 Pulse Oximetry 93 Oxygen Delivery Me thod Room Air Oxygen Flow Rate 2 Fraction of Inspir ed Oxygen Hydration adequate: Yes Nausea and vomiting: No Pain level: 1 Mental status: Baseline
== END | disposition home or self-care (01) ==
PROVIDERS: PCP Family Medicine Adult Medicine; Visit Provider Podiatrist Foot & Ankle Surgery
PROC: (CPT 27822; principal; 2024-04-20 09:25)
DX: S82.852A Displaced trimalleolar fracture of left lower leg, initial encounter for closed fracture (principal); W19.XXXA Unspecified fall, initial encounter; E78.5 Hyperlipidemia, unspecified; M19.90 Unspecified osteoarthritis, unspecified site; E03.9 Hypothyroidism, unspecified; M79.7 Fibromyalgia; Z87.891 Personal history of nicotine dependence
CPT/HCPCS: 27822; 73600; 76000; C1713; J0690; J1100; J1170; J1885; J2250; J2405; J2704; J2795; J3010; J3490; J7030

== ENCOUNTER → 2024-05-03 14:41 | Outpatient (BNVA) | payer MEDICARE, OTHER, SELFPAY | PROVIDERS: PCP Family Medicine Adult Medicine; Visit Provider Podiatrist Foot & Ankle Surgery | DX: Z98.890 Other specified postprocedural states; S82.852D Displaced trimalleolar fracture of left lower leg, subsequent encounter for closed fracture with routine healing; X58.XXXD Exposure to other specified factors, subsequent encounter | CPT/HCPCS: 73610; 99024 ==

== ENCOUNTER → 2024-05-17 13:27 | Outpatient (BNVA) | payer MEDICARE, OTHER, SELFPAY | PROVIDERS: PCP Family Medicine Adult Medicine; Visit Provider Podiatrist Foot & Ankle Surgery | DX: Z98.890 Other specified postprocedural states (principal); Z87.81 Personal history of (healed) traumatic fracture | CPT/HCPCS: 73610; 99024 ==

== ENCOUNTER → 2024-05-31 13:42 | Outpatient (BNVA) | payer MEDICARE, OTHER, SELFPAY | PROVIDERS: PCP Family Medicine Adult Medicine; Visit Provider Podiatrist Foot & Ankle Surgery | DX: Z98.890 Other specified postprocedural states (principal); Z87.81 Personal history of (healed) traumatic fracture | CPT/HCPCS: 73610; 99024 ==

== ENCOUNTER 2024-06-13 06:00 | Outpatient (CLI) | payer MEDICARE, OTHER, SELFPAY | END 2024-06-13 06:01 | LOC: SPT 06-14 11:37 | PROVIDERS: PCP Family Medicine Adult Medicine; Visit Provider Podiatrist Foot & Ankle Surgery | DX: Z46.89 Encounter for fitting and adjustment of other specified devices (principal); Z98.890 Other specified postprocedural states; Z87.81 Personal history of (healed) traumatic fracture | CPT/HCPCS: 97760; 99213; L1902 ==

== ENCOUNTER → 2024-06-13 13:16 | Outpatient (BNVA) | payer MEDICARE, OTHER, SELFPAY | PROVIDERS: PCP Family Medicine Adult Medicine; Visit Provider Podiatrist Foot & Ankle Surgery | DX: Z98.890 Other specified postprocedural states (principal); Z87.81 Personal history of (healed) traumatic fracture; M76.71 Peroneal tendinitis, right leg | CPT/HCPCS: 73610 ==

== ENCOUNTER → 2024-07-05 13:35 | Outpatient (BNVA) | payer MEDICARE, OTHER, SELFPAY | PROVIDERS: PCP Family Medicine Adult Medicine; Visit Provider Nurse Practitioner | DX: Z79.899 Other long term (current) drug therapy (principal) | CPT/HCPCS: 80061; 83036 ==

== ENCOUNTER → 2024-10-11 15:22 | Outpatient (BNVA) | payer MEDICARE, OTHER, SELFPAY | PROVIDERS: PCP Family Medicine Adult Medicine; Visit Provider Podiatrist Foot & Ankle Surgery | DX: Z98.890 Other specified postprocedural states (principal); Z87.81 Personal history of (healed) traumatic fracture; T84.84XA Pain due to internal orthopedic prosthetic devices, implants and grafts, initial encounter; Y79.2 Prosthetic and other implants, materials and accessory orthopedic devices associated with adverse incidents; S86.311A Strain of muscle(s) and tendon(s) of peroneal muscle group at lower leg level, right leg, initial encounter; X58.XXXA Exposure to other specified factors, initial encounter; M65.971 Unspecified synovitis and tenosynovitis, right ankle and foot; M65.979 Unspecified synovitis and tenosynovitis, unspecified ankle and foot; M95.8 Other specified acquired deformities of musculoskeletal system; M19.071 Primary osteoarthritis, right ankle and foot; G57.81 Other specified mononeuropathies of right lower limb | CPT/HCPCS: 73610; 99214 ==

== ENCOUNTER 2024-10-26 05:31 | Day surgery (SDC) | payer MEDICARE, OTHER, SELFPAY ==
[2024-10-26] VITALS (12 sets, daily range): BP systolic 117–171; BP diastolic 50–101; PULSE 69–96; RESP 14–22; TEMP 36.2–36.5; O2SAT 91–99; BMI 24.3
--- NOTE | 2024-10-26 06:12 | W.PM.OPSUD ---
Surgery/Procedure H&P Update DATE OF PROCEDURE: October 26, 2024 DATE H&P PERFORMED: 10/11/24 H&P UPDATE INFORMATION: I have reviewed H&P completed within last 30 days, I have examined patient prior to procedure, No changes to prior documentation and H&P is in [facility] EMR on date indicated PREOP DIAGNOSIS: Right peroneal tendon tear PLANNED PROCEDURE: Operation Date: 10/26/24 07:00 Proposed Procedures p peroneal longus repair and peroneal brevis tendon repair(Right) - Fred Zelaya DPM s Ankle Arthroscopy(Right) - Fred Zelaya DPM s Neuroplasty Foot/right sural nerve(Right) - Fred Zelaya DPM
[2024-10-26] MEDS: gabapentin 300 mg Capsule PO (06:18)
[2024-10-26] MEDS: CELEcoxib 200 mg Capsule 400 MG PO (06:18)
[2024-10-26] MEDS: sodium chloride 0.9% 1,000 ML 30 ML IV (06:52)
--- NOTE | 2024-10-26 06:52 | ANES.PREANE2 ---
Pre-Anesthetic Assessment Height/Weight: Height 1.75 m Weight 74.843 kg Temp Pulse Resp BP Pulse Ox O2 Del Method 97.1 F L 76 18 133/70 92 Room Air 10/26/24 06:00 10/26/24 06:46 10/26/24 06:46 10/26/24 06:46 10/26/24 06:46 10/26/24 06:46 Preop Diagnosis: Right peroneal tendon tear Operation Date: 10/26/24 07:00 Proposed Procedures p peroneal longus repair and peroneal brevis tendon repair(Right) - KATE Arambula Ankle Arthroscopy(Right) - KATE Arambula Neuroplasty Foot/right sural nerve(Right) - Fred Zelaya DPM Familial anesthetic complications: None Was Beta Amparo taken within 24 hours: N/A Was Clonidine taken within 24 hours: N/A Last intake: Intake Last Liquid Date 10/25/24 Last Liquid Time 19:00 Last Solid Date 10/25/24 Last Solid Time 19:00 Social No alcohol and No tobacco Exam alert, oriented x 3, clear to auscultation bilaterally and regular rate & rhythm Airway Mallampati: Class I Dentition: false Pulmonary Chronic Obstructive Pulmonary Disease Metabolic Hyperlipidemia and Thyroid Disease Anesthetic Plan ASA status: 2 Anesthesia: General and Regional (specify below) Risk of > 500 ml blood loss (7ml/kg in children): No Medications/Allergies Home Medications Medication Instructions Recorded Confirmed Last Taken Type morphine 30 mg immediate release 30 mg PO Q6H PRN Pain 12/25/19 10/26/24 04/19/24 History tablet Bone stem #1 ea 04/28/21 10/11/24 Unknown Rx Custom Molded Orthotics #1 ea 04/08/22 10/11/24 Unknown Rx Custom Molded Orthotics- Sport low #1 ea 04/08/22 10/11/24 Unknown Rx profile with a Reverse Zapata Pad zoledronic acid 5 mg/100 mL in 1 ea IV .ONCE 2 YEAR Osteopenia 03/03/23 10/26/24 2 Years Ago History mannitol 5 %-water intravenous ~10/25/22 piggybck (Reclast) CAM walker #1 ea 12/15/23 10/11/24 Unknown Rx diclofenac sodium 1 % topical gel 2 g topical BID PRN Pain #100 grams 03/18/24 10/26/24 09/25/24 Rx diphenoxylate-atropine 2.5 1 tab PO DAILY PRN diarrhea #90 04/18/24 10/26/24 04/11/24 Rx mg-0.025 mg tablet tabs dicyclomine 10 mg capsule 10 mg PO DAILY PRN Abdominal Pain 04/20/24 10/26/24 04/11/24 History ondansetron HCl 4 mg tablet 4 mg PO DAILY PRN Nausea And 04/20/24 10/26/24 04/11/24 History Vomiting tizanidine 4 mg tablet 1 mg PO DAILY 05/03/24 10/26/24 10/25/24 History mupirocin 2 % topical ointment 1 applic topical BID #15 grams 05/31/24 10/26/24 10/25/24 Rx ASO #1 ea 06/13/24 10/11/24 Unknown Rx levothyroxine 75 mcg tablet 75 mcg PO DAILY #90 tabs 09/03/24 10/26/24 10/25/24 Rx arformoterol 15 mcg/2 mL solution 2 ml inhalation BID #120 mL 09/11/24 10/26/24 10/25/24 Rx for nebulization (Brovana) budesonide 0.25 mg/2 mL suspension 0.25 mg (2 mL) inhalation BID #60 09/11/24 10/26/24 Unknown Rx for nebulization (Pulmicort) mL quetiapine 100 mg tablet 300 mg (3 x 100 mg) PO DAILY #90 09/24/24 10/26/24 10/25/24 Rx tabs quetiapine 25 mg tablet 25 mg PO BID PRN Anxiety #60 tabs 09/24/24 10/26/24 10/25/24 Rx escitalopram oxalate 20 mg tablet 20 mg PO DAILY #30 tabs 10/04/24 10/25/24 10/25/24 Rx lamotrigine 150 mg tablet 300 mg (2 x 150 mg) PO DAILY #60 10/04/24 10/26/24 Unknown Rx tabs cetirizine 10 mg tablet 10 mg PO DAILY allergies #90 tabs 10/22/24 10/25/24 10/25/24 Rx estradiol 2 mg tablet 2 mg PO DAILY #30 tabs 10/22/24 10/26/24 10/25/24 Rx methylphenidate HCl 20 mg tablet 25 mg PO DAILY 10/25/24 10/26/24 10/25/24 History methylphenidate HCl 20 mg tablet 100 mg PO DAILY 10/25/24 10/26/24 10/25/24 History cyclobenzaprine 10 mg tablet 10 mg PO TID PRN muscle spasm #21 10/26/24 Unknown Rx tabs oxycodone-acetaminophen 10 mg-325 1 tab PO Q6H PRN pain 7 days #28 10/26/24 Unknown Rx mg tablet (Percocet) tabs Allergies Allergy/AdvReac Type Severity Reaction Status Date / Time adhesive tape Allergy ADR-Itching Verified 10/11/24 15:33 sumatriptan [From Imitrex] Allergy ADR-Dry Verified 10/11/24 15:33 Mucus Membranes Macrolide Antibiotics AdvReac C Diff Verified 10/11/24 15:33 PFSH Anesthesia Medical History On combination antipsychotic drug therapy COPD (chronic obstructive pulmonary disease) case management patient Former smoker POP-Q stage 3 rectocele Surgery 09/27/2023 Dr. Fabian Painful orthopaedic hardware Bipolar disorder, current episode depressed, severe, without psychotic features Hyperlipidemia Hammer toe Acquired hammertoe of right foot Ganglion cyst of finger of left hand Fracture of toe with nonunion Fracture of second toe, left, closed Hallux valgus (acquired), right foot Right foot pain Psychiatric care IBS (irritable bowel syndrome) Mixed restrictive and obstructive lung disease Fibromyalgia Osteoarthritis Bipolar 1 disorder Hypothyroidism Surgical History S/P foot surgery S/P foot surgery S/P foot surgery S/P foot surgery, left History of hand surgery left thumb IP joint fusion History of surgery on upper extremity Left shoulder - 1997 H/O pelvic surgery (~09/27/23) Anterior colporrhaphy augmented with allograft, single incision mid urethral sling, posterior colporrhaphy for Cystocele stage 2, rectocele stage 3 and mixed incontinence. Performed by Rui at [facility] H/O: hysterectomy History of cholecystectomy History of lumpectomy History of foot surgery Family History Mother Cancer Grandmother Cancer Social History Smoking and tobacco/nicotine status: former use of tobacco/nicotine Quit status (tobacco/nicotine): has quit using Alcohol intake: former Substance/Drug Use: former Data Anesthesia Cardiac Studies: No Data to Display
--- NOTE | 2024-10-26 06:53 | ANES.PROC ---
Anesthesia Procedures Procedure/Date: 10/26/24 Nerve Block ^: Nerve Block 1: Main Anesthesia: general anesthesia Time Out Performed: Yes Consent: requested by attending/covering physician, from patient, from other, risks and benefits reviewed and patient agrees to proceed Nerve block location: popliteal (R) Anesthesia monitors applied: pulse oximetry, EKG, BP cuff and oxygen Nerve block position: supine Anesthetic Used: ropivicaine 0.5% (30 ml) and with decadron (4 mg) Ultrasound used to: recognize landmarks Nerve Stimulator Used?: No Interscalene/Femoral BLK: 4 stimuplex 21 g needle used for position and inplane approach, visualize local anesthetic spread and no vascular puncture identified Injection: neg aspiration of heme Patient Tolerated Procedure: well Complications: none
[2024-10-26] MEDS: ceFAZolin 2,000 mg SDV 2000 MG IVP (07:00)
--- NOTE | 2024-10-26 07:50 | P.BOP_ITS ---
Date of Procedure: 01/06/24 Surgeon: Fred Zelaya DPM Corporate General Manager(s): Magali Procedure(s) performed: Right peroneal longus and peroneal brevis tendon repair, right sural nerve neuroplasty and right ankle scope. Findings of the procedure(s): Synovitis right ankle, split longitudinal tear of right peroneal longus and brevis. Impingement of sural nerve. Estimated blood loss: 1 mL Specimen(s) removed: No specimens Post-operative diagnosis: Right peroneal longus and brevis tendon tear, right ankle synovitis and right sural neuritis. 28-minute tourniquet time, supine, tourniquet was located on the right high calf. General anesthetic with popliteal block to the right lower extremity.
--- NOTE | 2024-10-26 07:52 | P.OP_ITS ---
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 CPT code 93117 2) right peroneal brevis tendon repair.? CPT code 69873 3) right ankle scope.? CPT code 94287 4) neuroplasty right sural nerve.? CPT code 64428 Implants: 4-0 Monocryl 2-0 Vicryl, 4-0 Vicryl, 4-0 nylon Surgeon: Fred Zelaya DPM Newspaper Manager: Magali Estimated blood loss: 1 18 IV fluids: See intraoperative documentation Urine output: No urine output Complications: No complications Brief History: - Magnetic Resonance Imaging (MRI) of the right ankle: Longitudinal split tear of the peroneal brevis, enlargement with intra-substance tearing of the peroneal longus, and a 5 mm osteochondral lesion of the talar dome. Given the patient's persistent symptoms and lack of response to conservative management, operative intervention is necessary. The patient's MRI findings substantiate surgical exploration and repair. The goals are to alleviate musculoskeletal and neuropathic pain, improve function, and prevent further degeneration. A comprehensive surgical plan incorporating right ankle arthroscopy, tendon repairs, and neuroplasty is outlined. Anticipated outcomes include resolution of disabling symptoms and improved quality of life. The procedure will employ general anesthesia with a popliteal block for optimal pain management. Patient consent will be obtained after discussing risks, benefits, and alternatives. The decision to concurrently address all documented pathologies aims at minimizing recovery periods and enhancing overall therapeutic success. I reviewed at length with the patient, the risks, potential complications, benefits, alternatives, expectations, and typical outcomes associated with the surgery. The risks and potential complications were explained in detail, including but not limited to infection, wound dehiscence or soft tissue complications, bleeding and hematoma, chronic edema, neuritis or nerve damage producing numbness or chronic pain, CRPS, failure to relieve pain or worsening pain, thick / painful / unsightly scar, limited motion / stiffness, malposition, delayed union, malunion, or nonunion, fracture, reaction to implants, anesthetic complications, venous thromboembolism, and deformity recurrence. I discussed the notion of no regrets with the patient as it pertains to complications and outcomes. The patient seemed to understand the nature of the proposed care and required convalescence. They asked appropriate questions, answered to their satisfaction. They are aware no guarantees can be made as to a satisfactory outcome and they understand there may be other possible unforeseen complications or outcomes not listed here that will be treated accordingly if they arise. There were no written or implied guarantees given to the patient. They gave informed consent to proceed. Procedure: Under mild sedation the patient was brought to the operating room and remained on the gurney in supine position. A timeout was performed. Anesthesia was administered by the anesthesia service. Of note popliteal block right lower extremity performed per anesthesia preoperatively. Well-padded pneumatic tourniquet was applied to the right high calf. The right lower extremity was scrubbed, prepped and draped utilizing normal aseptic technique. Right foot and ankle were exanguinated with Esmarch bandage and tourniquet inflated to 250 mmHg. Attention was directed to the right ankle where medial and lateral gutter were palpated, just medial to the tibialis anterior tendon a hannah and tucked technique was utilized to establish a medial portal for a 1.9 mm arthroscope utilizing saline solution to distend the ankle the scope was advanced and able to visualize tibiotalar joint. Standard anterior medial approach was adequate for visualization of soft tissue structures and cartilage, no obvious osteochondral defect was appreciated at the tibiotalar joint. Tibia and talar dome are intact. Mild synovial inflammation which was debrided at the anterior ankle, able to visualize ligaments anterior talofibular ligament was intact, calcaneofibular ligament intact, posterior talofibular ligament intact, no syndesmotic disruption, deltoid ligaments were intact. Irrigation performed with saline and portal was closed with 4-0 nylon. Attention was directed to the right lateral ankle where a curvilinear incision was performed with a #15 blade through skin along the course of the peroneal tendons starting posterior and inferior to the lateral malleolus and coursing distal down near insertion of peroneal brevis at fifth metatarsal base. Dissection was carried down through subcutaneous tissue to the layer of tendon sheath where peroneal longus and brevis were exposed after a linear incision at the tendon sheath retinaculum was also incised and tagged for closure. Split longitudinal tear of the peroneal longus and peroneal brevis was debrided and the peroneal longus and peroneal brevis were tubularized utilizing 4-0 Monocryl. The incision was irrigated with saline solution and the peroneal longus and peroneal brevis tendon sheath was reapproximated with 4-0 Vicryl, retinaculum repaired and reapproximated with 2-0 Vicryl. Attention was directed to the sural nerve which was noted to have adhesions and fibrous attachments these were sharply incised and the sural nerve was mobilized and freed of strictures utilizing atraumatic pickups and tenotomy scissors. The subcutaneous tissue of the incision was then reapproximated with 4-0 Vicryl and skin with 4-0 nylon with dressings consisting of Xeroform, sterile gauze, Kerlix, Anup wrap followed by application of a cam boot to the right lower extremity to maintain ankle joint dorsiflexion to neutral and immobilization. Tourniquet was then deflated and a prompt hyperemic response is noted to the distal digits of the right foot. Patient tolerated the procedure and anesthesia well and was transferred to the PACU with vital signs stable and vascular status intact. Following a period of postop monitoring to be discharged home without home care instructions and scheduled follow-up.
--- NOTE | 2024-10-26 09:10 | ANE.PACU2 ---
Inpatient post-anesthesia follow up: Airway intact: Yes Vital signs: Temperature 97.7 F Pulse Rate 69 Respiratory Rate 17 Blood Pressure 117/79 Pulse Oximetry 91 Oxygen Delivery Me thod Room Air Oxygen Flow Rate 2 Fraction of Inspir ed Oxygen Hydration adequate: Yes Nausea and vomiting: No Pain level: 1 Mental status: Baseline
== END 2024-10-26 09:10 | disposition home or self-care (01) ==
PROVIDERS: PCP Family Medicine Adult Medicine; Visit Provider Podiatrist Foot & Ankle Surgery
PROC: (CPT 28200; principal; 2024-10-26 07:00)
PROC: (CPT 28200; 2024-10-26 07:00)
PROC: (CPT 28200; 2024-10-26 07:00)
DX: S86.311A Strain of muscle(s) and tendon(s) of peroneal muscle group at lower leg level, right leg, initial encounter (principal); X58.XXXA Exposure to other specified factors, initial encounter; T84.84XA Pain due to internal orthopedic prosthetic devices, implants and grafts, initial encounter; Y82.8 Other medical devices associated with adverse incidents; M65.971 Unspecified synovitis and tenosynovitis, right ankle and foot; M65.979 Unspecified synovitis and tenosynovitis, unspecified ankle and foot; M95.8 Other specified acquired deformities of musculoskeletal system; M19.071 Primary osteoarthritis, right ankle and foot; G57.81 Other specified mononeuropathies of right lower limb; J44.9 Chronic obstructive pulmonary disease, unspecified; E78.5 Hyperlipidemia, unspecified; M79.7 Fibromyalgia; E03.9 Hypothyroidism, unspecified; Z87.891 Personal history of nicotine dependence
CPT/HCPCS: 28200 ×2; 29898; 64704; J0131; J0690; J1100; J2371; J2405; J2704; J2795; J3010; J3490; J7030

== ENCOUNTER → 2024-11-08 14:19 | Outpatient (BNVA) | payer MEDICARE, OTHER, SELFPAY | PROVIDERS: PCP Family Medicine Adult Medicine; Visit Provider Podiatrist Foot & Ankle Surgery | DX: Z98.890 Other specified postprocedural states (principal); S86.311D Strain of muscle(s) and tendon(s) of peroneal muscle group at lower leg level, right leg, subsequent encounter; X58.XXXD Exposure to other specified factors, subsequent encounter; M65.971 Unspecified synovitis and tenosynovitis, right ankle and foot; M95.8 Other specified acquired deformities of musculoskeletal system; M19.071 Primary osteoarthritis, right ankle and foot; G57.81 Other specified mononeuropathies of right lower limb; T84.84XA Pain due to internal orthopedic prosthetic devices, implants and grafts, initial encounter; Y79.2 Prosthetic and other implants, materials and accessory orthopedic devices associated with adverse incidents | CPT/HCPCS: 73610; 99024 ==

== ENCOUNTER → 2024-12-06 13:30 | Outpatient (BNVA) | payer MEDICARE, OTHER, SELFPAY | PROVIDERS: PCP Family Medicine; Visit Provider Podiatrist Foot & Ankle Surgery | DX: S86.311A Strain of muscle(s) and tendon(s) of peroneal muscle group at lower leg level, right leg, initial encounter (principal); M65.971 Unspecified synovitis and tenosynovitis, right ankle and foot; M95.8 Other specified acquired deformities of musculoskeletal system; M19.071 Primary osteoarthritis, right ankle and foot; G57.81 Other specified mononeuropathies of right lower limb; T84.84XA Pain due to internal orthopedic prosthetic devices, implants and grafts, initial encounter; X58.XXXA Exposure to other specified factors, initial encounter; Y79.2 Prosthetic and other implants, materials and accessory orthopedic devices associated with adverse incidents | CPT/HCPCS: 99024 ==

== ENCOUNTER 2024-12-15 11:17 | Inpatient (IN) | payer MEDICARE, OTHER, SELFPAY ==
[2024-12-15] VITALS (14 sets, daily range): BP systolic 121–168; BP diastolic 61–99; PULSE 90–106; RESP 16–24; TEMP 36.9–37.3; O2SAT 84–98; BMI 23.6
--- NOTE | 2024-12-15 11:32 | XRR_ITS ---
PROCEDURE INFORMATION: Exam: XR Chest Exam date and time: 12/15/2024 11:44 AM Age: 74 years old Clinical indication: Shortness of breath; Prior surgery; Surgery date: 6+ months; Surgery type: Lumpectomy TECHNIQUE: Imaging protocol: Radiologic exam of the chest. Views: 1 view. COMPARISON: CR XR chest 2V* [id number] 01/04/2022 11:30 AM FINDINGS: Lungs: Mild bibasilar atelectasis. No focal consolidation. Pleural spaces: No significant pleural effusion. No pneumothorax. Heart/Mediastinum: Cardiomediastinal silhouette likely within normal limits. Bones/joints: No acute osseous abnormalities. Bilateral glenohumeral arthritis. XR/XR chest 1V portable [id number] IMPRESSION: No acute cardiopulmonary disease.
[2024-12-15 12:02] LABS: ABG PCO2 47.6 mmHg (35-45); ABG PH Result 7.42 (7.35-7.45); Arterial Blood Gas Hematocrit 37.4 % (37-47); Base Excess ABG 5.4 mmol/L (-2.0-2.0); Blood Gas Allen Test Pos; Blood Gas Sample Type Arterial; Carboxyhemoglobin 1.5 %THgb (0.4-20.1); HCO3 ABG 30.8 mmol/L (22-26); HGB O2 Sat 94.5 % (95-100); Ionized Calcium Level - ABG 1.1 mmol/L (1.1-1.4); Methemoglobin 0.8 % (0.4-1.5); Oxygen Saturation ABG 96.7; PO2 ABG 81.3 mmHg (80.0-100.0); Potassium Level - ABG 3.9 mmol/L (3.5-5.0); Total Hemoglobin 12.2 g/dL (12-16)
[2024-12-15 12:03] LABS: Blood Gas Operator Identificat ED; Blood Gas Sample Site Radial, left; Oxygen Device NC; PO2 FiO2 Ratio Arterial Blood 290
[2024-12-15] MEDS: methylPREDNISolone sod succ 125 mg/2 mL INJ IVP (12:06)
[2024-12-15] MEDS: albuterol 2.5 mg/3 mL Neb INHALATION (12:10)
[2024-12-15 12:30] LABS: Basophils % 0.3 %; Eosinophils % 0.3 %; Hematocrit 38.1 % (36-47); Lymphocytes # 0.5 10^3/uL (0.8-4.8); Lymphocytes % 8.9 %; Mean Corpuscular HGB Conc 31.5 g/dL (30-55); Mean Corpuscular Hemoglobin 29.6 pg (27-33); Mean Corpuscular Volume 94.1 fl (85-98); Monocytes # 0.3 10^3/uL (0.2-0.9); Monocytes % 5.6 %; Neutrophils # 4.95 10^3/uL (1.8-7.7); Neutrophils % 84.4 %; Nucleated Red Blood Cells % 0 %; Platelet Count 174 10^3/cmm (157-399); Red Blood Count 4.05 10^6/uL (3.85-5.65); Red Cell Distribution Width 12.3 % (12.1-15.1); White Blood Count 5.87 10^3/uL (3.29-11.43)
--- NOTE | 2024-12-15 12:37 | W.ED.URI ---
HPI - URI/Sore Throat General: Chief Complaint: Upper Respiratory Infection Stated Complaint: fever, coughing , flu system Time Seen by Provider: 12/15/24 11:57 History of Present Illness: 74-year-old female presents emergency room flulike symptoms for the last several days. She is increasing shortness of breath. Patient states she has been prescribed Bactrim and only wears it when she needs it usually only at night she is at 89% on room air with low-grade temp of 99 1. She has not had a productive cough she has not used any beta agonist in the last 24 hours Associated symptoms: Reports chills and fever(s); Deny abdominal pain or chest pain Related Data Home Medications ?Medication ?Instructions ?Recorded ?Confirmed morphine 30 mg immediate release 30 mg PO Q6H PRN Pain 12/25/19 12/06/24 tablet zoledronic acid 5 mg/100 mL in 1 ea IV .ONCE 2 YEAR Osteopenia 03/03/23 12/06/24 mannitol 5 %-water intravenous piggybck (Reclast) dicyclomine 10 mg capsule 10 mg PO DAILY PRN Abdominal Pain 04/20/24 12/06/24 tizanidine 4 mg tablet 1 mg PO DAILY 05/03/24 12/06/24 methylphenidate HCl 20 mg tablet 25 mg PO DAILY 10/25/24 12/06/24 methylphenidate HCl 20 mg tablet 100 mg PO DAILY 10/25/24 12/06/24 Previous Rx's ?Medication ?Instructions ?Recorded Bone stem #1 ea 04/28/21 Custom Molded Orthotics #1 ea 04/08/22 Custom Molded Orthotics- Sport low #1 ea 04/08/22 profile with a Reverse Zapata Pad CAM walker #1 ea 12/15/23 diclofenac sodium 1 % topical gel 2 g topical BID PRN Pain #100 grams 03/18/24 diphenoxylate-atropine 2.5 1 tab PO DAILY PRN diarrhea #90 04/18/24 mg-0.025 mg tablet tabs mupirocin 2 % topical ointment 1 applic topical BID #15 grams 05/31/24 ASO #1 ea 06/13/24 levothyroxine 75 mcg tablet 75 mcg PO DAILY #90 tabs 09/03/24 arformoterol 15 mcg/2 mL solution 2 ml inhalation BID #120 mL 09/11/24 for nebulization (Brovana) budesonide 0.25 mg/2 mL suspension 0.25 mg (2 mL) inhalation BID #60 09/11/24 for nebulization (Pulmicort) mL quetiapine 100 mg tablet 300 mg (3 x 100 mg) PO DAILY #90 09/24/24 tabs quetiapine 25 mg tablet 25 mg PO BID PRN Anxiety #60 tabs 09/24/24 escitalopram oxalate 20 mg tablet 20 mg PO DAILY #30 tabs 10/04/24 cetirizine 10 mg tablet 10 mg PO DAILY allergies #90 tabs 10/22/24 cyclobenzaprine 10 mg tablet 10 mg PO TID PRN muscle spasm #21 10/26/24 tabs lamotrigine 150 mg tablet 300 mg (2 x 150 mg) PO DAILY #60 10/29/24 tabs ondansetron HCl 4 mg tablet 4 mg PO DAILY PRN Nausea And 12/07/24 Vomiting #30 tabs estradiol 2 mg tablet 2 mg PO DAILY #30 tabs 12/13/24 Allergies Allergy/AdvReac Type Severity Reaction Status Date / Time adhesive tape Allergy ADR-Itching Verified 12/06/24 13:31 sumatriptan (From Imitrex) Allergy ADR-Dry Verified 12/06/24 13:31 Mucus Membranes Macrolide Antibiotics AdvReac C Diff Verified 12/06/24 13:31 Review of Systems Const: Reports: fever(s), chills, body aches and fatigue Card: Denies: chest pain Resp: Reports: dyspnea, non-productive cough, wheezing and chest congestion GI: Denies: abdominal pain : Denies: dysuria, urinary frequency or urinary urgency Musc: Denies: neck pain or back pain Skin/Breast: Denies: rash PFSH ED PFSH: Medical History On combination antipsychotic drug therapy COPD (chronic obstructive pulmonary disease) case management patient Former smoker POP-Q stage 3 rectocele Surgery 09/27/2023 Dr. Fabian Painful orthopaedic hardware Bipolar disorder, current episode depressed, severe, without psychotic features Hyperlipidemia Hammer toe Acquired hammertoe of right foot Ganglion cyst of finger of left hand Fracture of toe with nonunion Fracture of second toe, left, closed Hallux valgus (acquired), right foot Right foot pain Psychiatric care IBS (irritable bowel syndrome) Mixed restrictive and obstructive lung disease Fibromyalgia Osteoarthritis Bipolar 1 disorder Hypothyroidism Surgical History S/P foot surgery S/P foot surgery S/P foot surgery S/P foot surgery, left History of hand surgery left thumb IP joint fusion History of surgery on upper extremity Left shoulder - 1997 H/O pelvic surgery (~09/27/23) Anterior colporrhaphy augmented with allograft, single incision mid urethral sling, posterior colporrhaphy for Cystocele stage 2, rectocele stage 3 and mixed incontinence. Performed by [facility] at [facility] H/O: hysterectomy History of cholecystectomy History of lumpectomy History of foot surgery Family History Mother Cancer Grandmother Cancer Social History Smoking and tobacco/nicotine status: former use of tobacco/nicotine Quit status (tobacco/nicotine): has quit using Alcohol intake: former Substance/Drug Use: former Physical Exam Const: GENERAL APPEARANCE: cooperative ORIENTATION/CONSCIOUSNESS: Yes awake, Yes oriented to person, Yes oriented to place and Yes oriented to time HENMT: COMMON NORMALS: normocephalic, atraumatic and hearing grossly normal bilaterally HEAD & SCALP: normocephalic and atraumatic Resp: AUSCULTATION: rhonchi and wheezes Cardio: COMMON NORMALS: regular rate, regular rhythm and No murmurs present (Cardio) RATE: regular rate RHYTHM: regular rhythm GI: COMMON NORMALS: Soft to palpation and No hepatosplenomegaly present AUSCULTATION: Yes normoactive bowel sounds PALPATION: Yes Soft to palpation, No Tenderness to palpation present (GI), No Guarding due to palpation present (GI) and Yes No hepatosplenomegaly present Extremity: COMMON NORMALS: normal to inspection, capillary refill normal, no clubbing, cyanosis or edema, no calf tenderness and no pedal edema Neuro: SENSORIUM/ORIENTATION: Yes oriented to person, Yes oriented to place and Yes oriented to time Skin: COMMON NORMALS: no rashes or lesions noted GENERAL SKIN EXAM: no rashes or lesions noted Course Vital Signs: Vital signs: Vital Signs Temperature 99.1 F 12/15/24 11:20 Pulse Rate 106 H 12/15/24 13:34 Respiratory Rate 17 12/15/24 13:29 Blood Pressure 123/61 12/15/24 13:00 Pulse Oximetry 90 12/15/24 13:29 Oxygen Delivery Me thod Nasal Cannula 12/15/24 13:29 Oxygen Flow Rate 2 12/15/24 13:29 MDM - URI/Sore Throat Medical Decision Making Exacerbation COPD without sign of pneumonia or pulmonary embolism. She is tachycardic and hypoxic now requiring 3 L little bit tachypneic as well. Will admit continue aggressive pulmonary toilet with steroids nebulizers oxygen supplementation discussed with hospitalist orders written Differential Diagnosis Likely upper respiratory infection (Pulmonary embolism pneumonia pneumothorax), viral infection and influenza Medical Records I reviewed the patient's medical records. Lab Data I reviewed the patient's lab results. 12/15/24 12:05 12/15/24 12:05 Radiology Impressions Chest X-Ray 12/15/24 11:32 IMPRESSION: No acute cardiopulmonary disease. Chest CTA 12/15/24 12:58 IMPRESSION: 1. No acute central or lobar pulmonary embolism. 2. Findings suggestive of mild esophagitis. 3. 7 mm right upper lobe nodular opacity. Follow-up recommendations described below. 4. Moderate centrilobular emphysema. 5. Status post cholecystectomy. There is moderate intra and extrahepatic biliary ductal dilatation. This is partially evaluated on this examination however appears greater than expected. Right upper quadrant ultrasound and/or CT abdomen pelvis could be considered as clinically indicated. According to the 2017 Fleischner criteria, if the patient is low risk, a CT at 6-12 months is recommended, then consider CT at 18-24 months. If the patient is high risk, a CT at 6-12 months is recommended, then CT at 18-24 months. COMMENTS: The presence of pulmonary emphysema on CT is an independent risk factor for lung cancer. In the absence of a history or active diagnosis of lung cancer, it is recommended that this patient with emphysema be evaluated for enrollment in a low dose CT lung cancer screening program. Laboratory Results WBC 5.87 10^3/uL (3.29-11.43) 12/15/24 12:05 RBC 4.05 10^6/uL (3.85-5.65) 12/15/24 12:05 Hgb 12.00 g/dL (11.27-16.99) 12/15/24 12:05 Hct 38.1 % (36-47) 12/15/24 12:05 MCV 94.1 fl (85-98) 12/15/24 12:05 MCH 29.6 pg (27-33) 12/15/24 12:05 MCHC 31.5 g/dL (30-55) 12/15/24 12:05 RDW 12.3 % (12.1-15.1) 12/15/24 12:05 Plt Count 174 10^3/cmm (157-399) 12/15/24 12:05 MPV 9.0 fL (7.4-10.4) 12/15/24 12:05 Neut % (Auto) 84.4 % 12/15/24 12:05 Lymph % (Auto) 8.9 % 12/15/24 12:05 Linn % (Auto) 5.6 % 12/15/24 12:05 Eos % (Auto) 0.3 % 12/15/24 12:05 Baso % (Auto) 0.3 % 12/15/24 12:05 Neut # (Auto) 4.95 10^3/uL (1.8-7.7) 12/15/24 12:05 Lymph # (Auto) 0.5 10^3/uL (0.8-4.8) L 12/15/24 12:05 Linn # (Auto) 0.3 10^3/uL (0.2-0.9) 12/15/24 12:05 Eos # (Auto) 0.0 10^3/uL (0.0-0.8) 12/15/24 12:05 Baso # (Auto) 0.0 10^3/uL (0.0-0.1) 12/15/24 12:05 Nucleated RBC % (auto) 0 % 12/15/24 12:05 Nucleated RBCs # 0.0 /100WBC 12/15/24 12:05 Specimen Type Arterial 12/15/24 11:52 Sample Site Radial, left 12/15/24 11:52 ABG pH 7.42 (7.35-7.45) 12/15/24 11:52 ABG pCO2 47.6 mmHg (35-45) H 12/15/24 11:52 ABG pO2 81.3 mmHg (80.0-100.0) 12/15/24 11:52 ABG PO2/FiO2 Ratio 290 12/15/24 11:52 ABG HCO3 30.8 mmol/L (22-26) H 12/15/24 11:52 ABG O2 Saturation 96.7 12/15/24 11:52 ABG Base Excess 5.4 mmol/L (-2.0-2.0) H 12/15/24 11:52 Oswald Test Pos 12/15/24 11:52 A-a O2 Gradient 8.0 mmHg (5-10) 12/15/24 11:52 Hematocrit 37.4 % (37-47) 12/15/24 11:52 Hgb O2 Saturation 94.5 % (95-100) L 12/15/24 11:52 Carboxyhemoglobin 1.5 %THgb (0.4-20.1) 12/15/24 11:52 Methemoglobin 0.8 % (0.4-1.5) 12/15/24 11:52 Total Hemoglobin 12.2 g/dL (12-16) 12/15/24 11:52 Sodium 137.0 mmol/L (131-143) 12/15/24 11:52 Potassium 3.9 mmol/L (3.5-5.0) 12/15/24 11:52 Glucose 118.0 mg/dL (70-115) H 12/15/24 11:52 Ionized Calcium 1.1 mmol/L (1.1-1.4) 12/15/24 11:52 O2 Delivery Device Nc 12/15/24 11:52 O2 Liters/Min 2.0 % 12/15/24 11:52 FiO2 28.0 % 12/15/24 11:52 Management Department Chair ID Ed 12/15/24 11:52 Sodium 132 mmol/L (136-145) L 12/15/24 12:05 Potassium 4.1 mmol/L (3.5-5.1) 12/15/24 12:05 Chloride 96 mmol/L (98-107) L 12/15/24 12:05 Carbon Dioxide 30 mmol/L (22-29) H 12/15/24 12:05 Anion Gap 10.1 (5-19) 12/15/24 12:05 BUN 14 mg/dL (8-23) 12/15/24 12:05 Creatinine 0.8 mg/dL (0.5-0.9) 12/15/24 12:05 GFR Calculation Not Reportable 12/15/24 12:05 Glucose 123 mg/dL (65-115) H 12/15/24 12:05 Calculated Osmolality 276 mOsm/kg (285-295) L 12/15/24 12:05 Lactic Acid 0.9 mmol/L (0.5-2.2) 12/15/24 12:05 Calcium 8.5 mg/dL (8.5-10.5) 12/15/24 12:05 Total Bilirubin 0.4 mg/dL (0.15-1.2) 12/15/24 12:05 AST 51 U/L (0-32) H 12/15/24 12:05 ALT 23 U/L (0-33) 12/15/24 12:05 Alkaline Phosphatase 84 U/L (35-105) 12/15/24 12:05 C-Reactive Protein 9.1 mg/L (0.0-4.9) H 12/15/24 12:05 Total Protein 6.5 g/dL (6.6-8.7) L 12/15/24 12:05 Albumin 4.0 g/dL (3.5-5.2) 12/15/24 12:05 Globulin 2.5 g/dL (1.3-4.6) 12/15/24 12:05 Influenza A (PCR) Negative (Negative) 12/15/24 12:04 Influenza Type B (PCR) Negative (Negative) 12/15/24 12:04 RSV (PCR) Negative (Negative) 12/15/24 12:04 SARS-CoV-2 (PCR) Negative (Negative) 12/15/24 12:04 All radiology interpretation(s) finalized by discharge Discharge Plan Discharge Patient Disposition: Placed in Observation Clinical Impression: Asthma exacerbation in COPD Condition: Stable Prescriptions: No Action morphine 30 mg tablet 30 mg PO Q6H PRN (Reason: Pain) tizanidine 4 mg tablet 1 mg PO DAILY (DME) ASO See Rx Instructions .Route .MEDSUPPLY Qty: 1 0RF Rx Instructions: As directed (DME) Custom Molded Orthotics- Sport low profile with a Reverse Zapata Pad See Rx Instructions .Route .MEDSUPPLY Qty: 1 0RF Rx Instructions: As directed (DME) Custom Molded Orthotics See Rx Instructions .Route .MEDSUPPLY Qty: 1 0RF Rx Instructions: As directed (DME) CAM walker See Rx Instructions .Route .MEDSUPPLY Qty: 1 0RF Rx Instructions: As directed mupirocin 2 % ointment 1 applic topical BID Qty: 15 0RF Rx Instructions: apply to wound BID and as needed with dressing changes, cover with band-aid escitalopram oxalate 20 mg tablet 20 mg PO DAILY Qty: 30 2RF Rx Instructions: TAKE 1 TABLET BY MOUTH EVERY DAY (DME) Bone stem See Rx Instructions .ROUTE .MEDSUPPLY Qty: 1 0RF Rx Instructions: As directed diclofenac sodium 1 % gel 2 g TOPICAL BID PRN (Reason: Pain) Qty: 100 1RF diphenoxylate-atropine 2.5-0.025 mg tablet 1 tab PO DAILY PRN (Reason: diarrhea) Qty: 90 1RF levothyroxine 75 mcg tablet 75 mcg PO DAILY Qty: 90 0RF Rx Instructions: TAKE ONE TABLET BY MOUTH EVERY DAY arformoterol [Brovana] 15 mcg/2 mL solution for nebulization 2 ml inhalation BID Qty: 120 11RF budesonide [Pulmicort] 0.25 mg/2 mL suspension for nebulization 0.25 mg INHALATION BID Qty: 60 1RF quetiapine 100 mg tablet 300 mg PO DAILY Qty: 90 2RF Rx Instructions: TAKE 3 TABLETS BY MOUTH EVERY DAILY quetiapine 25 mg tablet 25 mg PO BID PRN (Reason: Anxiety) Qty: 60 2RF Rx Instructions: TAKE 1 TABLET BY MOUTH TWICE DAILY NEEDED FOR ANXIETY cetirizine 10 mg tablet 10 mg PO DAILY Qty: 90 2RF lamotrigine 150 mg tablet 300 mg PO DAILY Qty: 60 2RF Rx Instructions: TAKE TWO TABLETS BY MOUTH EVERY DAY ondansetron HCl 4 mg tablet 4 mg PO DAILY PRN (Reason: Nausea And Vomiting) Qty: 30 0RF Rx Instructions: TAKE ONE TABLET BY MOUTH EVERY DAY NEEDED FOR FOR NAUSEA AND VOMITING estradiol 2 mg tablet 2 mg PO DAILY Qty: 30 0RF Rx Instructions: TAKE 1 TABLET BY MOUTH ONCE DAILY zoledronic hrog-dyduigle-tgiec [Reclast] 5 mg/100 mL piggyback 1 ea IV .ONCE 2 YEAR Rx Instructions: infusion once every 2 years. 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
[2024-12-15 12:45] LABS: Alanine Aminotransferase 23 U/L (0-33); Alkaline Phosphatase 84 U/L (35-105); Anion Gap 10.1 (5-19); Aspartate Amino Transferase 51 U/L (0-32); Blood Urea Nitrogen 14 mg/dL (8-23); C Reactive Protein 9.1 mg/L (0.0-4.9); Calcium 8.5 mg/dL (8.5-10.5); Carbon Dioxide 30 mmol/L (22-29); Chloride 96 mmol/L (98-107); Globulin 2.5 g/dL (1.3-4.6); Glucose 123 mg/dL (65-115); Lactic Sepsis W/Reflex 0.9 mmol/L (0.5-2.2); Osmolality Calculated 276 mOsm/kg (285-295); Potassium 4.1 mmol/L (3.5-5.1); Sodium 132 mmol/L (136-145); Total Bilirubin 0.4 mg/dL (0.15-1.2); Total Protein 6.5 g/dL (6.6-8.7)
--- NOTE | 2024-12-15 12:58 | CTR_ITS ---
PROCEDURE INFORMATION: Exam: CTA Chest With Contrast Exam date and time: 12/15/2024 1:16 PM Age: 74 years old Clinical indication: Shortness of breath; Additional info: Hypoxia TECHNIQUE: Imaging protocol: Computed tomographic angiography of the chest with contrast. Exam focused on the arteries. 3D rendering (Not supervised by radiologist): MIP and/or 3D reconstructed images were created by the technologist. Radiation optimization: All CT scans at this facility use at least one of these dose optimization techniques: automated exposure control; mA and/or kV adjustment per patient size (includes targeted exams where dose is matched to clinical indication); or iterative reconstruction. Contrast material: OMNI 350; Contrast volume: 62 ml; Contrast route: INTRAVENOUS (IV); COMPARISON: CR (CHEST, ) 12/15/2024 11:44 AM RADIATION DOSE METRICS: Total DLP (mGy-cm): 333.45 FINDINGS: Pulmonary arteries: No definitive central or lobar pulmonary embolism. Evaluation of segmental and distal subsegmental pulmonary arteries is limited due to contrast bolus timing. Aorta: Mild atherosclerosis of the descending thoracic aorta. Lungs: Mild centrilobular emphysema. Mild bibasilar atelectasis. Linear subsegmental atelectasis and/or scarring at the left lung apex. 7 mm nodule in the right upper lobe (6/110). Multiple scattered calcified granulomas. Pleural spaces: Unremarkable. No pneumothorax. No pleural effusion. Heart: Unremarkable. No cardiomegaly. No pericardial effusion. Coronary arteries: No significant coronary artery calcification. Esophagus: Probable small Zenker diverticulum in the upper thoracic esophagus. Mild circumferential esophageal wall thickening accentuated by underdistention. Lymph nodes: Unremarkable. No enlarged lymph nodes. Gallbladder and biliary ducts: Status post cholecystectomy with mild to moderate intra and extrahepatic biliary ductal dilatation. Limited evaluation on CT chest. Bones/joints: Moderate multilevel degenerative disease of the thoracic spine. Soft tissues: Unremarkable. CT/CT angio chest PE protcl [id number] IMPRESSION: 1. No acute central or lobar pulmonary embolism. 2. Findings suggestive of mild esophagitis. 3. 7 mm right upper lobe nodular opacity. Follow-up recommendations described below. 4. Moderate centrilobular emphysema. 5. Status post cholecystectomy. There is moderate intra and extrahepatic biliary ductal dilatation. This is partially evaluated on this examination however appears greater than expected. Right upper quadrant ultrasound and/or CT abdomen pelvis could be considered as clinically indicated. According to the 2017 Fleischner criteria, if the patient is low risk, a CT at 6-12 months is recommended, then consider CT at 18-24 months. If the patient is high risk, a CT at 6-12 months is recommended, then CT at 18-24 months. COMMENTS: The presence of pulmonary emphysema on CT is an independent risk factor for lung cancer. In the absence of a history or active diagnosis of lung cancer, it is recommended that this patient with emphysema be evaluated for enrollment in a low dose CT lung cancer screening program.
[2024-12-15 13:07] LABS: Influenza A NEGATIVE (Negative); Influenza B NEGATIVE (Negative); Respiratory Syncytial Virus Ce NEGATIVE (Negative); SARS-CoV-2 PCR NEGATIVE (Negative)
[2024-12-15] MEDS: iohexol 350 mg/mL 500 mL Btl (per mL) IV (13:26)
[2024-12-15] MEDS: ipratropium-albuterol 3 mL Neb INHALATION ×2 (13:29→20:27)
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
--- NOTE | 2024-12-15 16:17 | PC.NURSE ---
This nurse took report from CARMENZA Arita in ER at 1618.
--- NOTE | 2024-12-15 17:09 | P.HP_ITS ---
Providers/Chief Complaint 2 Admitting Physician: Kaya Smiley MD Primary Care Provider: Tonya Arreola MD Chief Complaint: fever, coughing , flu system History of Present Illness Georgia Ballesteros is a 74 year old female with past medical history of restrictive lung disease, emphysema, hypothyroidism, anxiety on as needed oxygen presents to the ER with complaints of difficulty in breathing getting worse on exertion for last 3 to 4 days. Patient has also been having subjective. Denies any sick contacts. She thought she was having flu so she presented to the ER. In the ER she was found to be hypoxic requiring up to 2 L of oxygen supplementation hence hospitalist service was requested. Review of Systems 2 General: Reports: 10 or more systems reviewed and unremarkable except in HPI and below Const: Denies: fever(s), chills or body aches Eyes: Denies: change in vision, blurry vision or photophobia ENMT: Reports: hoarseness; Denies: throat pain, enlarged tonsils, odynophagia or nasal congestion Card: Denies: chest pain, palpitations, irregular heart rhythm, edema, swelling of feet/ankles, lightheadedness, pre-syncope, dyspnea on exertion or orthopnea Resp: Denies: dyspnea, productive cough, non-productive cough, wheezing, stridor, pain on inspiration, change in phlegm color, hemoptysis or chest congestion GI: Denies: abdominal pain, nausea, vomiting, hematemesis, coffee ground emesis, dysphagia, heartburn, diarrhea, constipation, GI cramping, change in stool character, hematochezia or melena : Denies: flank pain, difficulty voiding, dysuria, urinary frequency, urinary urgency, urinary hesitancy or hematuria Musc: Denies: neck pain, back pain, extremity pain, joint swelling, joint warmth or deformity Neuro: Denies: headache(s), numbness in extremities, weakness in extremities, sensory changes, difficulty walking, frequent falls, dizziness, vertigo, behavioral changes, Slurred speech present or seizure-like activity Psych: Denies: anxiety, depression, suicidal ideation or homicidal ideation Endo: Denies: polyuria, polydipsia, tired all the time, cold intolerance or hot flashes Henrik/Lymph: Denies: easy bruising or easy bleeding Medications/Allergies Home Medications ?Medication ?Instructions ?Recorded ?Confirmed ?Last Taken ?Type morphine 30 mg immediate release 30 mg PO Q6H PRN Pain 12/25/19 12/15/24 12/15/24 06:00 History tablet Bone stem #1 ea 04/28/21 12/15/24 Unkn own Rx Custom Molded Orthotics #1 ea 04/08/22 12/15/24 Unkn own Rx Custom Molded Orthotics- Sport low #1 ea 04/08/2211/25 Unknown Rx profile with a Reverse Zapata Pad zoledronic acid 5 mg/100 mL in 1 ea IV .ONCE 2 YEAR Os teopenia 03/03/23 12/15/24 2 Years Ago History mannitol 5 %-water intravenous ~10/25 piggybck (Reclast) CAM walker #1 ea 12/15/23 12/15/24 Unkn own Rx diclofenac sodium 1 % topical gel 2 g topical BID PRN Pain #100 grams 03/18/24 12/15/24 09/25/24 Rx diphenoxylate-atropine 2.5 1 tab PO DAILY PRN diarrhea #90 04/18/24 12/15/24 04/11/24 Rx mg-0.025 mg tablet tabs dicyclomine 10 mg capsule 10 mg PO DAILY PRN Abdominal Pain 04/20/24 12/15/24 12/14/24 History tizanidine 4 mg tablet 1 mg PO DAILY 05/03/2412/1512/14/24 20:00 History ASO #1 ea 06/13/24 12/15/24 Unkn own Rx levothyroxine 75 mcg tablet 75 mcg PO DAILY #90 tabs 1 11/03/23 12/15/24 12/15/24 06:00 Rx arformoterol 15 mcg/2 mL solution 2 ml inhalation BID #120 mL 09/11/24 12/15/24 10/25/24 Rx for nebulization (Brovana) budesonide 0.25 mg/2 mL suspension 0.25 mg (2 mL) inha lation BID #60 09/11/24 12/15/24 Unknown Rx for nebulization (Pulmicort) mL quetiapine 100 mg tablet 300 mg (3 x 100 mg) PO DAILY #90 09/24/24 12/15/24 12/15/24 Rx tabs quetiapine 25 mg tablet 25 mg PO BID PRN Anxiety #60 tabs 09/24/24 12/15/24 12/15/24 06:00 Rx cetirizine 10 mg tablet 10 mg PO DAILY allergies #90 tabs 10/22/24 12/15/24 12/15/24 Rx cyclobenzaprine 10 mg tablet 10 mg PO TID PRN muscle s pasm #21 10/26/24 12/15/24 12/14/24 20:00 Rx tabs lamotrigine 150 mg tablet 300 mg (2 x 150 mg) PO DAILY #60 10/29/24 12/15/24 12/15/24 06:00 Rx tabs ondansetron HCl 4 mg tablet 4 mg PO DAILY PRN Nausea A nd 12/07/24 12/15/24 Unknown Rx Vomiting #30 tabs estradiol 2 mg tablet 2 mg PO DAILY #30 tabs 12/1312/15/24 12/15/24 06:00 Rx escitalopram oxalate 20 mg tablet 20 mg PO DAILY 12/1512/15/24 12/15/24 06:00 History Allergies Allergy/AdvReac Type Severity Reaction Status Date / Time adhesive tape Allergy ADR-Itching Verified 12/06/24 13:31 sumatriptan (From Imitrex) Allergy ADR-Dry Verified 12/06/24 13:31 Mucus Membranes Macrolide Antibiotics AdvReac C Diff Verified 12/06/24 13:31 PFSH Acute 2 PFSH: Medical History On combination antipsychotic drug therapy COPD (chronic obstructive pulmonary disease) case management patient Former smoker POP-Q stage 3 rectocele Surgery 09/27/2023 Dr. Fabian Painful orthopaedic hardware Bipolar disorder, current episode depressed, severe, without psychotic features Hyperlipidemia Hammer toe Acquired hammertoe of right foot Ganglion cyst of finger of left hand Fracture of toe with nonunion Fracture of second toe, left, closed Hallux valgus (acquired), right foot Right foot pain Psychiatric care IBS (irritable bowel syndrome) Mixed restrictive and obstructive lung disease Fibromyalgia Osteoarthritis Bipolar 1 disorder Hypothyroidism Surgical History S/P foot surgery S/P foot surgery S/P foot surgery S/P foot surgery, left History of hand surgery left thumb IP joint fusion History of surgery on upper extremity Left shoulder - 1997 H/O pelvic surgery (~09/27/23) Anterior colporrhaphy augmented with allograft, single incision mid urethral sling, posterior colporrhaphy for Cystocele stage 2, rectocele stage 3 and mixed incontinence. Performed by [facility] at [facility] H/O: hysterectomy History of cholecystectomy History of lumpectomy History of foot surgery Family History Mother Cancer Grandmother Cancer Social History Smoking and tobacco/nicotine status: former use of tobacco/nicotine Quit status (tobacco/nicotine): has quit using Alcohol intake: former Substance/Drug Use: former Vitals/I&O/Wt Last Vital Signs Temp 99.1 F 12/15/24 11:20 Pulse 106 H 12/15/24 13:34 Resp 17 12/15/24 13:29 BP 123/61 12/15/24 13:00 Pulse Ox 90 12/15/24 13:29 O2 Del Method Nasal Cannula 12/15/24 13:29 O2 Flow Rate 2 12/15/24 13:29 12/15/24 12/15/24 12/15/24 06:59 14:59 22:59 Intake Total 0 / 0 Balance 0 / 0 Weight last 48 hrs Weight 72.575 kg Physical Exam 2 Narrative: General: No acute distress, AO x 3, anxious HEENT: PERRLA, pupils bilaterally equal and reactive, pallors not present Chest: Bilateral bronchial breath sounds all lung brown occasional rhonchi CVS: S1-S2 regular, no murmurs, no tachycardia, no gallops, no rubs Abdomen: Soft, nontender, no organomegaly, bowel sounds present Neuro: No focal deficits, no facial deformity, AO x3, power 5/5 in all limbs Data 12/15/24 12:05 12/15/24 12:05 Micro: Microbiology 12/15/24 11:58 Blood Culture - Preliminary Blood SPECIMEN COLLECTED 12/15/24 12:04 Blood Culture - Preliminary Blood SPECIMEN COLLECTED A&P Assessment and plan (1) Hypoxia: In setting of COPD exacerbation. CTA done negative for PE or or pneumonia. Does show moderate centrilobular emphysema with mild esophagitis. Oxygen supplementation keeping saturation over 88%. COVID-19/flu/RSV negative. (2) COPD exacerbation: Pulmicort twice daily, DuoNeb every 6 hour. Oxygen supplementation keeping saturation over 88%. Aggressive pulmonary toilet with I-S and Acapella. Solu-Medrol 40 mg every 6 hour. Will plan to wean within next 24 hours depending on oxygen requirement. (3) Hypothyroidism: Continue with home dose of levothyroxine. Qualifiers: Hypothyroidism type: acquired Qualified Code(s): E03.9 - Hypothyroidism, unspecified (4) Bipolar 1 disorder: Plan Continue other chronic home medications including Lexapro, morphine as needed, Seroquel as needed, nightly dose of Seroquel 300 mg. CODE STATUS: Discussed noted with the patient. Full code. Regular diet Protonix for PUD prophylaxis Lovenox for DVT prophylaxis. PDMP PDMP Reviewed: Not Reviewed Attestations 2 Medical Necessity Statement*: Admit for more than 2 midnights for management of hypoxic respiratory failure in setting of COPD exacerbation Diagnoses Hypoxia R09.02 COPD exacerbation J44.1 Acquired hypothyroidism E03.9 Hypothyroidism type: acquired Bipolar 1 disorder F31.9
[2024-12-15] MEDS: enoxaparin 40 mg/0.4 mL Syringe SUBCUT (17:55)
[2024-12-15] MEDS: morphine IR 15 mg Tablet 30 MG PO (17:56)
[2024-12-15] MEDS: quetiapine 25 mg Tablet PO (17:56)
[2024-12-15] MEDS: methylPREDNISolone sod succ 40 mg/mL INJ IVP (20:24)
[2024-12-15] MEDS: quetiapine 100 mg Tablet 300 MG PO (20:24)
[2024-12-15] MEDS: budesonide 0.5 mg/2 mL Neb INHALATION (20:27)
[2024-12-16] VITALS (17 sets, daily range): BP systolic 106–162; BP diastolic 58–98; PULSE 65–93; RESP 16–19; TEMP 36.6–36.9; O2SAT 89–97
[2024-12-16] MEDS: morphine IR 15 mg Tablet 30 MG PO ×5 (00:06→23:17)
[2024-12-16] MEDS: ipratropium-albuterol 3 mL Neb INHALATION ×4 (02:31→20:21)
[2024-12-16] MEDS: methylPREDNISolone sod succ 40 mg/mL INJ IVP ×2 (04:44→11:55)
[2024-12-16 06:03] LABS: Eosinophils # 0.1 10^3/uL (0.0-0.8); Eosinophils % 3.2 %; Hematocrit 33.8 % (36-47); Lymphocytes # 0.3 10^3/uL (0.8-4.8); Lymphocytes % 8.5 %; Mean Corpuscular HGB Conc 31.7 g/dL (30-55); Mean Corpuscular Hemoglobin 29.6 pg (27-33); Mean Corpuscular Volume 93.6 fl (85-98); Mean Platelet Volume 9.4 fL (7.4-10.4); Monocytes # 0.1 10^3/uL (0.2-0.9); Monocytes % 3.4 %; Neutrophils # 3.19 10^3/uL (1.8-7.7); Neutrophils % 84.6 %; Nucleated Red Blood Cells % 0 %; Platelet Count 142 10^3/cmm (157-399); Red Blood Count 3.61 10^6/uL (3.85-5.65); Red Cell Distribution Width 12.4 % (12.1-15.1); White Blood Count 3.77 10^3/uL (3.29-11.43)
[2024-12-16 06:24] LABS: Alanine Aminotransferase 27 U/L (0-33); Albumin Level 3.7 g/dL (3.5-5.2); Alkaline Phosphatase 68 U/L (35-105); Aspartate Amino Transferase 60 U/L (0-32); Blood Urea Nitrogen 10 mg/dL (8-23); Calcium 8.6 mg/dL (8.5-10.5); Carbon Dioxide 31 mmol/L (22-29); Chloride 101 mmol/L (98-107); Creatinine Clr Calc Pharmacy 68.0335; Globulin 2.6 g/dL (1.3-4.6); Glucose 167 mg/dL (65-115); Osmolality Calculated 293 mOsm/kg (285-295); Sodium 140 mmol/L (136-145); Total Bilirubin 0.2 mg/dL (0.15-1.2); Total Protein 6.3 g/dL (6.6-8.7)
[2024-12-16] MEDS: tizanidine 4 mg Tablet 1 MG PO (07:34)
[2024-12-16] MEDS: levothyroxine 75 mcg Tablet PO (07:34)
[2024-12-16] MEDS: pantoprazole DR 40 mg Tablet PO (07:35)
[2024-12-16] MEDS: quetiapine 25 mg Tablet PO (07:35)
[2024-12-16] MEDS: escitalopram 10 mg Tablet 20 MG PO (07:35)
[2024-12-16] MEDS: budesonide 0.5 mg/2 mL Neb INHALATION ×2 (08:36→20:21)
--- NOTE | 2024-12-16 15:56 | ECG_ITS ---
[facility] Test Date: 2024-12-17 Pat Name: Georgia Ballesteros Department: Room: 255 Gender: Female Quality Control Scientist: : 1950 Requested By: Kaya Smiley Order Number: [id number] Reading MD: STEF LEIJA Interpretive Statements Lung unchanged pre/post procedure; Intraprocedure shortess of breath; Symptoms resoled by discharge NOTE: Please note that this is the electrocardiogram portion of the Lexiscan/Sestamibi stress test. The perfusion scan will be documented separately. DATA: Baseline heart rate was 107 beats per minute. Baseline blood pressure was 159/82 millimeters of mercury. Target heart rate was 145. Maximum heart rate achieved was 140. which was 96% of the predicted target heart rate. Maximum blood pressure was 177/101 millimeters of mercury. The reason for ending the test was completion of the protocol. The patient did not experience any symptoms. ELECTROCARDIOGRAM: BASELINE: Sinus rhythm. Normal axis. Frequent PVCs, interventricular conduction delay otherwise, no ST-T changes suggestive of ischemia noted. No arrhythmia noted. EXERCISE: After Lexiscan injection, no ST-T changes suggestive of ischemic noted. No arrhythmia noted. CONCLUSION: Please note due to baseline abnormality of the EKG specificity and sensitivity of the EKG portion of LexiScan MIBI stress test will be low 1. EKG not suggestive of ischemia 2. Lexiscan injection unremarkable. 3. Perfusion scan will be documented separately. Electronically Signed On 01-06-2025 18:57:39 CDT by STEF LEIJA [id number]
--- NOTE | 2024-12-16 16:07 | P.PN_ITS ---
Subjective 2 Subjective: Wheezing is better today. Patient additionally reports that on minimal exertion she has been easily breaking out into a sweat. Feels uncomfortable in her chest. States she had a stress test several years ago which was normal. Medications: Reviewed: Yes Vitals/I&O/Wt Last Vital Signs Temp 98.1 F 12/16/24 15:37 Pulse 89 12/16/24 15:37 Resp 18 12/16/24 15:37 BP 151/98 12/16/24 15:37 Pulse Ox 90 12/16/24 15:37 O2 Del Method Nasal Cannula 12/16/24 15:37 O2 Flow Rate 2 12/16/24 08:00 12/16/24 12/16/24 12/16/24 06:59 14:59 22:59 Intake Total 480 / 880 480 / 480 Output Total 4 / 4 Balance 476 / 876 480 / 480 Weight last 48 hrs Weight 78.018 kg Weight 72.575 kg Weight 72.575 kg Physical Exam 2 Narrative: General: No acute distress, AO x3 HEENT: PERRLA, pupils bilaterally equal and reactive, pallors not present Chest: Normal vesicular breath sounds, no added sounds, equal good air entry bilaterally CVS: S1-S2 regular, no murmurs, no tachycardia, no gallops, no rubs Abdomen: Soft, nontender, no organomegaly, bowel sounds present Neuro: No focal deficits, no facial deformity, AO x3, power 5/5 in all limbs Data 12/16/24 05:19 12/16/24 05:19 Micro: Microbiology 12/15/24 11:58 Blood Culture - Preliminary Blood NEGATIVE TO DATE 12/15/24 12:04 Blood Culture - Preliminary Blood NEGATIVE TO DATE A&P Assessment and plan (1) Hypoxia: In setting of COPD exacerbation. CTA done negative for PE or or pneumonia. Does show moderate centrilobular emphysema with mild esophagitis. Oxygen supplementation keeping saturation over 88%. COVID-19/flu/RSV negative. (2) COPD exacerbation: Pulmicort twice daily, DuoNeb every 6 hour. Oxygen supplementation keeping saturation over 88%. Aggressive pulmonary toilet with I-S and Acapella. Solu-Medrol 40 mg every 6 hour. Will plan to wean within next 24 hours depending on oxygen requirement. (3) Hypothyroidism: Continue with home dose of levothyroxine. Qualifiers: Hypothyroidism type: acquired Qualified Code(s): E03.9 - Hypothyroidism, unspecified (4) Bipolar 1 disorder: Plan Continue other chronic home medications including Lexapro, morphine as needed, Seroquel as needed, nightly dose of Seroquel 300 mg. CODE STATUS: Discussed noted with the patient. Full code. Regular diet Protonix for PUD prophylaxis Lovenox for DVT prophylaxis. December 16, 2024 Wheezing is improved today. Still has some left-sided scattered wheezing. Additionally reports symptoms of breaking out into a sweat on exertion over the past several weeks. Reports that she has been having increasing dyspnea on exertion for the past 2 to 3 weeks. States that it is only sometimes associated with wheezing. She has had a stress test several years ago which was reportedly normal. Her wheezing is currently improved today, however patient still continues to complain of intermittent vague chest discomfort. Check EKG and troponin series. Reduce methylprednisolone from 40 mg IV every 8 hours to 40 mg IV daily. Continue scheduled nebulization with DuoNeb and budesonide. PDMP PDMP Reviewed: Not Reviewed Attestations 2 Medical Necessity Statement*: Plan stress test tomorrow. Reduce steroids. Clinically monitor with reducing dose of steroids for any worsening of symptoms. Coding Level of Care Code Acute Code for Chg Fwd Diagnoses Hypoxia R09.02 COPD exacerbation J44.1 Acquired hypothyroidism E03.9 Hypothyroidism type: acquired Bipolar 1 disorder F31.9
--- NOTE | 2024-12-16 17:14 | ECG_ITS ---
[facility] Date: 2024-12-16 Pat Name: Georgia Ballesteros Department: Room: 255 Gender: Female Printing Sales Representative: : 1950 Requested By: Kaya Smiley Order Number: [id number] Reading MD: STEF LEIJA Measurements Intervals [place] Rate: 85 P: 63 [place]: 198 QRS: 2 QRSD: 115 T: 60 QT: 367 QTc: 438 Interpretive Statements SINUS RHYTHM WITH OCCASIONAL VENTRICULAR PREMATURE COMPLEXES POSSIBLE LEFT ATRIAL ENLARGEMENT [-0.1mV P-WAVE IN V1/V2] MODERATE INTRAVENTRICULAR CONDUCTION DELAY [110+ ms QRS DURATION] NONSPECIFIC T-WAVE ABNORMALITY Compared to ECG 02/22/2020 20:09:42 Ventricular premature complex(es) now present Intraventricular conduction delay now present T-wave abnormality now present Incomplete right bundle-branch block no longer present Electronically Signed On 12-18-2024 23:37:01 BLOWING ENGINEER by STEF LEIJA [id number]
[2024-12-16] MEDS: enoxaparin 40 mg/0.4 mL Syringe SUBCUT (17:22)
[2024-12-16 17:49] LABS: Troponin(5th) Baseline 23 ng/L (0-10)
--- NOTE | 2024-12-16 18:12 | ECG_ITS ---
[facility] [employer] Test Date: 2024-12-16 Pat Name: Georgia Ballesteros Department: Room: 255 Gender: Female Senior Enlisted Advisor: : 1950 Requested By: Kaya Smiley Order Number: [id number] Reading MD: STEF LEIJA Measurements Intervals [place] Rate: 80 P: 2 [place]: 192 QRS: 57 QRSD: 117 T: 87 QT: 361 QTc: 417 Interpretive Statements SINUS RHYTHM WITH OCCASIONAL VENTRICULAR PREMATURE COMPLEXES POSSIBLE LEFT ATRIAL ENLARGEMENT [-0.1mV P-WAVE IN V1/V2] MODERATE INTRAVENTRICULAR CONDUCTION DELAY [110+ ms QRS DURATION] NONSPECIFIC T-WAVE ABNORMALITY Compared to ECG 12/16/2024 17:14:50 No significant changes Electronically Signed On 12-18-2024 23:50:21 MANAGER PARK by STEF LEIJA [id number] [id number]
[2024-12-16 19:47] LABS: Troponin 5 2HR 26.41 ng/L (0-10); Troponin 5 2HR Delta 3.41 ABS# (0-10)
[2024-12-16] MEDS: quetiapine 100 mg Tablet 300 MG PO (21:09)
[2024-12-16] MEDS: tizanidine 4 mg Tablet PO (21:09)
--- NOTE | 2024-12-16 21:28 | ECG_ITS ---
[facility] Test Date: 2024-12-16 Pat Name: Georgia Ballesteros Department: Room: 255 Gender: Female Care Coordinator: : 1950 Requested By: Kaya Smiley Order Number: [id number] Reading MD: STEF LEIJA Measurements Intervals [place] Rate: 96 P: 67 [place]: 181 QRS: 10 QRSD: 114 T: 0 QT: 308 QTc: 391 Interpretive Statements SINUS RHYTHM WITH OCCASIONAL VENTRICULAR PREMATURE COMPLEXES POSSIBLE LEFT ATRIAL ENLARGEMENT [-0.1mV P-WAVE IN V1/V2] MODERATE INTRAVENTRICULAR CONDUCTION DELAY [110+ ms QRS DURATION] NONSPECIFIC ST & T-WAVE ABNORMALITY Compared to ECG 12/16/2024 18:12:57 No significant changes Electronically Signed On 12-18-2024 23:49:15 KEYPUNCHER by STEF LEIJA [email or web address] [id number]
[2024-12-16 23:42] LABS: Troponin 5 6HR 25.63 ng/L (0-10); Troponin 5 6HR Delta 2.63 ng/L (0-12)
[2024-12-17] VITALS (16 sets, daily range): BP systolic 102–183; BP diastolic 54–101; PULSE 74–132; RESP 16–24; TEMP 36.7–36.9; O2SAT 83–94
[2024-12-17] MEDS: ipratropium-albuterol 3 mL Neb INHALATION ×4 (02:44→19:51)
[2024-12-17] MEDS: regadenoson 0.4 Mg/5 ml Syringe IVP (06:53)
[2024-12-17] MEDS: budesonide 0.5 mg/2 mL Neb INHALATION ×2 (08:02→19:51)
--- NOTE | 2024-12-17 08:03 | ECG_ITS ---
[facility] Test Date: 2024-12-17 Pat Name: Georgia Ballesteros Department: Room: 255 Gender: Female Assistant Reading Teacher: : 1950 Requested By: Kaya Smiley Order Number: [id number] Reading MD: STEF LEIJA Measurements Intervals [place] Rate: 121 P: 66 [place]: 170 QRS: -2 QRSD: 114 T: 94 QT: 281 QTc: 400 Interpretive Statements SINUS TACHYCARDIA WITH FREQUENT VENTRICULAR PREMATURE COMPLEXES POSSIBLE ANTERIOR MYOCARDIAL INFARCTION , OF INDETERMINATE AGE [30 ms Q WAVE IN V3/V4, OR R < 0.2 mV IN V4] Compared to ECG 12/16/2024 21:28:02 Myocardial infarct finding now present Sinus rhythm no longer present Intraventricular conduction delay no longer present T-wave abnormality no longer present Electronically Signed On 12-18-2024 23:36:19 COMMERCIAL REAL ESTATE AGENT by STEF LEIJA [email or web address] [id number]
[2024-12-17] MEDS: methylPREDNISolone sod succ 125 mg/2 mL INJ IVP ×2 (08:12→12:08)
[2024-12-17] MEDS: levothyroxine 75 mcg Tablet PO (08:15)
[2024-12-17] MEDS: tizanidine 4 mg Tablet PO ×3 (08:15→20:22)
[2024-12-17] MEDS: escitalopram 10 mg Tablet 20 MG PO (08:15)
[2024-12-17] MEDS: estradiol 1 mg Tablet 2 MG PO (08:15)
[2024-12-17] MEDS: quetiapine 25 mg Tablet PO (08:15)
[2024-12-17] MEDS: pantoprazole DR 40 mg Tablet PO (08:15)
[2024-12-17] MEDS: lamoTRIgine 100 mg Tablet 300 MG PO (08:15)
[2024-12-17] MEDS: morphine IR 15 mg Tablet 30 MG PO ×3 (08:20→20:22)
--- NOTE | 2024-12-17 08:43 | XRR_ITS ---
PROCEDURE INFORMATION: Exam: XR Chest Exam date and time: 12/17/2024 9:15 AM Age: 74 years old Clinical indication: Shortness of breath; Prior surgery; Surgery date: 6+ months; Surgery type: Lumpectomy; Additional info: SOB TECHNIQUE: Imaging protocol: Radiologic exam of the chest. Views: 1 view. COMPARISON: CT angio chest PE protcl [id number] 12/15/2024 1:16 PM FINDINGS: Lungs: There is minimal linear scarring or atelectasis at the left lung base. No consolidation is appreciated. The lungs are overall hyperinflated. Pleural spaces: Unremarkable. No pleural effusion. No pneumothorax. Heart/Mediastinum: The heart is enlarged. There is calcified plaque involving the aorta. Bones/joints: Unremarkable. XR/XR chest 1V portable [id number] IMPRESSION: 1. Cardiomegaly. 2. Linear atelectasis or scarring left lung base. 3. Lung hyperinflation.
--- NOTE | 2024-12-17 09:38 | PC.CHAP ---
Pastoral Care Encounter/Spiritual Assessment Type of Contact [] Declined hospitality manager visit [] Patient/Family/Request visit [] Outpatient visit [] Follow-up visit [] Physician referral [] Code/Alert [x] Routine visit [] Staff referral [] Actively dying [] Patient sleeping [] Family support [] [] Out of room [] Palliative care [] [] Receiving care in room [] Pre-surgical visit [] Trauma [] Long length of stay [] ICU visit [] Other: Relational/Emotional Strength [] Patient feels connected with others/family/visitors/staff [] Distress [] Loneliness/isolation [] Abandonment Spirituality of Patient [] Person of Rosemary [] Attends Oriental Orthodox of their Rosemary [] Believes in Prayer [] Reads Bible or Orthodoxy materials [] There are Spiritual issues to be addressed Wood Boatbuilder Apprentice Interventions [x] Prayer [] Active listening [] Non-anxious presence [] Spiritual/emotional support [] Crisis/trauma care [] Spiritual counseling [] Bereavement support [] Provided bereavement packet [] Provided Bible/devotional materials [] Provided toy/stuffed animal, coloring book to patient or family member [] Provided Communion [] Anointing/Twain [] Salvation [] Completed spiritual assessment [] Other: Impact on Illness or Injury [] Angry [] Fearful [] Anxious [] Often cries [] Exhaustion [] Unable to work [] Unable to attend jewish [] Unable to walk/stand [] Unable to read [] Unable to drive [] Unable to eat/drink [] Unable to sleep [] Unable to be with family [] Patient intubated [] Other: Summary on the phone Time spent with patient
--- NOTE | 2024-12-17 09:49 | PC.NURSE ---
Immediately getting back to room following this mornings stress test,this nurse was notified by Sergio in PT that pt was requesting me and her O2 was at 83% on 2L. This nurse bumped up O2 to 4L and made sure nasal cannula was in place correctly. Pt was instructed to focus on her breathing. Pt complains of dizziness and SOB. This nurse obtained a set of vitals on pt and listened to lung sounds. At 746am pt had a HR of 132, a BP of 183/85, was satting at 88% on 4L and had coarse, expiratory wheezing in posterior and anterior bilateral lungs throughout. This nurse called Dr. Smiley at 7:59am and verbal orders were given for STAT EKG, administration of morning meds and ONE time order of 125mg Solu-Medrol. Per Dr. Smiley, she was calling Dr. Worley to inform her as Dr. Worley took over patients care this morning. RT to bedside for morning breathing treatment and EKG. After administering morning medications and IV steroids, a second set of vitals were taken at 815am. Pt had a BP of 165/77, HR of 120 and was satting at 92% on 5L NC. At this current time, pt is resting in bed and has no complaints of dizziness or SOB. Vitals are currently BP 102/62, HR 76 and O2 saturation of 93% NC on 3L.
[2024-12-17] MEDS: methylPREDNISolone sod succ 125 mg/2 mL INJ 40 MG IVP (12:50)
--- NOTE | 2024-12-17 14:30 | P.PN_ITS ---
Subjective 2 Subjective: Seen this morning. Patient went for stress test this morning. After returning from stress test she had significant shortness of breath requiring 125 Solu- Medrol x 1. She states that she does have obstructive lung disease and takes nebulization treatments at home. When seen this morning during rounds her shortness of breath had improved however she appeared to be slightly anxious. Vitals/I&O/Wt Last Vital Signs Temp 98.0 F 12/17/24 12:00 Pulse 97 12/17/24 12:00 Resp 20 H 12/17/24 12:00 BP 104/63 12/17/24 12:00 Pulse Ox 90 12/17/24 12:00 O2 Del Method Nasal Cannula 12/17/24 12:00 O2 Flow Rate 3 12/17/24 10:05 12/16/24 12/17/24 12/17/24 22:59 06:59 14:59 Intake Total 740 / 1220 480 / 480 Balance 740 / 1220 480 / 480 Weight last 48 hrs Weight 78.608 kg Weight 78.018 kg Weight 72.575 kg Physical Exam 2 Narrative: General: No acute distress, AO x3 HEENT: PERRLA, pupils bilaterally equal and reactive, pallors not present Chest: Decreased bilateral air entry, chest sounds quite tight. Patient appears to be anxious as well. CVS: S1-S2 regular, no murmurs, no tachycardia, no gallops, no rubs Abdomen: Soft, nontender, no organomegaly, bowel sounds present Neuro: No focal deficits, no facial deformity, AO x3, Data 12/16/24 05:19 12/16/24 05:19 Micro: Microbiology 12/15/24 11:58 Blood Culture - Preliminary Blood NEGATIVE TO DATE 12/15/24 12:04 Blood Culture - Preliminary Blood NEGATIVE TO DATE A&P Assessment and plan (1) Hypoxia: In setting of COPD exacerbation. CTA done negative for PE or or pneumonia. Does show moderate centrilobular emphysema with mild esophagitis. Oxygen supplementation keeping saturation over 88%. COVID-19/flu/RSV negative. (2) COPD exacerbation: Pulmicort twice daily, DuoNeb every 6 hour. Oxygen supplementation keeping saturation over 88%. Aggressive pulmonary toilet with I-S and Acapella. Solu-Medrol 40 mg every 6 hour. Will plan to wean within next 24 hours depending on oxygen requirement. (3) Hypothyroidism: Continue with home dose of levothyroxine. Qualifiers: Hypothyroidism type: acquired Qualified Code(s): E03.9 - Hypothyroidism, unspecified (4) Bipolar 1 disorder: Plan Continue other chronic home medications including Lexapro, morphine as needed, Seroquel as needed, nightly dose of Seroquel 300 mg. CODE STATUS: Discussed noted with the patient. Full code. Regular diet Protonix for PUD prophylaxis Lovenox for DVT prophylaxis. December 16, 2024 Wheezing is improved today. Still has some left-sided scattered wheezing. Additionally reports symptoms of breaking out into a sweat on exertion over the past several weeks. Reports that she has been having increasing dyspnea on exertion for the past 2 to 3 weeks. States that it is only sometimes associated with wheezing. She has had a stress test several years ago which was reportedly normal. Her wheezing is currently improved today, however patient still continues to complain of intermittent vague chest discomfort. Check EKG and troponin series. Reduce methylprednisolone from 40 mg IV every 8 hours to 40 mg IV daily. Continue scheduled nebulization with DuoNeb and budesonide. 12/17/2024 -Escalate Solu-Medrol to 40 IV twice daily. Patient may require prolonged prednisone taper at time of discharge. She does have some anxiety and does take quetiapine at night. I will order Xanax 0.125 twice daily as needed and evaluate response. Hold off on azithromycin at this time secondary to her history of C. difficile. It would be a good anti-inflammatory option at this point however we will hold off. I will hold off on antibiotics as well. Chest x-ray does not show any evidence of pneumonia. Stress test results are pending at this point. PDMP PDMP Reviewed: Not Reviewed Attestations 2 Medical Necessity Statement*: Requires continued hospitalization secondary shortness of breath. Requires IV steroids at this time. Diagnoses Hypoxia R09.02 COPD exacerbation J44.1 Acquired hypothyroidism E03.9 Hypothyroidism type: acquired Bipolar 1 disorder F31.9
--- NOTE | 2024-12-17 15:49 | PC.SOCIAL ---
IMM updated IMM dated and initialed, copy given to patient and copy placed in chart.
--- NOTE | 2024-12-17 15:57 | NMCV_ITS ---
NM jam perf SPECT r/s* [id number] Georgia Ballesteros Age: 74 Gender: F : 1950 Exam Date: 12/17/2024 06:23 Ordering Phys: Kaya Smiley MD Technologist: ALLA Cotton Exam Location: [facility] Indications: CP STRESS TEST Please see separate stress test report in [facility] for full findings IMAGE PROTOCOL Rest/Stress 1 Lexiscan Day Radiopharmaceutical Dose (mCi) Administration Site Administered by Rest: Tc-99m 10.8 IV Romelia Luis, NAIL WELTER Sestamibi Stress:Tc-99m 32.4 IV Romelia Luis, NAIL WELTER Sestamibi Rest: 17-Dec-2024 60 Discovery 630 Stress: 17-Dec-2024 30 Discovery 630 0.4mg Lexiscan. Supine position only as patient was unable to lay prone. SPECT RESULTS Technical Quality: Good Raw Data Analysis: Normal Image Corrections: No attenuation or motion correction applied Summed Stress Score: 5 Summed Rest Score: 6 Summed Difference Score: 1 PERFUSION FINDINGS There is medium sized area of fixed perfusion defect seen in the apical inferior and inferoseptal silveira. 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 No evidence of ischemia. FUNCTIONAL RESULTS (calculated via Gated SPECT) Stress Image LV EF (%): 63 Stress EDV (mL):129 TID: 1.41 Stress ESV (mL):48 FUNCTIONAL FINDINGS: There is normal left ventricular systolic function. TID ratio is elevated. IMPRESSIONS 1. 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 No evidence of ischemia 2. LV systolic function is normal 3. TID ratio is elevated. Norman Benoit MD (Electronically Signed) Final Date: 17 December 2024 11:11 S
[2024-12-17] MEDS: enoxaparin 40 mg/0.4 mL Syringe SUBCUT (17:08)
[2024-12-17] MEDS: quetiapine 100 mg Tablet 300 MG PO (20:22)
[2024-12-18] VITALS (15 sets, daily range): BP systolic 126–164; BP diastolic 61–90; PULSE 65–101; RESP 16–24; TEMP 36.6–36.9; O2SAT 89–94
[2024-12-18] MEDS: methylPREDNISolone sod succ 125 mg/2 mL INJ 40 MG IVP ×2 (02:11→12:29)
[2024-12-18] MEDS: morphine IR 15 mg Tablet 30 MG PO ×4 (02:12→22:24)
[2024-12-18] MEDS: ipratropium-albuterol 3 mL Neb INHALATION ×4 (02:39→20:03)
[2024-12-18 04:12] LABS: Eosinophils % 0.2 %; Hematocrit 34.3 % (36-47); Lymphocytes # 0.3 10^3/uL (0.8-4.8); Lymphocytes % 7.1 %; Mean Corpuscular HGB Conc 31.2 g/dL (30-55); Mean Corpuscular Hemoglobin 30.2 pg (27-33); Mean Corpuscular Volume 96.9 fl (85-98); Mean Platelet Volume 8.8 fL (7.4-10.4); Monocytes # 0.5 10^3/uL (0.2-0.9); Monocytes % 9.8 %; Neutrophils # 3.96 10^3/uL (1.8-7.7); Neutrophils % 82.7 %; Nucleated Red Blood Cells % 0 %; Platelet Count 183 10^3/cmm (157-399); Red Blood Count 3.54 10^6/uL (3.85-5.65); Red Cell Distribution Width 13.2 % (12.1-15.1); White Blood Count 4.79 10^3/uL (3.29-11.43)
[2024-12-18 04:32] LABS: Anion Gap 11.1 (5-19); Blood Urea Nitrogen 14 mg/dL (8-23); Calcium 8.7 mg/dL (8.5-10.5); Carbon Dioxide 33 mmol/L (22-29); Chloride 98 mmol/L (98-107); Glucose 120 mg/dL (65-115); Magnesium 1.9 mg/dL (1.7-2.3); Osmolality Calculated 288 mOsm/kg (285-295); Potassium 4.1 mmol/L (3.5-5.1); Sodium 138 mmol/L (136-145)
[2024-12-18] MEDS: budesonide 0.5 mg/2 mL Neb INHALATION ×2 (07:30→20:03)
[2024-12-18] MEDS: estradiol 1 mg Tablet 2 MG PO (09:11)
[2024-12-18] MEDS: pantoprazole DR 40 mg Tablet PO (09:11)
[2024-12-18] MEDS: levothyroxine 75 mcg Tablet PO (09:11)
[2024-12-18] MEDS: lamoTRIgine 100 mg Tablet 300 MG PO (09:11)
[2024-12-18] MEDS: tizanidine 4 mg Tablet PO ×3 (09:11→21:27)
[2024-12-18] MEDS: escitalopram 10 mg Tablet 20 MG PO (09:11)
[2024-12-18] MEDS: benzonatate 100 mg Capsule PO ×2 (09:18→14:24)
--- NOTE | 2024-12-18 10:11 | PC.CHAP ---
Pastoral Care Encounter/Spiritual Assessment Type of Contact [] Declined aviation survival technician visit [] Patient/Family/Request visit [] Outpatient visit [] Follow-up visit [] Physician referral [] Code/Alert [x] Routine visit [] Staff referral [] Actively dying [] Patient sleeping [] Family support [] [] Out of room [] Palliative care [] [] Receiving care in room [] Pre-surgical visit [] Trauma [] Long length of stay [] ICU visit [] Other: Relational/Emotional Strength [x] Patient feels connected with others/family/visitors/staff [] Distress [] Loneliness/isolation [] Abandonment Spirituality of Patient [x] Person of Rosemary [] Attends Sabianism of their Rosemary [x] Believes in Prayer [] Reads Bible or Church materials [] There are Spiritual issues to be addressed Maintenance Assistant Interventions [x] Prayer [x] Active listening [x] Non-anxious presence [x] Spiritual/emotional support [] Crisis/trauma care [] Spiritual counseling [] Bereavement support [] Provided bereavement packet [] Provided Bible/devotional materials [] Provided toy/stuffed animal, coloring book to patient or family member [] Provided Communion [] Anointing/Carroll [] Salvation [x] Completed spiritual assessment [] Other: Impact on Illness or Injury [] Angry [] Fearful [] Anxious [] Often cries [] Exhaustion [] Unable to work [] Unable to attend sikhism [] Unable to walk/stand [] Unable to read [] Unable to drive [] Unable to eat/drink [] Unable to sleep [] Unable to be with family [] Patient intubated [] Other: Summary Time spent with patient 5 min
--- NOTE | 2024-12-18 13:30 | USCV_ITS ---
Georgia Ballesteros Age: 74 Gender: F : 1950 Exam Date: 12/18/2024 17:28 Ordering Phys: Sue Worley MD Technologist: CT Exam Location: [facility] [place]_ Indication: sob BP: 145 / 61 HR: 73 Rhythm: Sinus Technical Quality: Adequate MEASUREMENTS (Male / Female) Normal Values 2D ECHO LVOT Diameter 2.1 cm LV Ejection Fraction MOD 4C 63.5 % LV Ejection Fraction MOD 2C 58.3 % LV Ejection Fraction 2C AL 59.7 % LA Diameter 3.5 cm RA Systolic Volume 4C AL 90.7 ml RA Systolic Volume 4C MOD 86.6 ml LA Sys Volume AL 97.1 cm cubed LA Sys Volume Index AL 49.7 cm cubed/m squared Aorta at Sinotubular Diameter 2.1 cm M-MODE LA Ao Ratio MM 1.3 AV Cusp Separation MM 2.1 cm DOPPLER AV Peak Velocity 171.0 cm/s LVOT Peak Velocity 104.0 cm/s AV Area Cont Eq vti 2.5 cm squared AV Area Cont Eq pk 2.0 cm squared MV Peak Velocity 508.0 cm/s MV Area PHT 5.0 cm squared Mitral E to A Ratio 0.9 PV Peak Velocity 109.0 cm/s FINDINGS Left Ventricle Normal left ventricular size, systolic function and wall thickness, with no regional wall motion abnormalities. Left ventricular ejection fraction is estimated at 55 %. Grade I/IV diastolic dysfunction (abnormal relaxation filling pattern), normal to mildly elevated filling pressures. Right Ventricle The right ventricle is normal in size and function. Right Atrium The right atrium is normal in size. Left Atrium The left atrium is normal in size. Mitral Valve Mildly thickened mitral valve. No mitral valve stenosis. Mild mitral valve regurgitation. Aortic Valve Moderate aortic valve calcification. No aortic valve stenosis. Mild aortic valve regurgitation. Tricuspid Valve Structurally normal tricuspid valve without significant stenosis or regurgitation. Pulmonary artery systolic pressure is normal. Pulmonic Valve Structurally normal pulmonic valve without significant stenosis. There is no pulmonic regurgitation. Pericardium Normal pericardium without effusion. Aorta Normal ascending aorta dimension. IVC The inferior vena cava appears normal. CONCLUSIONS Normal left ventricular size, systolic function and wall thickness, with no regional wall motion abnormalities. Left ventricular ejection fraction is estimated at 55 %. Grade I/IV diastolic dysfunction (abnormal relaxation filling pattern), normal to mildly elevated filling pressures. Moderate aortic valve calcification. No aortic valve stenosis. Mild aortic valve regurgitation. Mildly thickened mitral valve. No mitral valve stenosis. Mild mitral valve regurgitation. There is no pericardial effusion. Right atrial pressure is around 5 mm of mercury. Harmeet Schulte MD (Electronically Signed) Final Date: 18 December 2024 23:15 S
--- NOTE | 2024-12-18 13:32 | US_ITS ---
WS: [id number] RIGHT UPPER QUADRANT ULTRASOUND HISTORY: RUQ intrahepatic, extrahepatic biliary dilation on CT COMPARISON: CT 12/15/2024, CT 08/30/2018 Liver: 17.6 cm in length. Normal size with mild coarse echotexture from hepatic steatosis. The entire liver is poorly visualized but no mass is identified. Minimal central intrahepatic duct dilatation. Portal Vein: Normal hepatopetal flow with monophasic waveform. Gallbladder: Prior cholecystectomy. CBD: 0.9 cm Pancreas: Normal size and echogenicity. Right kidney: 9.2 cm in length. Normal size kidney. There is a small cortical cyst measuring 1.0 x 1.4 x 1.1 cm. Aorta and IVC: Unremarkable abdominal aorta and IVC. No ascites. US/US abdomen limited [id number] IMPRESSION: 1. Status post cholecystectomy. 2. Mild intrahepatic and extrahepatic biliary duct dilatation. Probably relate d to the cholecystectomy. Similar findings described also on 08/30/2018. No prog ression of duct dilatation.
--- NOTE | 2024-12-18 13:33 | P.PN_ITS ---
Subjective 2 Subjective: Seen this morning. Patient sounds quite congested and is on 2 L nasal cannula. Air entry movement into lungs better than yesterday however lots of secretions. Vitals/I&O/Wt Last Vital Signs Temp 97.8 F 12/18/24 12:00 Pulse 68 12/18/24 12:00 Resp 17 12/18/24 12:00 BP 126/69 12/18/24 12:00 Pulse Ox 90 12/18/24 12:00 O2 Del Method Nasal Cannula 12/18/24 12:00 O2 Flow Rate 2 12/18/24 07:30 12/17/24 12/18/24 12/18/24 22:59 06:59 14:59 Intake Total 440 / 920 150 / 1070 50 / 50 Balance 440 / 920 150 / 1070 50 / 50 Weight last 48 hrs Weight 77.763 kg Weight 78.608 kg Physical Exam 2 Narrative: General: No acute distress, AO x3 on 2 L nasal cannula. HEENT: PERRLA, pupils bilaterally equal and reactive, pallors not present Chest: Fair bilateral air entry, rhonchi bilaterally, congestion present. CVS: S1-S2 regular, no murmurs, no tachycardia, no gallops, no rubs Abdomen: Soft, nontender, bowel sounds present Neuro: No focal deficits, no facial deformity, AO x3, Data 12/18/24 03:47 12/18/24 03:47 A&P Assessment and plan (1) Hypoxia: In setting of COPD exacerbation. CTA done negative for PE or or pneumonia. Does show moderate centrilobular emphysema with mild esophagitis. Oxygen supplementation keeping saturation over 88%. COVID-19/flu/RSV negative. (2) COPD exacerbation: Pulmicort twice daily, DuoNeb every 6 hour. Oxygen supplementation keeping saturation over 88%. Aggressive pulmonary toilet with I-S and Acapella. Solu-Medrol 40 mg every 6 hour. Will plan to wean within next 24 hours depending on oxygen requirement. (3) Hypothyroidism: Continue with home dose of levothyroxine. Qualifiers: Hypothyroidism type: acquired Qualified Code(s): E03.9 - Hypothyroidism, unspecified (4) Bipolar 1 disorder: Plan Continue other chronic home medications including Lexapro, morphine as needed, Seroquel as needed, nightly dose of Seroquel 300 mg. CODE STATUS: Discussed noted with the patient. Full code. Regular diet Protonix for PUD prophylaxis Lovenox for DVT prophylaxis. December 16, 2024 Wheezing is improved today. Still has some left-sided scattered wheezing. Additionally reports symptoms of breaking out into a sweat on exertion over the past several weeks. Reports that she has been having increasing dyspnea on exertion for the past 2 to 3 weeks. States that it is only sometimes associated with wheezing. She has had a stress test several years ago which was reportedly normal. Her wheezing is currently improved today, however patient still continues to complain of intermittent vague chest discomfort. Check EKG and troponin series. Reduce methylprednisolone from 40 mg IV every 8 hours to 40 mg IV daily. Continue scheduled nebulization with DuoNeb and budesonide. 12/17/2024 -Escalate Solu-Medrol to 40 IV twice daily. Patient may require prolonged prednisone taper at time of discharge. She does have some anxiety and does take quetiapine at night. I will order Xanax 0.125 twice daily as needed and evaluate response. Hold off on azithromycin at this time secondary to her history of C. difficile. It would be a good anti-inflammatory option at this point however we will hold off. I will hold off on antibiotics as well. Chest x-ray does not show any evidence of pneumonia. Stress test results are pending at this point. 12/18/2024 Continue Solu-Medrol 40 IV twice daily. Will need prolonged prednisone taper at time of discharge. Continue Xanax 0.25 twice daily as needed if needed I will add levofloxacin for empiric antibiotic coverage. Stress test results reviewed. Medium sized area of prior infarct seen in RCA territory. No evidence of ischemia. Patient does not have any chest pain. ? Echo is pending. Repeat chest x-ray today. Most likely in next 24 to 48 hours we will plan for discharge home with prolonged prednisone taper and antibiotics. Patient will need to get set up with a product safety administrator going forward. She has known history of COPD and hyperinflation is noted on imaging studies. CTA chest show intra and extrahepatic biliary dilation. We will check right upper quadrant ultrasound. Patient is asymptomatic from that standpoint at this time however. Prior cholecystectomy noted. Denies any chest pain. PDMP PDMP Reviewed: Not Reviewed Attestations 2 Medical Necessity Statement*: Requires continued hospitalization secondary shortness of breath. Requires IV steroids at this time. Diagnoses Hypoxia R09.02 COPD exacerbation J44.1 Acquired hypothyroidism E03.9 Hypothyroidism type: acquired Bipolar 1 disorder F31.9
--- NOTE | 2024-12-18 13:37 | XRR_ITS ---
PROCEDURE INFORMATION: Exam: XR Chest Exam date and time: 12/18/2024 1:47 PM Age: 74 years old Clinical indication: Condition or disease; Lung condition and disease; Copd; With exacerbation; Additional info: F/u copd exacerbation TECHNIQUE: Imaging protocol: Radiologic exam of the chest. Views: 1 view. COMPARISON: 1. CR XR chest 1V portable [id number] 12/17/2024 9:15 AM 2. CR (CHEST, ) 12/15/2024 11:[address] angio chest PE protcl [id number] 12/15/2024 1:16 PM FINDINGS: Lungs: Mild left basilar atelectasis. Mild opacity along the right heart border, in correlation with recent CT is compatible with atelectasis. Otherwise, no pulmonary edema or focal consolidation. Pleural spaces: No pleural effusion. No pneumothorax. Heart/Mediastinum: Stable borderline enlarged heart. Bones/joints: No acute abnormality. XR/XR chest 1V portable [id number] IMPRESSION: Mild atelectatic changes. Otherwise, no pulmonary edema or focal consolidation.
[2024-12-18] MEDS: levofloxacin-dextrose 5 % 750 MG/150 ML PREMIX 100 MG IV (13:53)
[2024-12-18] MEDS: enoxaparin 40 mg/0.4 mL Syringe SUBCUT (16:55)
[2024-12-18] MEDS: quetiapine 100 mg Tablet 300 MG PO (21:27)
[2024-12-19] VITALS (12 sets, daily range): BP systolic 125–162; BP diastolic 63–80; PULSE 47–89; RESP 16–17; TEMP 36.5–36.7; O2SAT 88–98
[2024-12-19] MEDS: ipratropium-albuterol 3 mL Neb INHALATION ×2 (01:23→07:39)
[2024-12-19 05:00] LABS: Eosinophils % 0.4 %; Lymphocytes # 0.8 10^3/uL (0.8-4.8); Lymphocytes % 16.2 %; Mean Corpuscular HGB Conc 30.5 g/dL (30-55); Mean Corpuscular Hemoglobin 29.1 pg (27-33); Mean Corpuscular Volume 95.4 fl (85-98); Mean Platelet Volume 9.2 fL (7.4-10.4); Monocytes # 0.6 10^3/uL (0.2-0.9); Neutrophils # 3.45 10^3/uL (1.8-7.7); Nucleated Red Blood Cells % 0 %; Platelet Count 228 10^3/cmm (157-399); Red Blood Count 3.88 10^6/uL (3.85-5.65); Red Cell Distribution Width 13.2 % (12.1-15.1); White Blood Count 4.93 10^3/uL (3.29-11.43)
[2024-12-19 05:14] LABS: Blood Urea Nitrogen 14 mg/dL (8-23); Calcium 8.6 mg/dL (8.5-10.5); Carbon Dioxide 33 mmol/L (22-29); Chloride 99 mmol/L (98-107); Glucose 94 mg/dL (65-115); Magnesium 1.9 mg/dL (1.7-2.3); Osmolality Calculated 294 mOsm/kg (285-295); Sodium 142 mmol/L (136-145)
[2024-12-19 05:28] LABS: Anion Gap 13.8 (5-19); Potassium 3.8 mmol/L (3.5-5.1)
[2024-12-19] MEDS: methylPREDNISolone sod succ 125 mg/2 mL INJ 40 MG IVP (06:04)
[2024-12-19] MEDS: budesonide 0.5 mg/2 mL Neb INHALATION (07:39)
[2024-12-19] MEDS: estradiol 1 mg Tablet 2 MG PO (08:02)
[2024-12-19] MEDS: morphine IR 15 mg Tablet 30 MG PO ×2 (08:02→14:37)
[2024-12-19] MEDS: lamoTRIgine 100 mg Tablet 300 MG PO (08:02)
[2024-12-19] MEDS: pantoprazole DR 40 mg Tablet PO (08:03)
[2024-12-19] MEDS: tizanidine 4 mg Tablet PO ×2 (08:04→14:38)
[2024-12-19] MEDS: escitalopram 10 mg Tablet 20 MG PO (08:04)
[2024-12-19] MEDS: levothyroxine 75 mcg Tablet PO (08:04)
[2024-12-19] MEDS: levofloxacin-dextrose 5 % 750 MG/150 ML PREMIX 100 MG IV (13:05)
--- NOTE | 2024-12-19 14:00 | PC.SOCIAL ---
IMM updated IMM dated and initialed, Copy placed in chart and copy given to patient
--- NOTE | 2024-12-19 14:11 | PM.DCS ---
Discharge Providers Date of Admission: 12/15/24 14:07 Date of Discharge: December 19, 2024 Attending Provider at Admission: Kaya Smiley MD Attending Provider at Discharge: Sue Worley MD Primary Care Provider: Tonya Arreola MD Diagnoses at Discharge Discharge Diagnosis (1) Hypoxia: Status: Acute (2) COPD exacerbation: Status: Acute (3) Hypothyroidism: Status: Chronic Qualifiers: Hypothyroidism type: acquired Qualified Code(s): E03.9 - Hypothyroidism, unspecified (4) Bipolar 1 disorder: Status: Acute Reason for Visit Reason for Visit: fever, coughing , flu system Hospital Course Hospital Course Patient was mated for COPD exacerbation. CTA negative for PE or pneumonia but does show moderate centrilobular emphysema. COVID flu RSV negative. She was treated with Pulmicort DuoNeb oxygen supplementation and aggressive pulmonary toilet with incentive spirometer and Acapella. We weaned her off steroids however her breathing became worse. Also during hospitalization she underwent stress testing secondary to shortness of breath. Stress test did not show evidence of ischemia. After she developed severe shortness of breath once again and was given another dose of steroids. She was kept on Solu-Medrol 40 IV twice daily for another 2 days and eventually pulmonary status improved. Lungs have better air entry at this point with minimal wheezing and rhonchi. She will be sent home on prolonged prednisone taper along with antibiotics for empiric coverage. I have advised her to follow-up with pulmonology outpatient to get established. Patient agreeable and understands at this time. She says she does have oxygen at home but does not use it every day. At time of discharge she qualified for 3 L nasal cannula. Physical Exam Narrative: General: No acute distress, AO x3 on 3 L nasal cannula. HEENT: PERRLA, pupils bilaterally equal and reactive, pallors not present Chest: Fair bilateral air entry, minimal rhonchi and wheezing bilaterally. CVS: S1-S2 regular, no murmurs, no tachycardia, no gallops, no rubs Abdomen: Soft, nontender, bowel sounds present Neuro: No focal deficits, no facial deformity, AO x3, Discharge Data Studies Completed and Pending Completed Studies During Hospitalization Category Date Time Status CT angio chest PE protcl [id number] Stat Cat Scan 12/15/24 12:58 Completed Cardiac Stress Test MIBI [Sestamibi Stress Test Request Exams 12/16/24 15:56 Draft ] Routine XR chest 1V portable [id number] Routine Exams 12/18/24 13:37 Completed XR chest 1V portable [id number] Stat Exams 12/15/24 11:32 Completed XR chest 1V portable [id number] Stat Exams 12/17/24 08:43 Completed NM jam perf SPECT r/s* [id number] Routine Nuc Med 12/17/24 15:57 Completed CV. echo complete* [id number] Routine Ultrasound 12/18/24 13:30 Completed US abdomen limited [id number] Routine Ultrasound 12/18/24 13:32 Completed Radiology Impressions Chest CTA 12/15/24 12:58 IMPRESSION: 1. No acute central or lobar pulmonary embolism. 2. Findings suggestive of mild esophagitis. 3. 7 mm right upper lobe nodular opacity. Follow-up recommendations described below. 4. Moderate centrilobular emphysema. 5. Status post cholecystectomy. There is moderate intra and extrahepatic biliary ductal dilatation. This is partially evaluated on this examination however appears greater than expected. Right upper quadrant ultrasound and/or CT abdomen pelvis could be considered as clinically indicated. According to the 2017 Fleischner criteria, if the patient is low risk, a CT at 6-12 months is recommended, then consider CT at 18-24 months. If the patient is high risk, a CT at 6-12 months is recommended, then CT at 18-24 months. COMMENTS: The presence of pulmonary emphysema on CT is an independent risk factor for lung cancer. In the absence of a history or active diagnosis of lung cancer, it is recommended that this patient with emphysema be evaluated for enrollment in a low dose CT lung cancer screening program. Abdomen Ultrasound 12/18/24 13:32 IMPRESSION: 1. Status post cholecystectomy. 2. Mild intrahepatic and extrahepatic biliary duct dilatation. Probably related to the cholecystectomy. Similar findings described also on 08/30/2018. No progression of duct dilatation. Chest X-Ray 12/18/24 13:37 IMPRESSION: Mild atelectatic changes. Otherwise, no pulmonary edema or focal consolidation. Laboratory Results WBC 4.93 10^3/uL (3.29-11.43) 12/19/24 04:02 RBC 3.88 10^6/uL (3.85-5.65) 12/19/24 04:02 Hgb 11.30 g/dL (11.27-16.99) 12/19/24 04:02 Hct 37.0 % (36-47) 12/19/24 04:02 MCV 95.4 fl (85-98) 12/19/24 04:02 MCH 29.1 pg (27-33) 12/19/24 04:02 MCHC 30.5 g/dL (30-55) 12/19/24 04:02 RDW 13.2 % (12.1-15.1) 12/19/24 04:02 Plt Count 228 10^3/cmm (157-399) 12/19/24 04:02 MPV 9.2 fL (7.4-10.4) 12/19/24 04:02 Neut % (Auto) 70.0 % 12/19/24 04:02 Lymph % (Auto) 16.2 % 12/19/24 04:02 [place] % (Auto) 13.0 % 12/19/24 04:02 Eos % (Auto) 0.4 % 12/19/24 04:02 Baso % (Auto) 0.0 % 12/19/24 04:02 Neut # (Auto) 3.45 10^3/uL (1.8-7.7) 12/19/24 04:02 Lymph # (Auto) 0.8 10^3/uL (0.8-4.8) 12/19/24 04:02 [place] # (Auto) 0.6 10^3/uL (0.2-0.9) 12/19/24 04:02 Eos # (Auto) 0.0 10^3/uL (0.0-0.8) 12/19/24 04:02 Baso # (Auto) 0.0 10^3/uL (0.0-0.1) 12/19/24 04:02 Nucleated RBC % (auto) 0 % 12/19/24 04:02 Nucleated RBCs # 0.0 /100WBC 12/19/24 04:02 Specimen Type Arterial 12/15/24 11:52 Sample Site Radial, left 12/15/24 11:52 ABG pH 7.42 (7.35-7.45) 12/15/24 11:52 ABG pCO2 47.6 mmHg (35-45) H 12/15/24 11:52 ABG pO2 81.3 mmHg (80.0-100.0) 12/15/24 11:52 ABG PO2/FiO2 Ratio 290 12/15/24 11:52 ABG HCO3 30.8 mmol/L (22-26) H 12/15/24 11:52 ABG O2 Saturation 96.7 12/15/24 11:52 ABG Base Excess 5.4 mmol/L (-2.0-2.0) H 12/15/24 11:52 Oswald Test Pos 12/15/24 11:52 A-a O2 Gradient 8.0 mmHg (5-10) 12/15/24 11:52 Hematocrit 37.4 % (37-47) 12/15/24 11:52 Hgb O2 Saturation 94.5 % (95-100) L 12/15/24 11:52 Carboxyhemoglobin 1.5 %THgb (0.4-20.1) 12/15/24 11:52 Methemoglobin 0.8 % (0.4-1.5) 12/15/24 11:52 Total Hemoglobin 12.2 g/dL (12-16) 12/15/24 11:52 Sodium 137.0 mmol/L (131-143) 12/15/24 11:52 Potassium 3.9 mmol/L (3.5-5.0) 12/15/24 11:52 Glucose 118.0 mg/dL (70-115) H 12/15/24 11:52 Ionized Calcium 1.1 mmol/L (1.1-1.4) 12/15/24 11:52 O2 Delivery Device Nc 12/15/24 11:52 O2 Liters/Min 2.0 % 12/15/24 11:52 FiO2 28.0 % 12/15/24 11:52 Fresh Work Wrapper Layer ID Ed 12/15/24 11:52 Sodium 142 mmol/L (136-145) 12/19/24 04:02 Potassium 3.8 mmol/L (3.5-5.1) 12/19/24 04:02 Chloride 99 mmol/L (98-107) 12/19/24 04:02 Carbon Dioxide 33 mmol/L (22-29) H 12/19/24 04:02 Anion Gap 13.8 (5-19) 12/19/24 04:02 BUN 14 mg/dL (8-23) 12/19/24 04:02 Creatinine 0.6 mg/dL (0.5-0.9) 12/19/24 04:02 GFR Calculation Not Reportable 12/19/24 04:02 Glucose 94 mg/dL (65-115) 12/19/24 04:02 Calculated Osmolality 294 mOsm/kg (285-295) 12/19/24 04:02 Lactic Acid 0.9 mmol/L (0.5-2.2) 12/15/24 12:05 Calcium 8.6 mg/dL (8.5-10.5) 12/19/24 04:02 Magnesium 1.9 mg/dL (1.7-2.3) 12/19/24 04:02 Total Bilirubin 0.2 mg/dL (0.15-1.2) 12/16/24 05:19 AST 60 U/L (0-32) H 12/16/24 05:19 ALT 27 U/L (0-33) 12/16/24 05:19 Alkaline Phosphatase 68 U/L (35-105) 12/16/24 05:19 Troponin T Baseline 23 ng/L (0-10) H 12/16/24 17:21 Troponin T 120 Minute 26.41 ng/L (0-10) H 12/16/24 19:00 Delta Troponin T 3.41 ABS# (0-10) 12/16/24 19:00 Troponin T Hi Sens 6Hr 25.63 ng/L (0-10) H 12/16/24 23:14 Troponin T Hi Sens 6Hr Delta 2.63 ng/L (0-12) 12/16/24 23:14 C-Reactive Protein 9.1 mg/L (0.0-4.9) H 12/15/24 12:05 Total Protein 6.3 g/dL (6.6-8.7) L 12/16/24 05:19 Albumin 3.7 g/dL (3.5-5.2) 12/16/24 05:19 Globulin 2.6 g/dL (1.3-4.6) 12/16/24 05:19 Influenza A (PCR) Negative (Negative) 12/15/24 12:04 Influenza Type B (PCR) Negative (Negative) 12/15/24 12:04 RSV (PCR) Negative (Negative) 12/15/24 12:04 SARS-CoV-2 (PCR) Negative (Negative) 12/15/24 12:04 Vitals Last Vital Signs Temp 97.8 F 12/19/24 11:48 Pulse 70 12/19/24 16:43 Resp 17 12/19/24 14:37 BP 125/63 12/19/24 16:43 Pulse Ox 94 12/19/24 16:43 O2 Del Method Nasal Cannula 12/19/24 11:48 O2 Flow Rate 3 12/19/24 09:50 Discharge Plan Discharge Patient Disposition: Home Condition: Stable Prescriptions: New levofloxacin 750 mg tablet 750 mg PO DAILY 5 Days Qty: 5 0RF prednisone 20 mg tablet See Rx Instructions .ROUTE .COMPLEX Qty: 15 0RF Rx Instructions: 40 mg x 3 days 30 mg x 3 days 20 mg x 3 days 10 mg x 3 days then stop pantoprazole [Protonix] 40 mg tablet,delayed release (DR/EC) 40 mg PO DAILY 14 Days Qty: 14 0RF albuterol sulfate 2.5 mg/0.5 mL solution for nebulization 2.5 mg inhalation Q6H PRN (Reason: shortness of breath or wheezing) Qty: 30 0RF Continued morphine 30 mg tablet 30 mg PO Q6H PRN (Reason: Pain) tizanidine 4 mg tablet 1 mg PO DAILY (DME) ASO See Rx Instructions .Route .MEDSUPPLY Qty: 1 0RF Rx Instructions: As directed (DME) Custom Molded Orthotics- Sport low profile with a Reverse Zapata Pad See Rx Instructions .Route .MEDSUPPLY Qty: 1 0RF Rx Instructions: As directed (DME) Custom Molded Orthotics See Rx Instructions .Route .MEDSUPPLY Qty: 1 0RF Rx Instructions: As directed (DME) CAM walker See Rx Instructions .Route .MEDSUPPLY Qty: 1 0RF Rx Instructions: As directed (DME) Bone stem See Rx Instructions .ROUTE .MEDSUPPLY Qty: 1 0RF Rx Instructions: As directed diclofenac sodium 1 % gel 2 g TOPICAL BID PRN (Reason: Pain) Qty: 100 1RF diphenoxylate-atropine 2.5-0.025 mg tablet 1 tab PO DAILY PRN (Reason: diarrhea) Qty: 90 1RF levothyroxine 75 mcg tablet 75 mcg PO DAILY Qty: 90 0RF Rx Instructions: TAKE ONE TABLET BY MOUTH EVERY DAY arformoterol [Brovana] 15 mcg/2 mL solution for nebulization 2 ml inhalation BID Qty: 120 11RF budesonide [Pulmicort] 0.25 mg/2 mL suspension for nebulization 0.25 mg INHALATION BID Qty: 60 1RF quetiapine 100 mg tablet 300 mg PO DAILY Qty: 90 2RF Rx Instructions: TAKE 3 TABLETS BY MOUTH EVERY DAILY quetiapine 25 mg tablet 25 mg PO BID PRN (Reason: Anxiety) Qty: 60 2RF Rx Instructions: TAKE 1 TABLET BY MOUTH TWICE DAILY NEEDED FOR ANXIETY cetirizine 10 mg tablet 10 mg PO DAILY Qty: 90 2RF lamotrigine 150 mg tablet 300 mg PO DAILY Qty: 60 2RF Rx Instructions: TAKE TWO TABLETS BY MOUTH EVERY DAY ondansetron HCl 4 mg tablet 4 mg PO DAILY PRN (Reason: Nausea And Vomiting) Qty: 30 0RF Rx Instructions: TAKE ONE TABLET BY MOUTH EVERY DAY NEEDED FOR FOR NAUSEA AND VOMITING estradiol 2 mg tablet 2 mg PO DAILY Qty: 30 0RF Rx Instructions: TAKE 1 TABLET BY MOUTH ONCE DAILY zoledronic ekun-voixhflk-iqsob [Reclast] 5 mg/100 mL piggyback 1 ea IV .ONCE 2 YEAR Rx Instructions: infusion once every 2 years. dicyclomine 10 mg capsule 10 mg PO DAILY PRN (Reason: Abdominal Pain) Rx Instructions: TAKE ONE CAPSULE BY MOUTH EVERY DAY ORN FOR ABDOMINAL DISCOMFORT cyclobenzaprine 10 mg tablet 10 mg PO TID PRN (Reason: muscle spasm) Qty: 21 1RF escitalopram oxalate 20 mg tablet 20 mg PO DAILY Rx Instructions: TAKE 1 TABLET BY MOUTH EVERY DAY Discharge Orders: Discharge Order (Routine); Ordered 12/19/24 Ordered By: Sue Worley Other Ambulatory Orders: DME: Oxygen (Order) Location: None Selected Ordered By: Sue Worley Referrals: [facility] Pulmonology [Outside] - 7-10 days (COPD We have notified your physician's clinic of the need for a follow-up appointment to be scheduled. If you have not heard from them within the next 2 business days, please call them directly. ) Tonya Arreola MD [Primary Care Provider] - 4-7 days (We have notified your physician's clinic of the need for a follow-up appointment to be scheduled. If you have not heard from them within the next 2 business days, please call them directly. ) Discharge Diet: Regular Discharge Activity: Oxygen as instructed Patient Instructions: Albuterol (By breathing), Prednisone (By mouth), Levofloxacin (By mouth) (Levaquin, Levaquin Leva-mounika), COPD (Chronic Obstructive Pulmonary Disease) (GEN), COPD Stoplight, Opioid Safety Discharge Attestations Time Spent in Discharge Care*: greater than 30 min Quality Metrics Clinical Quality Measures [ No reported AMI, CVA or VTE this stay] Coding Level of Care Code Acute Code for Chg Fwd Diagnoses Hypoxia R09.02 COPD exacerbation J44.1 Acquired hypothyroidism E03.9 Hypothyroidism type: acquired Bipolar 1 disorder F31.9
== END 2024-12-19 16:30 | disposition home or self-care (01) | DRG 190 ==
LOC: ER 14:13 → MEDSURG 16:00
PROVIDERS: Emergency Medicine; Admitting Provider Student in an Organized Health Care Education/Training Program; Emergency Provider Family Medicine; PCP Family Medicine; Visit Provider Internal Medicine
DX: J44.1 Chronic obstructive pulmonary disease with (acute) exacerbation (principal); I50.33 Acute on chronic diastolic (congestive) heart failure; J96.21 Acute and chronic respiratory failure with hypoxia; F31.4 Bipolar disorder, current episode depressed, severe, without psychotic features; E78.5 Hyperlipidemia, unspecified; J43.2 Centrilobular emphysema; E03.9 Hypothyroidism, unspecified; M19.90 Unspecified osteoarthritis, unspecified site; K58.9 Irritable bowel syndrome, unspecified; M79.7 Fibromyalgia; R00.0 Tachycardia, unspecified; F41.9 Anxiety disorder, unspecified; Z90.710 Acquired absence of both cervix and uterus; Z90.49 Acquired absence of other specified parts of digestive tract; Z11.52 Encounter for screening for COVID-19; Z79.890 Hormone replacement therapy; Z79.899 Other long term (current) drug therapy; Z88.1 Allergy status to other antibiotic agents; Z88.8 Allergy status to other drugs, medicaments and biological substances; Z91.09 Other allergy status, other than to drugs and biological substances; Z87.891 Personal history of nicotine dependence; Z87.19 Personal history of other diseases of the digestive system
CPT/HCPCS: 36415; 36600; 71045; 71275; 76705; 78452; 80048; 80051; 80053; 82330; 82805; 83605; 83735; 84484; 85025; 86140; 87040; 87637; 93005; 93017; 93306; 94640; 94669; 94760; 96372; 96374; 96375; 99285; A9500; J1650; J1956; J2785; J2919; J7613; J7626; J8499; J9999

== ENCOUNTER → 2025-01-03 13:16 | Outpatient (BNVA) | payer MEDICARE, OTHER, SELFPAY | PROVIDERS: PCP Family Medicine; Visit Provider Podiatrist Foot & Ankle Surgery | DX: Z98.890 Other specified postprocedural states (principal); T84.84XA Pain due to internal orthopedic prosthetic devices, implants and grafts, initial encounter; Y79.2 Prosthetic and other implants, materials and accessory orthopedic devices associated with adverse incidents | CPT/HCPCS: 99024 ==

== ENCOUNTER 2025-01-10 20:05 | Inpatient (IN) | payer MEDICARE, OTHER, MEDICAID, SELFPAY ==
[2025-01-10 20:21] VITALS: BP 185/88; PULSE 96; RESP 20; TEMP 36.9; O2SAT 92; BMI 25.1
--- NOTE | 2025-01-10 20:26 | ECG_ITS ---
[employer] Test Date: 2025-01-10 Pat Name: Georgia Ballesteros Department: Room: Gender: Female [employer]: : 1950 Requested By: Sergio Calderón Order Number: [id number] Sams MD: Norman Benoit M.D. Measurements Intervals [place] Rate: 92 P: 76 ME: 173 QRS: 56 QRSD: 105 T: 83 QT: 365 QTc: 453 Interpretive Statements SINUS RHYTHM WITH FREQUENT VENTRICULAR PREMATURE COMPLEXES LOW QRS VOLTAGE IN PRECORDIAL LEADS [QRS DEFLECTION < 1.0 mV IN CHEST LEADS] Compared to ECG 12/17/2024 08:11:12 Low QRS voltage now present Sinus tachycardia no longer present Myocardial infarct finding no longer present Electronically Signed On 01-12-2025 07:43:15 CDT by Norman Benoit M.D. [email or web address]
[2025-01-10 20:39] VITALS: BP 172/88; O2SAT 92
--- NOTE | 2025-01-10 20:39 | XRR_ITS ---
PROCEDURE INFORMATION: Exam: XR Chest Exam date and time: 01/10/2025 9:05 PM Age: 74 years old Clinical indication: Dyspnea; Additional info: SOB TECHNIQUE: Imaging protocol: Radiologic exam of the chest. Views: 1 view. COMPARISON: CR XR chest 1V portable [id number] 12/18/2024 1:47 PM FINDINGS: Lungs: Bibasilar right greater than left atelectasis versus infiltrate. Emphysematous changes. Pleural spaces: Small right pleural effusion. Heart/Mediastinum: Cardiomegaly. Bones/joints: Unremarkable. XR/XR chest 1V portable [id number] IMPRESSION: 1. Small right pleural effusion. 2. Bibasilar right greater than left atelectasis versus infiltrate. 3. Cardiomegaly. 4. Emphysematous changes.
--- NOTE | 2025-01-10 20:44 | ED_ITS ---
HPI - SOB/Dyspnea 2 General: Chief Complaint: Shortness of Breath/Dyspnea Stated Complaint: BP high low O2 Shortness of Breath Time Seen by Provider: 01/10/25 20:38 Source: patient Mode of arrival: ambulatory Limitations: no limitations History of Present Illness: HPI Narrative: Patient is a 74-year-old female who presents to the ED today with a complaint of dyspnea. Patient states she was discharged from the hospital on 12/19 and has failed to improve since her hospitalization. At time of discharge, according to documentation, she qualified for 3 L of oxygen. Patient states prior to her hospitalization, she was wearing oxygen only as needed. She has worn it fairly continuously since her discharge stating that it makes her feel better. Upon initial examination, patient appears very anxious. She tells me they ran every test under the sun during her last hospitalization and they were all within normal limits . Patient did undergo CTA imaging, stress test, echocardiogram. CTA showing moderate centrilobular emphysema. EF was normal on her echo. Stress testing essentially normal. Patient is currently not having any cough or congestion. No fevers. She is not having any chest pain. She has contacted the pulmonology clinic at [place] to schedule an appointment but has yet to hear back from them. Patient very tearful over the fear and sensation of not being able to breathe. She does admit to feeling a little swollen. MD elicited complaint: shortness of breath Pertinent past history: COPD Onset (ago): week(s) Timing: constant Severity: moderate Exacerbating factors: lying flat and exertion Relieving factors: oxygen, rest and other (xanex) Known history of: COPD Associated symptoms: Deny chest congestion, chest pain, dizziness, extremity pain, fever(s), hemoptysis, nausea, palpitations, syncope or vomiting Treatment prior to arrival: oxygen Related Data Home Medications ?Medication ?Instructions ?Recorded ?Confirmed morphine 30 mg immediate release 30 mg PO Q6H PRN Pain 12/25/19 01/03/25 tablet zoledronic acid 5 mg/100 mL in 1 ea IV .ONCE 2 YEAR Os teopenia 03/03/23 01/03/25 mannitol 5 %-water intravenous piggybck (Reclast) dicyclomine 10 mg capsule 10 mg PO DAILY PRN Abdominal Pain 04/20/24 01/03/25 tizanidine 4 mg tablet 1 mg PO DAILY 05/03/2401/03 Previous Rx's ?Medication ?Instructions ?Recorded Bone stem #1 ea 04/28/21 Custom Molded Orthotics #1 ea 04/08/22 Custom Molded Orthotics- Sport low #1 ea 04/08/22 profile with a Reverse Zapata Pad CAM walker #1 ea 12/15/23 diclofenac sodium 1 % topical gel 2 g topical BID PRN Pain #100 grams 03/18/24 diphenoxylate-atropine 2.5 1 tab PO DAILY PRN diarrhea #90 04/18/24 mg-0.025 mg tablet tabs ASO #1 ea 06/13/24 arformoterol 15 mcg/2 mL solution 2 ml inhalation BID #120 mL 09/11/24 for nebulization (Brovana) budesonide 0.25 mg/2 mL suspension 0.25 mg (2 mL) inha lation BID #60 09/11/24 for nebulization (Pulmicort) mL cetirizine 10 mg tablet 10 mg PO DAILY allergies #90 tabs 10/22/24 cyclobenzaprine 10 mg tablet 10 mg PO TID PRN muscle s pasm #21 10/26/24 tabs ondansetron HCl 4 mg tablet 4 mg PO DAILY PRN Nausea A nd 12/07/24 Vomiting #30 tabs estradiol 2 mg tablet 2 mg PO DAILY #30 tabs 12/13 albuterol sulfate 2.5 mg/0.5 mL 2.5 mg (0.5 mL) inhala tion Q6H PRN 12/19/24 solution for nebulization shortness of breath or wheez ing #30 ea prednisone 20 mg tablet See Rx Instructions .Route 0 12/19/24 .COMPLEX #15 tabs quetiapine 100 mg tablet 300 mg (3 x 100 mg) PO DAILY #90 12/27/24 tabs quetiapine 25 mg tablet 25 mg PO BID PRN Anxiety #60 tabs 12/27/24 levothyroxine 75 mcg tablet 75 mcg PO DAILY #90 tabs 0 01/02/25 escitalopram oxalate 20 mg tablet 20 mg PO DAILY #30 t abs 01/03/25 lamotrigine 150 mg tablet 300 mg (2 x 150 mg) PO DAILY #60 01/03/25 tabs methylphenidate HCl 20 mg tablet 20 mg PO DAILY 30 day s #30 tabs 01/03/25 methylphenidate HCl 20 mg tablet 20 mg PO DAILY 30 day s #30 tabs 01/03/25 methylphenidate HCl 20 mg tablet 20 mg PO DAILY 30 day s #30 tabs 01/03/25 Allergies Allergy/AdvReac Type Severity Reaction Status Date / Time adhesive tape Allergy ADR-Itching Verified 01/10/25 20:26 sumatriptan (From Imitrex) Allergy ADR-Dry Verified 01/10/25 20:26 Mucus Membranes Macrolide Antibiotics AdvReac C Diff Verified 01/10/25 20:26 Review of Systems 2 Const: Denies: fever(s), chills, body aches, fatigue or malaise Card: Denies: chest pain, palpitations, irregular heart rhythm, syncope or pre-syncope Resp: Reports: dyspnea; Denies: productive cough, non-productive cough, wheezing, stridor, pain on inspiration, change in phlegm color, hemoptysis or chest congestion GI: Denies: nausea or vomiting Musc: Denies: neck pain, back pain, extremity pain or joint swelling Neuro: Denies: headache(s), numbness in extremities, weakness in extremities, sensory changes, lack of coordination, difficulty walking or dizziness PFSH ED 2 PFSH: Medical History On combination antipsychotic drug therapy COPD (chronic obstructive pulmonary disease) case management patient Former smoker POP-Q stage 3 rectocele Surgery 09/27/2023 Dr. Fabian Painful orthopaedic hardware Bipolar disorder, current episode depressed, severe, without psychotic features Hyperlipidemia Hammer toe Acquired hammertoe of right foot Ganglion cyst of finger of left hand Fracture of toe with nonunion Fracture of second toe, left, closed Hallux valgus (acquired), right foot Right foot pain Psychiatric care IBS (irritable bowel syndrome) Mixed restrictive and obstructive lung disease Fibromyalgia Osteoarthritis Bipolar 1 disorder Hypothyroidism Surgical History S/P foot surgery S/P foot surgery S/P foot surgery S/P foot surgery, left History of hand surgery left thumb IP joint fusion History of surgery on upper extremity Left shoulder - 1997 H/O pelvic surgery (~09/27/23) Anterior colporrhaphy augmented with allograft, single incision mid urethral sling, posterior colporrhaphy for Cystocele stage 2, rectocele stage 3 and mixed incontinence. Performed by [facility] at [facility] H/O: hysterectomy History of cholecystectomy History of lumpectomy History of foot surgery Family History Mother Cancer Grandmother Cancer Social History Smoking and tobacco/nicotine status: former use of tobacco/nicotine Quit status (tobacco/nicotine): has quit using Alcohol intake: former Substance/Drug Use: former Physical Exam 2 Const: COMMON NORMALS: average body habitus, patient oriented x3, no limitations, healthy appearing, alert and well nourished GENERAL APPEARANCE: cooperative and anxious ORIENTATION/CONSCIOUSNESS: Yes awake, Yes oriented to person, Yes oriented to place and Yes oriented to time HENMT: COMMON NORMALS: normocephalic and atraumatic HEAD & SCALP: normal to inspection, normocephalic and atraumatic Neck/C-Spine: COMMON NORMALS: no lymphadenopathy and no JVD GENERAL: Yes normal visual inspection Chest: COMMONS NORMALS: normal inspection of the chest and normal palpation of entire chest wall Resp: COMMON NORMALS: clear to auscultation bilaterally EFFORT & INSPECTION: No tachypneic and No retractions AUSCULTATION: clear to auscultation bilaterally OTHER: on 3L-satting low 90s with good wave forms Cardio: COMMON NORMALS: no JVD, regular rate and regular rhythm RATE: r egular rate RHYTHM: regular rhythm Extremity: COMMON NORMALS: capillary refill normal, no clubbing, cyanosis or edema, no calf tenderness and no pedal edema GENERAL: Yes normal exam except as noted Neuro: COMMON NORMALS: patient oriented x3, moves all extremities, no focal motor deficits and no sensory deficits noted SENSORIUM/ORIENTATION: Yes alert, Yes oriented to person, Yes oriented to place and Yes oriented to time Skin: COMMON NORMALS: no rashes or lesions noted GENERAL SKIN EXAM: no rashes or lesions noted Course 2 Consultations: Consultation #1: Dr. Yoon-accepts hospitalization Vital Signs: Vital signs: Vital Signs Temperature 98.5 F 01/10/25 20:21 Pulse Rate 70 01/11/25 02:25 Respiratory Rate 18 01/11/25 02:50 Blood Pressure 181/68 01/11/25 02:25 Pulse Oximetry 95 01/11/25 02:33 Oxygen Delivery Me thod Nasal Cannula 01/11/25 02:33 Oxygen Flow Rate 3 01/11/25 02:33 MDM - SOB/Dyspnea Medical Decision Making Blood work overall unremarkable. D-dimer was elevated at 1.11. BNP is elevated at 3789 with no recent comparisons. She had a normal EF on her echo last hospitalization. CTA imaging was ordered which shows a new moderate right pleural effusion and a collapsed right middle lobe. Small left pleural effusion. Spoke to Dr. Calderón recommend speaking to the hospitalist for possible admission. I did speak to Dr. Yoon who accepts hospitalization. Medical Records I reviewed the patient's medical records. Lab Data I reviewed the patient's lab results. 01/10/25 21:37 01/10/25 21:37 Labs/Radiology: Radiology Impressions Chest X-Ray 01/10/25 20:39 IMPRESSION: 1. Small right pleural effusion. 2. Bibasilar right greater than left atelectasis versus infiltrate. 3. Cardiomegaly. 4. Emphysematous changes. Chest CTA 01/10/25 22:13 IMPRESSION: 1. No pulmonary emboli. 2. The right middle lobe is completely collapsed. New moderate right and small left pleural effusions. Laboratory Results WBC 3.06 10^3/uL (3.29-11.43) L 01/10/25 21:37 RBC 3.96 10^6/uL (3.85-5.65) 01/10/25 21:37 Hgb 11.50 g/dL (11.27-16.99) 01/10/25 21:37 Hct 37.0 % (36-47) 01/10/25 21:37 MCV 93.4 fl (85-98) 01/10/25 21:37 MCH 29.0 pg (27-33) 01/10/25 21:37 MCHC 31.1 g/dL (30-55) 01/10/25 21:37 RDW 13.1 % (12.1-15.1) 01/10/25 21:37 Plt Count 180 10^3/cmm (157-399) 01/10/25 21:37 MPV 8.8 fL (7.4-10.4) 01/10/25 21:37 Neut % (Auto) 68.7 % 01/10/25 21:37 Lymph % (Auto) 21.2 % 01/10/25 21:37 Leslie % (Auto) 7.8 % 01/10/25 21:37 Eos % (Auto) 2.0 % 01/10/25 21:37 Baso % (Auto) 0.3 % 01/10/25 21:37 Neut # (Auto) 2.10 10^3/uL (1.8-7.7) 01/10/25 21:37 Lymph # (Auto) 0.7 10^3/uL (0.8-4.8) L 01/10/25 21:37 Leslie # (Auto) 0.2 10^3/uL (0.2-0.9) 01/10/25 21: Eos # (Auto) 0.1 10^3/uL (0.0-0.8) 01/10/25 21: Baso # (Auto) 0.0 10^3/uL (0.0-0.1) 01/10/25 21: Nucleated RBC % (auto) 0 % 01/10/25 21: Nucleated RBCs # 0.0 /100WBC 01/10/25 21:37 D-Dimer 1.11 ug/mLFEU (0-0.59) H 01/10/25 21:37 Sodium 140 mmol/L (136-145) 01/10/25 21:37 Potassium 4.1 mmol/L (3.5-5.1) 01/10/25 21:37 Chloride 101 mmol/L (98-107) 01/10/25 21:37 Carbon Dioxide 31 mmol/L (22-29) H 01/10/25 21:37 Anion Gap 12.1 (5-19) 01/10/25 21:37 BUN 10 mg/dL (8-23) 01/10/25 21:37 Creatinine 0.8 mg/dL (0.5-0.9) 01/10/25 21:37 GFR Calculation Not Reportable 01/10/25 21: Glucose 101 mg/dL (65-115) 01/10/25 21:37 Calculated Osmolality 289 mOsm/kg (285-295) 01/10/25 21:37 Calcium 8.8 mg/dL (8.5-10.5) 01/10/25 21:37 Total Bilirubin 0.4 mg/dL (0.15-1.2) 01/10/25 21:37 AST 16 U/L (0-32) 01/10/25 21:37 ALT 11 U/L (0-33) 01/10/25 21:37 Alkaline Phosphatase 82 U/L (35-105) 01/10/25 21:37 Lactate Dehydrogenase 210 U/L (135-214) 01/10/25 21:37 NT-Pro-B Natriuret Pep 3789 pg/mL (0-450) H 01/10/25 21:37 Total Protein 6.8 g/dL (6.6-8.7) 01/10/25 21:37 Albumin 3.8 g/dL (3.5-5.2) 01/10/25 21:37 Globulin 3.0 g/dL (1.3-4.6) 01/10/25 21:37 Procalcitonin 0.02 ng/mL (0-0.5) 01/10/25 21:37 All radiology interpretation(s) finalized by discharge Discharge Plan Discharge Patient Disposition: Admitted As Inpatient Admit Provider: Harmeet Yoon Clinical Impression: Pleural effusion, COPD (chronic obstructive pulmonary disease) Condition: Stable Coding Level of Care Code ED [employer] for Andrea Roth
[2025-01-10 20:56] VITALS: BP 158/87; O2SAT 92
[2025-01-10 21:45] LABS: Basophils % 0.3 %; Eosinophils # 0.1 10^3/uL (0.0-0.8); Lymphocytes # 0.7 10^3/uL (0.8-4.8); Lymphocytes % 21.2 %; Mean Corpuscular HGB Conc 31.1 g/dL (30-55); Mean Corpuscular Volume 93.4 fl (85-98); Mean Platelet Volume 8.8 fL (7.4-10.4); Monocytes # 0.2 10^3/uL (0.2-0.9); Monocytes % 7.8 %; Neutrophils % 68.7 %; Nucleated Red Blood Cells % 0 %; Platelet Count 180 10^3/cmm (157-399); Red Blood Count 3.96 10^6/uL (3.85-5.65); Red Cell Distribution Width 13.1 % (12.1-15.1); White Blood Count 3.06 10^3/uL (3.29-11.43)
[2025-01-10 22:03] LABS: D Dimer 1.11 ug/mLFEU (0-0.59)
--- NOTE | 2025-01-10 22:13 | CTR_ITS ---
PROCEDURE INFORMATION: Exam: CTA Chest With Contrast Exam date and time: 01/10/2025 10:28 PM Age: 74 years old Clinical indication: Abnormal findings; Abnormal diagnostic tests; Elevated d-dimer; Shortness of breath; SOB with hypoxia. Dimer 1.11. ; Additional info: Dyspnea, elevated ddimer TECHNIQUE: Imaging protocol: Computed tomographic angiography of the chest with contrast. Exam focused on the arteries. 3D rendering (Not supervised by radiologist): MIP and/or 3D reconstructed images were created by the technologist. Radiation optimization: All CT scans at this facility use at least one of these dose optimization techniques: automated exposure control; mA and/or kV adjustment per patient size (includes targeted exams where dose is matched to clinical indication); or iterative reconstruction. Contrast material: OMNI 350; Contrast volume: 61 ml; Contrast route: INTRAVENOUS (IV); COMPARISON: CT angio chest PE prot [id number] 12/15/2024 1:16 PM RADIATION DOSE METRICS: Total DLP (mGy-cm): 369.19 FINDINGS: Pulmonary arteries: No pulmonary emboli. Aorta: Unremarkable. No aortic aneurysm. No aortic dissection. Lungs: The right middle lobe is completely collapsed. New moderate right and small left pleural effusions. Pleural spaces: See Lungs finding. Heart: Unremarkable. No cardiomegaly. No pericardial effusion. Lymph nodes: Unremarkable. No enlarged lymph nodes. Bones/joints: Unremarkable. No acute fracture. Soft tissues: Unremarkable. CT/CT angio chest PE protcl [id number] IMPRESSION: 1. No pulmonary emboli. 2. The right middle lobe is completely collapsed. New moderate right and small left pleural effusions.
[2025-01-10 22:15] LABS: NT Pro B Type Natriuretic Pept 3789 pg/mL (0-450); Procalcitonin 0.02 ng/mL (0-0.5)
[2025-01-10 22:26] LABS: Alanine Aminotransferase 11 U/L (0-33); Albumin Level 3.8 g/dL (3.5-5.2); Alkaline Phosphatase 82 U/L (35-105); Anion Gap 12.1 (5-19); Aspartate Amino Transferase 16 U/L (0-32); Blood Urea Nitrogen 10 mg/dL (8-23); Calcium 8.8 mg/dL (8.5-10.5); Carbon Dioxide 31 mmol/L (22-29); Chloride 101 mmol/L (98-107); Creatinine Clr Calc Pharmacy 67.6855; Glucose 101 mg/dL (65-115); Osmolality Calculated 289 mOsm/kg (285-295); Potassium 4.1 mmol/L (3.5-5.1); Sodium 140 mmol/L (136-145); Total Bilirubin 0.4 mg/dL (0.15-1.2); Total Protein 6.8 g/dL (6.6-8.7)
[2025-01-10] MEDS: iohexol 350 mg/mL 500 mL Btl (per mL) IV (22:33)
[2025-01-10 22:52] VITALS: BP 186/75; PULSE 79; RESP 14; O2SAT 95
[2025-01-11] VITALS (16 sets, daily range): BP systolic 101–183; BP diastolic 64–90; PULSE 69–103; RESP 16–26; TEMP 36.4–36.8; O2SAT 91–95; BMI 25.8
--- NOTE | 2025-01-11 00:16 | P.HP_ITS ---
Providers/Chief Complaint 2 Primary Care Provider: January Whitehead DO Chief Complaint: BP high low O2 Shortness of Breath History of Present Illness Georgia Ballesteros is a 74 year old female who carries history of bipolar disorder/restrictive lung disease/hypothyroidism/anxiety/COPD, uses 3 L of oxygen at baseline, recently had stress test and echo done which showed diastolic dysfunction negative coronary ischemic workup, she was discharged on oxygen, steroids presenting today with worsening of shortness of breath. Workup in the ER consistent with new onset pleural effusion right greater than left, patient oxygen requirement has not worsened she is still on 3 L. Patient is complaining of worsening of shortness of breath however saturating well on 3 L nasal cannula 95%, she is afebrile with leukopenia, I have requested respiratory panel and thoracentesis. Patient is stating that she has chronic shortness of breath which has not significantly improved but in the last 2 to 3 days she has been experiencing orthopnea PND and worsening of shortness of breath at rest, at baseline she would experience shortness of breath on exertion and now experiencing at rest. She has not noticed any significant cough with sputum production, fever chest pain nausea, vomiting or diarrhea. She has been noticing fluid weight gain, endorsing puffiness of her all 4 extremities. Review of Systems 2 Const: Reports: chills and change in weight Eyes: Denies: change in vision ENMT: Denies: throat pain Card: Denies: chest pain Resp: Reports: dyspnea GI: Denies: abdominal pain : Denies: flank pain Medications/Allergies Home Medications ?Medication ?Instructions ?Recorded ?Confirmed ?Last Taken ?Type morphine 30 mg immediate release 30 mg PO Q6H PRN Pain 12/25/19 01/03/25 12/15/24 06:00 History tablet Bone stem #1 ea 04/28/21 01/03/25 Unkn own Rx Custom Molded Orthotics #1 ea 04/08/22 01/03/25 Unkn own Rx Custom Molded Orthotics- Sport low #1 ea 04/08/2212/22 Unknown Rx profile with a Reverse Zapata Pad zoledronic acid 5 mg/100 mL in 1 ea IV .ONCE 2 YEAR Os teopenia 03/03/23 01/03/25 2 Years Ago History mannitol 5 %-water intravenous ~10/25 piggybck (Reclast) CAM walker #1 ea 12/15/23 01/03/25 Unkn own Rx diclofenac sodium 1 % topical gel 2 g topical BID PRN Pain #100 grams 03/18/24 01/03/25 09/25/24 Rx diphenoxylate-atropine 2.5 1 tab PO DAILY PRN diarrhea #90 04/18/24 01/03/25 04/11/24 Rx mg-0.025 mg tablet tabs dicyclomine 10 mg capsule 10 mg PO DAILY PRN Abdominal Pain 04/20/24 01/03/25 12/14/24 History tizanidine 4 mg tablet 1 mg PO DAILY 05/03/2401/0312/14/24 20:00 History ASO #1 ea 06/13/24 01/03/25 Unkn own Rx arformoterol 15 mcg/2 mL solution 2 ml inhalation BID #120 mL 09/11/24 01/03/25 10/25/24 Rx for nebulization (Brovana) budesonide 0.25 mg/2 mL suspension 0.25 mg (2 mL) inha lation BID #60 09/11/24 01/03/25 Unknown Rx for nebulization (Pulmicort) mL cetirizine 10 mg tablet 10 mg PO DAILY allergies #90 tabs 10/22/24 01/03/25 12/15/24 Rx cyclobenzaprine 10 mg tablet 10 mg PO TID PRN muscle s pasm #21 10/26/24 01/03/25 12/14/24 20:00 Rx tabs ondansetron HCl 4 mg tablet 4 mg PO DAILY PRN Nausea A nd 12/07/24 01/03/25 Unknown Rx Vomiting #30 tabs estradiol 2 mg tablet 2 mg PO DAILY #30 tabs 12/1301/03/25 12/15/24 06:00 Rx albuterol sulfate 2.5 mg/0.5 mL 2.5 mg (0.5 mL) inhala tion Q6H PRN 12/19/24 01/03/25 Unknown Rx solution for nebulization shortness of breath or wheez ing #30 ea prednisone 20 mg tablet See Rx Instructions .Route 0 12/19/24 01/03/25 Unknown Rx .COMPLEX #15 tabs quetiapine 100 mg tablet 300 mg (3 x 100 mg) PO DAILY #90 12/27/24 01/03/25 Unknown Rx tabs quetiapine 25 mg tablet 25 mg PO BID PRN Anxiety #60 tabs 12/27/24 01/03/25 Unknown Rx levothyroxine 75 mcg tablet 75 mcg PO DAILY #90 tabs 0 01/02/25 01/03/25 Unknown Rx escitalopram oxalate 20 mg tablet 20 mg PO DAILY #30 t abs 01/03/25 01/03/25 Unknown Rx lamotrigine 150 mg tablet 300 mg (2 x 150 mg) PO DAILY #60 01/03/25 01/03/25 Unknown Rx tabs methylphenidate HCl 20 mg tablet 20 mg PO DAILY 30 day s #30 tabs 01/03/25 01/03/25 Unknown Rx methylphenidate HCl 20 mg tablet 20 mg PO DAILY 30 day s #30 tabs 01/03/25 01/03/25 Unknown Rx methylphenidate HCl 20 mg tablet 20 mg PO DAILY 30 day s #30 tabs 01/03/25 01/03/25 Unknown Rx Allergies Allergy/AdvReac Type Severity Reaction Status Date / Time adhesive tape Allergy ADR-Itching Verified 01/10/25 20:26 sumatriptan (From Imitrex) Allergy ADR-Dry Verified 01/10/25 20:26 Mucus Membranes Macrolide Antibiotics AdvReac C Diff Verified 01/10/25 20:26 PFSH Acute 2 PFSH: Medical History On combination antipsychotic drug therapy COPD (chronic obstructive pulmonary disease) case management patient Former smoker POP-Q stage 3 rectocele Surgery 09/27/2023 Dr. Fabian Painful orthopaedic hardware Bipolar disorder, current episode depressed, severe, without psychotic features Hyperlipidemia Hammer toe Acquired hammertoe of right foot Ganglion cyst of finger of left hand Fracture of toe with nonunion Fracture of second toe, left, closed Hallux valgus (acquired), right foot Right foot pain Psychiatric care IBS (irritable bowel syndrome) Mixed restrictive and obstructive lung disease Fibromyalgia Osteoarthritis Bipolar 1 disorder Hypothyroidism Surgical History S/P foot surgery S/P foot surgery S/P foot surgery S/P foot surgery, left History of hand surgery left thumb IP joint fusion History of surgery on upper extremity Left shoulder - 1997 H/O pelvic surgery (~09/27/23) Anterior colporrhaphy augmented with allograft, single incision mid urethral sling, posterior colporrhaphy for Cystocele stage 2, rectocele stage 3 and mixed incontinence. Performed by R[facility] at [facility] H/O: hysterectomy History of cholecystectomy History of lumpectomy History of foot surgery Family History Mother Cancer Grandmother Cancer Social History Smoking and tobacco/nicotine status: former use of tobacco/nicotine Quit status (tobacco/nicotine): has quit using Alcohol intake: former Substance/Drug Use: former Vitals/I&O/Wt Last Vital Signs Temp 98.5 F 01/10/25 20:21 Pulse 79 01/10/25 22:52 Resp 14 01/10/25 22:52 BP 186/75 01/10/25 22:52 Pulse Ox 95 01/10/25 22:52 O2 Del Method Room Air 01/10/25 22:52 Weight last 48 hrs Weight 77.111 kg Physical Exam 2 Narrative: Signs of fluid overload present Currently on 3 L Bilateral breath sounds with rhonchi diminished breath sound the bases GCS 15 AOx4 Nonfocal neuroexam S1, S2 No active chest pain No active respiratory distress Pleasant and cooperative Nontender abdomen Data 01/10/25 21:37 01/10/25 21:37 A&P Assessment and plan (1) Diastolic CHF, acute: (2) Pleural effusion: (3) Chronic fatigue syndrome: (4) Former smoker: Plan Acute diastolic CHF exacerbation Clinical signs of fluid overload Start IV diuretics Recent echo showed grade 1 diastolic function with preserved EF, recent stress test unremarkable for coronary ischemia No active chest pain Bilateral pleural effusion: Right greater than left: Requested thoracentesis because of symptomatic effusion Requested thoracentesis with cytology D-dimer is high no signs of PE Chronic hypoxia: Currently requiring 3 L which is her baseline Leukopenia noted, requested respiratory panel along MRSA Procalcitonin not high, no active infiltrate on CT scan hold off on antibiotics Patient lives alone, Stating that in case she is not able to make decision we should call her friend Juan Carlos Granado Patient is full code Low-sodium fluid restricted diet DVT prophylaxis SCDs: Avoiding anticoagulating agent in anticipation of thoracentesis PDMP PDMP Reviewed: Not Reviewed Attestations 2 Medical Necessity Statement*: Anticipating discharge within 24 to 48 hours Diagnoses Diastolic CHF, acute I50.31 Pleural effusion J90 Chronic fatigue syndrome R53.82 Former smoker Z87.896
--- NOTE | 2025-01-11 00:16 | US_ITS ---
WS: [id number] Ultrasound RIGHT chest INDICATION: Pleural effusion TECHNIQUE: Ultrasound RIGHT chest FINDINGS: Ultrasound RIGHT chest. Small RIGHT pleural effusion with RIGHT basilar atelectasis. Insufficient fluid for safe thoracentesis. US/US chest [id number] IMPRESSION: See above
--- NOTE | 2025-01-11 00:45 | PC.NURSE ---
GAVE [address] Willams VERBAL ORDER
[2025-01-11] MEDS: FUROsemide 10 mg/mL SDV 10mL 60 MG IVP (00:50)
[2025-01-11 00:55] LABS: Lactate Dehydrogenase 210 U/L (135-214)
--- NOTE | 2025-01-11 01:58 | PC.NURSE ---
called dr about pts elevated bp, no orders given.
[2025-01-11 02:17] LABS: MRSA PCR OZH (swab) NOT DETECTED (Not Detecte)
[2025-01-11] MEDS: hyDRALAzine 20 mg/mL INJ 1 mL 10 MG IVP ×2 (02:49→17:27)
[2025-01-11] MEDS: morphine IR 15 mg Tablet PO ×3 (02:50→18:39)
[2025-01-11] MEDS: levothyroxine 150 mcg Tablet 75 MCG PO (05:33)
[2025-01-11] MEDS: acetaminophen 500 mg Tablet PO (05:34)
[2025-01-11 05:53] LABS: Basophils % 0.5 %; Eosinophils # 0.1 10^3/uL (0.0-0.8); Eosinophils % 1.8 %; Hematocrit 41.8 % (36-47); Lymphocytes % 24.9 %; Mean Corpuscular HGB Conc 31.1 g/dL (30-55); Mean Corpuscular Hemoglobin 29.5 pg (27-33); Monocytes # 0.4 10^3/uL (0.2-0.9); Monocytes % 9.1 %; Neutrophils # 2.51 10^3/uL (1.8-7.7); Neutrophils % 63.2 %; Nucleated Red Blood Cells % 0 %; Platelet Count 214 10^3/cmm (157-399); Red Cell Distribution Width 13.1 % (12.1-15.1); White Blood Count 3.97 10^3/uL (3.29-11.43)
[2025-01-11 06:17] LABS: Anion Gap 14.4 (5-19); Blood Urea Nitrogen 9 mg/dL (8-23); Calcium 9.3 mg/dL (8.5-10.5); Carbon Dioxide 33 mmol/L (22-29); Chloride 97 mmol/L (98-107); Creatinine Clr Calc Pharmacy 68.2403; Glucose 93 mg/dL (65-115); Osmolality Calculated 290 mOsm/kg (285-295); Phosphorus 2.4 mg/dL (2.5-4.5); Potassium 3.4 mmol/L (3.5-5.1); Sodium 141 mmol/L (136-145)
[2025-01-11] MEDS: budesonide 0.5 mg/2 mL Neb INHALATION ×2 (08:07→20:39)
[2025-01-11] MEDS: ipratropium-albuterol 3 mL Neb INHALATION (08:07)
[2025-01-11] MEDS: sennosides-docusate Tablet 1 TAB PO (09:23)
[2025-01-11] MEDS: pneumococcal (23 valent) SDV 0.5 mL IM (10:40)
[2025-01-11] MEDS: FUROsemide 10 mg/mL SDV 10mL 40 MG IVP (12:28)
--- NOTE | 2025-01-11 12:58 | PM.MISC ---
Miscellaneous Note Note: seen today lungs decreased air entry b/l no apparent crackles insufficient fluid to drain on thoracentesis will continue lasix 40 iv daily, decreased dose from bid to qd place on solumedrol 40 q12h pt was sent home last time on prednisone taper. she states she does not really feel better will need pulmonology consultation if does not continue to improve, may consider transfer to higher level care facility for pulm consult
[2025-01-11] MEDS: methylPREDNISolone sod succ 40 mg/mL INJ IVP (13:57)
[2025-01-11] MEDS: quetiapine 25 mg Tablet PO (15:48)
[2025-01-11] MEDS: lamoTRIgine 100 mg Tablet 300 MG PO (15:48)
[2025-01-11] MEDS: cyclobenzaprine 10 mg Tablet PO (15:55)
[2025-01-11] MEDS: ondansetron 2 mg/ML SDV 2 mL 4 MG IVP (17:27)
[2025-01-11 20:17] LABS: Adenovirus Not Detected (NOT DETECT); Chlamydia Pneumoniae Not Detected (NOT DETECT); Coronavirus 229E,HKU1,NL63,OC4 Not Detected (NOT DETECT); Human Metapneumovirus Not Detected (NOT DETECT); Human Rhinovirus/Enterovirus Not Detected (NOT DETECT); Influenza A Not Detected (NOT DETECT); Influenza A H1 Not Detected (NOT DETECT); Influenza A H1-2009 Not Detected (NOT DETECT); Influenza A H3 Not Detected (NOT DETECT); Influenza B Not Detected (NOT DETECT); Mycoplasma Pneumoniae Not Detected (NOT DETECT); Parainfluenza Virus Type 1 Not Detected (NOT DETECT); Parainfluenza Virus Type 2 Not Detected (NOT DETECT); Parainfluenza Virus Type 3 Not Detected (NOT DETECT); Parainfluenza Virus Type 4 Not Detected (NOT DETECT); Respiratory Syncytial Virus A Not Detected (NOT DETECT); Respiratory Syncytial Virus B Not Detected (NOT DETECT); SARS-COV-2 Not Detected (NOT DETECT)
[2025-01-11] MEDS: quetiapine 300 mg Tablet PO (20:25)
[2025-01-11] MEDS: escitalopram 10 mg Tablet PO (21:26)
[2025-01-12] VITALS (10 sets, daily range): BP systolic 114–147; BP diastolic 64–80; PULSE 70–112; RESP 14–18; TEMP 36.4–36.9; O2SAT 90–96
[2025-01-12] MEDS: methylPREDNISolone sod succ 40 mg/mL INJ IVP ×2 (00:05→13:02)
[2025-01-12] MEDS: cyclobenzaprine 10 mg Tablet PO ×4 (00:05→23:31)
[2025-01-12] MEDS: FUROsemide 10 mg/mL SDV 10mL 40 MG IVP ×2 (00:05→13:02)
[2025-01-12] MEDS: morphine IR 15 mg Tablet PO ×4 (00:42→19:59)
[2025-01-12] MEDS: levothyroxine 150 mcg Tablet 75 MCG PO (05:13)
[2025-01-12 05:52] LABS: Eosinophils % 0.4 %; Hematocrit 45.8 % (36-47); Lymphocytes # 0.4 10^3/uL (0.8-4.8); Mean Corpuscular HGB Conc 31.9 g/dL (30-55); Mean Corpuscular Hemoglobin 29.3 pg (27-33); Mean Corpuscular Volume 91.8 fl (85-98); Mean Platelet Volume 8.7 fL (7.4-10.4); Monocytes # 0.1 10^3/uL (0.2-0.9); Monocytes % 1.8 %; Neutrophils # 2.38 10^3/uL (1.8-7.7); Neutrophils % 83.4 %; Nucleated Red Blood Cells % 0 %; Platelet Count 299 10^3/cmm (157-399); Red Blood Count 4.99 10^6/uL (3.85-5.65); Red Cell Distribution Width 13.4 % (12.1-15.1); White Blood Count 2.85 10^3/uL (3.29-11.43)
[2025-01-12 06:12] LABS: C Reactive Protein 17.3 mg/L (0.0-4.9); Magnesium 2.2 mg/dL (1.7-2.3)
[2025-01-12 06:14] LABS: Anion Gap 15.3 (5-19); Blood Urea Nitrogen 13 mg/dL (8-23); Calcium 9.4 mg/dL (8.5-10.5); Carbon Dioxide 32 mmol/L (22-29); Chloride 95 mmol/L (98-107); Creatinine Clr Calc Pharmacy 68.0335; Glucose 133 mg/dL (65-115); Osmolality Calculated 288 mOsm/kg (285-295); Potassium 4.3 mmol/L (3.5-5.1); Sodium 138 mmol/L (136-145)
[2025-01-12] MEDS: tizanidine 4 mg Tablet 1 MG PO (08:08)
[2025-01-12] MEDS: lamoTRIgine 100 mg Tablet 300 MG PO (08:08)
[2025-01-12] MEDS: sennosides-docusate Tablet 1 TAB PO (08:08)
[2025-01-12] MEDS: azithromycin 250 mg Tablet 500 MG PO (08:08)
[2025-01-12] MEDS: budesonide 0.5 mg/2 mL Neb INHALATION ×2 (09:03→19:22)
--- NOTE | 2025-01-12 13:48 | P.PN_ITS ---
Subjective 2 Subjective: Patient states she can breathe better after steroid administration yesterday. She is less anxious today. Overall improving slowly. Vitals/I&O/Wt Last Vital Signs Temp 97.6 F 01/12/25 11:52 Pulse 70 01/12/25 11:52 Resp 16 01/12/25 13:02 BP 114/73 01/12/25 11:52 Pulse Ox 96 01/12/25 11:52 O2 Del Method Nasal Cannula 01/12/25 11:52 O2 Flow Rate 1 01/12/25 08:00 01/11/25 01/12/25 01/12/25 22:59 06:59 14:59 Intake Total 120 / 240 120 / 120 Output Total 1999 Balance -1880 / -1760 120 / 120 Weight last 48 hrs Weight 78.018 kg Weight 78.471 kg Weight 78.557 kg Weight 79.379 kg Weight 77.111 kg Physical Exam 2 Narrative: Appears euvolemic today. On 1 L nasal cannula. Bilateral breath sounds with rhonchi diminished breath sound the bases GCS 15 AOx4 Nonfocal neuroexam S1, S2 No active chest pain No active respiratory distress Pleasant and cooperative Nontender abdomen Data 01/12/25 05:09 01/12/25 05:09 A&P Assessment and plan (1) Diastolic CHF, acute: (2) Pleural effusion: (3) Chronic fatigue syndrome: (4) Former smoker: (5) Hypoxia: (6) COPD exacerbation: Plan Acute diastolic CHF exacerbation Clinical signs of fluid overload Start IV diuretics Recent echo showed grade 1 diastolic function with preserved EF, recent stress test unremarkable for coronary ischemia No active chest pain Bilateral pleural effusion: Right greater than left: Requested thoracentesis because of symptomatic effusion Requested thoracentesis with cytology D-dimer is high no signs of PE Chronic hypoxia: Currently requiring 3 L which is her baseline Leukopenia noted, requested respiratory panel along MRSA Procalcitonin not high, no active infiltrate on CT scan hold off on antibiotics Patient lives alone, Stating that in case she is not able to make decision we should call her friend Juan Carlos Granado Patient is full code Low-sodium fluid restricted diet DVT prophylaxis SCDs: Avoiding anticoagulating agent in anticipation of thoracentesis 01/12/2025 Insufficient fluid to drain via thoracentesis. Continue to diurese with Lasix 40 IV daily Continue Solu-Medrol 40 twice daily. Patient starting to feel better. If continues to improve may consider discharge on Tuesday. Patient does have diastolic heart failure. She is down to 1 L nasal cannula and 1.6 L negative since admission. Air entry has improved compared to yesterday. She definitely has a component of heart failure and COPD exacerbation. Continue to monitor urine output. Strict I's and O's. PDMP PDMP Reviewed: Not Reviewed Attestations 2 Medical Necessity Statement*: Patient is slowly improving. Will require further diuresis with IV Lasix and IV Solu-Medrol. Plan to discharge in next 24 to 48 hours pending clinical improvement. Diagnoses Diastolic CHF, acute I50.31 Pleural effusion J90 Chronic fatigue syndrome R53.82 Former smoker Z87.891 Hypoxia R09.02 COPD exacerbation J44.1
[2025-01-12] MEDS: ipratropium-albuterol 3 mL Neb INHALATION (19:22)
[2025-01-12] MEDS: quetiapine 300 mg Tablet PO (19:59)
[2025-01-12] MEDS: escitalopram 10 mg Tablet PO (20:00)
[2025-01-13] VITALS (10 sets, daily range): BP systolic 101–126; BP diastolic 49–74; PULSE 54–85; RESP 16–20; TEMP 36.5–36.8; O2SAT 68–94
[2025-01-13] MEDS: methylPREDNISolone sod succ 40 mg/mL INJ IVP ×2 (00:04→12:03)
[2025-01-13] MEDS: morphine IR 15 mg Tablet PO ×2 (02:32→09:34)
[2025-01-13] MEDS: levothyroxine 150 mcg Tablet 75 MCG PO (05:29)
[2025-01-13 05:52] LABS: Hematocrit 40.6 % (36-47); Lymphocytes # 0.5 10^3/uL (0.8-4.8); Lymphocytes % 8.5 %; Mean Corpuscular HGB Conc 31.5 g/dL (30-55); Mean Corpuscular Hemoglobin 29.1 pg (27-33); Mean Corpuscular Volume 92.3 fl (85-98); Mean Platelet Volume 8.9 fL (7.4-10.4); Monocytes # 0.2 10^3/uL (0.2-0.9); Monocytes % 2.3 %; Neutrophils # 5.68 10^3/uL (1.8-7.7); Neutrophils % 88.9 %; Nucleated Red Blood Cells % 0 %; Platelet Count 324 10^3/cmm (157-399); Red Cell Distribution Width 13.7 % (12.1-15.1); White Blood Count 6.39 10^3/uL (3.29-11.43)
[2025-01-13 06:08] LABS: Blood Urea Nitrogen 22 mg/dL (8-23); Calcium 9.3 mg/dL (8.5-10.5); Carbon Dioxide 32 mmol/L (22-29); Chloride 97 mmol/L (98-107); Creatinine Clr Calc Pharmacy 60.3504; Glucose 131 mg/dL (65-115); Osmolality Calculated 291 mOsm/kg (285-295); Sodium 138 mmol/L (136-145)
[2025-01-13] MEDS: azithromycin 250 mg Tablet 500 MG PO (09:34)
[2025-01-13] MEDS: tizanidine 4 mg Tablet 1 MG PO (09:34)
[2025-01-13] MEDS: sennosides-docusate Tablet 1 TAB PO (09:35)
[2025-01-13] MEDS: lamoTRIgine 100 mg Tablet 300 MG PO (09:35)
[2025-01-13] MEDS: FUROsemide 10 mg/mL SDV 4mL 40 MG IVP (12:03)
--- NOTE | 2025-01-13 14:38 | P.PN_ITS ---
Subjective 2 Subjective: Seen this morning. No acute events overnight Patient subjectively starting to feel better. She is on 1 L nasal cannula. Vitals/I&O/Wt Last Vital Signs Temp 98.0 F 01/13/25 12:00 Pulse 54 L 01/13/25 12:00 Resp 19 H 01/13/25 12:00 BP 101/49 01/13/25 12:00 Pulse Ox 93 01/13/25 12:00 O2 Del Method Room Air 01/13/25 12:00 O2 Flow Rate 1 01/12/25 20:00 01/12/25 01/13/25 01/13/25 22:59 06:59 14:59 Intake Total 120 / 360 840 / 840 Output Total 800 / 800 Balance -680 / -440 840 / 840 Weight last 48 hrs Weight 77.655 kg Weight 78.018 kg Physical Exam 2 Narrative: Bulimic today. Transitioning between 1 L nasal cannula and room air. To auscultation bilaterally no wheezes no rhonchi no crackles appreciated today. Great bilateral air entry. GCS 15 AOx4 Nonfocal neuroexam S1, S2 No active chest pain No active respiratory distress Pleasant and cooperative Nontender abdomen Data 01/13/25 04:58 01/13/25 04:58 A&P Assessment and plan (1) Diastolic CHF, acute: (2) Pleural effusion: (3) Chronic fatigue syndrome: (4) Former smoker: (5) Hypoxia: (6) COPD exacerbation: Plan Acute diastolic CHF exacerbation Clinical signs of fluid overload Start IV diuretics Recent echo showed grade 1 diastolic function with preserved EF, recent stress test unremarkable for coronary ischemia No active chest pain Bilateral pleural effusion: Right greater than left: Requested thoracentesis because of symptomatic effusion Requested thoracentesis with cytology D-dimer is high no signs of PE Chronic hypoxia: Currently requiring 3 L which is her baseline Leukopenia noted, requested respiratory panel along MRSA Procalcitonin not high, no active infiltrate on CT scan hold off on antibiotics Patient lives alone, Stating that in case she is not able to make decision we should call her friend Juan Carlos Granado Patient is full code Low-sodium fluid restricted diet DVT prophylaxis SCDs: Avoiding anticoagulating agent in anticipation of thoracentesis 01/12/2025 Insufficient fluid to drain via thoracentesis. Continue to diurese with Lasix 40 IV daily Continue Solu-Medrol 40 twice daily. Patient starting to feel better. If continues to improve may consider discharge on Tuesday. Patient does have diastolic heart failure. She is down to 1 L nasal cannula and 1.6 L negative since admission. Air entry has improved compared to yesterday. She definitely has a component of heart failure and COPD exacerbation. Continue to monitor urine output. Strict I's and O's. 01/13/2025 Plan for discharge home in a.m. Stop IV Lasix today transition to oral and watch response. Continue Solu-Medrol 40 twice daily. ? Patient has 1.8 L negative since admission. Lung sounds have improved significantly. Discussed with patient regarding going home in the morning and she is agreeable. PDMP PDMP Reviewed: Not Reviewed Attestations 2 Medical Necessity Statement*: CHF and COPD exacerbation, plan for discharge in a.m. Diagnoses Diastolic CHF, acute I50.31 Pleural effusion J90 Chronic fatigue syndrome R53.82 Former smoker Z87.891 Hypoxia R09.02 COPD exacerbation J44.1
[2025-01-13] MEDS: morphine IR 15 mg Tablet 30 MG PO ×2 (16:44→20:46)
[2025-01-13] MEDS: budesonide 0.5 mg/2 mL Neb INHALATION (20:46)
[2025-01-13] MEDS: quetiapine 300 mg Tablet PO (20:46)
[2025-01-13] MEDS: escitalopram 10 mg Tablet PO (20:47)
[2025-01-13] MEDS: cyclobenzaprine 10 mg Tablet PO (21:45)
[2025-01-14] VITALS (8 sets, daily range): BP systolic 107–174; BP diastolic 60–74; PULSE 68–91; RESP 14–20; TEMP 36.5–36.7; O2SAT 90–96
[2025-01-14] MEDS: methylPREDNISolone sod succ 40 mg/mL INJ IVP (00:24)
[2025-01-14 03:53] LABS: Basophils % 0.1 %; Eosinophils % 0.1 %; Hematocrit 45.1 % (36-47); Lymphocytes # 1.1 10^3/uL (0.8-4.8); Lymphocytes % 16.8 %; Mean Corpuscular HGB Conc 29.9 g/dL (30-55); Mean Corpuscular Volume 96.8 fl (85-98); Mean Platelet Volume 9.3 fL (7.4-10.4); Monocytes # 0.4 10^3/uL (0.2-0.9); Monocytes % 5.3 %; Neutrophils # 5.19 10^3/uL (1.8-7.7); Neutrophils % 77.3 %; Nucleated Red Blood Cells % 0 %; Platelet Count 349 10^3/cmm (157-399); Red Blood Count 4.66 10^6/uL (3.85-5.65); Red Cell Distribution Width 13.9 % (12.1-15.1); White Blood Count 6.73 10^3/uL (3.29-11.43)
[2025-01-14 04:17] LABS: Anion Gap 13.7 (5-19); Blood Urea Nitrogen 27 mg/dL (8-23); Calcium 9.6 mg/dL (8.5-10.5); Carbon Dioxide 36 mmol/L (22-29); Chloride 95 mmol/L (98-107); Creatinine Clr Calc Pharmacy 60.3504; Glucose 137 mg/dL (65-115); Magnesium 2.1 mg/dL (1.7-2.3); Osmolality Calculated 299 mOsm/kg (285-295); Potassium 3.7 mmol/L (3.5-5.1); Sodium 141 mmol/L (136-145)
[2025-01-14] MEDS: levothyroxine 150 mcg Tablet 75 MCG PO (05:38)
[2025-01-14] MEDS: budesonide 0.5 mg/2 mL Neb INHALATION (08:23)
[2025-01-14] MEDS: ipratropium-albuterol 3 mL Neb INHALATION (08:23)
[2025-01-14] MEDS: lamoTRIgine 100 mg Tablet 300 MG PO (09:13)
[2025-01-14] MEDS: azithromycin 250 mg Tablet 500 MG PO (09:13)
[2025-01-14] MEDS: FUROsemide 40 mg Tablet PO (09:13)
[2025-01-14] MEDS: sennosides-docusate Tablet 1 TAB PO (09:13)
[2025-01-14] MEDS: tizanidine 4 mg Tablet 1 MG PO (09:14)
[2025-01-14] MEDS: morphine IR 15 mg Tablet 30 MG PO (09:14)
--- NOTE | 2025-01-14 10:17 | PM.DCS ---
Discharge Providers Date of Admission: 01/11/25 10:31 Date of Discharge: January 14, 2025 Attending Provider at Admission: Harmeet Yoon MD Attending Provider at Discharge: Sue Worley MD Primary Care Provider: January Whitehead DO Diagnoses at Discharge Discharge Diagnosis (1) Diastolic CHF, acute: Status: Acute (2) Pleural effusion: Status: Acute (3) Chronic fatigue syndrome: Status: Acute (4) Former smoker: Status: Acute (5) Hypoxia: Status: Acute (6) COPD exacerbation: Status: Acute Reason for Visit Reason for Visit: BP high low O2 Shortness of Breath Hospital Course Hospital Course Patient was admitted for respiratory distress shortness of breath and was diagnosed with COPD and CHF exacerbation. She was diuresed during hospitalization for acute on chronic diastolic heart failure. At this time she was euvolemic and discharged home on Lasix 20 daily along with 8 of potassium. She was also given prednisone taper. Patient feels back to her baseline and is on 1 L nasal cannula versus room air at this time. She will be discharged home in stable condition and will follow-up with cardiology and primary care doctor as outpatient. She was also given azithromycin for anti-inflammatory effect. Physical Exam Narrative: Euvolemic today transitioning between 1 L nasal cannula and room air. To auscultation bilaterally no wheezes no rhonchi no crackles appreciated today. Great bilateral air entry. GCS 15 AOx4 Nonfocal neuroexam S1, S2 No active chest pain No active respiratory distress Pleasant and cooperative Nontender abdomen Discharge Data Studies Completed and Pending Completed Studies During Hospitalization Category Date Time Status CTA chest [CT angio chest PE protcl [id number]] Stat Cat Scan 01/10/25 22:13 Completed XR chest 1V portable [id number] Urgent Exams 01/10/25 20:39 [place] chest [id number] Routine Ultrasound 01/11/25 00:16 Completed Radiology Impressions Chest X-Ray 01/10/25 20:39 IMPRESSION: 1. Small right pleural effusion. 2. Bibasilar right greater than left atelectasis versus infiltrate. 3. Cardiomegaly. 4. Emphysematous changes. Chest CTA 01/10/25 22:13 IMPRESSION: 1. No pulmonary emboli. 2. The right middle lobe is completely collapsed. New moderate right and small left pleural effusions. Chest Ultrasound 01/11/25 00:16 IMPRESSION: See above Laboratory Results WBC 6.73 10^3/uL (3.29-11.43) 01/14/25 02:42 RBC 4.66 10^6/uL (3.85-5.65) 01/14/25 02:42 Hgb 13.50 g/dL (11.27-16.99) 01/14/25 02:42 Hct 45.1 % (36-47) 01/14/25 02:42 MCV 96.8 fl (85-98) 01/14/25 02:42 MCH 29.0 pg (27-33) 01/14/25 02:42 MCHC 29.9 g/dL (30-55) L D 01/14/25 02:42 RDW 13.9 % (12.1-15.1) 01/14/25 02:42 Plt Count 349 10^3/cmm (157-399) 01/14/25 02:42 MPV 9.3 fL (7.4-10.4) 01/14/25 02:42 Neut % (Auto) 77.3 % 01/14/25 02:42 Lymph % (Auto) 16.8 % 01/14/25 02:42 [place] % (Auto) 5.3 % 01/14/25 02:42 Eos % (Auto) 0.1 % 01/14/25 02:42 Baso % (Auto) 0.1 % 01/14/25 02:42 Neut # (Auto) 5.19 10^3/uL (1.8-7.7) 01/14/25 02:42 Lymph # (Auto) 1.1 10^3/uL (0.8-4.8) 01/14/25 02:42 [place] # (Auto) 0.4 10^3/uL (0.2-0.9) 01/14/25 02:42 Eos # (Auto) 0.0 10^3/uL (0.0-0.8) 01/14/25 02:42 Baso # (Auto) 0.0 10^3/uL (0.0-0.1) 01/14/25 02:42 Nucleated RBC % (auto) 0 % 01/14/25 02:42 Nucleated RBCs # 0.0 /100WBC 01/14/25 02:42 D-Dimer 1.11 ug/mLFEU (0-0.59) H 01/10/25 21:37 Sodium 141 mmol/L (136-145) 01/14/25 02:42 Potassium 3.7 mmol/L (3.5-5.1) 01/14/25 02:42 Chloride 95 mmol/L (98-107) L 01/14/25 02:42 Carbon Dioxide 36 mmol/L (22-29) H 01/14/25 02:42 Anion Gap 13.7 (5-19) 01/14/25 02:42 BUN 27 mg/dL (8-23) H 01/14/25 02:42 Creatinine 0.9 mg/dL (0.5-0.9) 01/14/25 02:42 GFR Calculation Not Reportable 01/14/25 02:42 Glucose 137 mg/dL (65-115) H 01/14/25 02:42 Calculated Osmolality 299 mOsm/kg (285-295) H 01/14/25 02:42 Calcium 9.6 mg/dL (8.5-10.5) 01/14/25 02:42 Phosphorus 2.4 mg/dL (2.5-4.5) L 01/11/25 05:15 Magnesium 2.1 mg/dL (1.7-2.3) 01/14/25 02:42 Total Bilirubin 0.4 mg/dL (0.15-1.2) 01/10/25 21:37 AST 16 U/L (0-32) 01/10/25 21:37 ALT 11 U/L (0-33) 01/10/25 21:37 Alkaline Phosphatase 82 U/L (35-105) 01/10/25 21:37 Lactate Dehydrogenase 210 U/L (135-214) 01/10/25 21:37 C-Reactive Protein 17.3 mg/L (0.0-4.9) H 01/12/25 05:09 NT-Pro-B Natriuret Pep 3789 pg/mL (0-450) H 01/10/25 21:37 Total Protein 6.8 g/dL (6.6-8.7) 01/10/25 21:37 Albumin 3.8 g/dL (3.5-5.2) 01/10/25 21:37 Globulin 3.0 g/dL (1.3-4.6) 01/10/25 21:37 Procalcitonin 0.02 ng/mL (0-0.5) 01/10/25 21:37 Nasal MRSA (PCR) Not detected (Not Detecte) 01/11/25 00:49 Adenovirus (PCR) Not detected (NOT DETECT) 01/11/25 18:05 C. pneumoniae DNA (PCR) Not detected (NOT DETECT) 01/11/25 18:05 Coronavirus 229E (PCR) Not detected (NOT DETECT) 01/11/25 18:05 Human Metapneumovir PCR Not detected (NOT DETECT) 01/11/25 18:05 Influenza A (H1) PCR Not detected (NOT DETECT) 01/11/25 18:05 Influ A (H1/09) PCR Not detected (NOT DETECT) 01/11/25 18:05 Influenza A (H3) PCR Not detected (NOT DETECT) 01/11/25 18:05 Influenza Type A (PCR) Not detected (NOT DETECT) 01/11/25 18:05 Influenza Type B (PCR) Not detected (NOT DETECT) 01/11/25 18:05 M. pneumoniae (PCR) Not detected (NOT DETECT) 01/11/25 18:05 Parainfluenza 1 (PCR) Not detected (NOT DETECT) 01/11/25 18:05 Parainfluenza 2 (PCR) Not detected (NOT DETECT) 01/11/25 18:05 Parainfluenza 3 (PCR) Not detected (NOT DETECT) 01/11/25 18:05 Parainfluenza 4 (PCR) Not detected (NOT DETECT) 01/11/25 18:05 RSV Type A (PCR) Not detected (NOT DETECT) 01/11/25 18:05 RSV Type B (PCR) Not detected (NOT DETECT) 01/11/25 18:05 Entero/Rhino (PCR) Not detected (NOT DETECT) 01/11/25 18:05 SARS-CoV-2 (PCR) Not detected (NOT DETECT) 01/11/25 18:05 Vitals Last Vital Signs Temp 98.0 F 01/14/25 08:00 Pulse 79 01/14/25 08:24 Resp 18 01/14/25 09:14 BP 149/74 01/14/25 08:00 Pulse Ox 90 01/14/25 08:24 O2 Del Method Room Air 01/14/25 08:24 O2 Flow Rate 1 01/14/25 04:19 Discharge Plan Discharge Patient Disposition: Home Condition: Stable Prescriptions: New azithromycin 250 mg Tablet 500 mg PO DAILY Qty: 6 0RF prednisone 20 mg tablet See Rx Instructions .ROUTE .COMPLEX Qty: 9 0RF Rx Instructions: 40 mg x 3 days 20 mg x2 d 10 mg x2d then stop furosemide [Lasix] 20 mg tablet 20 mg PO DAILY Qty: 30 0RF potassium chloride 8 mEq capsule, extended release 8 meq PO DAILY Qty: 30 0RF Continued morphine 30 mg tablet 30 mg PO Q6H PRN (Reason: Pain) tizanidine 4 mg tablet 1 mg PO DAILY (DME) ASO See Rx Instructions .Route .MEDSUPPLY Qty: 1 0RF Rx Instructions: As directed lamotrigine 150 mg tablet 300 mg PO DAILY Qty: 60 2RF Rx Instructions: TAKE TWO TABLETS BY MOUTH EVERY DAY escitalopram oxalate 20 mg tablet 20 mg PO DAILY Qty: 30 2RF Rx Instructions: TAKE 1 TABLET BY MOUTH EVERY DAY methylphenidate HCl 20 mg tablet 20 mg PO DAILY 30 Days Qty: 30 0RF (DME) Custom Molded Orthotics- Sport low profile with a Reverse Zapata Pad See Rx Instructions .Route .MEDSUPPLY Qty: 1 0RF Rx Instructions: As directed (DME) Custom Molded Orthotics See Rx Instructions .Route .MEDSUPPLY Qty: 1 0RF Rx Instructions: As directed (DME) CAM walker See Rx Instructions .Route .MEDSUPPLY Qty: 1 0RF Rx Instructions: As directed (DME) Bone stem See Rx Instructions .ROUTE .MEDSUPPLY Qty: 1 0RF Rx Instructions: As directed diclofenac sodium 1 % gel 2 g TOPICAL BID PRN (Reason: Pain) Qty: 100 1RF diphenoxylate-atropine 2.5-0.025 mg tablet 1 tab PO DAILY PRN (Reason: diarrhea) Qty: 90 1RF arformoterol [Brovana] 15 mcg/2 mL solution for nebulization 2 ml inhalation BID Qty: 120 11RF budesonide [Pulmicort] 0.25 mg/2 mL suspension for nebulization 0.25 mg INHALATION BID Qty: 60 1RF cetirizine 10 mg tablet 10 mg PO DAILY Qty: 90 2RF ondansetron HCl 4 mg tablet 4 mg PO DAILY PRN (Reason: Nausea And Vomiting) Qty: 30 0RF Rx Instructions: TAKE ONE TABLET BY MOUTH EVERY DAY NEEDED FOR FOR NAUSEA AND VOMITING estradiol 2 mg tablet 2 mg PO DAILY Qty: 30 0RF Rx Instructions: TAKE 1 TABLET BY MOUTH ONCE DAILY quetiapine 25 mg tablet 25 mg PO BID PRN (Reason: Anxiety) Qty: 60 2RF Rx Instructions: TAKE 1 TABLET BY MOUTH TWICE DAILY NEEDED FOR ANXIETY levothyroxine 75 mcg tablet 75 mcg PO DAILY Qty: 90 0RF Rx Instructions: TAKE ONE TABLET BY MOUTH EVERY DAY zoledronic kzcv-drkmvmxj-eppum [Reclast] 5 mg/100 mL piggyback 1 ea IV .ONCE 2 YEAR Rx Instructions: infusion once every 2 years. dicyclomine 10 mg capsule 10 mg PO DAILY PRN (Reason: Abdominal Pain) Rx Instructions: TAKE ONE CAPSULE BY MOUTH EVERY DAY ORN FOR ABDOMINAL DISCOMFORT cyclobenzaprine 10 mg tablet 10 mg PO TID PRN (Reason: muscle spasm) Qty: 21 1RF quetiapine [Seroquel] 300 mg Tablet 300 mg PO BEDTIME pantoprazole 40 mg Tablet,Delayed Release (Dr/Ec) 40 mg PO DAILY albuterol sulfate 2.5 mg/0.5 mL solution for nebulization 2.5 mg inhalation Q6H PRN (Reason: shortness of breath or wheezing) Qty: 30 0RF Discharge Orders: Discharge Order (Routine); Ordered 01/14/25 Ordered By: Sue Worley Other Ambulatory Orders: Basic Metabolic Panel (Routine) Timeframe: 1 Week Facility: [facility] - Location: Lab - Main Lab Ordered By: Sue Worley Referrals: Norman Benoit M.D [Physician] - 01/30/25 2:45 pm () January Whitehead DO [Primary Care Provider] - 01/21/25 9:00 am () Discharge Diet: Cardiac Discharge Activity: Resume usual activity and Oxygen as instructed Patient Instructions: Furosemide (By mouth) (Lasix), Prednisone (By mouth) (Prednisone Intensol, Prednicot, Deltasone, Naida), Potassium Chloride (By mouth) (K-Dur, K-Willow, K-Tab, Cristino Mur), Azithromycin (By mouth) (Zithromax, Zithromax Tri-Chad, Zithromax..., Heart Failure (DC), CHF Stoplight, Opioid Safety, Pain Management Activity Restrictions/Additional Instructions: please follow up with cardiology and pulmnology as previously directed Discharge Attestations Time Spent in Discharge Care*: greater than 30 min Quality Metrics Clinical Quality Measures [ No reported AMI, CVA or VTE this stay] Coding Level of Care Code 68360 Total time (in minutes) for Discharge: 38 Diagnoses Diastolic CHF, acute I50.31 Pleural effusion J90 Chronic fatigue syndrome R53.82 Former smoker Z87.891 Hypoxia R09.02 COPD exacerbation J44.1
--- NOTE | 2025-01-14 11:22 | PC.SOCIAL ---
IMM Update pg 2 of IMM Updated and reviewed w/ patient. Copy provided and copy dated, initialed and placed in chart.
== END 2025-01-14 14:29 | disposition home or self-care (01) | DRG 190 ==
LOC: ER 01-11 00:48 → MEDSURG 01-11 01:59
PROVIDERS: Admitting Provider Internal Medicine; Emergency Provider Physician Assistant; PCP Family Medicine; Visit Provider Internal Medicine
DX: J44.1 Chronic obstructive pulmonary disease with (acute) exacerbation (principal); I50.33 Acute on chronic diastolic (congestive) heart failure; F31.4 Bipolar disorder, current episode depressed, severe, without psychotic features; G93.32 Myalgic encephalomyelitis/chronic fatigue syndrome; Z87.891 Personal history of nicotine dependence; R09.02 Hypoxemia; Z79.890 Hormone replacement therapy; Z99.81 Dependence on supplemental oxygen; K58.9 Irritable bowel syndrome, unspecified; M79.7 Fibromyalgia; M19.90 Unspecified osteoarthritis, unspecified site; E03.9 Hypothyroidism, unspecified
CPT/HCPCS: 32555; 36415; 71045; 71275; 76604; 80048; 80053; 83615; 83735; 83880; 84100; 84145; 85025; 85378; 86140; 87486; 87581; 87633; 90471; 90732; 93005; 94640; 94664; 96374; 99285; G0378; J0360; J1940; J2405; J2919; J7626; J9999; Q0144

== ENCOUNTER → 2025-01-21 09:29 | Outpatient (BNVA) | payer MEDICARE, OTHER, SELFPAY | PROVIDERS: PCP Family Medicine; Visit Provider Family Medicine | DX: E78.2 Mixed hyperlipidemia (principal); E55.9 Vitamin D deficiency, unspecified; M85.851 Other specified disorders of bone density and structure, right thigh; M85.852 Other specified disorders of bone density and structure, left thigh | CPT/HCPCS: 80048; 82306 ==

== ENCOUNTER → 2025-01-30 14:39 | Outpatient (BNVA) | payer MEDICARE, OTHER, SELFPAY | PROVIDERS: PCP Family Medicine; Visit Provider Internal Medicine | DX: I50.30 Unspecified diastolic (congestive) heart failure (principal); E78.2 Mixed hyperlipidemia; R06.00 Dyspnea, unspecified | CPT/HCPCS: 99204 ==

== ENCOUNTER 2025-03-28 13:45 | Oncology outpatient (recurring) (ONCR) | payer MEDICARE, OTHER, SELFPAY ==
[2025-03-28 13:55] VITALS: BP 123/68; PULSE 76; RESP 18; TEMP 36.9; O2SAT 94
[2025-03-28 15:09] VITALS: BP 130/65; PULSE 56; RESP 17; TEMP 37.1; O2SAT 93
== END 2025-04-22 23:59 | disposition home or self-care (01) ==
LOC: ONCMED 13:45
PROVIDERS: PCP Family Medicine; Visit Provider Family Medicine
DX: M25.871 Other specified joint disorders, right ankle and foot (principal); Z79.899 Other long term (current) drug therapy
CPT/HCPCS: 96365; J3489

== ENCOUNTER 2025-04-01 14:38 | Outpatient (CLI) | payer MEDICARE, OTHER, SELFPAY ==
--- NOTE | 2025-04-01 14:41 | MM_ITS ---
WS: [id number] BILATERAL 3D TOMOSYNTHESIS DIGITAL SCREENING MAMMOGRAPHY WITH CAD CLINICAL INFORMATION: screening HISTORY: Screening mammogram. No current complaints. COMPARISON: 2023 TECHNIQUE: Bilateral CC and MLO views. FINDINGS: The breasts are composed of heterogeneous fibroglandular density tissue, which can limit the detection of small underlying mass lesions. Punctate and lucent centered calcifications. 9 mm ovoid nodule upper outer LEFT breast progressed compared to previous. Recommend LEFT breast diagnostic mammography and ultrasound if persistent. RIGHT breast is unremarkable. MM/MM [facility] tomosynthesis [id number] IMPRESSION: DENSITY: The breasts are heterogeneously dense, which may obscure small masses. BI-RADS: 0 - Incomplete: Need additional imaging evaluation FOLLOW UP: Need Additional Imaging Recommend LEFT breast diagnostic mammography and ultrasound.
== END 2025-04-01 14:39 | disposition home or self-care (01) ==
PROVIDERS: PCP Family Medicine; Visit Provider Family Medicine
DX: Z12.31 Encounter for screening mammogram for malignant neoplasm of breast (principal); R92.333 Mammographic heterogeneous density, bilateral breasts; R92.1 Mammographic calcification found on diagnostic imaging of breast; N63.21 Unspecified lump in the left breast, upper outer quadrant
CPT/HCPCS: 77063; 77067

== ENCOUNTER 2025-04-22 12:23 | Outpatient (CLI) | payer MEDICARE, OTHER, SELFPAY ==
--- NOTE | 2025-04-22 12:31 | US_ITS ---
WS: [id number] LEFT 3D TOMOSYNTHESIS DIGITAL MAMMOGRAPHY WITH CAD CLINICAL INFORMATION: Breast mass HISTORY: Additional views COMPARISON: 04/01/2025 TECHNIQUE: 3 views of the left breast were obtained. FINDINGS: The left breast is composed of heterogeneous fibroglandular density tissue, which can limit the detection of small underlying mass lesions. Again seen is the 9 mm ovoid asymmetry upper outer LEFT breast. Ultrasound described below. ULTRASOUND BREAST LEFT TECHNIQUE: Ultrasound left breast focused area of concern. CLINICAL INFORMATION: Breast mass FINDINGS: Ultrasound upper outer quadrant LEFT breast. Irregular hypoechoic ovoid lesion with adjacent ductal ectasia. This is technically indeterminate and recommend further evaluation with ultrasound-guided biopsy. This is at the 2 o'clock position 2 cm from the nipple measuring 1.1 x 0.7 x 0.4 cm likely corresponding to the mammographic findings. US/US breast LT limited* [id number] IMPRESSION: DENSITY: The breasts are heterogeneously dense, which may obscure small masses. BI-RADS: 4 - Suspicious Finding - Biopsy Should Be Considered FOLLOW UP: US Guided Biopsy Recommended Recommend ultrasound-guided biopsy of the LEFT breast lesion
--- NOTE | 2025-04-22 12:45 | MM_ITS ---
WS: [id number] LEFT 3D TOMOSYNTHESIS DIGITAL MAMMOGRAPHY WITH CAD CLINICAL INFORMATION: Breast mass HISTORY: Additional views COMPARISON: 04/01/2025 TECHNIQUE: 3 views of the left breast were obtained. FINDINGS: The left breast is composed of heterogeneous fibroglandular density tissue, which can limit the detection of small underlying mass lesions. Again seen is the 9 mm ovoid asymmetry upper outer LEFT breast. Ultrasound described below. ULTRASOUND BREAST LEFT TECHNIQUE: Ultrasound left breast focused area of concern. CLINICAL INFORMATION: Breast mass FINDINGS: Ultrasound upper outer quadrant LEFT breast. Irregular hypoechoic ovoid lesion with adjacent ductal ectasia. This is technically indeterminate and recommend further evaluation with ultrasound-guided biopsy. This is at the 2 o'clock position 2 cm from the nipple measuring 1.1 x 0.7 x 0.4 cm likely corresponding to the mammographic findings. [id number] IMPRESSION: DENSITY: The breasts are heterogeneously dense, which may obscure small masses. BI-RADS: 4 - Suspicious Finding - Biopsy Should Be Considered FOLLOW UP: US Guided Biopsy Recommended Recommend ultrasound-guided biopsy of the LEFT breast lesion
== END 2025-04-22 12:24 | disposition home or self-care (01) ==
LOC: RAD 12:23
PROVIDERS: PCP Family Medicine; Visit Provider Family Medicine
DX: N63.22 Unspecified lump in the left breast, upper inner quadrant (principal); R92.333 Mammographic heterogeneous density, bilateral breasts
CPT/HCPCS: 76642; 77061; G0279

== ENCOUNTER 2025-05-01 13:44 | Oncology outpatient (recurring) (ONCR) | payer MEDICARE, OTHER, SELFPAY ==
--- NOTE | 2025-05-01 14:45 | US_ITS ---
WS: [id number] ULTRASOUND-GUIDED LEFT BREAST BIOPSY CLINICAL INFORMATION: left breast mass FINDINGS: The procedure including risks, benefits, and complications were discussed with the patient who agreed to proceed. Using sterile technique patient was prepped and draped in the usual sterile fashion. After 1% lidocaine utilizing real-time ultrasound guidance 6 14-gauge cores were obtained of the LEFT breast lesion at the 2 o'clock position 2 cm from the nipple. Subsequently a titanium clip was placed in the biopsy cavity. No immediate complications. US/[place] [id number] IMPRESSION: 1. Uncomplicated ultrasound-guided LEFT breast biopsy. 2. The pathology demonstrates fibrocystic changes with mild ductal hyperplasia and stromal fibrosis. No atypia. No malignancy. 3. Recommend 6-month follow-up to confirm stability. DENSITY: The breasts are heterogeneously dense, which may obscure small masses. BI-RADS: 2 - Benign FOLLOW UP: 6 Month Follow-up Recommend 6-month follow-up LEFT breast diagnostic mammography and ultrasound t o confirm stability
== END 2025-05-23 23:59 | disposition home or self-care (01) ==
LOC: ONCMED 13:47
PROVIDERS: PCP Family Medicine; Visit Provider Family Medicine
DX: N63.21 Unspecified lump in the left breast, upper outer quadrant (principal); N60.32 Fibrosclerosis of left breast; N60.42 Mammary duct ectasia of left breast; N62 Hypertrophy of breast; R92.0 Mammographic microcalcification found on diagnostic imaging of breast
CPT/HCPCS: 19083; 88305

== ENCOUNTER → 2025-08-07 14:52 | Outpatient (BNVA) | payer MEDICARE, OTHER, SELFPAY | PROVIDERS: PCP Family Medicine; Visit Provider Internal Medicine | DX: I50.30 Unspecified diastolic (congestive) heart failure (principal); Z87.891 Personal history of nicotine dependence; R06.09 Other forms of dyspnea | CPT/HCPCS: 99214 ==

== ENCOUNTER → 2025-08-22 12:05 | Outpatient (BNVA) | payer MEDICARE, OTHER, SELFPAY | PROVIDERS: PCP Family Medicine; Visit Provider Family Medicine | DX: E78.2 Mixed hyperlipidemia (principal); E03.9 Hypothyroidism, unspecified | CPT/HCPCS: 80053; 80061; 84439; 84443; 85025 ==

== ENCOUNTER 2025-09-26 13:05 | Outpatient (CLI) | payer MEDICARE, OTHER, SELFPAY ==
--- NOTE | 2025-09-26 13:13 | MM_ITS ---
WS: [id number] LEFT 3D TOMOSYNTHESIS DIGITAL MAMMOGRAPHY WITH CAD CLINICAL INFORMATION: breast mass HISTORY: 6-month postbiopsy follow-up COMPARISON: 2024 TECHNIQUE: 3 views of the left breast were obtained. FINDINGS: The left breast is composed of heterogeneous fibroglandular density tissue, which can limit the detection of small underlying mass lesions. Stable 9 mm ovoid dense asymmetry upper outer LEFT breast with associated biopsy marker. Dense parenchymal tissue in this area. This is stable in appearance compared to previous. Ultrasound described below ULTRASOUND BREAST LEFT TECHNIQUE: Ultrasound left breast focused area of concern. CLINICAL INFORMATION: breast mass COMPARISON: 2024 FINDINGS: Ultrasound LEFT breast upper outer quadrant. Again seen is the dense hypoechoic lesion with ductal ectasia. Previous biopsy was benign. This is stable in appearance of the 2 o'clock position 2 cm from the nipple. This measures 1.1 x 1.0 cm and is unchanged in appearance. Previous biopsy showed fibrocystic changes with ductal ectasia and stromal fibrosis. Recommend return to annual screening mammography. MM/MM diag tomosynthesis [id number] IMPRESSION: DENSITY: The breasts are heterogeneously dense, which may obscure small masses. BI-RADS: 2 - Benign FOLLOW UP: 1 Year Follow-up Recommend return to annual screening mammography.
--- NOTE | 2025-09-26 13:35 | US_ITS ---
WS: [id number] LEFT 3D TOMOSYNTHESIS DIGITAL MAMMOGRAPHY WITH CAD CLINICAL INFORMATION: breast mass HISTORY: 6-month postbiopsy follow-up COMPARISON: 2024 TECHNIQUE: 3 views of the left breast were obtained. FINDINGS: The left breast is composed of heterogeneous fibroglandular density tissue, which can limit the detection of small underlying mass lesions. Stable 9 mm ovoid dense asymmetry upper outer LEFT breast with associated biopsy marker. Dense parenchymal tissue in this area. This is stable in appearance compared to previous. Ultrasound described below ULTRASOUND BREAST LEFT TECHNIQUE: Ultrasound left breast focused area of concern. CLINICAL INFORMATION: breast mass COMPARISON: 2024 FINDINGS: Ultrasound LEFT breast upper outer quadrant. Again seen is the dense hypoechoic lesion with ductal ectasia. Previous biopsy was benign. This is stable in appearance of the 2 o'clock position 2 cm from the nipple. This measures 1.1 x 1.0 cm and is unchanged in appearance. Previous biopsy showed fibrocystic changes with ductal ectasia and stromal fibrosis. Recommend return to annual screening mammography. US/US breast LT limited* [id number] IMPRESSION: DENSITY: The breasts are heterogeneously dense, which may obscure small masses. BI-RADS: 2 - Benign FOLLOW UP: 1 Year Follow-up Recommend return to annual screening mammography.
== END 2025-09-26 13:06 | disposition home or self-care (01) ==
LOC: RAD 13:07
PROVIDERS: PCP Family Medicine; Visit Provider Family Medicine
DX: N63.20 Unspecified lump in the left breast, unspecified quadrant (principal); R92.333 Mammographic heterogeneous density, bilateral breasts; R92.323 Mammographic fibroglandular density, bilateral breasts; R92.8 Other abnormal and inconclusive findings on diagnostic imaging of breast; N60.42 Mammary duct ectasia of left breast; N60.32 Fibrosclerosis of left breast
CPT/HCPCS: 76642; 77061; 77063